=== PATIENT | male | born 1960 | race Caucasian/White ===

== ENCOUNTER 2017-05-22 20:09 | Inpatient (IN) | payer MEDICAID ==
[~2017-05-22] VITALS: Ht 188 cm; Wt 73.5 kg
[2017-05-22 20:09] VITALS: BP_SYST 153
[~2017-05-22 20:09] MED LIST: KETAMINE HCL 500 MG/10 ML VIAL IVP ONE; LR 1,000 ML IV.SOLN IV ONE; MIDAZOLAM HCL 5 MG/5 ML VIAL IVP ONE; NS IRRIG SOLN 1000 ML IR ONE; SEVOFLURANE 15 MIN GAS INH ONE; WATER FOR IRRIGATION,STERILE 1,000 ML IRRIG.SOLN IR ONE; fentaNYL CITRATE/PF 100 MCG/2 ML AMP IVP ONE
[2017-05-22] MEDS ORDERED: NACL 0.9% 1,000 ML IV ONE ×2 (20:30→23:45)
[2017-05-22 21:20] LABS: HEMATOCRIT 25.3 % (36-54); HEMOGLOBIN 8.1 g/dL (14.0-18.0); MEAN CORPUSCULAR HEMOGLOBIN 30 pg (27-31); MEAN CORPUSCULAR HGB CONC 32 % (32-36); MEAN CORPUSCULAR VOLUME 92 fL (79.0-98.0); PLATELET COUNT (AUTO) 479 K/uL (130-430); RED BLOOD CELL COUNT(AUTO) 2.76 MIL/uL (4.2-6.2); RED CELL DISTRIBUTION WIDTH 16.3 % (9.0-15.0); WHITE BLOOD COUNT (AUTO) 19.8 K/uL (4.8-10.8)
[2017-05-22 21:32] LABS: CREATININE 1.36 mg/dL (0.55-1.30); TOTAL BILIRUBIN 0.6 mg/dL (0.0-1.0)
[2017-05-22 21:43] LABS: ALBUMIN 2.5 g/dL (3.4-4.8); CALCIUM 9.5 mg/dL (8.4-11.0)
[2017-05-22 21:47] LABS: POTASSIUM 2.9 mmol/L (3.5-5.1)
[2017-05-22 21:49] LABS: BAND % (MANUAL) 3 % (0-6); BASOPHILS % (MANUAL) 0 % (0-2); EOSINOPHILS % (MANUAL) 8 % (0-7); LYMPHOCYTES % (MANUAL) 15 % (20-46); MONOCYTES % (MANUAL) 12 % (0-11)
[2017-05-22 21:55] LABS: INR 1.1 (0.80-1.20); PROTHROMBIN TIME 11.4 SECS (9.5-12.5)
[2017-05-22] MEDS ORDERED: KCL 40 mEq in 100 mL (PREMIX) 100 ML IV ONE (22:00)
[2017-05-22 22:13] LABS: BILIRUBIN,URINE NEGATIVE (NEGATIVE); BLOOD, URINE 3+ (NEGATIVE); CLARITY/URINE CLEAR (CLEAR); COLOR,URINE YELLOW (YELLOW); GLUCOSE,URINE NEGATIVE (NEGATIVE); KETONES,URINE TRACE (NEGATIVE); LEUKOCYTE ESTERASE ,URINE TRACE (NEGATIVE); NITRITE, URINE NEGATIVE (NEGATIVE); PH,URINE 5.5 (5.0-8.0); PROTEIN URINE 3+ (NEGATIVE); UROBILINOGEN,URINE 0.2 (0.2-1.0)
[2017-05-22] MEDS ORDERED: PIPERACILLIN/TAZO 3.375 GM in NS 50 ML IV ONE (22:15)
[2017-05-22] MEDS ORDERED: PIPERACILLIN/TAZOBACTAM 3.375 GM/VIAL (ZOSYN) IV ONE (22:24)
[2017-05-22] MEDS ORDERED: KCL 40mEq in D5/0.45NS 1000 mL 1,000 ML IV ONE (22:28)
[2017-05-22 22:29] LABS: BACTERIA,URINE RARE /HPF (None Seen); RBC,URINE 20-50 /HPF (0-3); YEAST,URINE Moderate /HPF (None Seen)
[2017-05-22] MEDS ORDERED: ASPI-1063 GT (22:53)
[2017-05-22] MEDS ORDERED: ASCO500T20 GT (22:53)
[2017-05-22] MEDS ORDERED: CEFE2PIG2 IV (22:53)
[2017-05-22] MEDS ORDERED: LABE100T GT (22:53)
[2017-05-22] MEDS ORDERED: LEVO100T9 GT (22:53)
[2017-05-22] MEDS ORDERED: NOR10 GT (22:53)
[2017-05-22] MEDS ORDERED: HEPA500014 SUBCUT (22:53)
[2017-05-22] MEDS ORDERED: DEPAK250 GT (22:53)
[2017-05-22] MEDS ORDERED: ACID1CAP GT (22:53)
[2017-05-23] VITALS (7 sets, daily range): BP systolic 146–168
[2017-05-23] MEDS ORDERED: PANTOPRAZOLE SODIUM 40 MG/VIAL (PROTONIX) IVP ONE (00:15)
[2017-05-23] MEDS ORDERED: INSULIN REGULAR, HUMAN 100 UNITS/ML, 10 ML VIAL (novoLIN R) SUBCUT PRN (00:30)
[2017-05-23] MEDS ORDERED: cefTRIAXone 1 GM in D5W 50 ML IV ONE (01:00)
[2017-05-23] MEDS: LR 1,000 ML IV SCH ×5 (01:20→20:00)
[2017-05-23] MEDS ORDERED: cefTRIAXone 1 GM VIAL ONE (02:02)
[2017-05-23] MEDS: IPRATROPIUM/ALBUTEROL SULFATE 3 ML AMPUL.NEB INH SCH ×6 (03:26→23:54)
[2017-05-23] MEDS: LABETALOL HCL 100 MG TABLET GT SCH ×3 (06:01→17:12)
[2017-05-23] MEDS ORDERED: [UNRECOGNIZED DRUG - OTHER] GT SCH (09:00)
[2017-05-23] MEDS: ASCORBIC ACID 500 MG TABLET GT SCH (09:45)
[2017-05-23] MEDS: VALPROIC ACID ORAL SYRUP 250 MG/5 ML UDC GT SCH ×3 (09:45→21:44)
[2017-05-23] MEDS: LEVOTHYROXINE SODIUM 0.1 MG TABLET GT SCH (09:49)
[2017-05-23] MEDS: amLODIPine BESYLATE 10 MG TABLET GT SCH (09:49)
[2017-05-23] MEDS: PANTOPRAZOLE SODIUM 40 MG/VIAL (PROTONIX) IVP SCH ×2 (09:50→20:38)
[2017-05-23] MEDS: TAMSULOSIN HCL 0.4 MG CAP PO SCH (15:05)
[2017-05-23 15:06] LABS: BASOPHILS # (AUTO) 0.1 K/uL (0.0-0.2); BASOPHILS % (AUTO) 0.5 % (0.0-2.0); EOSINOPHILS # (AUTO) 3.4 K/uL (0.0-0.4); EOSINOPHILS % (AUTO) 16.2 % (0.0-4.0); HEMATOCRIT 23.5 % (36-54); LYMPHOCYTES # (AUTO) 2.5 K/uL (1.0-5.5); LYMPHOCYTES % (AUTO) 12.1 % (20.5-51.5); MEAN CORPUSCULAR HEMOGLOBIN 31 pg (27-31); MEAN CORPUSCULAR HGB CONC 34 % (32-36); MEAN CORPUSCULAR VOLUME 92 fL (79.0-98.0); MONOCYTES # (AUTO) 2.2 K/uL (0.0-1.0); MONOCYTES % (AUTO) 10.5 % (1.7-9.3); NEUTROPHILS # (AUTO) 12.5 K/uL (1.8-7.7); NEUTROPHILS % (AUTO) 60.7 % (40.0-70.0); PLATELET COUNT (AUTO) 399 K/uL (130-430); RED BLOOD CELL COUNT(AUTO) 2.56 MIL/uL (4.2-6.2); RED CELL DISTRIBUTION WIDTH 15.8 % (9.0-15.0); WHITE BLOOD COUNT (AUTO) 20.7 K/uL (4.8-10.8)
[2017-05-23] MEDS ORDERED: TAMSULOSIN HCL 0.4 MG CAP PO ONE (15:15)
[2017-05-23 15:20] LABS: CREATININE 1.22 mg/dL (0.55-1.30)
[2017-05-23 15:38] LABS: POTASSIUM 2.8 mmol/L (3.5-5.1)
[2017-05-23 15:39] LABS: CALCIUM 8.8 mg/dL (8.4-11.0)
[2017-05-23] MEDS: LACTOBACILLUS RHAMNOSUS GG 1 CAP CAPSULE PO SCH (20:36)
[2017-05-23] MEDS ORDERED: POTASSIUM CHLORIDE 20 MEQ/PKT PACKET GT ONE (20:45)
[2017-05-24] MEDS: LABETALOL HCL 100 MG TABLET GT SCH ×4 (00:19→17:45)
[2017-05-24 00:28] VITALS: BP_SYST 159
[2017-05-24] MEDS: LR 1,000 ML IV SCH ×2 (00:56→06:00)
[2017-05-24] MEDS: IPRATROPIUM/ALBUTEROL SULFATE 3 ML AMPUL.NEB INH SCH ×6 (03:01→23:29)
[2017-05-24 04:07] VITALS: BP_SYST 150
[2017-05-24] MEDS: VALPROIC ACID ORAL SYRUP 250 MG/5 ML UDC GT SCH ×3 (05:28→20:47)
[2017-05-24 07:00] LABS: BASOPHILS # (AUTO) 0.1 K/uL (0.0-0.2); BASOPHILS % (AUTO) 0.4 % (0.0-2.0); EOSINOPHILS # (AUTO) 3.6 K/uL (0.0-0.4); EOSINOPHILS % (AUTO) 19.3 % (0.0-4.0); HEMATOCRIT 22.1 % (36-54); HEMOGLOBIN 7.5 g/dL (14.0-18.0); LYMPHOCYTES # (AUTO) 2.3 K/uL (1.0-5.5); LYMPHOCYTES % (AUTO) 12.3 % (20.5-51.5); MEAN CORPUSCULAR HEMOGLOBIN 31 pg (27-31); MEAN CORPUSCULAR HGB CONC 34 % (32-36); MEAN CORPUSCULAR VOLUME 91 fL (79.0-98.0); MONOCYTES # (AUTO) 1.9 K/uL (0.0-1.0); MONOCYTES % (AUTO) 10.3 % (1.7-9.3); NEUTROPHILS # (AUTO) 10.9 K/uL (1.8-7.7); PLATELET COUNT (AUTO) 403 K/uL (130-430); RED BLOOD CELL COUNT(AUTO) 2.43 MIL/uL (4.2-6.2); RED CELL DISTRIBUTION WIDTH 15.9 % (9.0-15.0); WHITE BLOOD COUNT (AUTO) 18.8 K/uL (4.8-10.8)
[2017-05-24 07:24] LABS: TOTAL IRON BIND. CAPACITY 181 ug/dL (250-450)
[2017-05-24 07:34] LABS: ALBUMIN 2.3 g/dL (3.4-4.8); CREATININE 1.16 mg/dL (0.55-1.30); FREE T4 (FREE THYROXINE) 1.1 ng/dL (0.6-1.6); PHOSPHORUS 2.3 mg/dL (2.7-4.5); POTASSIUM 3.1 mmol/L (3.5-5.1); THYROID STIMULATING HORMONE 0.48 uIu/mL (0.34-4.82); TOTAL BILIRUBIN 0.4 mg/dL (0.0-1.0)
[2017-05-24 07:57] VITALS: BP_SYST 154
[2017-05-24 08:02] LABS: NEUTROPHILS % (AUTO) 57.7 % (40.0-70.0)
[2017-05-24 08:22] LABS: CALCIUM 8.8 mg/dL (8.4-11.0)
[2017-05-24] MEDS: PANTOPRAZOLE SODIUM 40 MG/VIAL (PROTONIX) IVP SCH ×2 (09:17→20:47)
[2017-05-24] MEDS: LACTOBACILLUS RHAMNOSUS GG 1 CAP CAPSULE PO SCH ×2 (09:18→20:47)
[2017-05-24] MEDS: ASCORBIC ACID 500 MG TABLET GT SCH (09:18)
[2017-05-24] MEDS: LEVOTHYROXINE SODIUM 0.1 MG TABLET GT SCH (09:18)
[2017-05-24] MEDS: POTASSIUM CHLORIDE 20 MEQ/PKT PACKET GT SCH ×3 (09:18→20:46)
[2017-05-24] MEDS: amLODIPine BESYLATE 10 MG TABLET GT SCH (09:20)
[2017-05-24] MEDS: TAMSULOSIN HCL 0.4 MG CAP PO SCH (09:21)
[2017-05-24] MEDS: ACETAMINOPHEN 650 MG/20.3 ML UDC PO PRN (09:24)
[2017-05-24] MEDS: D5W 1,000 ML IV SCH (11:58)
[2017-05-24 12:37] VITALS: BP_SYST 148
[2017-05-24] MEDS ORDERED: BISACODYL 10 MG/SUPPOSITORY RC ONE (15:30)
[2017-05-24] MEDS ORDERED: BISACODYL 10 MG/SUPPOSITORY RC PRN (15:30)
[2017-05-24 16:05] VITALS: BP_SYST 158
[2017-05-24] MEDS ORDERED: POTASSIUM CHLORIDE 20 MEQ/PKT PACKET PO ONE (16:15)
[2017-05-24] MEDS ORDERED: MAGNESIUM SULFATE 4 GM in D5W 250 ML IV ONE (16:15)
[2017-05-24 20:00] VITALS: BP_SYST 152
[2017-05-24] MEDS: cefTRIAXone 1 GM in D5W 50 ML IV SCH (20:59)
[2017-05-24] MEDS: metroNIDAZOLE 500 mg/NS 100 ML IV SCH (21:41)
[2017-05-25] VITALS (7 sets, daily range): BP systolic 151–162
[2017-05-25] MEDS: IPRATROPIUM/ALBUTEROL SULFATE 3 ML AMPUL.NEB INH SCH ×6 (05:17→23:13)
[2017-05-25] MEDS: metroNIDAZOLE 500 mg/NS 100 ML IV SCH ×3 (05:28→23:02)
[2017-05-25] MEDS: VALPROIC ACID ORAL SYRUP 250 MG/5 ML UDC GT SCH ×3 (05:29→23:02)
[2017-05-25] MEDS: LABETALOL HCL 100 MG TABLET GT SCH ×4 (05:30→17:45)
[2017-05-25] MEDS: D5W 1,000 ML IV SCH (05:31)
[2017-05-25 07:44] LABS: CALCIUM 8.7 mg/dL (8.4-11.0); CREATININE 1.05 mg/dL (0.55-1.30); POTASSIUM 3.4 mmol/L (3.5-5.1)
[2017-05-25 07:48] LABS: HEMATOCRIT 26.2 % (36-54); HEMOGLOBIN 9.1 g/dL (14.0-18.0); MEAN CORPUSCULAR HEMOGLOBIN 32 pg (27-31); MEAN CORPUSCULAR HGB CONC 35 % (32-36); MEAN CORPUSCULAR VOLUME 91 fL (79.0-98.0); PLATELET COUNT (AUTO) 360 K/uL (130-430); RED BLOOD CELL COUNT(AUTO) 2.87 MIL/uL (4.2-6.2); RED CELL DISTRIBUTION WIDTH 16.2 % (9.0-15.0); WHITE BLOOD COUNT (AUTO) 21.8 K/uL (4.8-10.8)
[2017-05-25 08:05] LABS: ALBUMIN 2.2 g/dL (3.4-4.8); THYROID STIMULATING HORMONE 0.82 uIu/mL (0.36-3.74); TOTAL BILIRUBIN 0.4 mg/dL (0.0-1.0)
[2017-05-25 09:04] LABS: BASOPHILS % (MANUAL) 0 % (0-2); EOSINOPHILS % (MANUAL) 22 % (0-7); LYMPHOCYTES % (MANUAL) 10 % (20-46); MONOCYTES % (MANUAL) 9 % (0-11)
[2017-05-25] MEDS: POTASSIUM CHLORIDE 10 MEQ in D5W 1,000 ML IV SCH ×2 (09:15→11:14)
[2017-05-25] MEDS: PANTOPRAZOLE SODIUM 40 MG/VIAL (PROTONIX) IVP SCH ×2 (10:04→20:40)
[2017-05-25] MEDS: POTASSIUM CHLORIDE 20 MEQ/PKT PACKET GT SCH ×3 (10:04→20:40)
[2017-05-25] MEDS: LACTOBACILLUS RHAMNOSUS GG 1 CAP CAPSULE PO SCH ×2 (10:05→20:41)
[2017-05-25] MEDS: amLODIPine BESYLATE 10 MG TABLET GT SCH (10:05)
[2017-05-25] MEDS: LEVOTHYROXINE SODIUM 0.1 MG TABLET GT SCH (10:05)
[2017-05-25] MEDS: TAMSULOSIN HCL 0.4 MG CAP PO SCH (10:05)
[2017-05-25] MEDS: ASCORBIC ACID 500 MG TABLET GT SCH (10:06)
[2017-05-25] MEDS ORDERED: POTASSIUM CHLORIDE 20 MEQ/PKT PACKET PO ONE (11:30)
[2017-05-25] MEDS: cefTRIAXone 1 GM in D5W 50 ML IV SCH (20:40)
[2017-05-26] VITALS (7 sets, daily range): BP systolic 139–175
[2017-05-26] MEDS ORDERED: cloNIDine HCL 0.1 MG TABLET PO PRN (01:00)
[2017-05-26] MEDS ORDERED: CARVEDILOL 12.5 MG TABLET (COREG) PO ONE (01:00)
[2017-05-26] MEDS: LABETALOL HCL 100 MG TABLET GT SCH ×4 (01:50→17:25)
[2017-05-26] MEDS ORDERED: CARVEDILOL 12.5 MG TABLET (COREG) GT ONE (02:00)
[2017-05-26] MEDS: IPRATROPIUM/ALBUTEROL SULFATE 3 ML AMPUL.NEB INH SCH ×6 (02:57→23:37)
[2017-05-26] MEDS: VALPROIC ACID ORAL SYRUP 250 MG/5 ML UDC GT SCH ×3 (05:30→21:53)
[2017-05-26] MEDS: metroNIDAZOLE 500 mg/NS 100 ML IV SCH ×3 (05:30→21:52)
[2017-05-26] MEDS: DEXTROSE 50% JECT 50 ML DISP.SYRIN IVP PRN (06:13)
[2017-05-26 06:28] LABS: BASOPHILS # (AUTO) 0.1 K/uL (0.0-0.2); BASOPHILS % (AUTO) 0.5 % (0.0-2.0); EOSINOPHILS % (AUTO) 20.2 % (0.0-4.0); HEMOGLOBIN 8.9 g/dL (14.0-18.0); LYMPHOCYTES % (AUTO) 7.9 % (20.5-51.5); MEAN CORPUSCULAR HEMOGLOBIN 31 pg (27-31); MEAN CORPUSCULAR HGB CONC 34 % (32-36); MEAN CORPUSCULAR VOLUME 91 fL (79.0-98.0); NEUTROPHILS # (AUTO) 15.8 K/uL (1.8-7.7); PLATELET COUNT (AUTO) 373 K/uL (130-430); RED BLOOD CELL COUNT(AUTO) 2.87 MIL/uL (4.2-6.2); RED CELL DISTRIBUTION WIDTH 16.2 % (9.0-15.0); WHITE BLOOD COUNT (AUTO) 24.9 K/uL (4.8-10.8)
[2017-05-26 06:35] LABS: CREATININE 1.08 mg/dL (0.55-1.30); POTASSIUM 4.4 mmol/L (3.5-5.1)
[2017-05-26] MEDS: POTASSIUM CHLORIDE 10 MEQ in D5W 1,000 ML IV SCH (06:50)
[2017-05-26 08:04] LABS: NEUTROPHILS % (AUTO) 63.4 % (40.0-70.0)
[2017-05-26] MEDS: LEVOTHYROXINE SODIUM 0.1 MG TABLET GT SCH (08:17)
[2017-05-26] MEDS: ASCORBIC ACID 500 MG TABLET GT SCH (08:17)
[2017-05-26] MEDS: TAMSULOSIN HCL 0.4 MG CAP PO SCH (08:17)
[2017-05-26] MEDS: amLODIPine BESYLATE 10 MG TABLET GT SCH (08:17)
[2017-05-26] MEDS: POTASSIUM CHLORIDE 20 MEQ/PKT PACKET GT SCH ×3 (08:17→21:53)
[2017-05-26] MEDS: PANTOPRAZOLE SODIUM 40 MG/VIAL (PROTONIX) IVP SCH ×2 (08:17→21:52)
[2017-05-26] MEDS: LACTOBACILLUS RHAMNOSUS GG 1 CAP CAPSULE PO SCH ×2 (08:17→21:53)
[2017-05-26] MEDS ORDERED: CARVEDILOL 12.5 MG TABLET (COREG) PO SCH (09:00)
[2017-05-26] MEDS ORDERED: CARVEDILOL 12.5 MG TABLET (COREG) GT SCH ×2 (09:00)
[2017-05-26] MEDS ORDERED: NACL 0.9% 1,000 ML IV SCH (09:54)
[2017-05-26] MEDS ORDERED: MEPERIDINE HCL/PF 25 MG/ML DISP.SYRIN IVP PRN ×2 (10:00)
[2017-05-26] MEDS ORDERED: ONDANSETRON HCL 4 MG/2 ML VIAL IVP PRN (10:00)
[2017-05-26] MEDS ORDERED: LABETALOL 100 MG/ 20ML VIAL IVP PRN (12:15)
[2017-05-26] MEDS ORDERED: 0.45% NS 500 ML IV ONE (14:30)
[2017-05-26] MEDS: cloNIDine HCL 0.1 MG TABLET GT PRN (15:22)
[2017-05-26] MEDS ORDERED: NS 1000 ML IV.SOLN IV ONE (16:17)
[2017-05-26] MEDS ORDERED: ONDANSETRON HCL 4 MG/2 ML VIAL IVP ONE (16:17)
[2017-05-26] MEDS ORDERED: SEVOFLURANE 15 MIN GAS INH ONE (16:17)
[2017-05-26] MEDS ORDERED: NS IRRIG SOLN 1000 ML IR ONE (16:17)
[2017-05-26] MEDS ORDERED: ROCURONIUM BROMIDE 10 MG/ML (ZEMURON) IV ONE (16:17)
[2017-05-26] MEDS: ACETAMINOPHEN 650 MG/20.3 ML UDC PO PRN (17:28)
[2017-05-26] MEDS: COLISTIMETHATE SODIUM 150 MG VIAL INH SCH (20:01)
[2017-05-26] MEDS: cefTRIAXone 1 GM in D5W 50 ML IV SCH (21:52)
[2017-05-26] MEDS: CARVEDILOL 12.5 MG TABLET (COREG) GT SCH (21:53)
[2017-05-27 00:30] VITALS: BP_SYST 158
[2017-05-27] MEDS: IPRATROPIUM/ALBUTEROL SULFATE 3 ML AMPUL.NEB INH SCH ×6 (03:55→23:50)
[2017-05-27 05:43] VITALS: BP_SYST 149
[2017-05-27] MEDS: VALPROIC ACID ORAL SYRUP 250 MG/5 ML UDC GT SCH ×3 (06:07→22:22)
[2017-05-27] MEDS: LABETALOL HCL 100 MG TABLET GT SCH ×4 (06:07→16:44)
[2017-05-27] MEDS: metroNIDAZOLE 500 mg/NS 100 ML IV SCH ×3 (06:08→22:22)
[2017-05-27 07:24] LABS: BASOPHILS # (AUTO) 0.5 K/uL (0.0-0.2); BASOPHILS % (AUTO) 1.5 % (0.0-2.0); EOSINOPHILS # (AUTO) 1.2 K/uL (0.0-0.4); EOSINOPHILS % (AUTO) 3.6 % (0.0-4.0); HEMATOCRIT 25.9 % (36-54); LYMPHOCYTES # (AUTO) 2.1 K/uL (1.0-5.5); LYMPHOCYTES % (AUTO) 6.3 % (20.5-51.5); MEAN CORPUSCULAR HEMOGLOBIN 32 pg (27-31); MEAN CORPUSCULAR HGB CONC 35 % (32-36); MEAN CORPUSCULAR VOLUME 91 fL (79.0-98.0); MONOCYTES # (AUTO) 2.9 K/uL (0.0-1.0); MONOCYTES % (AUTO) 8.6 % (1.7-9.3); NEUTROPHILS # (AUTO) 27.1 K/uL (1.8-7.7); PLATELET COUNT (AUTO) 418 K/uL (130-430); RED BLOOD CELL COUNT(AUTO) 2.85 MIL/uL (4.2-6.2); RED CELL DISTRIBUTION WIDTH 16.5 % (9.0-15.0)
[2017-05-27 07:25] LABS: ALBUMIN 2.2 g/dL (3.4-4.8); CALCIUM 8.6 mg/dL (8.4-11.0); CREATININE 1.31 mg/dL (0.55-1.30); POTASSIUM 4.2 mmol/L (3.5-5.1); TOTAL BILIRUBIN 0.3 mg/dL (0.0-1.0)
[2017-05-27 08:01] LABS: WHITE BLOOD COUNT (AUTO) 33.8 K/uL (4.8-10.8)
[2017-05-27] MEDS: TAMSULOSIN HCL 0.4 MG CAP PO SCH (09:43)
[2017-05-27] MEDS: CARVEDILOL 12.5 MG TABLET (COREG) GT SCH ×2 (09:45→20:55)
[2017-05-27] MEDS: POTASSIUM CHLORIDE 20 MEQ/PKT PACKET GT SCH ×3 (09:45→20:55)
[2017-05-27] MEDS: amLODIPine BESYLATE 10 MG TABLET GT SCH (09:46)
[2017-05-27] MEDS: PANTOPRAZOLE SODIUM 40 MG/VIAL (PROTONIX) IVP SCH ×2 (09:46→20:54)
[2017-05-27] MEDS: LEVOTHYROXINE SODIUM 0.1 MG TABLET GT SCH (09:46)
[2017-05-27] MEDS: ASCORBIC ACID 500 MG TABLET GT SCH (09:47)
[2017-05-27] MEDS: LACTOBACILLUS RHAMNOSUS GG 1 CAP CAPSULE PO SCH ×2 (09:47→20:56)
[2017-05-27] MEDS: 0.45% NACL 1,000 ML IV SCH (10:30)
[2017-05-27] MEDS: COLISTIMETHATE SODIUM 150 MG VIAL INH SCH ×2 (11:05→19:52)
[2017-05-27 12:29] VITALS: BP_SYST 151
[2017-05-27] MEDS: ACETAMINOPHEN 650 MG/20.3 ML UDC PO PRN (14:21)
[2017-05-27] MEDS ORDERED: *TOBRAMYCIN PER PHARMACY XX PRN (14:45)
[2017-05-27 16:09] VITALS: BP_SYST 141
[2017-05-27] MEDS ORDERED: TOBRAMYCIN SULFATE IV SCH (17:00)
[2017-05-27] MEDS ORDERED: NS IV SCH (17:00)
[2017-05-27] MEDS: cefTRIAXone 1 GM in D5W 50 ML IV SCH (20:54)
[2017-05-27 23:53] VITALS: BP_SYST 147
[2017-05-28] MEDS: LABETALOL HCL 100 MG TABLET GT SCH ×4 (01:28→17:07)
[2017-05-28 03:31] VITALS: BP_SYST 153
[2017-05-28] MEDS: IPRATROPIUM/ALBUTEROL SULFATE 3 ML AMPUL.NEB INH SCH ×5 (03:37→20:22)
[2017-05-28] MEDS: VALPROIC ACID ORAL SYRUP 250 MG/5 ML UDC GT SCH ×3 (05:45→21:31)
[2017-05-28] MEDS: metroNIDAZOLE 500 mg/NS 100 ML IV SCH ×3 (05:46→21:34)
[2017-05-28] MEDS: 0.45% NACL 1,000 ML IV SCH (05:51)
[2017-05-28 06:49] LABS: CALCIUM 8.5 mg/dL (8.4-11.0); CREATININE 1.25 mg/dL (0.55-1.30); POTASSIUM 4.2 mmol/L (3.5-5.1)
[2017-05-28 06:51] LABS: HEMATOCRIT 24.7 % (36-54); HEMOGLOBIN 8.2 g/dL (14.0-18.0); MEAN CORPUSCULAR HEMOGLOBIN 31 pg (27-31); MEAN CORPUSCULAR HGB CONC 33 % (32-36); MEAN CORPUSCULAR VOLUME 92 fL (79.0-98.0); PLATELET COUNT (AUTO) 395 K/uL (130-430); RED BLOOD CELL COUNT(AUTO) 2.68 MIL/uL (4.2-6.2); RED CELL DISTRIBUTION WIDTH 16.2 % (9.0-15.0)
[2017-05-28 06:56] LABS: TOTAL BILIRUBIN 0.3 mg/dL (0.0-1.0)
[2017-05-28 06:57] LABS: WHITE BLOOD COUNT (AUTO) 36.1 K/uL (4.8-10.8)
[2017-05-28 07:26] LABS: BAND % (MANUAL) 4 % (0-6)
[2017-05-28 07:27] LABS: BASOPHILS % (MANUAL) 0 % (0-2); EOSINOPHILS % (MANUAL) 0 % (0-7); LYMPHOCYTES % (MANUAL) 7 % (20-46); MONOCYTES % (MANUAL) 6 % (0-11)
[2017-05-28 08:06] VITALS: BP_SYST 160
[2017-05-28] MEDS: PANTOPRAZOLE SODIUM 40 MG/VIAL (PROTONIX) IVP SCH ×2 (09:39→20:38)
[2017-05-28] MEDS: ASCORBIC ACID 500 MG TABLET GT SCH (09:39)
[2017-05-28] MEDS: TAMSULOSIN HCL 0.4 MG CAP PO SCH (09:39)
[2017-05-28] MEDS: POTASSIUM CHLORIDE 20 MEQ/PKT PACKET GT SCH ×3 (09:39→20:39)
[2017-05-28] MEDS: LACTOBACILLUS RHAMNOSUS GG 1 CAP CAPSULE PO SCH ×2 (09:39→21:33)
[2017-05-28] MEDS: LEVOTHYROXINE SODIUM 0.1 MG TABLET GT SCH (09:39)
[2017-05-28] MEDS: cloNIDine HCL 0.1 MG TABLET GT PRN ×2 (09:40→17:08)
[2017-05-28] MEDS: CARVEDILOL 12.5 MG TABLET (COREG) GT SCH ×2 (09:40→21:32)
[2017-05-28] MEDS: amLODIPine BESYLATE 10 MG TABLET GT SCH (09:41)
[2017-05-28] MEDS: COLISTIMETHATE SODIUM 150 MG VIAL INH SCH ×2 (10:44→20:24)
[2017-05-28 12:00] VITALS: BP_SYST 161
[2017-05-28] MEDS ORDERED: AMIKACIN SULFATE 500 MG in D5W 100 ML IV ONE (15:00)
[2017-05-28 16:30] VITALS: BP_SYST 167
[2017-05-28] MEDS: ACETAMINOPHEN 650 MG/20.3 ML UDC PO PRN (17:08)
[2017-05-28] MEDS: cefTRIAXone 1 GM in D5W 50 ML IV SCH (20:40)
[2017-05-29] VITALS (7 sets, daily range): BP systolic 112–153
[2017-05-29] MEDS: IPRATROPIUM/ALBUTEROL SULFATE 3 ML AMPUL.NEB INH SCH ×7 (00:06→23:44)
[2017-05-29] MEDS: LABETALOL HCL 100 MG TABLET GT SCH ×4 (01:18→17:35)
[2017-05-29] MEDS: metroNIDAZOLE 500 mg/NS 100 ML IV SCH ×3 (05:13→22:35)
[2017-05-29] MEDS: 0.45% NACL 1,000 ML IV SCH (06:42)
[2017-05-29] MEDS: VALPROIC ACID ORAL SYRUP 250 MG/5 ML UDC GT SCH ×3 (06:42→22:35)
[2017-05-29 06:52] LABS: CALCIUM 8.5 mg/dL (8.4-11.0); CREATININE 1.2 mg/dL (0.55-1.30); POTASSIUM 4.2 mmol/L (3.5-5.1); TOTAL BILIRUBIN 0.4 mg/dL (0.0-1.0)
[2017-05-29 06:59] LABS: BASOPHILS # (AUTO) 0.1 K/uL (0.0-0.2); BASOPHILS % (AUTO) 0.3 % (0.0-2.0); EOSINOPHILS % (AUTO) 2.8 % (0.0-4.0); HEMATOCRIT 25.2 % (36-54); HEMOGLOBIN 8.4 g/dL (14.0-18.0); LYMPHOCYTES # (AUTO) 2.1 K/uL (1.0-5.5); LYMPHOCYTES % (AUTO) 6.2 % (20.5-51.5); MEAN CORPUSCULAR HEMOGLOBIN 31 pg (27-31); MEAN CORPUSCULAR HGB CONC 33 % (32-36); MEAN CORPUSCULAR VOLUME 93 fL (79.0-98.0); MONOCYTES # (AUTO) 2.5 K/uL (0.0-1.0); MONOCYTES % (AUTO) 7.4 % (1.7-9.3); NEUTROPHILS # (AUTO) 28.3 K/uL (1.8-7.7); PLATELET COUNT (AUTO) 402 K/uL (130-430); RED BLOOD CELL COUNT(AUTO) 2.71 MIL/uL (4.2-6.2); RED CELL DISTRIBUTION WIDTH 17.2 % (9.0-15.0)
[2017-05-29] MEDS: DEXTROSE 50% JECT 50 ML DISP.SYRIN IVP PRN (07:34)
[2017-05-29] MEDS: COLISTIMETHATE SODIUM 150 MG VIAL INH SCH ×2 (08:07→20:00)
[2017-05-29 08:51] LABS: NEUTROPHILS % (AUTO) 83.3 % (40.0-70.0)
[2017-05-29] MEDS: POTASSIUM CHLORIDE 20 MEQ/PKT PACKET GT SCH ×3 (09:06→22:34)
[2017-05-29] MEDS: PANTOPRAZOLE SODIUM 40 MG/VIAL (PROTONIX) IVP SCH ×2 (09:06→22:34)
[2017-05-29] MEDS: LACTOBACILLUS RHAMNOSUS GG 1 CAP CAPSULE PO SCH ×2 (09:06→22:33)
[2017-05-29] MEDS: ASCORBIC ACID 500 MG TABLET GT SCH (09:06)
[2017-05-29] MEDS: TAMSULOSIN HCL 0.4 MG CAP PO SCH (09:07)
[2017-05-29] MEDS: amLODIPine BESYLATE 10 MG TABLET GT SCH (09:07)
[2017-05-29] MEDS: CHOLECALCIFEROL (VITAMIN D3) 2,000 UNIT TABLET GT SCH (09:07)
[2017-05-29] MEDS: LEVOTHYROXINE SODIUM 0.1 MG TABLET GT SCH (09:09)
[2017-05-29] MEDS: CARVEDILOL 12.5 MG TABLET (COREG) GT SCH ×2 (09:15→22:34)
[2017-05-29 10:40] LABS: FOLATE (FOLIC ACID) >20.0 ng/mL (>3.0)
[2017-05-29] MEDS: ACETAMINOPHEN 650 MG/20.3 ML UDC PO PRN (11:42)
[2017-05-29] MEDS: D5LR 1,000 ML IV SCH (11:44)
[2017-05-29] MEDS ORDERED: DEXTROSE 50% JECT 50 ML DISP.SYRIN IVP PRN (11:45)
[2017-05-29] MEDS ORDERED: AMIKACIN SULFATE 500 MG in D5W 100 ML IV ONE (18:00)
[2017-05-30 00:23] VITALS: BP_SYST 157
[2017-05-30] MEDS: LABETALOL HCL 100 MG TABLET GT SCH ×5 (00:23→23:40)
[2017-05-30] MEDS: IPRATROPIUM/ALBUTEROL SULFATE 3 ML AMPUL.NEB INH SCH ×6 (03:50→23:12)
[2017-05-30 04:36] VITALS: BP_SYST 150
[2017-05-30] MEDS: metroNIDAZOLE 500 mg/NS 100 ML IV SCH ×3 (05:59→22:00)
[2017-05-30] MEDS: VALPROIC ACID ORAL SYRUP 250 MG/5 ML UDC GT SCH ×3 (06:09→21:59)
[2017-05-30 06:19] LABS: BASOPHILS # (AUTO) 0.1 K/uL (0.0-0.2); BASOPHILS % (AUTO) 0.5 % (0.0-2.0); EOSINOPHILS # (AUTO) 3.9 K/uL (0.0-0.4); EOSINOPHILS % (AUTO) 14.1 % (0.0-4.0); HEMATOCRIT 26.4 % (36-54); HEMOGLOBIN 8.6 g/dL (14.0-18.0); LYMPHOCYTES # (AUTO) 1.5 K/uL (1.0-5.5); LYMPHOCYTES % (AUTO) 5.5 % (20.5-51.5); MEAN CORPUSCULAR HEMOGLOBIN 29 pg (27-31); MEAN CORPUSCULAR HGB CONC 33 % (32-36); MEAN CORPUSCULAR VOLUME 90 fL (79.0-98.0); MONOCYTES % (AUTO) 7.4 % (1.7-9.3); NEUTROPHILS # (AUTO) 20.1 K/uL (1.8-7.7); PLATELET COUNT (AUTO) 493 K/uL (130-430); RED BLOOD CELL COUNT(AUTO) 2.92 MIL/uL (4.2-6.2); WHITE BLOOD COUNT (AUTO) 27.6 K/uL (4.8-10.8)
[2017-05-30 06:37] LABS: ALBUMIN 2.1 g/dL (3.4-4.8); CALCIUM 8.6 mg/dL (8.4-11.0); CREATININE 1.05 mg/dL (0.55-1.30); POTASSIUM 4.1 mmol/L (3.5-5.1); TOTAL BILIRUBIN 0.5 mg/dL (0.0-1.0)
[2017-05-30 07:02] LABS: NEUTROPHILS % (AUTO) 72.5 % (40.0-70.0)
[2017-05-30] MEDS: D5LR 1,000 ML IV SCH ×2 (07:45→12:00)
[2017-05-30 08:00] VITALS: BP_SYST 141
[2017-05-30] MEDS: POTASSIUM CHLORIDE 20 MEQ/PKT PACKET GT SCH ×3 (08:43→21:59)
[2017-05-30] MEDS: LACTOBACILLUS RHAMNOSUS GG 1 CAP CAPSULE PO SCH ×2 (08:43→21:59)
[2017-05-30] MEDS: amLODIPine BESYLATE 10 MG TABLET GT SCH (08:44)
[2017-05-30] MEDS: CHOLECALCIFEROL (VITAMIN D3) 2,000 UNIT TABLET GT SCH (08:44)
[2017-05-30] MEDS: ASCORBIC ACID 500 MG TABLET GT SCH (08:45)
[2017-05-30] MEDS: TAMSULOSIN HCL 0.4 MG CAP PO SCH (08:45)
[2017-05-30] MEDS: LEVOTHYROXINE SODIUM 0.1 MG TABLET GT SCH (08:45)
[2017-05-30] MEDS: CARVEDILOL 12.5 MG TABLET (COREG) GT SCH ×2 (08:46→21:58)
[2017-05-30] MEDS: PANTOPRAZOLE SODIUM 40 MG/VIAL (PROTONIX) IVP SCH ×2 (08:47→21:59)
[2017-05-30] MEDS: COLISTIMETHATE SODIUM 150 MG VIAL INH SCH ×2 (11:19→19:25)
[2017-05-30 12:00] VITALS: BP_SYST 144
[2017-05-30 16:00] VITALS: BP_SYST 148
[2017-05-30] MEDS: AMIKACIN SULFATE 500 MG in D5W 100 ML IV SCH (17:39)
[2017-05-30 20:00] VITALS: BP_SYST 154
[2017-05-31] VITALS (7 sets, daily range): BP systolic 93–153
[2017-05-31] MEDS: ACETAMINOPHEN 650 MG/20.3 ML UDC PO PRN (00:52)
[2017-05-31] MEDS: IPRATROPIUM/ALBUTEROL SULFATE 3 ML AMPUL.NEB INH SCH ×6 (03:21→23:16)
[2017-05-31] MEDS: metroNIDAZOLE 500 mg/NS 100 ML IV SCH ×3 (05:45→22:20)
[2017-05-31] MEDS: LABETALOL HCL 100 MG TABLET GT SCH ×4 (05:46→23:56)
[2017-05-31] MEDS: VALPROIC ACID ORAL SYRUP 250 MG/5 ML UDC GT SCH ×3 (05:46→22:19)
[2017-05-31 06:31] LABS: CALCIUM 8.7 mg/dL (8.4-11.0); CREATININE 1.01 mg/dL (0.55-1.30); POTASSIUM 4.3 mmol/L (3.5-5.1)
[2017-05-31 06:34] LABS: HEMATOCRIT 25.5 % (36-54); HEMOGLOBIN 8.7 g/dL (14.0-18.0); MEAN CORPUSCULAR HEMOGLOBIN 31 pg (27-31); MEAN CORPUSCULAR HGB CONC 34 % (32-36); MEAN CORPUSCULAR VOLUME 91 fL (79.0-98.0); PLATELET COUNT (AUTO) 539 K/uL (130-430); RED BLOOD CELL COUNT(AUTO) 2.79 MIL/uL (4.2-6.2); RED CELL DISTRIBUTION WIDTH 16.7 % (9.0-15.0); WHITE BLOOD COUNT (AUTO) 22.4 K/uL (4.8-10.8)
[2017-05-31] MEDS: COLISTIMETHATE SODIUM 150 MG VIAL INH SCH ×2 (09:12→21:17)
[2017-05-31] MEDS: PANTOPRAZOLE SODIUM 40 MG/VIAL (PROTONIX) IVP SCH ×2 (09:36→22:18)
[2017-05-31] MEDS: ASCORBIC ACID 500 MG TABLET GT SCH (09:36)
[2017-05-31] MEDS: LACTOBACILLUS RHAMNOSUS GG 1 CAP CAPSULE PO SCH ×2 (09:36→22:18)
[2017-05-31] MEDS: POTASSIUM CHLORIDE 20 MEQ/PKT PACKET GT SCH ×3 (09:36→22:17)
[2017-05-31] MEDS: CHOLECALCIFEROL (VITAMIN D3) 2,000 UNIT TABLET GT SCH (09:36)
[2017-05-31] MEDS: LEVOTHYROXINE SODIUM 0.1 MG TABLET GT SCH (09:36)
[2017-05-31] MEDS: TAMSULOSIN HCL 0.4 MG CAP PO SCH (09:36)
[2017-05-31] MEDS: CARVEDILOL 12.5 MG TABLET (COREG) GT SCH ×2 (09:37→23:54)
[2017-05-31] MEDS: amLODIPine BESYLATE 10 MG TABLET GT SCH (09:37)
[2017-05-31 09:59] LABS: BAND % (MANUAL) 4 % (0-6); BASOPHILS % (MANUAL) 0 % (0-2); EOSINOPHILS % (MANUAL) 25 % (0-7); LYMPHOCYTES % (MANUAL) 7 % (20-46); MONOCYTES % (MANUAL) 6 % (0-11)
[2017-05-31] MEDS: AMIKACIN SULFATE 500 MG in D5W 100 ML IV SCH (17:29)
[2017-05-31] MEDS: D5LR 1,000 ML IV SCH (23:45)
[2017-06-01] VITALS (7 sets, daily range): BP systolic 136–154
[2017-06-01] MEDS: IPRATROPIUM/ALBUTEROL SULFATE 3 ML AMPUL.NEB INH SCH ×6 (03:56→23:04)
[2017-06-01] MEDS: VALPROIC ACID ORAL SYRUP 250 MG/5 ML UDC GT SCH ×3 (06:31→21:36)
[2017-06-01] MEDS: metroNIDAZOLE 500 mg/NS 100 ML IV SCH ×3 (06:31→21:37)
[2017-06-01] MEDS: LABETALOL HCL 100 MG TABLET GT SCH ×3 (06:32→18:10)
[2017-06-01 06:33] LABS: HEMATOCRIT 27.4 % (36-54); HEMOGLOBIN 9.1 g/dL (14.0-18.0); MEAN CORPUSCULAR HEMOGLOBIN 30 pg (27-31); MEAN CORPUSCULAR HGB CONC 33 % (32-36); MEAN CORPUSCULAR VOLUME 92 fL (79.0-98.0); PLATELET COUNT (AUTO) 658 K/uL (130-430); RED CELL DISTRIBUTION WIDTH 16.1 % (9.0-15.0); WHITE BLOOD COUNT (AUTO) 22.3 K/uL (4.8-10.8)
[2017-06-01 06:55] LABS: CREATININE 1.06 mg/dL (0.55-1.30); POTASSIUM 4.7 mmol/L (3.5-5.1)
[2017-06-01] MEDS: COLISTIMETHATE SODIUM 150 MG VIAL INH SCH ×2 (07:25→19:51)
[2017-06-01 08:53] LABS: BAND % (MANUAL) 4 % (0-6); BASOPHILS % (MANUAL) 0 % (0-2); EOSINOPHILS % (MANUAL) 21 % (0-7); LYMPHOCYTES % (MANUAL) 9 % (20-46); MONOCYTES % (MANUAL) 10 % (0-11)
[2017-06-01] MEDS: LACTOBACILLUS RHAMNOSUS GG 1 CAP CAPSULE PO SCH ×2 (09:31→21:36)
[2017-06-01] MEDS: LEVOTHYROXINE SODIUM 0.1 MG TABLET GT SCH (09:32)
[2017-06-01] MEDS: POTASSIUM CHLORIDE 20 MEQ/PKT PACKET GT SCH ×3 (09:32→21:36)
[2017-06-01] MEDS: PANTOPRAZOLE SODIUM 40 MG/VIAL (PROTONIX) IVP SCH ×2 (09:32→21:35)
[2017-06-01] MEDS: CHOLECALCIFEROL (VITAMIN D3) 2,000 UNIT TABLET GT SCH (09:32)
[2017-06-01] MEDS: ASCORBIC ACID 500 MG TABLET GT SCH (09:32)
[2017-06-01] MEDS: TAMSULOSIN HCL 0.4 MG CAP PO SCH (09:33)
[2017-06-01] MEDS: CARVEDILOL 12.5 MG TABLET (COREG) GT SCH ×2 (09:33→21:47)
[2017-06-01] MEDS: amLODIPine BESYLATE 10 MG TABLET GT SCH (09:33)
[2017-06-01] MEDS ORDERED: IPRATROPIUM/ALBUTEROL SULFATE 3 ML AMPUL.NEB ONE (11:05)
[2017-06-01] MEDS: ACETAMINOPHEN 650 MG/20.3 ML UDC PO PRN (15:14)
[2017-06-01] MEDS: AMIKACIN SULFATE 500 MG in D5W 100 ML IV SCH (18:10)
[2017-06-01] MEDS: D5LR 1,000 ML IV SCH (21:46)
[2017-06-02] VITALS (7 sets, daily range): BP systolic 95–162
[2017-06-02] MEDS: LABETALOL HCL 100 MG TABLET GT SCH ×4 (00:08→18:40)
[2017-06-02] MEDS: IPRATROPIUM/ALBUTEROL SULFATE 3 ML AMPUL.NEB INH SCH ×5 (02:57→23:18)
[2017-06-02] MEDS: VALPROIC ACID ORAL SYRUP 250 MG/5 ML UDC GT SCH ×3 (05:34→21:08)
[2017-06-02] MEDS: metroNIDAZOLE 500 mg/NS 100 ML IV SCH ×3 (05:36→21:08)
[2017-06-02 06:34] LABS: BASOPHILS # (AUTO) 0.1 K/uL (0.0-0.2); BASOPHILS % (AUTO) 0.6 % (0.0-2.0); EOSINOPHILS # (AUTO) 4.1 K/uL (0.0-0.4); EOSINOPHILS % (AUTO) 16.6 % (0.0-4.0); HEMATOCRIT 26.2 % (36-54); HEMOGLOBIN 8.7 g/dL (14.0-18.0); LYMPHOCYTES # (AUTO) 1.9 K/uL (1.0-5.5); LYMPHOCYTES % (AUTO) 7.8 % (20.5-51.5); MEAN CORPUSCULAR HEMOGLOBIN 30 pg (27-31); MEAN CORPUSCULAR HGB CONC 33 % (32-36); MEAN CORPUSCULAR VOLUME 91 fL (79.0-98.0); MONOCYTES # (AUTO) 1.9 K/uL (0.0-1.0); MONOCYTES % (AUTO) 7.8 % (1.7-9.3); NEUTROPHILS # (AUTO) 16.6 K/uL (1.8-7.7); PLATELET COUNT (AUTO) 705 K/uL (130-430); RED BLOOD CELL COUNT(AUTO) 2.87 MIL/uL (4.2-6.2); RED CELL DISTRIBUTION WIDTH 16.8 % (9.0-15.0); WHITE BLOOD COUNT (AUTO) 24.6 K/uL (4.8-10.8)
[2017-06-02 06:44] LABS: CREATININE 1.1 mg/dL (0.55-1.30); POTASSIUM 4.8 mmol/L (3.5-5.1)
[2017-06-02] MEDS: POTASSIUM CHLORIDE 20 MEQ/PKT PACKET GT SCH ×3 (08:41→21:06)
[2017-06-02] MEDS: PANTOPRAZOLE SODIUM 40 MG/VIAL (PROTONIX) IVP SCH ×2 (08:41→21:06)
[2017-06-02 08:42] LABS: NEUTROPHILS % (AUTO) 67.2 % (40.0-70.0)
[2017-06-02] MEDS: LEVOTHYROXINE SODIUM 0.1 MG TABLET GT SCH (08:46)
[2017-06-02] MEDS: CARVEDILOL 12.5 MG TABLET (COREG) GT SCH ×2 (08:46→21:07)
[2017-06-02] MEDS: amLODIPine BESYLATE 10 MG TABLET GT SCH (08:47)
[2017-06-02] MEDS: TAMSULOSIN HCL 0.4 MG CAP PO SCH (08:47)
[2017-06-02] MEDS: LACTOBACILLUS RHAMNOSUS GG 1 CAP CAPSULE PO SCH ×2 (08:47→21:06)
[2017-06-02] MEDS: ASCORBIC ACID 500 MG TABLET GT SCH (08:47)
[2017-06-02] MEDS: CHOLECALCIFEROL (VITAMIN D3) 2,000 UNIT TABLET GT SCH (08:47)
[2017-06-02] MEDS ORDERED: DIATR MEGLU/DIATRIZ SOD 30 ML SOLUTION PO ONE (13:59)
[2017-06-02] MEDS: D5LR 1,000 ML IV SCH (15:45)
[2017-06-02] MEDS ORDERED: IOHEXOL 100 ML IV ONE (17:35)
[2017-06-02] MEDS: AMIKACIN SULFATE 500 MG in D5W 100 ML IV SCH (18:37)
[2017-06-03] VITALS (7 sets, daily range): BP systolic 136–148
[2017-06-03] MEDS: LABETALOL HCL 100 MG TABLET GT SCH ×4 (00:08→18:00)
[2017-06-03] MEDS: IPRATROPIUM/ALBUTEROL SULFATE 3 ML AMPUL.NEB INH SCH ×6 (03:00→23:11)
[2017-06-03] MEDS: metroNIDAZOLE 500 mg/NS 100 ML IV SCH ×3 (05:41→22:03)
[2017-06-03] MEDS: VALPROIC ACID ORAL SYRUP 250 MG/5 ML UDC GT SCH ×3 (05:42→22:03)
[2017-06-03] MEDS: TAMSULOSIN HCL 0.4 MG CAP PO SCH (08:35)
[2017-06-03] MEDS: POTASSIUM CHLORIDE 20 MEQ/PKT PACKET GT SCH (08:35)
[2017-06-03] MEDS: CARVEDILOL 12.5 MG TABLET (COREG) GT SCH ×2 (08:36→20:11)
[2017-06-03] MEDS: CHOLECALCIFEROL (VITAMIN D3) 2,000 UNIT TABLET GT SCH (08:37)
[2017-06-03] MEDS: PANTOPRAZOLE SODIUM 40 MG/VIAL (PROTONIX) IVP SCH ×2 (08:37→20:11)
[2017-06-03] MEDS: LACTOBACILLUS RHAMNOSUS GG 1 CAP CAPSULE PO SCH ×2 (08:37→20:10)
[2017-06-03] MEDS: amLODIPine BESYLATE 10 MG TABLET GT SCH (08:37)
[2017-06-03] MEDS: ASCORBIC ACID 500 MG TABLET GT SCH (08:38)
[2017-06-03] MEDS: LEVOTHYROXINE SODIUM 0.1 MG TABLET GT SCH (08:59)
[2017-06-03] MEDS ORDERED: LIDOCAINE 2% JELLY UROJECT 10 ML MM ONE (10:51)
[2017-06-03] MEDS ORDERED: LIDOCAINE 1%, 20 ML MDV 80 ML ONE (10:51)
[2017-06-03] MEDS ORDERED: MIDAZOLAM HCL 5 MG/5 ML VIAL ONE (10:53)
[2017-06-03] MEDS: ACETAMINOPHEN 650 MG/20.3 ML UDC PO PRN ×2 (12:29→20:14)
[2017-06-03] MEDS: D5LR 1,000 ML IV SCH (14:08)
[2017-06-03] MEDS: AMIKACIN SULFATE 500 MG in D5W 100 ML IV SCH (18:58)
[2017-06-04] VITALS (7 sets, daily range): BP systolic 90–145
[2017-06-04] MEDS: LABETALOL HCL 100 MG TABLET GT SCH ×5 (00:37→23:09)
[2017-06-04] MEDS: IPRATROPIUM/ALBUTEROL SULFATE 3 ML AMPUL.NEB INH SCH ×6 (03:35→23:25)
[2017-06-04] MEDS: VALPROIC ACID ORAL SYRUP 250 MG/5 ML UDC GT SCH ×3 (05:19→21:21)
[2017-06-04] MEDS: metroNIDAZOLE 500 mg/NS 100 ML IV SCH ×3 (05:19→21:21)
[2017-06-04 06:15] LABS: HEMATOCRIT 26.3 % (36-54); HEMOGLOBIN 8.8 g/dL (14.0-18.0); MEAN CORPUSCULAR HEMOGLOBIN 31 pg (27-31); MEAN CORPUSCULAR HGB CONC 34 % (32-36); MEAN CORPUSCULAR VOLUME 92 fL (79.0-98.0); PLATELET COUNT (AUTO) 738 K/uL (130-430); RED BLOOD CELL COUNT(AUTO) 2.87 MIL/uL (4.2-6.2); RED CELL DISTRIBUTION WIDTH 16.3 % (9.0-15.0); WHITE BLOOD COUNT (AUTO) 21.6 K/uL (4.8-10.8)
[2017-06-04 06:41] LABS: CALCIUM 9.1 mg/dL (8.4-11.0); CREATININE 1.21 mg/dL (0.55-1.30); POTASSIUM 4.2 mmol/L (3.5-5.1)
[2017-06-04] MEDS: D5LR 1,000 ML IV SCH (07:45)
[2017-06-04 08:12] LABS: BAND % (MANUAL) 5 % (0-6); BASOPHILS % (MANUAL) 0 % (0-2); EOSINOPHILS % (MANUAL) 17 % (0-7); LYMPHOCYTES % (MANUAL) 6 % (20-46); MONOCYTES % (MANUAL) 18 % (0-11)
[2017-06-04] MEDS: ASCORBIC ACID 500 MG TABLET GT SCH (10:09)
[2017-06-04] MEDS: TAMSULOSIN HCL 0.4 MG CAP PO SCH (10:09)
[2017-06-04] MEDS: PANTOPRAZOLE SODIUM 40 MG/VIAL (PROTONIX) IVP SCH ×2 (10:09→21:21)
[2017-06-04] MEDS: LACTOBACILLUS RHAMNOSUS GG 1 CAP CAPSULE PO SCH ×2 (10:10→21:21)
[2017-06-04] MEDS: POTASSIUM CHLORIDE 20 MEQ/PKT PACKET GT SCH (10:10)
[2017-06-04] MEDS: amLODIPine BESYLATE 10 MG TABLET GT SCH (10:11)
[2017-06-04] MEDS: LEVOTHYROXINE SODIUM 0.1 MG TABLET GT SCH (10:22)
[2017-06-04] MEDS: CHOLECALCIFEROL (VITAMIN D3) 2,000 UNIT TABLET GT SCH (10:23)
[2017-06-04] MEDS: CARVEDILOL 12.5 MG TABLET (COREG) GT SCH ×2 (10:24→21:22)
[2017-06-04] MEDS: ACETAMINOPHEN 650 MG/20.3 ML UDC PO PRN (10:25)
[2017-06-04] MEDS: AMIKACIN SULFATE 500 MG in D5W 100 ML IV SCH (17:18)
[2017-06-05] VITALS (7 sets, daily range): BP systolic 127–152
[2017-06-05] MEDS: D5LR 1,000 ML IV SCH ×2 (03:10→13:07)
[2017-06-05] MEDS: IPRATROPIUM/ALBUTEROL SULFATE 3 ML AMPUL.NEB INH SCH ×6 (03:25→23:45)
[2017-06-05] MEDS: metroNIDAZOLE 500 mg/NS 100 ML IV SCH ×3 (05:38→21:45)
[2017-06-05] MEDS: VALPROIC ACID ORAL SYRUP 250 MG/5 ML UDC GT SCH ×3 (05:38→21:45)
[2017-06-05] MEDS: ACETAMINOPHEN 650 MG/20.3 ML UDC PO PRN ×2 (05:39→23:42)
[2017-06-05] MEDS: LABETALOL HCL 100 MG TABLET GT SCH ×4 (05:39→23:43)
[2017-06-05 06:23] LABS: HEMATOCRIT 25.4 % (36-54); HEMOGLOBIN 8.4 g/dL (14.0-18.0); MEAN CORPUSCULAR HEMOGLOBIN 30 pg (27-31); MEAN CORPUSCULAR HGB CONC 33 % (32-36); MEAN CORPUSCULAR VOLUME 92 fL (79.0-98.0); RED BLOOD CELL COUNT(AUTO) 2.77 MIL/uL (4.2-6.2); RED CELL DISTRIBUTION WIDTH 16.4 % (9.0-15.0)
[2017-06-05 06:34] LABS: CREATININE 1.4 mg/dL (0.55-1.30); POTASSIUM 4.2 mmol/L (3.5-5.1)
[2017-06-05 06:48] LABS: PLATELET COUNT (AUTO) 812 K/uL (130-430)
[2017-06-05 07:32] LABS: BAND % (MANUAL) 8 % (0-6); BASOPHILS % (MANUAL) 0 % (0-2); EOSINOPHILS % (MANUAL) 14 % (0-7); LYMPHOCYTES % (MANUAL) 16 % (20-46); MONOCYTES % (MANUAL) 4 % (0-11)
[2017-06-05] MEDS: LACTOBACILLUS RHAMNOSUS GG 1 CAP CAPSULE PO SCH ×2 (09:23→20:29)
[2017-06-05] MEDS: PANTOPRAZOLE SODIUM 40 MG/VIAL (PROTONIX) IVP SCH ×2 (09:23→20:29)
[2017-06-05] MEDS: ASCORBIC ACID 500 MG TABLET GT SCH (09:24)
[2017-06-05] MEDS: LEVOTHYROXINE SODIUM 0.1 MG TABLET GT SCH (09:24)
[2017-06-05] MEDS: POTASSIUM CHLORIDE 20 MEQ/PKT PACKET GT SCH (09:24)
[2017-06-05] MEDS: CHOLECALCIFEROL (VITAMIN D3) 2,000 UNIT TABLET GT SCH (09:24)
[2017-06-05] MEDS: CARVEDILOL 12.5 MG TABLET (COREG) GT SCH ×2 (09:24→20:28)
[2017-06-05] MEDS: TAMSULOSIN HCL 0.4 MG CAP PO SCH (09:25)
[2017-06-05] MEDS: amLODIPine BESYLATE 10 MG TABLET GT SCH (09:25)
[2017-06-05] MEDS: AMIKACIN SULFATE 500 MG in D5W 100 ML IV SCH (18:22)
[2017-06-06] MEDS: D5LR 1,000 ML IV SCH ×3 (02:27→22:13)
[2017-06-06] MEDS: IPRATROPIUM/ALBUTEROL SULFATE 3 ML AMPUL.NEB INH SCH ×6 (03:01→23:25)
[2017-06-06 04:43] VITALS: BP_SYST 153
[2017-06-06] MEDS: metroNIDAZOLE 500 mg/NS 100 ML IV SCH ×3 (05:39→22:04)
[2017-06-06 05:43] LABS: BASOPHILS # (AUTO) 0.2 K/uL (0.0-0.2); BASOPHILS % (AUTO) 0.9 % (0.0-2.0); EOSINOPHILS # (AUTO) 2.2 K/uL (0.0-0.4); EOSINOPHILS % (AUTO) 9.4 % (0.0-4.0); HEMATOCRIT 24.8 % (36-54); HEMOGLOBIN 8.4 g/dL (14.0-18.0); LYMPHOCYTES # (AUTO) 2.2 K/uL (1.0-5.5); LYMPHOCYTES % (AUTO) 9.1 % (20.5-51.5); MEAN CORPUSCULAR HEMOGLOBIN 31 pg (27-31); MEAN CORPUSCULAR HGB CONC 34 % (32-36); MEAN CORPUSCULAR VOLUME 91 fL (79.0-98.0); MONOCYTES # (AUTO) 2.9 K/uL (0.0-1.0); MONOCYTES % (AUTO) 12.2 % (1.7-9.3); NEUTROPHILS # (AUTO) 16.2 K/uL (1.8-7.7); PLATELET COUNT (AUTO) 664 K/uL (130-430); RED BLOOD CELL COUNT(AUTO) 2.72 MIL/uL (4.2-6.2); RED CELL DISTRIBUTION WIDTH 16.3 % (9.0-15.0); WHITE BLOOD COUNT (AUTO) 23.7 K/uL (4.8-10.8)
[2017-06-06] MEDS: VALPROIC ACID ORAL SYRUP 250 MG/5 ML UDC GT SCH ×3 (05:44→22:04)
[2017-06-06] MEDS: LABETALOL HCL 100 MG TABLET GT SCH ×3 (05:46→17:46)
[2017-06-06 05:51] LABS: CREATININE 1.32 mg/dL (0.55-1.30)
[2017-06-06 07:28] LABS: NEUTROPHILS % (AUTO) 68.4 % (40.0-70.0)
[2017-06-06 08:00] VITALS: BP_SYST 147
[2017-06-06] MEDS: LACTOBACILLUS RHAMNOSUS GG 1 CAP CAPSULE PO SCH ×2 (08:53→22:03)
[2017-06-06] MEDS: CHOLECALCIFEROL (VITAMIN D3) 2,000 UNIT TABLET GT SCH (08:53)
[2017-06-06] MEDS: POTASSIUM CHLORIDE 20 MEQ/PKT PACKET GT SCH (08:53)
[2017-06-06] MEDS: ASCORBIC ACID 500 MG TABLET GT SCH (08:53)
[2017-06-06] MEDS: LEVOTHYROXINE SODIUM 0.1 MG TABLET GT SCH (08:53)
[2017-06-06] MEDS: amLODIPine BESYLATE 10 MG TABLET GT SCH (08:54)
[2017-06-06] MEDS: PANTOPRAZOLE SODIUM 40 MG/VIAL (PROTONIX) IVP SCH ×2 (08:54→22:03)
[2017-06-06] MEDS: CARVEDILOL 12.5 MG TABLET (COREG) GT SCH ×2 (08:55→22:03)
[2017-06-06] MEDS: TAMSULOSIN HCL 0.4 MG CAP PO SCH (08:55)
[2017-06-06] MEDS: ACETAMINOPHEN 650 MG/20.3 ML UDC PO PRN (10:55)
[2017-06-06 12:42] VITALS: BP_SYST 138
[2017-06-06 16:10] VITALS: BP_SYST 139
[2017-06-06] MEDS: AMIKACIN SULFATE 500 MG in D5W 100 ML IV SCH (17:48)
[2017-06-06 20:00] VITALS: BP_SYST 139
[2017-06-07] VITALS (7 sets, daily range): BP systolic 139–156
[2017-06-07] MEDS: LABETALOL HCL 100 MG TABLET GT SCH ×4 (00:03→18:05)
[2017-06-07] MEDS: IPRATROPIUM/ALBUTEROL SULFATE 3 ML AMPUL.NEB INH SCH ×6 (03:36→22:54)
[2017-06-07] MEDS: D5LR 1,000 ML IV SCH ×2 (05:01→11:38)
[2017-06-07] MEDS: VALPROIC ACID ORAL SYRUP 250 MG/5 ML UDC GT SCH ×3 (05:49→21:02)
[2017-06-07] MEDS: metroNIDAZOLE 500 mg/NS 100 ML IV SCH ×3 (05:51→21:04)
[2017-06-07 06:14] LABS: HEMATOCRIT 24.1 % (36-54); HEMOGLOBIN 8.1 g/dL (14.0-18.0); MEAN CORPUSCULAR HEMOGLOBIN 31 pg (27-31); MEAN CORPUSCULAR HGB CONC 34 % (32-36); MEAN CORPUSCULAR VOLUME 92 fL (79.0-98.0); PLATELET COUNT (AUTO) 689 K/uL (130-430); RED BLOOD CELL COUNT(AUTO) 2.61 MIL/uL (4.2-6.2); RED CELL DISTRIBUTION WIDTH 16.9 % (9.0-15.0); WHITE BLOOD COUNT (AUTO) 23.4 K/uL (4.8-10.8)
[2017-06-07 06:56] LABS: ALBUMIN 2.2 g/dL (3.4-4.8); CREATININE 1.24 mg/dL (0.55-1.30); POTASSIUM 3.8 mmol/L (3.5-5.1); TOTAL BILIRUBIN 0.3 mg/dL (0.0-1.0)
[2017-06-07 07:20] LABS: ATYPICAL LYMPHOCYTES % 1 % (0-0); BASOPHILS % (MANUAL) 0 % (0-2); EOSINOPHILS % (MANUAL) 7 % (0-7); LYMPHOCYTES % (MANUAL) 9 % (20-46); MONOCYTES % (MANUAL) 5 % (0-11)
[2017-06-07] MEDS: TAMSULOSIN HCL 0.4 MG CAP PO SCH (10:18)
[2017-06-07] MEDS: CARVEDILOL 12.5 MG TABLET (COREG) GT SCH ×2 (10:18→21:04)
[2017-06-07] MEDS: CHOLECALCIFEROL (VITAMIN D3) 2,000 UNIT TABLET GT SCH (10:18)
[2017-06-07] MEDS: ASCORBIC ACID 500 MG TABLET GT SCH (10:19)
[2017-06-07] MEDS: amLODIPine BESYLATE 10 MG TABLET GT SCH (10:19)
[2017-06-07] MEDS: PANTOPRAZOLE SODIUM 40 MG/VIAL (PROTONIX) IVP SCH ×2 (10:19→21:03)
[2017-06-07] MEDS: POTASSIUM CHLORIDE 20 MEQ/PKT PACKET GT SCH (10:19)
[2017-06-07] MEDS: LACTOBACILLUS RHAMNOSUS GG 1 CAP CAPSULE PO SCH ×2 (10:19→21:03)
[2017-06-07] MEDS: LEVOTHYROXINE SODIUM 0.1 MG TABLET GT SCH (10:19)
[2017-06-07] MEDS: AMIKACIN SULFATE 500 MG in D5W 100 ML IV SCH (18:05)
[2017-06-08 00:28] VITALS: BP_SYST 151
[2017-06-08] MEDS: LABETALOL HCL 100 MG TABLET GT SCH ×4 (00:29→17:03)
[2017-06-08] MEDS: IPRATROPIUM/ALBUTEROL SULFATE 3 ML AMPUL.NEB INH SCH ×5 (04:21→23:05)
[2017-06-08 05:37] VITALS: BP_SYST 144
[2017-06-08] MEDS: metroNIDAZOLE 500 mg/NS 100 ML IV SCH (06:03)
[2017-06-08] MEDS: VALPROIC ACID ORAL SYRUP 250 MG/5 ML UDC GT SCH ×3 (06:03→21:29)
[2017-06-08 06:25] LABS: BASOPHILS # (AUTO) 0.1 K/uL (0.0-0.2); BASOPHILS % (AUTO) 0.4 % (0.0-2.0); EOSINOPHILS # (AUTO) 2.4 K/uL (0.0-0.4); EOSINOPHILS % (AUTO) 9.1 % (0.0-4.0); HEMATOCRIT 22.5 % (36-54); HEMOGLOBIN 7.5 g/dL (14.0-18.0); LYMPHOCYTES # (AUTO) 1.8 K/uL (1.0-5.5); LYMPHOCYTES % (AUTO) 6.7 % (20.5-51.5); MEAN CORPUSCULAR HEMOGLOBIN 31 pg (27-31); MEAN CORPUSCULAR HGB CONC 33 % (32-36); MEAN CORPUSCULAR VOLUME 92 fL (79.0-98.0); MONOCYTES # (AUTO) 2.3 K/uL (0.0-1.0); MONOCYTES % (AUTO) 8.6 % (1.7-9.3); NEUTROPHILS # (AUTO) 19.9 K/uL (1.8-7.7); NEUTROPHILS % (AUTO) 75.2 % (40.0-70.0); PLATELET COUNT (AUTO) 711 K/uL (130-430); RED BLOOD CELL COUNT(AUTO) 2.45 MIL/uL (4.2-6.2); RED CELL DISTRIBUTION WIDTH 16.1 % (9.0-15.0); WHITE BLOOD COUNT (AUTO) 26.5 K/uL (4.8-10.8)
[2017-06-08 06:38] LABS: CREATININE 1.2 mg/dL (0.55-1.30); POTASSIUM 3.9 mmol/L (3.5-5.1)
[2017-06-08 08:00] VITALS: BP_SYST 148
[2017-06-08] MEDS: POTASSIUM CHLORIDE 20 MEQ/PKT PACKET GT SCH (08:39)
[2017-06-08] MEDS: PANTOPRAZOLE SODIUM 40 MG/VIAL (PROTONIX) IVP SCH ×2 (08:39→20:42)
[2017-06-08] MEDS: CARVEDILOL 12.5 MG TABLET (COREG) GT SCH ×2 (08:40→20:44)
[2017-06-08] MEDS: TAMSULOSIN HCL 0.4 MG CAP PO SCH (08:40)
[2017-06-08] MEDS: LACTOBACILLUS RHAMNOSUS GG 1 CAP CAPSULE PO SCH ×2 (08:40→20:44)
[2017-06-08] MEDS: LEVOTHYROXINE SODIUM 0.1 MG TABLET GT SCH (08:41)
[2017-06-08] MEDS: CHOLECALCIFEROL (VITAMIN D3) 2,000 UNIT TABLET GT SCH (08:41)
[2017-06-08] MEDS: amLODIPine BESYLATE 10 MG TABLET GT SCH (08:41)
[2017-06-08] MEDS: ASCORBIC ACID 500 MG TABLET GT SCH (08:41)
[2017-06-08] MEDS: D5LR 1,000 ML IV SCH (09:08)
[2017-06-08 12:31] VITALS: BP_SYST 129
[2017-06-08] MEDS: PIPERACILLIN/TAZO 4.5GM/DEX-IS 100 ML IV SCH ×2 (16:01→21:29)
[2017-06-08 16:35] VITALS: BP_SYST 121
[2017-06-08] MEDS: AMIKACIN SULFATE 500 MG in D5W 100 ML IV SCH (17:02)
[2017-06-08 20:15] VITALS: BP_SYST 154
[2017-06-09] VITALS (7 sets, daily range): BP systolic 123–148
[2017-06-09] MEDS: LABETALOL HCL 100 MG TABLET GT SCH ×4 (00:48→17:26)
[2017-06-09] MEDS: IPRATROPIUM/ALBUTEROL SULFATE 3 ML AMPUL.NEB INH SCH ×6 (03:56→22:54)
[2017-06-09] MEDS: VALPROIC ACID ORAL SYRUP 250 MG/5 ML UDC GT SCH ×3 (06:10→21:23)
[2017-06-09] MEDS: PIPERACILLIN/TAZO 4.5GM/DEX-IS 100 ML IV SCH ×3 (06:10→21:23)
[2017-06-09 06:26] LABS: BASOPHILS # (AUTO) 0.1 K/uL (0.0-0.2); BASOPHILS % (AUTO) 0.3 % (0.0-2.0); EOSINOPHILS # (AUTO) 2.3 K/uL (0.0-0.4); EOSINOPHILS % (AUTO) 9.1 % (0.0-4.0); HEMATOCRIT 26.9 % (36-54); HEMOGLOBIN 9.2 g/dL (14.0-18.0); LYMPHOCYTES # (AUTO) 1.9 K/uL (1.0-5.5); LYMPHOCYTES % (AUTO) 7.3 % (20.5-51.5); MEAN CORPUSCULAR HEMOGLOBIN 31 pg (27-31); MEAN CORPUSCULAR HGB CONC 34 % (32-36); MEAN CORPUSCULAR VOLUME 91 fL (79.0-98.0); MONOCYTES # (AUTO) 2.2 K/uL (0.0-1.0); MONOCYTES % (AUTO) 8.4 % (1.7-9.3); NEUTROPHILS # (AUTO) 19.3 K/uL (1.8-7.7); NEUTROPHILS % (AUTO) 74.9 % (40.0-70.0); PLATELET COUNT (AUTO) 564 K/uL (130-430); RED BLOOD CELL COUNT(AUTO) 2.95 MIL/uL (4.2-6.2); RED CELL DISTRIBUTION WIDTH 16.5 % (9.0-15.0); WHITE BLOOD COUNT (AUTO) 25.8 K/uL (4.8-10.8)
[2017-06-09 06:37] LABS: CREATININE 1.32 mg/dL (0.55-1.30); POTASSIUM 3.9 mmol/L (3.5-5.1)
[2017-06-09] MEDS: CHOLECALCIFEROL (VITAMIN D3) 2,000 UNIT TABLET GT SCH (09:00)
[2017-06-09] MEDS: CARVEDILOL 12.5 MG TABLET (COREG) GT SCH ×2 (09:29→21:02)
[2017-06-09] MEDS: LEVOTHYROXINE SODIUM 0.1 MG TABLET GT SCH (09:29)
[2017-06-09] MEDS: PANTOPRAZOLE SODIUM 40 MG/VIAL (PROTONIX) IVP SCH ×2 (09:29→20:59)
[2017-06-09] MEDS: ASCORBIC ACID 500 MG TABLET GT SCH (09:30)
[2017-06-09] MEDS: TAMSULOSIN HCL 0.4 MG CAP PO SCH (09:30)
[2017-06-09] MEDS: LACTOBACILLUS RHAMNOSUS GG 1 CAP CAPSULE PO SCH ×2 (09:30→20:59)
[2017-06-09] MEDS: amLODIPine BESYLATE 10 MG TABLET GT SCH (09:30)
[2017-06-09] MEDS: POTASSIUM CHLORIDE 20 MEQ/PKT PACKET GT SCH (09:30)
[2017-06-09] MEDS: D5LR 1,000 ML IV SCH (15:33)
[2017-06-09] MEDS: AMIKACIN SULFATE 500 MG in D5W 100 ML IV SCH (17:25)
[2017-06-10] VITALS (7 sets, daily range): BP systolic 134–149
[2017-06-10] MEDS: LABETALOL HCL 100 MG TABLET GT SCH ×4 (00:50→17:39)
[2017-06-10] MEDS: IPRATROPIUM/ALBUTEROL SULFATE 3 ML AMPUL.NEB INH SCH ×6 (03:36→22:59)
[2017-06-10] MEDS: VALPROIC ACID ORAL SYRUP 250 MG/5 ML UDC GT SCH ×3 (06:18→21:22)
[2017-06-10] MEDS: PIPERACILLIN/TAZO 4.5GM/DEX-IS 100 ML IV SCH ×3 (06:19→21:37)
[2017-06-10 07:23] LABS: BASOPHILS # (AUTO) 0.1 K/uL (0.0-0.2); BASOPHILS % (AUTO) 0.2 % (0.0-2.0); EOSINOPHILS # (AUTO) 2.8 K/uL (0.0-0.4); EOSINOPHILS % (AUTO) 10.5 % (0.0-4.0); HEMATOCRIT 27.6 % (36-54); HEMOGLOBIN 9.3 g/dL (14.0-18.0); LYMPHOCYTES % (AUTO) 7.7 % (20.5-51.5); MEAN CORPUSCULAR HEMOGLOBIN 31 pg (27-31); MEAN CORPUSCULAR HGB CONC 34 % (32-36); MEAN CORPUSCULAR VOLUME 91 fL (79.0-98.0); MONOCYTES # (AUTO) 2.1 K/uL (0.0-1.0); MONOCYTES % (AUTO) 8.1 % (1.7-9.3); NEUTROPHILS # (AUTO) 19.5 K/uL (1.8-7.7); NEUTROPHILS % (AUTO) 73.5 % (40.0-70.0); PLATELET COUNT (AUTO) 571 K/uL (130-430); RED BLOOD CELL COUNT(AUTO) 3.03 MIL/uL (4.2-6.2); RED CELL DISTRIBUTION WIDTH 16.3 % (9.0-15.0); WHITE BLOOD COUNT (AUTO) 26.5 K/uL (4.8-10.8)
[2017-06-10 07:42] LABS: CALCIUM 9.2 mg/dL (8.4-11.0); CREATININE 1.38 mg/dL (0.55-1.30); POTASSIUM 3.9 mmol/L (3.5-5.1)
[2017-06-10 07:51] LABS: ALBUMIN 2.2 g/dL (3.4-4.8); TOTAL BILIRUBIN 0.5 mg/dL (0.0-1.0)
[2017-06-10] MEDS: CHOLECALCIFEROL (VITAMIN D3) 2,000 UNIT TABLET GT SCH (08:55)
[2017-06-10] MEDS: LACTOBACILLUS RHAMNOSUS GG 1 CAP CAPSULE PO SCH ×2 (08:55→21:23)
[2017-06-10] MEDS: TAMSULOSIN HCL 0.4 MG CAP PO SCH (08:55)
[2017-06-10] MEDS: POTASSIUM CHLORIDE 20 MEQ/PKT PACKET GT SCH (08:55)
[2017-06-10] MEDS: PANTOPRAZOLE SODIUM 40 MG/VIAL (PROTONIX) IVP SCH ×3 (08:55→21:23)
[2017-06-10] MEDS: LEVOTHYROXINE SODIUM 0.1 MG TABLET GT SCH (08:56)
[2017-06-10] MEDS: ASCORBIC ACID 500 MG TABLET GT SCH (08:56)
[2017-06-10] MEDS: amLODIPine BESYLATE 10 MG TABLET GT SCH (08:56)
[2017-06-10] MEDS: CARVEDILOL 12.5 MG TABLET (COREG) GT SCH ×2 (11:17→21:24)
[2017-06-10] MEDS: D5LR 1,000 ML IV SCH (16:17)
[2017-06-10] MEDS: AMIKACIN SULFATE 500 MG in D5W 100 ML IV SCH (17:38)
[2017-06-11] MEDS: LABETALOL HCL 100 MG TABLET GT SCH ×5 (00:06→23:44)
[2017-06-11] MEDS: D5LR 1,000 ML IV SCH (00:07)
[2017-06-11] MEDS: IPRATROPIUM/ALBUTEROL SULFATE 3 ML AMPUL.NEB INH SCH ×6 (03:44→23:18)
[2017-06-11 03:48] VITALS: BP_SYST 142
[2017-06-11] MEDS: VALPROIC ACID ORAL SYRUP 250 MG/5 ML UDC GT SCH ×3 (05:04→22:50)
[2017-06-11] MEDS: PIPERACILLIN/TAZO 4.5GM/DEX-IS 100 ML IV SCH ×3 (05:05→22:50)
[2017-06-11 07:03] LABS: HEMATOCRIT 25.6 % (36-54); HEMOGLOBIN 8.6 g/dL (14.0-18.0); MEAN CORPUSCULAR HEMOGLOBIN 31 pg (27-31); MEAN CORPUSCULAR HGB CONC 34 % (32-36); MEAN CORPUSCULAR VOLUME 91 fL (79.0-98.0); PLATELET COUNT (AUTO) 554 K/uL (130-430); RED BLOOD CELL COUNT(AUTO) 2.81 MIL/uL (4.2-6.2); RED CELL DISTRIBUTION WIDTH 16.4 % (9.0-15.0); WHITE BLOOD COUNT (AUTO) 28.1 K/uL (4.8-10.8)
[2017-06-11 07:39] LABS: BAND % (MANUAL) 3 % (0-6); BASOPHILS % (MANUAL) 0 % (0-2); CALCIUM 9.2 mg/dL (8.4-11.0); CREATININE 1.4 mg/dL (0.55-1.30); EOSINOPHILS % (MANUAL) 11 % (0-7); LYMPHOCYTES % (MANUAL) 11 % (20-46); MONOCYTES % (MANUAL) 7 % (0-11); POTASSIUM 3.7 mmol/L (3.5-5.1)
[2017-06-11 08:00] VITALS: BP_SYST 134
[2017-06-11] MEDS: CHOLECALCIFEROL (VITAMIN D3) 2,000 UNIT TABLET GT SCH (09:11)
[2017-06-11] MEDS: POTASSIUM CHLORIDE 20 MEQ/PKT PACKET GT SCH (09:11)
[2017-06-11] MEDS: PANTOPRAZOLE SODIUM 40 MG/VIAL (PROTONIX) IVP SCH ×2 (09:11→21:47)
[2017-06-11] MEDS: LEVOTHYROXINE SODIUM 0.1 MG TABLET GT SCH (09:11)
[2017-06-11] MEDS: TAMSULOSIN HCL 0.4 MG CAP PO SCH (09:11)
[2017-06-11] MEDS: ASCORBIC ACID 500 MG TABLET GT SCH (09:11)
[2017-06-11] MEDS: LACTOBACILLUS RHAMNOSUS GG 1 CAP CAPSULE PO SCH ×2 (09:11→21:21)
[2017-06-11] MEDS: CARVEDILOL 12.5 MG TABLET (COREG) GT SCH ×2 (09:17→21:21)
[2017-06-11] MEDS: amLODIPine BESYLATE 10 MG TABLET GT SCH (09:18)
[2017-06-11] MEDS: INSULIN REGULAR, HUMAN 100 UNITS/ML, 10 ML VIAL (novoLIN R) SUBCUT PRN ×2 (11:23→18:00)
[2017-06-11 12:30] VITALS: BP_SYST 134
[2017-06-11 16:44] VITALS: BP_SYST 147
[2017-06-11] MEDS: AMIKACIN SULFATE 500 MG in D5W 100 ML IV SCH (17:20)
[2017-06-11 20:00] VITALS: BP_SYST 138
[2017-06-12] VITALS (7 sets, daily range): BP systolic 136–153
[2017-06-12] MEDS: IPRATROPIUM/ALBUTEROL SULFATE 3 ML AMPUL.NEB INH SCH ×6 (03:32→23:21)
[2017-06-12] MEDS: PIPERACILLIN/TAZO 4.5GM/DEX-IS 100 ML IV SCH ×2 (05:10→14:12)
[2017-06-12] MEDS: LABETALOL HCL 100 MG TABLET GT SCH ×4 (05:12→23:39)
[2017-06-12] MEDS: VALPROIC ACID ORAL SYRUP 250 MG/5 ML UDC GT SCH ×3 (05:13→21:30)
[2017-06-12] MEDS: D5LR 1,000 ML IV SCH (05:28)
[2017-06-12 06:33] LABS: HEMATOCRIT 26.2 % (36-54); HEMOGLOBIN 9.1 g/dL (14.0-18.0); MEAN CORPUSCULAR HEMOGLOBIN 32 pg (27-31); MEAN CORPUSCULAR HGB CONC 35 % (32-36); MEAN CORPUSCULAR VOLUME 92 fL (79.0-98.0); PLATELET COUNT (AUTO) 558 K/uL (130-430); RED BLOOD CELL COUNT(AUTO) 2.86 MIL/uL (4.2-6.2); RED CELL DISTRIBUTION WIDTH 16.3 % (9.0-15.0); WHITE BLOOD COUNT (AUTO) 24.8 K/uL (4.8-10.8)
[2017-06-12 06:46] LABS: CALCIUM 9.3 mg/dL (8.4-11.0); CREATININE 1.45 mg/dL (0.55-1.30)
[2017-06-12 08:41] LABS: BASOPHILS % (MANUAL) 0 % (0-2); EOSINOPHILS % (MANUAL) 10 % (0-7); LYMPHOCYTES % (MANUAL) 9 % (20-46); MONOCYTES % (MANUAL) 5 % (0-11)
[2017-06-12] MEDS: ASCORBIC ACID 500 MG TABLET GT SCH (10:42)
[2017-06-12] MEDS: PANTOPRAZOLE SODIUM 40 MG/VIAL (PROTONIX) IVP SCH ×2 (10:42→21:31)
[2017-06-12] MEDS: LACTOBACILLUS RHAMNOSUS GG 1 CAP CAPSULE PO SCH ×2 (10:42→21:30)
[2017-06-12] MEDS: CHOLECALCIFEROL (VITAMIN D3) 2,000 UNIT TABLET GT SCH (10:42)
[2017-06-12] MEDS: POTASSIUM CHLORIDE 20 MEQ/PKT PACKET GT SCH (10:42)
[2017-06-12] MEDS: amLODIPine BESYLATE 10 MG TABLET GT SCH (10:44)
[2017-06-12] MEDS: TAMSULOSIN HCL 0.4 MG CAP PO SCH (10:45)
[2017-06-12] MEDS: CARVEDILOL 12.5 MG TABLET (COREG) GT SCH ×2 (10:46→21:31)
[2017-06-12] MEDS: LEVOTHYROXINE SODIUM 0.1 MG TABLET GT SCH (11:07)
[2017-06-12] MEDS: AMIKACIN SULFATE 500 MG in D5W 100 ML IV SCH (17:43)
[2017-06-12] MEDS: INSULIN REGULAR, HUMAN 100 UNITS/ML, 10 ML VIAL (novoLIN R) SUBCUT PRN (21:55)
[2017-06-13] VITALS (8 sets, daily range): BP systolic 129–149
[2017-06-13] MEDS: D5LR 1,000 ML IV SCH (02:38)
[2017-06-13] MEDS: IPRATROPIUM/ALBUTEROL SULFATE 3 ML AMPUL.NEB INH SCH ×6 (03:56→23:22)
[2017-06-13] MEDS: VALPROIC ACID ORAL SYRUP 250 MG/5 ML UDC GT SCH ×3 (06:22→21:13)
[2017-06-13] MEDS: LABETALOL HCL 100 MG TABLET GT SCH ×4 (06:22→23:07)
[2017-06-13] MEDS: INSULIN REGULAR, HUMAN 100 UNITS/ML, 10 ML VIAL (novoLIN R) SUBCUT PRN (06:24)
[2017-06-13] MEDS: CHOLECALCIFEROL (VITAMIN D3) 2,000 UNIT TABLET GT SCH (09:24)
[2017-06-13] MEDS: LACTOBACILLUS RHAMNOSUS GG 1 CAP CAPSULE PO SCH ×2 (09:24→21:13)
[2017-06-13] MEDS: TAMSULOSIN HCL 0.4 MG CAP PO SCH (09:24)
[2017-06-13] MEDS: LEVOTHYROXINE SODIUM 0.1 MG TABLET GT SCH (09:24)
[2017-06-13] MEDS: PANTOPRAZOLE SODIUM 40 MG/VIAL (PROTONIX) IVP SCH ×2 (09:24→21:13)
[2017-06-13] MEDS: ASCORBIC ACID 500 MG TABLET GT SCH (09:24)
[2017-06-13] MEDS: POTASSIUM CHLORIDE 20 MEQ/PKT PACKET GT SCH (09:24)
[2017-06-13] MEDS: CARVEDILOL 12.5 MG TABLET (COREG) GT SCH ×2 (09:25→21:19)
[2017-06-13] MEDS: amLODIPine BESYLATE 10 MG TABLET GT SCH (09:26)
[2017-06-13 10:22] LABS: BASOPHILS # (AUTO) 0.4 K/uL (0.0-0.2); BASOPHILS % (AUTO) 1.6 % (0.0-2.0); EOSINOPHILS # (AUTO) 2.6 K/uL (0.0-0.4); EOSINOPHILS % (AUTO) 11.2 % (0.0-4.0); HEMATOCRIT 27.5 % (36-54); HEMOGLOBIN 9.1 g/dL (14.0-18.0); LYMPHOCYTES # (AUTO) 1.7 K/uL (1.0-5.5); LYMPHOCYTES % (AUTO) 7.1 % (20.5-51.5); MEAN CORPUSCULAR HEMOGLOBIN 31 pg (27-31); MEAN CORPUSCULAR HGB CONC 33 % (32-36); MEAN CORPUSCULAR VOLUME 92 fL (79.0-98.0); MONOCYTES # (AUTO) 1.8 K/uL (0.0-1.0); MONOCYTES % (AUTO) 7.6 % (1.7-9.3); NEUTROPHILS # (AUTO) 16.8 K/uL (1.8-7.7); NEUTROPHILS % (AUTO) 72.5 % (40.0-70.0); PLATELET COUNT (AUTO) 499 K/uL (130-430); RED BLOOD CELL COUNT(AUTO) 2.99 MIL/uL (4.2-6.2); RED CELL DISTRIBUTION WIDTH 16.9 % (9.0-15.0); WHITE BLOOD COUNT (AUTO) 23.3 K/uL (4.8-10.8)
[2017-06-13 10:45] LABS: CALCIUM 9.3 mg/dL (8.4-11.0); CREATININE 1.48 mg/dL (0.55-1.30); POTASSIUM 4.7 mmol/L (3.5-5.1)
[2017-06-13] MEDS: AMIKACIN SULFATE 500 MG in D5W 100 ML IV SCH (18:30)
[2017-06-14] MEDS: IPRATROPIUM/ALBUTEROL SULFATE 3 ML AMPUL.NEB INH SCH ×6 (03:16→23:33)
[2017-06-14 03:43] VITALS: BP_SYST 141
[2017-06-14] MEDS: LABETALOL HCL 100 MG TABLET GT SCH ×4 (05:56→23:53)
[2017-06-14] MEDS: VALPROIC ACID ORAL SYRUP 250 MG/5 ML UDC GT SCH ×3 (05:56→21:30)
[2017-06-14 07:05] LABS: BASOPHILS # (AUTO) 0.1 K/uL (0.0-0.2); BASOPHILS % (AUTO) 0.4 % (0.0-2.0); EOSINOPHILS # (AUTO) 3.6 K/uL (0.0-0.4); EOSINOPHILS % (AUTO) 14.9 % (0.0-4.0); HEMATOCRIT 26.4 % (36-54); LYMPHOCYTES # (AUTO) 1.8 K/uL (1.0-5.5); LYMPHOCYTES % (AUTO) 7.5 % (20.5-51.5); MEAN CORPUSCULAR HEMOGLOBIN 31 pg (27-31); MEAN CORPUSCULAR HGB CONC 34 % (32-36); MEAN CORPUSCULAR VOLUME 92 fL (79.0-98.0); MONOCYTES # (AUTO) 2.4 K/uL (0.0-1.0); NEUTROPHILS # (AUTO) 16.6 K/uL (1.8-7.7); NEUTROPHILS % (AUTO) 67.2 % (40.0-70.0); PLATELET COUNT (AUTO) 504 K/uL (130-430); RED BLOOD CELL COUNT(AUTO) 2.88 MIL/uL (4.2-6.2); RED CELL DISTRIBUTION WIDTH 16.6 % (9.0-15.0); WHITE BLOOD COUNT (AUTO) 24.5 K/uL (4.8-10.8)
[2017-06-14 07:18] LABS: CALCIUM 9.8 mg/dL (8.4-11.0); CREATININE 1.52 mg/dL (0.55-1.30); POTASSIUM 3.9 mmol/L (3.5-5.1)
[2017-06-14 07:30] VITALS: BP_SYST 148
[2017-06-14] MEDS: CHOLECALCIFEROL (VITAMIN D3) 2,000 UNIT TABLET GT SCH (08:18)
[2017-06-14] MEDS: amLODIPine BESYLATE 10 MG TABLET GT SCH (08:19)
[2017-06-14] MEDS: CARVEDILOL 12.5 MG TABLET (COREG) GT SCH ×2 (08:22→20:47)
[2017-06-14] MEDS: LACTOBACILLUS RHAMNOSUS GG 1 CAP CAPSULE PO SCH ×2 (08:22→20:46)
[2017-06-14] MEDS: ASCORBIC ACID 500 MG TABLET GT SCH (08:22)
[2017-06-14] MEDS: LEVOTHYROXINE SODIUM 0.1 MG TABLET GT SCH (08:22)
[2017-06-14] MEDS: PANTOPRAZOLE SODIUM 40 MG/VIAL (PROTONIX) IVP SCH ×2 (08:23→20:46)
[2017-06-14] MEDS: TAMSULOSIN HCL 0.4 MG CAP PO SCH (08:23)
[2017-06-14] MEDS: POTASSIUM CHLORIDE 20 MEQ/PKT PACKET GT SCH (08:23)
[2017-06-14] MEDS: D5LR 1,000 ML IV SCH (09:08)
[2017-06-14 17:07] VITALS: BP_SYST 143
[2017-06-14] MEDS: AMIKACIN SULFATE 500 MG in D5W 100 ML IV SCH (18:14)
[2017-06-14 19:30] VITALS: BP_SYST 149; BP_SYST 155
[2017-06-14 23:23] VITALS: BP_SYST 134
[2017-06-15] MEDS: IPRATROPIUM/ALBUTEROL SULFATE 3 ML AMPUL.NEB INH SCH ×6 (03:12→23:10)
[2017-06-15 04:29] VITALS: BP_SYST 147
[2017-06-15] MEDS: LABETALOL HCL 100 MG TABLET GT SCH ×4 (06:17→23:40)
[2017-06-15] MEDS: VALPROIC ACID ORAL SYRUP 250 MG/5 ML UDC GT SCH ×3 (06:17→21:42)
[2017-06-15 06:30] LABS: BASOPHILS # (AUTO) 0.1 K/uL (0.0-0.2); BASOPHILS % (AUTO) 0.4 % (0.0-2.0); EOSINOPHILS # (AUTO) 3.7 K/uL (0.0-0.4); EOSINOPHILS % (AUTO) 15.1 % (0.0-4.0); HEMATOCRIT 27.4 % (36-54); HEMOGLOBIN 9.3 g/dL (14.0-18.0); LYMPHOCYTES # (AUTO) 1.9 K/uL (1.0-5.5); LYMPHOCYTES % (AUTO) 7.7 % (20.5-51.5); MEAN CORPUSCULAR HEMOGLOBIN 31 pg (27-31); MEAN CORPUSCULAR HGB CONC 34 % (32-36); MEAN CORPUSCULAR VOLUME 92 fL (79.0-98.0); MONOCYTES # (AUTO) 2.3 K/uL (0.0-1.0); MONOCYTES % (AUTO) 9.3 % (1.7-9.3); NEUTROPHILS # (AUTO) 16.3 K/uL (1.8-7.7); NEUTROPHILS % (AUTO) 67.5 % (40.0-70.0); PLATELET COUNT (AUTO) 498 K/uL (130-430); RED BLOOD CELL COUNT(AUTO) 2.98 MIL/uL (4.2-6.2); RED CELL DISTRIBUTION WIDTH 16.9 % (9.0-15.0); WHITE BLOOD COUNT (AUTO) 24.3 K/uL (4.8-10.8)
[2017-06-15 06:41] LABS: CALCIUM 9.7 mg/dL (8.4-11.0); CREATININE 1.56 mg/dL (0.55-1.30); POTASSIUM 4.1 mmol/L (3.5-5.1)
[2017-06-15 07:35] VITALS: BP_SYST 137
[2017-06-15] MEDS: PANTOPRAZOLE SODIUM 40 MG/VIAL (PROTONIX) IVP SCH ×2 (09:18→21:43)
[2017-06-15] MEDS: ASCORBIC ACID 500 MG TABLET GT SCH (09:18)
[2017-06-15] MEDS: LEVOTHYROXINE SODIUM 0.1 MG TABLET GT SCH (09:18)
[2017-06-15] MEDS: LACTOBACILLUS RHAMNOSUS GG 1 CAP CAPSULE PO SCH ×2 (09:18→21:42)
[2017-06-15] MEDS: POTASSIUM CHLORIDE 20 MEQ/PKT PACKET GT SCH (09:18)
[2017-06-15] MEDS: CHOLECALCIFEROL (VITAMIN D3) 2,000 UNIT TABLET GT SCH (09:18)
[2017-06-15] MEDS: TAMSULOSIN HCL 0.4 MG CAP PO SCH (09:18)
[2017-06-15] MEDS: amLODIPine BESYLATE 10 MG TABLET GT SCH (09:21)
[2017-06-15] MEDS: CARVEDILOL 12.5 MG TABLET (COREG) GT SCH ×2 (09:22→21:43)
[2017-06-15] MEDS ORDERED: traMADol HCL HCL 50 MG TABLET (ULTRAM) PO PRN (10:30)
[2017-06-15 12:16] VITALS: BP_SYST 133
[2017-06-15 16:54] VITALS: BP_SYST 147
[2017-06-15] MEDS: AMIKACIN SULFATE 500 MG in D5W 100 ML IV SCH (18:26)
[2017-06-15] MEDS: D5LR 1,000 ML IV SCH (18:39)
[2017-06-15 20:00] VITALS: BP_SYST 136
[2017-06-15 23:39] VITALS: BP_SYST 131
[2017-06-16 01:39] VITALS: BP_SYST 124
[2017-06-16] MEDS: IPRATROPIUM/ALBUTEROL SULFATE 3 ML AMPUL.NEB INH SCH ×6 (03:42→23:43)
[2017-06-16 06:07] VITALS: BP_SYST 143
[2017-06-16] MEDS: VALPROIC ACID ORAL SYRUP 250 MG/5 ML UDC GT SCH ×3 (06:15→21:51)
[2017-06-16] MEDS: LABETALOL HCL 100 MG TABLET GT SCH ×3 (06:16→18:34)
[2017-06-16 06:25] LABS: HEMATOCRIT 26.2 % (36-54); HEMOGLOBIN 8.6 g/dL (14.0-18.0); MEAN CORPUSCULAR HEMOGLOBIN 31 pg (27-31); MEAN CORPUSCULAR HGB CONC 33 % (32-36); MEAN CORPUSCULAR VOLUME 93 fL (79.0-98.0); PLATELET COUNT (AUTO) 460 K/uL (130-430); RED BLOOD CELL COUNT(AUTO) 2.82 MIL/uL (4.2-6.2); WHITE BLOOD COUNT (AUTO) 22.9 K/uL (4.8-10.8)
[2017-06-16 06:39] LABS: CALCIUM 9.9 mg/dL (8.4-11.0); CREATININE 1.59 mg/dL (0.55-1.30); POTASSIUM 4.2 mmol/L (3.5-5.1)
[2017-06-16 08:01] LABS: BAND % (MANUAL) 2 % (0-6); BASOPHILS % (MANUAL) 0 % (0-2); EOSINOPHILS % (MANUAL) 13 % (0-7); LYMPHOCYTES % (MANUAL) 9 % (20-46); MONOCYTES % (MANUAL) 7 % (0-11)
[2017-06-16 08:07] VITALS: BP_SYST 142
[2017-06-16 09:00] VITALS: BP_SYST 142
[2017-06-16] MEDS: PANTOPRAZOLE SODIUM 40 MG/VIAL (PROTONIX) IVP SCH ×2 (09:00→21:52)
[2017-06-16] MEDS: LEVOTHYROXINE SODIUM 0.1 MG TABLET GT SCH (09:01)
[2017-06-16] MEDS: CARVEDILOL 12.5 MG TABLET (COREG) GT SCH ×2 (09:01→21:53)
[2017-06-16] MEDS: TAMSULOSIN HCL 0.4 MG CAP PO SCH (09:01)
[2017-06-16] MEDS: CHOLECALCIFEROL (VITAMIN D3) 2,000 UNIT TABLET GT SCH (09:01)
[2017-06-16] MEDS: LACTOBACILLUS RHAMNOSUS GG 1 CAP CAPSULE PO SCH ×2 (09:01→21:52)
[2017-06-16] MEDS: amLODIPine BESYLATE 10 MG TABLET GT SCH (09:02)
[2017-06-16] MEDS: ASCORBIC ACID 500 MG TABLET GT SCH (09:02)
[2017-06-16] MEDS: POTASSIUM CHLORIDE 20 MEQ/PKT PACKET GT SCH (09:02)
[2017-06-16] MEDS: D5LR 1,000 ML IV SCH (09:03)
[2017-06-16] MEDS: traMADol HCL HCL 50 MG TABLET (ULTRAM) PO PRN (11:58)
[2017-06-16 12:04] VITALS: BP_SYST 149
[2017-06-16 16:54] VITALS: BP_SYST 141
[2017-06-16] MEDS: AMIKACIN SULFATE 500 MG in D5W 100 ML IV SCH (18:35)
[2017-06-17] VITALS: BP_SYST 134
[2017-06-17] MEDS: LABETALOL HCL 100 MG TABLET GT SCH ×4 (00:52→17:39)
[2017-06-17] MEDS: IPRATROPIUM/ALBUTEROL SULFATE 3 ML AMPUL.NEB INH SCH ×6 (03:35→22:59)
[2017-06-17 04:15] VITALS: BP_SYST 122
[2017-06-17] MEDS: VALPROIC ACID ORAL SYRUP 250 MG/5 ML UDC GT SCH ×3 (06:49→22:02)
[2017-06-17 08:19] VITALS: BP_SYST 101
[2017-06-17] MEDS: POTASSIUM CHLORIDE 20 MEQ/PKT PACKET GT SCH (08:56)
[2017-06-17] MEDS: TAMSULOSIN HCL 0.4 MG CAP PO SCH (08:56)
[2017-06-17] MEDS: LACTOBACILLUS RHAMNOSUS GG 1 CAP CAPSULE PO SCH ×2 (08:57→22:03)
[2017-06-17] MEDS: CHOLECALCIFEROL (VITAMIN D3) 2,000 UNIT TABLET GT SCH (08:57)
[2017-06-17] MEDS: LEVOTHYROXINE SODIUM 0.1 MG TABLET GT SCH (08:57)
[2017-06-17] MEDS: CARVEDILOL 12.5 MG TABLET (COREG) GT SCH ×2 (08:58→22:03)
[2017-06-17] MEDS: ASCORBIC ACID 500 MG TABLET GT SCH (08:58)
[2017-06-17] MEDS: PANTOPRAZOLE SODIUM 40 MG/VIAL (PROTONIX) IVP SCH ×2 (09:00→22:02)
[2017-06-17] MEDS: amLODIPine BESYLATE 10 MG TABLET GT SCH (09:00)
[2017-06-17] MEDS: D5LR 1,000 ML IV SCH (09:54)
[2017-06-17 12:38] VITALS: BP_SYST 131
[2017-06-17 16:56] VITALS: BP_SYST 158
[2017-06-17] MEDS: AMIKACIN SULFATE 500 MG in D5W 100 ML IV SCH (17:38)
[2017-06-17 20:00] VITALS: BP_SYST 149
[2017-06-18] MEDS: LABETALOL HCL 100 MG TABLET GT SCH ×5 (00:41→23:58)
[2017-06-18 00:44] VITALS: BP_SYST 140
[2017-06-18] MEDS: IPRATROPIUM/ALBUTEROL SULFATE 3 ML AMPUL.NEB INH SCH ×6 (03:26→23:58)
[2017-06-18] MEDS: VALPROIC ACID ORAL SYRUP 250 MG/5 ML UDC GT SCH ×3 (06:15→23:08)
[2017-06-18 07:14] LABS: BASOPHILS % (AUTO) 0.1 % (0.0-2.0); EOSINOPHILS # (AUTO) 3.7 K/uL (0.0-0.4); EOSINOPHILS % (AUTO) 13.8 % (0.0-4.0); HEMATOCRIT 26.1 % (36-54); HEMOGLOBIN 8.9 g/dL (14.0-18.0); LYMPHOCYTES # (AUTO) 1.8 K/uL (1.0-5.5); LYMPHOCYTES % (AUTO) 6.8 % (20.5-51.5); MEAN CORPUSCULAR HEMOGLOBIN 31 pg (27-31); MEAN CORPUSCULAR HGB CONC 34 % (32-36); MEAN CORPUSCULAR VOLUME 92 fL (79.0-98.0); MONOCYTES # (AUTO) 2.8 K/uL (0.0-1.0); MONOCYTES % (AUTO) 10.4 % (1.7-9.3); NEUTROPHILS # (AUTO) 18.8 K/uL (1.8-7.7); NEUTROPHILS % (AUTO) 68.9 % (40.0-70.0); PLATELET COUNT (AUTO) 401 K/uL (130-430); RED BLOOD CELL COUNT(AUTO) 2.83 MIL/uL (4.2-6.2); RED CELL DISTRIBUTION WIDTH 17.1 % (9.0-15.0); WHITE BLOOD COUNT (AUTO) 27.1 K/uL (4.8-10.8)
[2017-06-18 07:27] LABS: CALCIUM 9.8 mg/dL (8.4-11.0); CREATININE 1.98 mg/dL (0.55-1.30); POTASSIUM 4.5 mmol/L (3.5-5.1)
[2017-06-18 08:00] VITALS: BP_SYST 148
[2017-06-18] MEDS: POTASSIUM CHLORIDE 20 MEQ/PKT PACKET GT SCH (09:47)
[2017-06-18] MEDS: amLODIPine BESYLATE 10 MG TABLET GT SCH (09:47)
[2017-06-18] MEDS: PANTOPRAZOLE SODIUM 40 MG/VIAL (PROTONIX) IVP SCH ×2 (09:47→22:57)
[2017-06-18] MEDS: CHOLECALCIFEROL (VITAMIN D3) 2,000 UNIT TABLET GT SCH (09:47)
[2017-06-18] MEDS: ASCORBIC ACID 500 MG TABLET GT SCH (09:47)
[2017-06-18] MEDS: CARVEDILOL 12.5 MG TABLET (COREG) GT SCH ×2 (09:48→22:58)
[2017-06-18] MEDS: TAMSULOSIN HCL 0.4 MG CAP PO SCH (09:48)
[2017-06-18] MEDS: LEVOTHYROXINE SODIUM 0.1 MG TABLET GT SCH (09:48)
[2017-06-18] MEDS: LACTOBACILLUS RHAMNOSUS GG 1 CAP CAPSULE PO SCH ×2 (09:48→22:58)
[2017-06-18 11:48] VITALS: BP_SYST 140
[2017-06-18] MEDS: metroNIDAZOLE 500 mg/NS 100 ML IV SCH ×2 (14:02→22:59)
[2017-06-18 16:16] VITALS: BP_SYST 134
[2017-06-18] MEDS: 0.45% NACL 1,000 ML IV SCH (17:01)
[2017-06-18] MEDS: AMIKACIN SULFATE 500 MG in D5W 100 ML IV SCH (18:13)
[2017-06-18 20:00] VITALS: BP_SYST 140
[2017-06-18 20:50] VITALS: BP_SYST 140
[2017-06-19 00:38] VITALS: BP_SYST 130
[2017-06-19] MEDS: IPRATROPIUM/ALBUTEROL SULFATE 3 ML AMPUL.NEB INH SCH ×6 (03:53→23:18)
[2017-06-19] MEDS: VALPROIC ACID ORAL SYRUP 250 MG/5 ML UDC GT SCH ×3 (06:06→22:18)
[2017-06-19] MEDS: metroNIDAZOLE 500 mg/NS 100 ML IV SCH ×3 (06:07→22:09)
[2017-06-19] MEDS: LABETALOL HCL 100 MG TABLET GT SCH ×3 (06:10→18:05)
[2017-06-19 06:22] LABS: BASOPHILS # (AUTO) 0.1 K/uL (0.0-0.2); BASOPHILS % (AUTO) 0.2 % (0.0-2.0); EOSINOPHILS # (AUTO) 2.8 K/uL (0.0-0.4); EOSINOPHILS % (AUTO) 9.5 % (0.0-4.0); HEMATOCRIT 24.6 % (36-54); LYMPHOCYTES # (AUTO) 2.2 K/uL (1.0-5.5); LYMPHOCYTES % (AUTO) 7.6 % (20.5-51.5); MEAN CORPUSCULAR HEMOGLOBIN 30 pg (27-31); MEAN CORPUSCULAR HGB CONC 33 % (32-36); MEAN CORPUSCULAR VOLUME 93 fL (79.0-98.0); MONOCYTES # (AUTO) 2.9 K/uL (0.0-1.0); MONOCYTES % (AUTO) 10.1 % (1.7-9.3); NEUTROPHILS # (AUTO) 21.1 K/uL (1.8-7.7); NEUTROPHILS % (AUTO) 72.6 % (40.0-70.0); PLATELET COUNT (AUTO) 358 K/uL (130-430); RED BLOOD CELL COUNT(AUTO) 2.65 MIL/uL (4.2-6.2); RED CELL DISTRIBUTION WIDTH 16.7 % (9.0-15.0); WHITE BLOOD COUNT (AUTO) 29.1 K/uL (4.8-10.8)
[2017-06-19 06:35] LABS: CALCIUM 9.7 mg/dL (8.4-11.0); CREATININE 1.99 mg/dL (0.55-1.30); POTASSIUM 4.2 mmol/L (3.5-5.1)
[2017-06-19 08:00] VITALS: BP_SYST 142
[2017-06-19 08:11] VITALS: BP_SYST 130
[2017-06-19] MEDS: PANTOPRAZOLE SODIUM 40 MG/VIAL (PROTONIX) IVP SCH ×2 (09:30→22:10)
[2017-06-19] MEDS: CARVEDILOL 12.5 MG TABLET (COREG) GT SCH ×2 (09:31→22:19)
[2017-06-19] MEDS: POTASSIUM CHLORIDE 20 MEQ/PKT PACKET GT SCH (09:31)
[2017-06-19] MEDS: CHOLECALCIFEROL (VITAMIN D3) 2,000 UNIT TABLET GT SCH (09:31)
[2017-06-19] MEDS: LEVOTHYROXINE SODIUM 0.1 MG TABLET GT SCH (09:31)
[2017-06-19] MEDS: LACTOBACILLUS RHAMNOSUS GG 1 CAP CAPSULE PO SCH ×2 (09:32→22:17)
[2017-06-19] MEDS: ASCORBIC ACID 500 MG TABLET GT SCH (09:32)
[2017-06-19] MEDS: amLODIPine BESYLATE 10 MG TABLET GT SCH (09:32)
[2017-06-19] MEDS: TAMSULOSIN HCL 0.4 MG CAP PO SCH (09:32)
[2017-06-19 12:00] VITALS: BP_SYST 145
[2017-06-19] MEDS: 0.45% NACL 1,000 ML IV SCH (15:25)
[2017-06-19 16:00] VITALS: BP_SYST 142
[2017-06-19 20:00] VITALS: BP_SYST 143
[2017-06-19] MEDS ORDERED: PIPERACILLIN/TAZOBACTAM 2.25 GM VIAL IV ONE (22:26)
[2017-06-20] MEDS: LABETALOL HCL 100 MG TABLET GT SCH ×4 (00:30→17:06)
[2017-06-20 01:17] VITALS: BP_SYST 136
[2017-06-20] MEDS: IPRATROPIUM/ALBUTEROL SULFATE 3 ML AMPUL.NEB INH SCH ×6 (03:57→23:16)
[2017-06-20] MEDS ORDERED: PIPERACILLIN/TAZOBACTAM 2.25 GM VIAL IV ONE (04:22)
[2017-06-20] MEDS: PIPERACILLIN/TAZO 2.25G/DEX-IS 50 ML IV SCH ×4 (05:05→17:06)
[2017-06-20] MEDS: VALPROIC ACID ORAL SYRUP 250 MG/5 ML UDC GT SCH ×3 (05:14→22:46)
[2017-06-20] MEDS: metroNIDAZOLE 500 mg/NS 100 ML IV SCH ×3 (06:16→22:46)
[2017-06-20 06:55] LABS: HEMATOCRIT 23.1 % (36-54); MEAN CORPUSCULAR HEMOGLOBIN 32 pg (27-31); MEAN CORPUSCULAR HGB CONC 35 % (32-36); MEAN CORPUSCULAR VOLUME 92 fL (79.0-98.0); PLATELET COUNT (AUTO) 361 K/uL (130-430); RED CELL DISTRIBUTION WIDTH 16.5 % (9.0-15.0)
[2017-06-20 07:07] LABS: CALCIUM 9.6 mg/dL (8.4-11.0); CREATININE 2.06 mg/dL (0.55-1.30); POTASSIUM 3.9 mmol/L (3.5-5.1)
[2017-06-20 07:36] VITALS: BP_SYST 135
[2017-06-20 08:00] VITALS: BP_SYST 138
[2017-06-20] MEDS: POTASSIUM CHLORIDE 20 MEQ/PKT PACKET GT SCH (09:44)
[2017-06-20] MEDS: LACTOBACILLUS RHAMNOSUS GG 1 CAP CAPSULE PO SCH ×2 (09:45→22:47)
[2017-06-20] MEDS: TAMSULOSIN HCL 0.4 MG CAP PO SCH (09:45)
[2017-06-20] MEDS: ASCORBIC ACID 500 MG TABLET GT SCH (09:45)
[2017-06-20] MEDS: CARVEDILOL 12.5 MG TABLET (COREG) GT SCH ×2 (09:45→22:48)
[2017-06-20] MEDS: CHOLECALCIFEROL (VITAMIN D3) 2,000 UNIT TABLET GT SCH (09:45)
[2017-06-20] MEDS: LEVOTHYROXINE SODIUM 0.1 MG TABLET GT SCH (09:45)
[2017-06-20] MEDS: PANTOPRAZOLE SODIUM 40 MG/VIAL (PROTONIX) IVP SCH ×2 (09:46→22:46)
[2017-06-20] MEDS: amLODIPine BESYLATE 10 MG TABLET GT SCH (09:46)
[2017-06-20] MEDS: 0.45% NACL 1,000 ML IV SCH ×2 (09:47→14:38)
[2017-06-20 10:23] LABS: PROTHROMBIN TIME 10.4 SECS (9.5-12.5)
[2017-06-20 11:07] LABS: BAND % (MANUAL) 2 % (0-6); LYMPHOCYTES % (MANUAL) 4 % (20-46); MONOCYTES % (MANUAL) 5 % (0-11)
[2017-06-20 11:08] LABS: BASOPHILS % (MANUAL) 0 % (0-2); EOSINOPHILS % (MANUAL) 12 % (0-7)
[2017-06-20 12:00] VITALS: BP_SYST 139
[2017-06-20 16:00] VITALS: BP_SYST 137; BP_SYST 142
[2017-06-20 22:00] VITALS: BP_SYST 147
[2017-06-21 01:00] VITALS: BP_SYST 142
[2017-06-21] MEDS: PIPERACILLIN/TAZO 2.25G/DEX-IS 50 ML IV SCH ×5 (01:06→23:09)
[2017-06-21] MEDS: LABETALOL HCL 100 MG TABLET GT SCH ×4 (01:08→17:05)
[2017-06-21] MEDS: IPRATROPIUM/ALBUTEROL SULFATE 3 ML AMPUL.NEB INH SCH ×6 (03:40→23:20)
[2017-06-21] MEDS: VALPROIC ACID ORAL SYRUP 250 MG/5 ML UDC GT SCH ×3 (05:10→22:45)
[2017-06-21] MEDS: metroNIDAZOLE 500 mg/NS 100 ML IV SCH ×3 (06:34→22:46)
[2017-06-21 07:49] LABS: BASOPHILS # (AUTO) 0.1 K/uL (0.0-0.2); BASOPHILS % (AUTO) 0.2 % (0.0-2.0); EOSINOPHILS # (AUTO) 4.3 K/uL (0.0-0.4); EOSINOPHILS % (AUTO) 15.3 % (0.0-4.0); HEMATOCRIT 22.9 % (36-54); HEMOGLOBIN 7.8 g/dL (14.0-18.0); LYMPHOCYTES # (AUTO) 1.6 K/uL (1.0-5.5); LYMPHOCYTES % (AUTO) 5.7 % (20.5-51.5); MEAN CORPUSCULAR HEMOGLOBIN 32 pg (27-31); MEAN CORPUSCULAR HGB CONC 34 % (32-36); MEAN CORPUSCULAR VOLUME 94 fL (79.0-98.0); MONOCYTES % (AUTO) 10.7 % (1.7-9.3); NEUTROPHILS # (AUTO) 19.1 K/uL (1.8-7.7); NEUTROPHILS % (AUTO) 68.1 % (40.0-70.0); PLATELET COUNT (AUTO) 400 K/uL (130-430); RED BLOOD CELL COUNT(AUTO) 2.45 MIL/uL (4.2-6.2); RED CELL DISTRIBUTION WIDTH 16.4 % (9.0-15.0); WHITE BLOOD COUNT (AUTO) 28.1 K/uL (4.8-10.8)
[2017-06-21 07:52] LABS: CALCIUM 9.6 mg/dL (8.4-11.0); CREATININE 2.19 mg/dL (0.55-1.30); POTASSIUM 3.7 mmol/L (3.5-5.1)
[2017-06-21 08:00] VITALS: BP_SYST 148
[2017-06-21] MEDS: PANTOPRAZOLE SODIUM 40 MG/VIAL (PROTONIX) IVP SCH ×2 (08:58→22:44)
[2017-06-21] MEDS: LACTOBACILLUS RHAMNOSUS GG 1 CAP CAPSULE PO SCH ×2 (08:58→22:45)
[2017-06-21] MEDS: CHOLECALCIFEROL (VITAMIN D3) 2,000 UNIT TABLET GT SCH (08:58)
[2017-06-21] MEDS: POTASSIUM CHLORIDE 20 MEQ/PKT PACKET GT SCH (08:58)
[2017-06-21] MEDS: LEVOTHYROXINE SODIUM 0.1 MG TABLET GT SCH (08:59)
[2017-06-21] MEDS: ASCORBIC ACID 500 MG TABLET GT SCH (08:59)
[2017-06-21] MEDS: amLODIPine BESYLATE 10 MG TABLET GT SCH (08:59)
[2017-06-21] MEDS: TAMSULOSIN HCL 0.4 MG CAP PO SCH (08:59)
[2017-06-21] MEDS: CARVEDILOL 12.5 MG TABLET (COREG) GT SCH ×2 (09:00→22:46)
[2017-06-21] MEDS: traMADol HCL HCL 50 MG TABLET (ULTRAM) PO PRN (09:16)
[2017-06-21] MEDS: INSULIN REGULAR, HUMAN 100 UNITS/ML, 10 ML VIAL (novoLIN R) SUBCUT PRN ×3 (11:12→22:54)
[2017-06-21] MEDS: 0.45% NACL 1,000 ML IV SCH ×2 (11:20→23:01)
[2017-06-21 11:52] VITALS: BP_SYST 121
[2017-06-21 16:58] VITALS: BP_SYST 126
[2017-06-21 21:27] VITALS: BP_SYST 127
[2017-06-22] MEDS: PIPERACILLIN/TAZO 2.25G/DEX-IS 50 ML IV SCH ×4 (00:51→17:49)
[2017-06-22] MEDS: LABETALOL HCL 100 MG TABLET GT SCH ×4 (00:53→17:49)
[2017-06-22 01:05] VITALS: BP_SYST 136
[2017-06-22 01:28] LABS: COLOR,URINE YELLOW (YELLOW)
[2017-06-22 01:29] LABS: BILIRUBIN,URINE NEGATIVE (NEGATIVE); BLOOD, URINE 2+ (NEGATIVE); CLARITY/URINE CLOUDY (CLEAR); GLUCOSE,URINE NEGATIVE (NEGATIVE); KETONES,URINE NEGATIVE (NEGATIVE); LEUKOCYTE ESTERASE ,URINE 3+ (NEGATIVE); NITRITE, URINE NEGATIVE (NEGATIVE); PROTEIN URINE 2+ (NEGATIVE); UROBILINOGEN,URINE 0.2 (0.2-1.0)
[2017-06-22 01:35] LABS: BACTERIA,URINE MODERATE /HPF (None Seen); WBC,URINE >100 /HPF (0-3)
[2017-06-22 01:36] LABS: MUCUS,URINE None Seen /LPF (None Seen); YEAST,URINE Many /HPF (None Seen)
[2017-06-22] MEDS: IPRATROPIUM/ALBUTEROL SULFATE 3 ML AMPUL.NEB INH SCH ×6 (02:58→23:23)
[2017-06-22 03:24] LABS: EOSINOPHIL,URINE RARE
[2017-06-22] MEDS: VALPROIC ACID ORAL SYRUP 250 MG/5 ML UDC GT SCH ×3 (06:13→22:48)
[2017-06-22] MEDS: INSULIN REGULAR, HUMAN 100 UNITS/ML, 10 ML VIAL (novoLIN R) SUBCUT PRN (06:46)
[2017-06-22 06:50] LABS: HEMOGLOBIN 7.2 g/dL (14.0-18.0); MEAN CORPUSCULAR HEMOGLOBIN 32 pg (27-31); MEAN CORPUSCULAR HGB CONC 34 % (32-36); MEAN CORPUSCULAR VOLUME 94 fL (79.0-98.0); PLATELET COUNT (AUTO) 396 K/uL (130-430); RED BLOOD CELL COUNT(AUTO) 2.26 MIL/uL (4.2-6.2); RED CELL DISTRIBUTION WIDTH 16.3 % (9.0-15.0); WHITE BLOOD COUNT (AUTO) 26.6 K/uL (4.8-10.8)
[2017-06-22 06:51] LABS: CREATININE 1.88 mg/dL (0.55-1.30)
[2017-06-22 06:56] LABS: HEMATOCRIT 21.1 % (36-54)
[2017-06-22] MEDS: metroNIDAZOLE 500 mg/NS 100 ML IV SCH ×3 (07:29→22:49)
[2017-06-22 08:06] VITALS: BP_SYST 132
[2017-06-22 08:31] LABS: BASOPHILS % (MANUAL) 0 % (0-2); EOSINOPHILS % (MANUAL) 22 % (0-7); LYMPHOCYTES % (MANUAL) 8 % (20-46); MONOCYTES % (MANUAL) 7 % (0-11)
[2017-06-22] MEDS: CHOLECALCIFEROL (VITAMIN D3) 2,000 UNIT TABLET GT SCH (08:35)
[2017-06-22] MEDS: ASCORBIC ACID 500 MG TABLET GT SCH (08:36)
[2017-06-22] MEDS: CARVEDILOL 12.5 MG TABLET (COREG) GT SCH ×2 (08:37→20:54)
[2017-06-22] MEDS: amLODIPine BESYLATE 10 MG TABLET GT SCH (08:37)
[2017-06-22] MEDS: LEVOTHYROXINE SODIUM 0.1 MG TABLET GT SCH (08:37)
[2017-06-22] MEDS: LACTOBACILLUS RHAMNOSUS GG 1 CAP CAPSULE PO SCH ×2 (08:37→20:54)
[2017-06-22] MEDS: TAMSULOSIN HCL 0.4 MG CAP PO SCH (08:38)
[2017-06-22] MEDS: POTASSIUM CHLORIDE 20 MEQ/PKT PACKET GT SCH (08:38)
[2017-06-22] MEDS: PANTOPRAZOLE SODIUM 40 MG/VIAL (PROTONIX) IVP SCH ×2 (08:38→20:54)
[2017-06-22 12:00] VITALS: BP_SYST 127
[2017-06-22 16:00] VITALS: BP_SYST 134
[2017-06-22 16:44] VITALS: BP_SYST 134
[2017-06-22] MEDS: 0.45% NACL 1,000 ML IV SCH (19:15)
[2017-06-23] MEDS: PIPERACILLIN/TAZO 2.25G/DEX-IS 50 ML IV SCH ×4 (00:54→21:56)
[2017-06-23] MEDS: LABETALOL HCL 100 MG TABLET GT SCH ×4 (00:55→21:59)
[2017-06-23] MEDS: traMADol HCL HCL 50 MG TABLET (ULTRAM) PO PRN (00:56)
[2017-06-23 01:10] VITALS: BP_SYST 137
[2017-06-23] MEDS: IPRATROPIUM/ALBUTEROL SULFATE 3 ML AMPUL.NEB INH SCH ×5 (03:42→22:39)
[2017-06-23] MEDS: 0.45% NACL 1,000 ML IV SCH ×2 (05:15→15:15)
[2017-06-23] MEDS: VALPROIC ACID ORAL SYRUP 250 MG/5 ML UDC GT SCH ×3 (05:52→21:57)
[2017-06-23] MEDS: metroNIDAZOLE 500 mg/NS 100 ML IV SCH ×3 (06:06→21:56)
[2017-06-23 06:41] LABS: BASOPHILS # (AUTO) 0.2 K/uL (0.0-0.2); BASOPHILS % (AUTO) 0.6 % (0.0-2.0); CALCIUM 9.1 mg/dL (8.4-11.0); CREATININE 1.68 mg/dL (0.55-1.30); EOSINOPHILS # (AUTO) 6.8 K/uL (0.0-0.4); EOSINOPHILS % (AUTO) 24.2 % (0.0-4.0); HEMATOCRIT 24.5 % (36-54); HEMOGLOBIN 8.3 g/dL (14.0-18.0); LYMPHOCYTES # (AUTO) 1.9 K/uL (1.0-5.5); LYMPHOCYTES % (AUTO) 6.7 % (20.5-51.5); MEAN CORPUSCULAR HEMOGLOBIN 31 pg (27-31); MEAN CORPUSCULAR HGB CONC 34 % (32-36); MEAN CORPUSCULAR VOLUME 91 fL (79.0-98.0); MONOCYTES # (AUTO) 2.5 K/uL (0.0-1.0); MONOCYTES % (AUTO) 8.8 % (1.7-9.3); NEUTROPHILS # (AUTO) 16.7 K/uL (1.8-7.7); NEUTROPHILS % (AUTO) 59.7 % (40.0-70.0); PLATELET COUNT (AUTO) 412 K/uL (130-430); RED CELL DISTRIBUTION WIDTH 16.5 % (9.0-15.0); WHITE BLOOD COUNT (AUTO) 28.1 K/uL (4.8-10.8)
[2017-06-23 08:26] VITALS: BP_SYST 129
[2017-06-23] MEDS: PANTOPRAZOLE SODIUM 40 MG/VIAL (PROTONIX) IVP SCH ×2 (09:19→21:57)
[2017-06-23] MEDS: TAMSULOSIN HCL 0.4 MG CAP PO SCH (09:20)
[2017-06-23] MEDS: LACTOBACILLUS RHAMNOSUS GG 1 CAP CAPSULE PO SCH ×2 (09:20→21:57)
[2017-06-23] MEDS: POTASSIUM CHLORIDE 20 MEQ/PKT PACKET GT SCH (09:20)
[2017-06-23] MEDS: amLODIPine BESYLATE 10 MG TABLET GT SCH (09:21)
[2017-06-23] MEDS: ASCORBIC ACID 500 MG TABLET GT SCH (09:22)
[2017-06-23] MEDS: LEVOTHYROXINE SODIUM 0.1 MG TABLET GT SCH (09:22)
[2017-06-23] MEDS: CARVEDILOL 12.5 MG TABLET (COREG) GT SCH ×2 (09:22→21:59)
[2017-06-23] MEDS: CHOLECALCIFEROL (VITAMIN D3) 2,000 UNIT TABLET GT SCH (09:23)
[2017-06-23 12:47] VITALS: BP_SYST 138
[2017-06-23 16:30] VITALS: BP_SYST 132
[2017-06-23 20:00] VITALS: BP_SYST 138
[2017-06-24] MEDS: PIPERACILLIN/TAZO 2.25G/DEX-IS 50 ML IV SCH ×4 (00:24→17:53)
[2017-06-24] MEDS: LABETALOL HCL 100 MG TABLET GT SCH ×4 (00:25→17:52)
[2017-06-24 00:32] VITALS: BP_SYST 126
[2017-06-24] MEDS: traMADol HCL HCL 50 MG TABLET (ULTRAM) PO PRN (02:23)
[2017-06-24] MEDS: IPRATROPIUM/ALBUTEROL SULFATE 3 ML AMPUL.NEB INH SCH ×6 (03:00→23:15)
[2017-06-24] MEDS: 0.45% NACL 1,000 ML IV SCH ×3 (05:24→21:24)
[2017-06-24] MEDS: metroNIDAZOLE 500 mg/NS 100 ML IV SCH ×3 (05:24→21:24)
[2017-06-24] MEDS: VALPROIC ACID ORAL SYRUP 250 MG/5 ML UDC GT SCH ×3 (05:25→21:26)
[2017-06-24 07:20] VITALS: BP_SYST 123
[2017-06-24 08:00] VITALS: BP_SYST 129
[2017-06-24] MEDS: LEVOTHYROXINE SODIUM 0.1 MG TABLET GT SCH (08:15)
[2017-06-24] MEDS: amLODIPine BESYLATE 10 MG TABLET GT SCH (08:15)
[2017-06-24] MEDS: TAMSULOSIN HCL 0.4 MG CAP PO SCH (08:15)
[2017-06-24] MEDS: POTASSIUM CHLORIDE 20 MEQ/PKT PACKET GT SCH (08:16)
[2017-06-24] MEDS: LACTOBACILLUS RHAMNOSUS GG 1 CAP CAPSULE PO SCH ×2 (08:18→21:24)
[2017-06-24] MEDS: CHOLECALCIFEROL (VITAMIN D3) 2,000 UNIT TABLET GT SCH (08:18)
[2017-06-24] MEDS: PANTOPRAZOLE SODIUM 40 MG/VIAL (PROTONIX) IVP SCH ×2 (08:18→21:24)
[2017-06-24] MEDS: ASCORBIC ACID 500 MG TABLET GT SCH (08:18)
[2017-06-24] MEDS: CARVEDILOL 12.5 MG TABLET (COREG) GT SCH ×2 (08:26→21:25)
[2017-06-24 10:52] LABS: URINE SODIUM, RANDOM 50 mmol/L (40-220)
[2017-06-24 11:28] VITALS: BP_SYST 131
[2017-06-24] MEDS ORDERED: DILTIAZEM HCL 125 MG in D5W 100 ML IV PRN (13:15)
[2017-06-24] MEDS ORDERED: DIATR MEGLU/DIATRIZ SOD 30 ML SOLUTION PO ONE (13:34)
[2017-06-24 15:29] VITALS: BP_SYST 143
[2017-06-24 20:00] VITALS: BP_SYST 149
[2017-06-25] VITALS (11 sets, daily range): BP systolic 95–137
[2017-06-25] MEDS: PIPERACILLIN/TAZO 2.25G/DEX-IS 50 ML IV SCH ×4 (00:17→17:28)
[2017-06-25] MEDS: LABETALOL HCL 100 MG TABLET GT SCH ×4 (00:20→17:27)
[2017-06-25] MEDS: IPRATROPIUM/ALBUTEROL SULFATE 3 ML AMPUL.NEB INH SCH ×6 (04:02→23:57)
[2017-06-25] MEDS: VALPROIC ACID ORAL SYRUP 250 MG/5 ML UDC GT SCH ×3 (06:05→22:15)
[2017-06-25] MEDS: PANTOPRAZOLE SODIUM 40 MG/VIAL (PROTONIX) IVP SCH ×2 (10:29→22:15)
[2017-06-25] MEDS: TAMSULOSIN HCL 0.4 MG CAP PO SCH (10:30)
[2017-06-25] MEDS: CHOLECALCIFEROL (VITAMIN D3) 2,000 UNIT TABLET GT SCH (10:30)
[2017-06-25] MEDS: ASCORBIC ACID 500 MG TABLET GT SCH (10:30)
[2017-06-25] MEDS: amLODIPine BESYLATE 10 MG TABLET GT SCH (10:30)
[2017-06-25] MEDS: LACTOBACILLUS RHAMNOSUS GG 1 CAP CAPSULE PO SCH ×2 (10:30→22:15)
[2017-06-25] MEDS: LEVOTHYROXINE SODIUM 0.1 MG TABLET GT SCH (10:30)
[2017-06-25] MEDS: POTASSIUM CHLORIDE 20 MEQ/PKT PACKET GT SCH (10:31)
[2017-06-25] MEDS: 0.45% NACL 1,000 ML IV SCH (10:31)
[2017-06-25] MEDS: CARVEDILOL 12.5 MG TABLET (COREG) GT SCH ×2 (11:05→22:14)
[2017-06-25] MEDS: DEXTROSE 50% JECT 50 ML DISP.SYRIN IVP PRN (11:10)
[2017-06-25] MEDS: metroNIDAZOLE 500 mg/NS 100 ML IV SCH ×2 (12:15→22:14)
[2017-06-25] MEDS ORDERED: DILTIAZEM HCL 25 MG/5 ML VIAL IVP ONE ×2 (12:15→13:00)
[2017-06-25 12:16] LABS: HEMATOCRIT 23.5 % (36-54)
[2017-06-25 12:17] LABS: CALCIUM 8.9 mg/dL (8.4-11.0); CREATININE 1.51 mg/dL (0.55-1.30); POTASSIUM 3.4 mmol/L (3.5-5.1)
[2017-06-25 12:34] LABS: HEMOGLOBIN 7.7 g/dL (14.0-18.0); MEAN CORPUSCULAR HEMOGLOBIN 30 pg (27-31); MEAN CORPUSCULAR HGB CONC 33 % (32-36); MEAN CORPUSCULAR VOLUME 92 fL (79.0-98.0); PLATELET COUNT (AUTO) 488 K/uL (130-430); RED BLOOD CELL COUNT(AUTO) 2.56 MIL/uL (4.2-6.2); WHITE BLOOD COUNT (AUTO) 29.6 K/uL (4.8-10.8)
[2017-06-25 12:46] LABS: ATYPICAL LYMPHOCYTES % 2 % (0-0); BAND % (MANUAL) 1 % (0-6); BASOPHILS % (MANUAL) 0 % (0-2); EOSINOPHILS % (MANUAL) 24 % (0-7); LYMPHOCYTES % (MANUAL) 2 % (20-46); MONOCYTES % (MANUAL) 2 % (0-11)
[2017-06-25] MEDS: D5LR 1,000 ML IV SCH ×2 (13:08→22:45)
[2017-06-25] MEDS ORDERED: LABETALOL 100 MG/ 20ML VIAL ONE (15:44)
[2017-06-25] MEDS ORDERED: D5W IV ONE ×2 (16:30→16:45)
[2017-06-25] MEDS ORDERED: AMIODARONE HCL IV ONE ×2 (16:30→16:45)
[2017-06-25] MEDS ORDERED: NS 250 ML IV ONE (16:30)
[2017-06-25] MEDS ORDERED: LABETALOL 100 MG/ 20ML VIAL IVP ONE (17:00)
[2017-06-25] MEDS ORDERED: AMIODARONE HCL 200 MG TABLET GT SCH (21:00)
[2017-06-25] MEDS ORDERED: AMIODARONE HCL 150 MG/3ML VIAL ONE (23:12)
[2017-06-25] MEDS ORDERED: AMIODARONE HCL 150 MG in D5W 100 ML IV ONE (23:15)
[2017-06-26] VITALS (7 sets, daily range): BP systolic 103–157
[2017-06-26] MEDS: PIPERACILLIN/TAZO 2.25G/DEX-IS 50 ML IV SCH ×5 (01:11→23:26)
[2017-06-26] MEDS: LABETALOL HCL 100 MG TABLET GT SCH ×5 (01:12→23:30)
[2017-06-26] MEDS: IPRATROPIUM/ALBUTEROL SULFATE 3 ML AMPUL.NEB INH SCH ×6 (03:00→23:50)
[2017-06-26] MEDS: VALPROIC ACID ORAL SYRUP 250 MG/5 ML UDC GT SCH ×3 (05:57→21:48)
[2017-06-26] MEDS: metroNIDAZOLE 500 mg/NS 100 ML IV SCH ×3 (05:58→21:53)
[2017-06-26 06:42] LABS: BASOPHILS # (AUTO) 0.1 K/uL (0.0-0.2); BASOPHILS % (AUTO) 0.3 % (0.0-2.0); CALCIUM 8.8 mg/dL (8.4-11.0); CREATININE 1.37 mg/dL (0.55-1.30); EOSINOPHILS # (AUTO) 4.2 K/uL (0.0-0.4); EOSINOPHILS % (AUTO) 14.9 % (0.0-4.0); HEMATOCRIT 24.3 % (36-54); HEMOGLOBIN 8.2 g/dL (14.0-18.0); LYMPHOCYTES # (AUTO) 1.5 K/uL (1.0-5.5); LYMPHOCYTES % (AUTO) 5.4 % (20.5-51.5); MEAN CORPUSCULAR HEMOGLOBIN 31 pg (27-31); MEAN CORPUSCULAR HGB CONC 34 % (32-36); MEAN CORPUSCULAR VOLUME 93 fL (79.0-98.0); MONOCYTES % (AUTO) 6.9 % (1.7-9.3); NEUTROPHILS # (AUTO) 20.6 K/uL (1.8-7.7); NEUTROPHILS % (AUTO) 72.5 % (40.0-70.0); PLATELET COUNT (AUTO) 468 K/uL (130-430); POTASSIUM 3.5 mmol/L (3.5-5.1); RED BLOOD CELL COUNT(AUTO) 2.63 MIL/uL (4.2-6.2); RED CELL DISTRIBUTION WIDTH 16.5 % (9.0-15.0); WHITE BLOOD COUNT (AUTO) 28.4 K/uL (4.8-10.8)
[2017-06-26 06:47] LABS: ALBUMIN 1.6 g/dL (3.4-4.8); TOTAL BILIRUBIN 0.5 mg/dL (0.0-1.0)
[2017-06-26] MEDS: ASCORBIC ACID 500 MG TABLET GT SCH (09:35)
[2017-06-26] MEDS: POTASSIUM CHLORIDE 20 MEQ/PKT PACKET GT SCH (09:35)
[2017-06-26] MEDS: CHOLECALCIFEROL (VITAMIN D3) 2,000 UNIT TABLET GT SCH (09:35)
[2017-06-26] MEDS: PANTOPRAZOLE SODIUM 40 MG/VIAL (PROTONIX) IVP SCH ×2 (09:35→21:49)
[2017-06-26] MEDS: LEVOTHYROXINE SODIUM 0.1 MG TABLET GT SCH (09:36)
[2017-06-26] MEDS: CARVEDILOL 12.5 MG TABLET (COREG) GT SCH ×2 (09:37→21:52)
[2017-06-26] MEDS: LACTOBACILLUS RHAMNOSUS GG 1 CAP CAPSULE PO SCH ×2 (09:38→21:47)
[2017-06-26] MEDS: AMIODARONE HCL 200 MG TABLET PO SCH ×2 (09:38→21:51)
[2017-06-26] MEDS: TAMSULOSIN HCL 0.4 MG CAP PO SCH (09:39)
[2017-06-26] MEDS: amLODIPine BESYLATE 10 MG TABLET GT SCH (09:39)
[2017-06-26] MEDS: D5LR 1,000 ML IV SCH (17:50)
[2017-06-26] MEDS: ACETAMINOPHEN 650 MG/20.3 ML UDC PO PRN (20:07)
[2017-06-27 01:02] VITALS: BP_SYST 124
[2017-06-27] MEDS: IPRATROPIUM/ALBUTEROL SULFATE 3 ML AMPUL.NEB INH SCH ×6 (04:28→23:20)
[2017-06-27] MEDS: ACETAMINOPHEN 650 MG/20.3 ML UDC PO PRN ×2 (04:55→17:44)
[2017-06-27] MEDS: PIPERACILLIN/TAZO 2.25G/DEX-IS 50 ML IV SCH ×4 (05:12→23:10)
[2017-06-27] MEDS: metroNIDAZOLE 500 mg/NS 100 ML IV SCH ×3 (05:12→21:48)
[2017-06-27] MEDS: VALPROIC ACID ORAL SYRUP 250 MG/5 ML UDC GT SCH ×3 (05:13→21:47)
[2017-06-27] MEDS: LABETALOL HCL 100 MG TABLET GT SCH ×4 (05:15→23:16)
[2017-06-27] MEDS: D5LR 1,000 ML IV SCH ×2 (06:18→17:36)
[2017-06-27 07:11] LABS: BASOPHILS # (AUTO) 0.1 K/uL (0.0-0.2); BASOPHILS % (AUTO) 0.3 % (0.0-2.0); EOSINOPHILS # (AUTO) 5.4 K/uL (0.0-0.4); EOSINOPHILS % (AUTO) 19.3 % (0.0-4.0); HEMATOCRIT 23.6 % (36-54); LYMPHOCYTES # (AUTO) 1.3 K/uL (1.0-5.5); LYMPHOCYTES % (AUTO) 4.8 % (20.5-51.5); MEAN CORPUSCULAR HEMOGLOBIN 31 pg (27-31); MEAN CORPUSCULAR HGB CONC 34 % (32-36); MEAN CORPUSCULAR VOLUME 92 fL (79.0-98.0); MONOCYTES # (AUTO) 2.4 K/uL (0.0-1.0); MONOCYTES % (AUTO) 8.7 % (1.7-9.3); NEUTROPHILS # (AUTO) 18.6 K/uL (1.8-7.7); NEUTROPHILS % (AUTO) 66.9 % (40.0-70.0); PLATELET COUNT (AUTO) 563 K/uL (130-430); RED BLOOD CELL COUNT(AUTO) 2.58 MIL/uL (4.2-6.2); RED CELL DISTRIBUTION WIDTH 16.3 % (9.0-15.0); WHITE BLOOD COUNT (AUTO) 27.8 K/uL (4.8-10.8)
[2017-06-27 07:33] LABS: CALCIUM 8.8 mg/dL (8.4-11.0); CREATININE 1.34 mg/dL (0.55-1.30); POTASSIUM 3.2 mmol/L (3.5-5.1)
[2017-06-27 08:22] VITALS: BP_SYST 131
[2017-06-27] MEDS: POTASSIUM CHLORIDE 20 MEQ/PKT PACKET GT SCH (09:28)
[2017-06-27] MEDS: LACTOBACILLUS RHAMNOSUS GG 1 CAP CAPSULE PO SCH ×2 (09:28→21:48)
[2017-06-27] MEDS: ASCORBIC ACID 500 MG TABLET GT SCH (09:28)
[2017-06-27] MEDS: PANTOPRAZOLE SODIUM 40 MG/VIAL (PROTONIX) IVP SCH ×2 (09:28→21:48)
[2017-06-27] MEDS: CHOLECALCIFEROL (VITAMIN D3) 2,000 UNIT TABLET GT SCH (09:29)
[2017-06-27] MEDS: amLODIPine BESYLATE 10 MG TABLET GT SCH (09:29)
[2017-06-27] MEDS: LEVOTHYROXINE SODIUM 0.1 MG TABLET GT SCH (09:29)
[2017-06-27] MEDS: TAMSULOSIN HCL 0.4 MG CAP PO SCH (09:29)
[2017-06-27] MEDS: CARVEDILOL 12.5 MG TABLET (COREG) GT SCH ×2 (09:30→21:49)
[2017-06-27] MEDS: AMIODARONE HCL 200 MG TABLET PO SCH ×2 (09:30→21:49)
[2017-06-27 11:53] VITALS: BP_SYST 133
[2017-06-27] MEDS ORDERED: POTASSIUM CHLORIDE 20 MEQ/PKT PACKET PO ONE (15:30)
[2017-06-27 16:00] VITALS: BP_SYST 118; BP_SYST 142
[2017-06-27 19:05] VITALS: BP_SYST 142
[2017-06-27 23:02] VITALS: BP_SYST 141
[2017-06-28] MEDS: IPRATROPIUM/ALBUTEROL SULFATE 3 ML AMPUL.NEB INH SCH ×6 (03:07→23:15)
[2017-06-28] MEDS: D5LR 1,000 ML IV SCH ×3 (05:20→17:54)
[2017-06-28] MEDS: VALPROIC ACID ORAL SYRUP 250 MG/5 ML UDC GT SCH ×3 (05:21→21:43)
[2017-06-28] MEDS: PIPERACILLIN/TAZO 2.25G/DEX-IS 50 ML IV SCH ×3 (05:22→17:48)
[2017-06-28] MEDS: metroNIDAZOLE 500 mg/NS 100 ML IV SCH ×3 (05:22→21:42)
[2017-06-28] MEDS: LABETALOL HCL 100 MG TABLET GT SCH ×3 (05:29→17:50)
[2017-06-28 07:40] LABS: BASOPHILS % (AUTO) 0.1 % (0.0-2.0); EOSINOPHILS # (AUTO) 4.1 K/uL (0.0-0.4); EOSINOPHILS % (AUTO) 14.2 % (0.0-4.0); HEMATOCRIT 24.4 % (36-54); HEMOGLOBIN 8.3 g/dL (14.0-18.0); LYMPHOCYTES # (AUTO) 1.4 K/uL (1.0-5.5); LYMPHOCYTES % (AUTO) 4.9 % (20.5-51.5); MEAN CORPUSCULAR HEMOGLOBIN 31 pg (27-31); MEAN CORPUSCULAR HGB CONC 34 % (32-36); MEAN CORPUSCULAR VOLUME 92 fL (79.0-98.0); MONOCYTES # (AUTO) 2.5 K/uL (0.0-1.0); MONOCYTES % (AUTO) 8.7 % (1.7-9.3); NEUTROPHILS # (AUTO) 20.9 K/uL (1.8-7.7); NEUTROPHILS % (AUTO) 72.1 % (40.0-70.0); PLATELET COUNT (AUTO) 652 K/uL (130-430); RED BLOOD CELL COUNT(AUTO) 2.65 MIL/uL (4.2-6.2); RED CELL DISTRIBUTION WIDTH 16.8 % (9.0-15.0); WHITE BLOOD COUNT (AUTO) 28.9 K/uL (4.8-10.8)
[2017-06-28 07:52] LABS: CREATININE 1.36 mg/dL (0.55-1.30); POTASSIUM 3.5 mmol/L (3.5-5.1)
[2017-06-28 08:33] VITALS: BP_SYST 131
[2017-06-28] MEDS: POTASSIUM CHLORIDE 20 MEQ/PKT PACKET GT SCH (10:03)
[2017-06-28] MEDS: TAMSULOSIN HCL 0.4 MG CAP PO SCH (10:03)
[2017-06-28] MEDS: ASCORBIC ACID 500 MG TABLET GT SCH (10:03)
[2017-06-28] MEDS: amLODIPine BESYLATE 10 MG TABLET GT SCH (10:04)
[2017-06-28] MEDS: LEVOTHYROXINE SODIUM 0.1 MG TABLET GT SCH (10:06)
[2017-06-28] MEDS: CARVEDILOL 12.5 MG TABLET (COREG) GT SCH ×2 (10:06→21:41)
[2017-06-28] MEDS: LACTOBACILLUS RHAMNOSUS GG 1 CAP CAPSULE PO SCH ×2 (10:06→21:40)
[2017-06-28] MEDS: AMIODARONE HCL 200 MG TABLET PO SCH ×2 (10:06→21:41)
[2017-06-28] MEDS: CHOLECALCIFEROL (VITAMIN D3) 2,000 UNIT TABLET GT SCH (10:06)
[2017-06-28] MEDS: PANTOPRAZOLE SODIUM 40 MG/VIAL (PROTONIX) IVP SCH ×2 (10:07→21:39)
[2017-06-28 12:00] VITALS: BP_SYST 137
[2017-06-28] MEDS: GENTAMICIN SULFATE 300 MG in NS 100 ML IV SCH (12:42)
[2017-06-28 16:00] VITALS: BP_SYST 139
[2017-06-28 18:05] VITALS: BP_SYST 139
[2017-06-28] MEDS: ACETAMINOPHEN 650 MG/20.3 ML UDC PO PRN (21:55)
[2017-06-28 22:00] VITALS: BP_SYST 142
[2017-06-29] MEDS: PIPERACILLIN/TAZO 2.25G/DEX-IS 50 ML IV SCH ×3 (00:19→13:29)
[2017-06-29] MEDS: LABETALOL HCL 100 MG TABLET GT SCH ×4 (00:21→17:14)
[2017-06-29 01:07] VITALS: BP_SYST 127
[2017-06-29] MEDS: IPRATROPIUM/ALBUTEROL SULFATE 3 ML AMPUL.NEB INH SCH ×6 (03:00→23:21)
[2017-06-29] MEDS: VALPROIC ACID ORAL SYRUP 250 MG/5 ML UDC GT SCH ×3 (05:16→22:09)
[2017-06-29] MEDS: metroNIDAZOLE 500 mg/NS 100 ML IV SCH ×3 (05:20→22:09)
[2017-06-29 09:02] VITALS: BP_SYST 147
[2017-06-29] MEDS: PANTOPRAZOLE SODIUM 40 MG/VIAL (PROTONIX) IVP SCH ×2 (09:03→20:28)
[2017-06-29] MEDS: POTASSIUM CHLORIDE 20 MEQ/PKT PACKET GT SCH (09:03)
[2017-06-29] MEDS: D5LR 1,000 ML IV SCH ×2 (09:03→20:30)
[2017-06-29] MEDS: LEVOTHYROXINE SODIUM 0.1 MG TABLET GT SCH (09:04)
[2017-06-29] MEDS: LACTOBACILLUS RHAMNOSUS GG 1 CAP CAPSULE PO SCH ×2 (09:04→20:28)
[2017-06-29] MEDS: TAMSULOSIN HCL 0.4 MG CAP PO SCH (09:04)
[2017-06-29] MEDS: CHOLECALCIFEROL (VITAMIN D3) 2,000 UNIT TABLET GT SCH (09:04)
[2017-06-29] MEDS: amLODIPine BESYLATE 10 MG TABLET GT SCH (09:05)
[2017-06-29] MEDS: CARVEDILOL 12.5 MG TABLET (COREG) GT SCH ×2 (09:05→20:30)
[2017-06-29] MEDS: ASCORBIC ACID 500 MG TABLET GT SCH (09:05)
[2017-06-29 13:06] VITALS: BP_SYST 140
[2017-06-29] MEDS: GENTAMICIN SULFATE 300 MG in NS 100 ML IV SCH (13:29)
[2017-06-29] MEDS: ACETAMINOPHEN 650 MG/20.3 ML UDC PO PRN (16:00)
[2017-06-29 16:44] VITALS: BP_SYST 144
[2017-06-29 20:00] VITALS: BP_SYST 128
[2017-06-29] MEDS: AMIODARONE HCL 200 MG TABLET PO SCH (20:29)
[2017-06-30] VITALS: BP_SYST 146
[2017-06-30] MEDS: LABETALOL HCL 100 MG TABLET GT SCH ×5 (00:28→23:42)
[2017-06-30] MEDS: IPRATROPIUM/ALBUTEROL SULFATE 3 ML AMPUL.NEB INH SCH ×6 (03:01→23:08)
[2017-06-30] MEDS: metroNIDAZOLE 500 mg/NS 100 ML IV SCH ×3 (05:13→21:36)
[2017-06-30] MEDS: VALPROIC ACID ORAL SYRUP 250 MG/5 ML UDC GT SCH ×3 (05:14→21:36)
[2017-06-30] MEDS: D5LR 1,000 ML IV SCH ×2 (05:15→17:23)
[2017-06-30 06:58] LABS: HEMATOCRIT 24.4 % (36-54); HEMOGLOBIN 8.3 g/dL (14.0-18.0); MEAN CORPUSCULAR HEMOGLOBIN 32 pg (27-31); MEAN CORPUSCULAR HGB CONC 34 % (32-36); MEAN CORPUSCULAR VOLUME 93 fL (79.0-98.0); PLATELET COUNT (AUTO) 739 K/uL (130-430); RED BLOOD CELL COUNT(AUTO) 2.63 MIL/uL (4.2-6.2)
[2017-06-30 07:02] LABS: CALCIUM 8.8 mg/dL (8.4-11.0); CREATININE 1.3 mg/dL (0.55-1.30); POTASSIUM 3.6 mmol/L (3.5-5.1)
[2017-06-30 07:12] LABS: ALBUMIN 1.8 g/dL (3.4-4.8); TOTAL BILIRUBIN 0.4 mg/dL (0.0-1.0)
[2017-06-30 07:55] VITALS: BP_SYST 142
[2017-06-30 08:12] LABS: WHITE BLOOD COUNT (AUTO) 33.6 K/uL (4.8-10.8)
[2017-06-30 10:21] LABS: BAND % (MANUAL) 5 % (0-6); BASOPHILS % (MANUAL) 0 % (0-2); EOSINOPHILS % (MANUAL) 15 % (0-7); LYMPHOCYTES % (MANUAL) 8 % (20-46); MONOCYTES % (MANUAL) 3 % (0-11)
[2017-06-30] MEDS: POTASSIUM CHLORIDE 20 MEQ/PKT PACKET GT SCH (10:41)
[2017-06-30] MEDS: CARVEDILOL 12.5 MG TABLET (COREG) GT SCH ×2 (10:42→21:37)
[2017-06-30] MEDS: AMIODARONE HCL 200 MG TABLET PO SCH ×2 (10:43→21:38)
[2017-06-30] MEDS: ASCORBIC ACID 500 MG TABLET GT SCH (10:43)
[2017-06-30] MEDS: TAMSULOSIN HCL 0.4 MG CAP PO SCH (10:43)
[2017-06-30] MEDS: CHOLECALCIFEROL (VITAMIN D3) 2,000 UNIT TABLET GT SCH (10:44)
[2017-06-30] MEDS: LEVOTHYROXINE SODIUM 0.1 MG TABLET GT SCH (10:44)
[2017-06-30] MEDS: amLODIPine BESYLATE 10 MG TABLET GT SCH (10:44)
[2017-06-30] MEDS: LACTOBACILLUS RHAMNOSUS GG 1 CAP CAPSULE PO SCH ×2 (10:44→21:38)
[2017-06-30] MEDS: PANTOPRAZOLE SODIUM 40 MG/VIAL (PROTONIX) IVP SCH ×2 (10:45→21:36)
[2017-06-30 11:55] VITALS: BP_SYST 142
[2017-06-30] MEDS: GENTAMICIN SULFATE 300 MG in NS 100 ML IV SCH (12:41)
[2017-06-30 16:00] VITALS: BP_SYST 139
[2017-06-30 19:35] VITALS: BP_SYST 142
[2017-07-01] VITALS (7 sets, daily range): BP systolic 137–152
[2017-07-01] MEDS: IPRATROPIUM/ALBUTEROL SULFATE 3 ML AMPUL.NEB INH SCH ×6 (03:40→23:17)
[2017-07-01 05:46] LABS: CALCIUM 8.9 mg/dL (8.4-11.0); CREATININE 1.34 mg/dL (0.55-1.30); POTASSIUM 3.6 mmol/L (3.5-5.1)
[2017-07-01 05:49] LABS: BASOPHILS # (AUTO) 0.1 K/uL (0.0-0.2); BASOPHILS % (AUTO) 0.3 % (0.0-2.0); EOSINOPHILS # (AUTO) 4.6 K/uL (0.0-0.4); EOSINOPHILS % (AUTO) 12.8 % (0.0-4.0); HEMATOCRIT 24.3 % (36-54); HEMOGLOBIN 8.3 g/dL (14.0-18.0); LYMPHOCYTES % (AUTO) 5.5 % (20.5-51.5); MEAN CORPUSCULAR HEMOGLOBIN 32 pg (27-31); MEAN CORPUSCULAR HGB CONC 34 % (32-36); MEAN CORPUSCULAR VOLUME 93 fL (79.0-98.0); MONOCYTES # (AUTO) 2.7 K/uL (0.0-1.0); MONOCYTES % (AUTO) 7.6 % (1.7-9.3); NEUTROPHILS # (AUTO) 26.6 K/uL (1.8-7.7); NEUTROPHILS % (AUTO) 73.8 % (40.0-70.0); PLATELET COUNT (AUTO) 672 K/uL (130-430); RED BLOOD CELL COUNT(AUTO) 2.62 MIL/uL (4.2-6.2); RED CELL DISTRIBUTION WIDTH 16.8 % (9.0-15.0)
[2017-07-01 05:54] LABS: ALBUMIN 1.9 g/dL (3.4-4.8); TOTAL BILIRUBIN 0.4 mg/dL (0.0-1.0)
[2017-07-01] MEDS: D5LR 1,000 ML IV SCH ×3 (05:55→17:51)
[2017-07-01] MEDS: metroNIDAZOLE 500 mg/NS 100 ML IV SCH ×2 (05:56→15:02)
[2017-07-01] MEDS: VALPROIC ACID ORAL SYRUP 250 MG/5 ML UDC GT SCH ×2 (05:56→15:02)
[2017-07-01] MEDS: LABETALOL HCL 100 MG TABLET GT SCH ×3 (05:57→17:52)
[2017-07-01 06:02] LABS: C-REACTIVE PROTEIN QUANT 2.4 mg/dL (0-0.5)
[2017-07-01 09:19] LABS: ERYTHROCYTE SEDIMENTATION RATE 119 MM/HR (0-15)
[2017-07-01] MEDS: PANTOPRAZOLE SODIUM 40 MG/VIAL (PROTONIX) IVP SCH ×2 (09:22→21:21)
[2017-07-01] MEDS: AMIODARONE HCL 200 MG TABLET PO SCH ×2 (09:23→21:20)
[2017-07-01] MEDS: TAMSULOSIN HCL 0.4 MG CAP PO SCH (09:24)
[2017-07-01] MEDS: LEVOTHYROXINE SODIUM 0.1 MG TABLET GT SCH (09:24)
[2017-07-01] MEDS: CARVEDILOL 12.5 MG TABLET (COREG) GT SCH ×2 (09:24→21:21)
[2017-07-01] MEDS: LACTOBACILLUS RHAMNOSUS GG 1 CAP CAPSULE PO SCH ×2 (09:24→21:19)
[2017-07-01] MEDS: CHOLECALCIFEROL (VITAMIN D3) 2,000 UNIT TABLET GT SCH (09:24)
[2017-07-01] MEDS: ASCORBIC ACID 500 MG TABLET GT SCH (09:24)
[2017-07-01] MEDS: amLODIPine BESYLATE 10 MG TABLET GT SCH (09:25)
[2017-07-01] MEDS: POTASSIUM CHLORIDE 20 MEQ/PKT PACKET GT SCH (09:25)
[2017-07-01] MEDS: GENTAMICIN SULFATE 300 MG in NS 100 ML IV SCH (11:47)
[2017-07-01] MEDS ORDERED: HYDROmorphone 1 MG INJ. 1 MG/ML AMPUL ONE (14:57)
[2017-07-01 19:17] LABS: BILIRUBIN,URINE NEGATIVE (NEGATIVE); BLOOD, URINE NEGATIVE (NEGATIVE); CLARITY/URINE HAZY (CLEAR); COLOR,URINE YELLOW (YELLOW); GLUCOSE,URINE NEGATIVE (NEGATIVE); KETONES,URINE NEGATIVE (NEGATIVE); LEUKOCYTE ESTERASE ,URINE 1+ (NEGATIVE); NITRITE, URINE NEGATIVE (NEGATIVE); PROTEIN URINE 2+ (NEGATIVE); UROBILINOGEN,URINE 0.2 (0.2-1.0)
[2017-07-01 19:34] LABS: RBC,URINE 0-3 /HPF (0-3); WBC,URINE 20-50 /HPF (0-3)
[2017-07-01 19:35] LABS: BACTERIA,URINE FEW /HPF (None Seen); MUCUS,URINE None Seen /LPF (None Seen); YEAST,URINE Moderate /HPF (None Seen)
[2017-07-01] MEDS: GENTAMICIN SULFATE 160 MG in NS 100 ML IV SCH (21:22)
[2017-07-01] MEDS: CEFEPIME 1 GM in D5W 50 ML IV SCH (23:20)
[2017-07-01] MEDS: HYDROmorphone 1 MG INJ. 1 MG/ML AMPUL IVP PRN (23:49)
[2017-07-02] MEDS: metroNIDAZOLE 500 mg/NS 100 ML IV SCH (01:04)
[2017-07-02] MEDS: VALPROIC ACID ORAL SYRUP 250 MG/5 ML UDC GT SCH ×4 (01:05→20:49)
[2017-07-02] MEDS: LABETALOL HCL 100 MG TABLET GT SCH ×5 (01:05→23:30)
[2017-07-02 01:07] VITALS: BP_SYST 150
[2017-07-02] MEDS: IPRATROPIUM/ALBUTEROL SULFATE 3 ML AMPUL.NEB INH SCH ×5 (03:05→23:48)
[2017-07-02] MEDS: D5LR 1,000 ML IV SCH ×2 (05:20→15:14)
[2017-07-02 08:21] VITALS: BP_SYST 148
[2017-07-02] MEDS: TAMSULOSIN HCL 0.4 MG CAP PO SCH (09:33)
[2017-07-02] MEDS: CEFEPIME 1 GM in D5W 50 ML IV SCH ×2 (09:33→20:58)
[2017-07-02] MEDS: POTASSIUM CHLORIDE 20 MEQ/PKT PACKET GT SCH (09:33)
[2017-07-02] MEDS: LEVOTHYROXINE SODIUM 0.1 MG TABLET GT SCH (09:33)
[2017-07-02] MEDS: CARVEDILOL 12.5 MG TABLET (COREG) GT SCH ×2 (09:34→20:47)
[2017-07-02] MEDS: ASCORBIC ACID 500 MG TABLET GT SCH (09:35)
[2017-07-02] MEDS: amLODIPine BESYLATE 10 MG TABLET GT SCH (09:35)
[2017-07-02] MEDS: LACTOBACILLUS RHAMNOSUS GG 1 CAP CAPSULE PO SCH ×2 (09:35→20:48)
[2017-07-02] MEDS: CHOLECALCIFEROL (VITAMIN D3) 2,000 UNIT TABLET GT SCH (09:36)
[2017-07-02] MEDS: PANTOPRAZOLE SODIUM 40 MG/VIAL (PROTONIX) IVP SCH ×2 (09:37→20:59)
[2017-07-02] MEDS: HYDROmorphone 1 MG INJ. 1 MG/ML AMPUL IVP PRN ×2 (11:11→23:58)
[2017-07-02 12:16] VITALS: BP_SYST 139
[2017-07-02] MEDS: ACETAMINOPHEN 650 MG/20.3 ML UDC PO PRN ×2 (15:20→21:00)
[2017-07-02 16:17] VITALS: BP_SYST 132
[2017-07-02 20:00] VITALS: BP_SYST 153
[2017-07-02] MEDS: GENTAMICIN SULFATE 160 MG in NS 100 ML IV SCH (23:29)
[2017-07-03 01:00] VITALS: BP_SYST 148
[2017-07-03] MEDS: IPRATROPIUM/ALBUTEROL SULFATE 3 ML AMPUL.NEB INH SCH ×5 (03:18→23:23)
[2017-07-03] MEDS: D5LR 1,000 ML IV SCH ×3 (05:20→20:45)
[2017-07-03] MEDS: LABETALOL HCL 100 MG TABLET GT SCH ×3 (05:21→18:19)
[2017-07-03] MEDS: VALPROIC ACID ORAL SYRUP 250 MG/5 ML UDC GT SCH ×3 (05:21→21:28)
[2017-07-03 07:05] LABS: CALCIUM 8.7 mg/dL (8.4-11.0); CREATININE 1.35 mg/dL (0.55-1.30)
[2017-07-03 08:00] VITALS: BP_SYST 156
[2017-07-03] MEDS: CARVEDILOL 12.5 MG TABLET (COREG) GT SCH ×2 (09:00→21:20)
[2017-07-03] MEDS: LACTOBACILLUS RHAMNOSUS GG 1 CAP CAPSULE PO SCH ×2 (09:28→21:20)
[2017-07-03] MEDS: PANTOPRAZOLE SODIUM 40 MG/VIAL (PROTONIX) IVP SCH ×2 (09:28→21:17)
[2017-07-03] MEDS: POTASSIUM CHLORIDE 20 MEQ/PKT PACKET GT SCH (09:28)
[2017-07-03] MEDS: TAMSULOSIN HCL 0.4 MG CAP PO SCH (09:28)
[2017-07-03] MEDS: CEFEPIME 1 GM in D5W 50 ML IV SCH ×2 (09:28→21:18)
[2017-07-03] MEDS: ASCORBIC ACID 500 MG TABLET GT SCH (09:28)
[2017-07-03] MEDS: LEVOTHYROXINE SODIUM 0.1 MG TABLET GT SCH (09:29)
[2017-07-03] MEDS: AMIODARONE HCL 200 MG TABLET PO SCH (09:29)
[2017-07-03] MEDS: CHOLECALCIFEROL (VITAMIN D3) 2,000 UNIT TABLET GT SCH (09:29)
[2017-07-03] MEDS: amLODIPine BESYLATE 10 MG TABLET GT SCH (09:37)
[2017-07-03 11:50] LABS: HEMOGLOBIN 8.3 g/dL (14.0-18.0); RED BLOOD CELL COUNT(AUTO) 2.63 MIL/uL (4.2-6.2); WHITE BLOOD COUNT (AUTO) 33.5 K/uL (4.8-10.8)
[2017-07-03 11:51] LABS: HEMATOCRIT 24.4 % (36-54); MEAN CORPUSCULAR HEMOGLOBIN 32 pg (27-31); MEAN CORPUSCULAR HGB CONC 34 % (32-36); MEAN CORPUSCULAR VOLUME 93 fL (79.0-98.0); PLATELET COUNT (AUTO) 692 K/uL (130-430); RED CELL DISTRIBUTION WIDTH 16.5 % (9.0-15.0)
[2017-07-03 12:39] VITALS: BP_SYST 149
[2017-07-03 13:38] LABS: ATYPICAL LYMPHOCYTES % 0 % (0-0); BAND % (MANUAL) 3 % (0-6); LYMPHOCYTES % (MANUAL) 6 % (20-46); MONOCYTES % (MANUAL) 8 % (0-11)
[2017-07-03 13:39] LABS: BASOPHILS % (MANUAL) 0 % (0-2); EOSINOPHILS % (MANUAL) 19 % (0-7)
[2017-07-03 16:22] VITALS: BP_SYST 141
[2017-07-03 20:07] VITALS: BP_SYST 158
[2017-07-03] MEDS: GENTAMICIN SULFATE 160 MG in NS 100 ML IV SCH (21:19)
[2017-07-04] MEDS: LABETALOL HCL 100 MG TABLET GT SCH ×4 (00:14→17:49)
[2017-07-04 00:30] VITALS: BP_SYST 144
[2017-07-04] MEDS: IPRATROPIUM/ALBUTEROL SULFATE 3 ML AMPUL.NEB INH SCH ×6 (03:00→23:49)
[2017-07-04] MEDS: VALPROIC ACID ORAL SYRUP 250 MG/5 ML UDC GT SCH ×3 (05:29→21:10)
[2017-07-04] MEDS: D5LR 1,000 ML IV SCH ×2 (05:31→16:36)
[2017-07-04 08:00] VITALS: BP_SYST 125
[2017-07-04] MEDS: CEFEPIME 1 GM in D5W 50 ML IV SCH ×2 (08:56→20:57)
[2017-07-04] MEDS: PANTOPRAZOLE SODIUM 40 MG/VIAL (PROTONIX) IVP SCH ×2 (08:57→20:57)
[2017-07-04] MEDS: AMIODARONE HCL 200 MG TABLET PO SCH (08:57)
[2017-07-04] MEDS: CHOLECALCIFEROL (VITAMIN D3) 2,000 UNIT TABLET GT SCH (08:58)
[2017-07-04] MEDS: TAMSULOSIN HCL 0.4 MG CAP PO SCH (08:58)
[2017-07-04] MEDS: amLODIPine BESYLATE 10 MG TABLET GT SCH (08:58)
[2017-07-04] MEDS: LACTOBACILLUS RHAMNOSUS GG 1 CAP CAPSULE PO SCH ×2 (08:58→21:04)
[2017-07-04] MEDS: POTASSIUM CHLORIDE 20 MEQ/PKT PACKET GT SCH (08:58)
[2017-07-04] MEDS: LEVOTHYROXINE SODIUM 0.1 MG TABLET GT SCH (08:58)
[2017-07-04] MEDS: ASCORBIC ACID 500 MG TABLET GT SCH (08:58)
[2017-07-04] MEDS: CARVEDILOL 12.5 MG TABLET (COREG) GT SCH ×2 (08:59→20:57)
[2017-07-04 11:23] VITALS: BP_SYST 111
[2017-07-04 12:03] VITALS: BP_SYST 135
[2017-07-04] MEDS: FLUCONAZOLE 200 mg/ NS 100 ML IV SCH (15:03)
[2017-07-04 17:40] VITALS: BP_SYST 131
[2017-07-04 20:00] VITALS: BP_SYST 142
[2017-07-04] MEDS: GENTAMICIN SULFATE 160 MG in NS 100 ML IV SCH (21:55)
[2017-07-04] MEDS: HYDROmorphone 1 MG INJ. 1 MG/ML AMPUL IVP PRN (22:02)
[2017-07-05 00:24] VITALS: BP_SYST 139
[2017-07-05] MEDS: LABETALOL HCL 100 MG TABLET GT SCH ×4 (00:34→17:31)
[2017-07-05] MEDS: IPRATROPIUM/ALBUTEROL SULFATE 3 ML AMPUL.NEB INH SCH ×6 (03:52→23:12)
[2017-07-05] MEDS: D5LR 1,000 ML IV SCH ×2 (05:05→16:35)
[2017-07-05] MEDS: INSULIN REGULAR, HUMAN 100 UNITS/ML, 10 ML VIAL (novoLIN R) SUBCUT PRN ×2 (06:57→21:53)
[2017-07-05] MEDS: VALPROIC ACID ORAL SYRUP 250 MG/5 ML UDC GT SCH ×3 (06:57→21:55)
[2017-07-05 07:29] LABS: BASOPHILS # (AUTO) 0.1 K/uL (0.0-0.2); BASOPHILS % (AUTO) 0.2 % (0.0-2.0); EOSINOPHILS # (AUTO) 5.6 K/uL (0.0-0.4); EOSINOPHILS % (AUTO) 19.4 % (0.0-4.0); HEMATOCRIT 23.3 % (36-54); HEMOGLOBIN 7.9 g/dL (14.0-18.0); LYMPHOCYTES # (AUTO) 1.8 K/uL (1.0-5.5); LYMPHOCYTES % (AUTO) 6.1 % (20.5-51.5); MEAN CORPUSCULAR HEMOGLOBIN 32 pg (27-31); MEAN CORPUSCULAR HGB CONC 34 % (32-36); MEAN CORPUSCULAR VOLUME 94 fL (79.0-98.0); MONOCYTES # (AUTO) 2.3 K/uL (0.0-1.0); MONOCYTES % (AUTO) 7.9 % (1.7-9.3); NEUTROPHILS # (AUTO) 19.2 K/uL (1.8-7.7); PLATELET COUNT (AUTO) 621 K/uL (130-430); RED BLOOD CELL COUNT(AUTO) 2.49 MIL/uL (4.2-6.2); RED CELL DISTRIBUTION WIDTH 17.1 % (9.0-15.0)
[2017-07-05 08:00] VITALS: BP_SYST 129
[2017-07-05 08:01] LABS: CALCIUM 9.2 mg/dL (8.4-11.0); CREATININE 1.37 mg/dL (0.55-1.30); POTASSIUM 4.1 mmol/L (3.5-5.1)
[2017-07-05] MEDS: CEFEPIME 1 GM in D5W 50 ML IV SCH ×2 (09:14→21:52)
[2017-07-05] MEDS: LACTOBACILLUS RHAMNOSUS GG 1 CAP CAPSULE PO SCH ×2 (09:14→21:53)
[2017-07-05] MEDS: CHOLECALCIFEROL (VITAMIN D3) 2,000 UNIT TABLET GT SCH (09:14)
[2017-07-05] MEDS: PANTOPRAZOLE SODIUM 40 MG/VIAL (PROTONIX) IVP SCH ×2 (09:14→21:53)
[2017-07-05] MEDS: POTASSIUM CHLORIDE 20 MEQ/PKT PACKET GT SCH (09:14)
[2017-07-05] MEDS: amLODIPine BESYLATE 10 MG TABLET GT SCH (09:15)
[2017-07-05] MEDS: ASCORBIC ACID 500 MG TABLET GT SCH (09:15)
[2017-07-05] MEDS: TAMSULOSIN HCL 0.4 MG CAP PO SCH (09:15)
[2017-07-05] MEDS: LEVOTHYROXINE SODIUM 0.1 MG TABLET GT SCH (09:15)
[2017-07-05] MEDS: CARVEDILOL 12.5 MG TABLET (COREG) GT SCH ×2 (09:16→21:52)
[2017-07-05] MEDS: AMIODARONE HCL 200 MG TABLET PO SCH (09:16)
[2017-07-05] MEDS: FLUCONAZOLE 200 mg/ NS 100 ML IV SCH (11:25)
[2017-07-05 13:10] VITALS: BP_SYST 138
[2017-07-05 13:44] LABS: NEUTROPHILS % (AUTO) 66.4 % (40.0-70.0)
[2017-07-05] MEDS: HYDROmorphone 1 MG INJ. 1 MG/ML AMPUL IVP PRN (14:20)
[2017-07-05 16:20] VITALS: BP_SYST 130
[2017-07-05 20:00] VITALS: BP_SYST 149
[2017-07-05] MEDS: GENTAMICIN SULFATE 160 MG in NS 100 ML IV SCH (21:52)
[2017-07-06] VITALS: BP_SYST 129
[2017-07-06] MEDS: LABETALOL HCL 100 MG TABLET GT SCH ×4 (00:43→17:34)
[2017-07-06] MEDS: D5LR 1,000 ML IV SCH ×2 (03:09→09:54)
[2017-07-06] MEDS: IPRATROPIUM/ALBUTEROL SULFATE 3 ML AMPUL.NEB INH SCH ×6 (03:41→23:29)
[2017-07-06] MEDS: VALPROIC ACID ORAL SYRUP 250 MG/5 ML UDC GT SCH ×3 (06:14→23:36)
[2017-07-06] MEDS: INSULIN REGULAR, HUMAN 100 UNITS/ML, 10 ML VIAL (novoLIN R) SUBCUT PRN (06:16)
[2017-07-06 08:00] VITALS: BP_SYST 130
[2017-07-06] MEDS: PANTOPRAZOLE SODIUM 40 MG/VIAL (PROTONIX) IVP SCH ×2 (09:33→21:18)
[2017-07-06] MEDS: POTASSIUM CHLORIDE 20 MEQ/PKT PACKET GT SCH (09:33)
[2017-07-06] MEDS: AMIODARONE HCL 200 MG TABLET PO SCH (09:34)
[2017-07-06] MEDS: CARVEDILOL 12.5 MG TABLET (COREG) GT SCH ×2 (09:34→21:18)
[2017-07-06] MEDS: LACTOBACILLUS RHAMNOSUS GG 1 CAP CAPSULE PO SCH ×2 (09:34→21:17)
[2017-07-06] MEDS: LEVOTHYROXINE SODIUM 0.1 MG TABLET GT SCH (09:35)
[2017-07-06] MEDS: CHOLECALCIFEROL (VITAMIN D3) 2,000 UNIT TABLET GT SCH (09:35)
[2017-07-06] MEDS: TAMSULOSIN HCL 0.4 MG CAP PO SCH (09:35)
[2017-07-06] MEDS: ASCORBIC ACID 500 MG TABLET GT SCH (09:35)
[2017-07-06] MEDS: amLODIPine BESYLATE 10 MG TABLET GT SCH (09:36)
[2017-07-06] MEDS: CEFEPIME 1 GM in D5W 50 ML IV SCH ×2 (09:53→21:18)
[2017-07-06 12:00] VITALS: BP_SYST 114; BP_SYST 121
[2017-07-06] MEDS: FLUCONAZOLE 200 mg/ NS 100 ML IV SCH (12:24)
[2017-07-06] MEDS: HYDROmorphone 1 MG INJ. 1 MG/ML AMPUL IVP PRN (12:44)
[2017-07-06 16:04] VITALS: BP_SYST 130
[2017-07-06 20:00] VITALS: BP_SYST 137
[2017-07-06] MEDS: GENTAMICIN SULFATE 160 MG in NS 100 ML IV SCH (21:00)
[2017-07-07] MEDS: LABETALOL HCL 100 MG TABLET GT SCH ×4 (01:17→17:05)
[2017-07-07] MEDS: D5LR 1,000 ML IV SCH ×2 (02:46→12:23)
[2017-07-07 03:00] VITALS: BP_SYST 137
[2017-07-07] MEDS: IPRATROPIUM/ALBUTEROL SULFATE 3 ML AMPUL.NEB INH SCH ×6 (03:06→23:01)
[2017-07-07] MEDS: VALPROIC ACID ORAL SYRUP 250 MG/5 ML UDC GT SCH ×3 (05:42→21:57)
[2017-07-07 07:35] LABS: BASOPHILS # (AUTO) 0.1 K/uL (0.0-0.2); BASOPHILS % (AUTO) 0.3 % (0.0-2.0); EOSINOPHILS % (AUTO) 22.7 % (0.0-4.0); HEMATOCRIT 23.5 % (36-54); LYMPHOCYTES # (AUTO) 1.8 K/uL (1.0-5.5); LYMPHOCYTES % (AUTO) 6.7 % (20.5-51.5); MEAN CORPUSCULAR HEMOGLOBIN 32 pg (27-31); MEAN CORPUSCULAR HGB CONC 34 % (32-36); MEAN CORPUSCULAR VOLUME 93 fL (79.0-98.0); MONOCYTES # (AUTO) 1.8 K/uL (0.0-1.0); MONOCYTES % (AUTO) 6.8 % (1.7-9.3); NEUTROPHILS # (AUTO) 16.7 K/uL (1.8-7.7); PLATELET COUNT (AUTO) 560 K/uL (130-430); RED BLOOD CELL COUNT(AUTO) 2.52 MIL/uL (4.2-6.2); WHITE BLOOD COUNT (AUTO) 26.4 K/uL (4.8-10.8)
[2017-07-07 08:00] VITALS: BP_SYST 137
[2017-07-07 08:00] LABS: NEUTROPHILS % (AUTO) 63.5 % (40.0-70.0)
[2017-07-07 08:35] LABS: CALCIUM 9.1 mg/dL (8.4-11.0); POTASSIUM 4.2 mmol/L (3.5-5.1)
[2017-07-07 08:36] LABS: CREATININE 1.44 mg/dL (0.55-1.30)
[2017-07-07] MEDS: PANTOPRAZOLE SODIUM 40 MG/VIAL (PROTONIX) IVP SCH ×2 (09:09→21:57)
[2017-07-07] MEDS: AMIODARONE HCL 200 MG TABLET PO SCH (09:10)
[2017-07-07] MEDS: POTASSIUM CHLORIDE 20 MEQ/PKT PACKET GT SCH (09:11)
[2017-07-07] MEDS: CARVEDILOL 12.5 MG TABLET (COREG) GT SCH ×2 (09:11→21:56)
[2017-07-07] MEDS: ASCORBIC ACID 500 MG TABLET GT SCH (09:11)
[2017-07-07] MEDS: CHOLECALCIFEROL (VITAMIN D3) 2,000 UNIT TABLET GT SCH (09:12)
[2017-07-07] MEDS: LACTOBACILLUS RHAMNOSUS GG 1 CAP CAPSULE PO SCH ×2 (09:12→21:57)
[2017-07-07] MEDS: LEVOTHYROXINE SODIUM 0.1 MG TABLET GT SCH (09:12)
[2017-07-07] MEDS: amLODIPine BESYLATE 10 MG TABLET GT SCH (09:12)
[2017-07-07] MEDS: TAMSULOSIN HCL 0.4 MG CAP PO SCH (09:12)
[2017-07-07] MEDS: CEFEPIME 1 GM in D5W 50 ML IV SCH ×2 (09:15→21:56)
[2017-07-07] MEDS: FLUCONAZOLE 200 mg/ NS 100 ML IV SCH (12:21)
[2017-07-07 12:42] VITALS: BP_SYST 149
[2017-07-07 16:54] VITALS: BP_SYST 142
[2017-07-07 20:50] VITALS: BP_SYST 148
[2017-07-07] MEDS: GENTAMICIN SULFATE 160 MG in NS 100 ML IV SCH (21:56)
[2017-07-08] MEDS: LABETALOL HCL 100 MG TABLET GT SCH ×4 (00:21→16:59)
[2017-07-08] MEDS: D5LR 1,000 ML IV SCH ×2 (00:35→09:18)
[2017-07-08 00:53] VITALS: BP_SYST 147
[2017-07-08] MEDS: IPRATROPIUM/ALBUTEROL SULFATE 3 ML AMPUL.NEB INH SCH ×6 (04:12→23:10)
[2017-07-08] MEDS: VALPROIC ACID ORAL SYRUP 250 MG/5 ML UDC GT SCH ×3 (06:00→21:36)
[2017-07-08 08:00] VITALS: BP_SYST 126
[2017-07-08] MEDS: PANTOPRAZOLE SODIUM 40 MG/VIAL (PROTONIX) IVP SCH ×2 (09:15→21:35)
[2017-07-08] MEDS: POTASSIUM CHLORIDE 20 MEQ/PKT PACKET GT SCH (09:16)
[2017-07-08] MEDS: CHOLECALCIFEROL (VITAMIN D3) 2,000 UNIT TABLET GT SCH (09:16)
[2017-07-08] MEDS: amLODIPine BESYLATE 10 MG TABLET GT SCH (09:16)
[2017-07-08] MEDS: LEVOTHYROXINE SODIUM 0.1 MG TABLET GT SCH (09:17)
[2017-07-08] MEDS: CARVEDILOL 12.5 MG TABLET (COREG) GT SCH ×2 (09:17→21:36)
[2017-07-08] MEDS: LACTOBACILLUS RHAMNOSUS GG 1 CAP CAPSULE PO SCH ×2 (09:17→21:37)
[2017-07-08] MEDS: AMIODARONE HCL 200 MG TABLET PO SCH (09:18)
[2017-07-08] MEDS: ASCORBIC ACID 500 MG TABLET GT SCH (09:18)
[2017-07-08] MEDS: TAMSULOSIN HCL 0.4 MG CAP PO SCH (09:18)
[2017-07-08 11:33] VITALS: BP_SYST 130
[2017-07-08] MEDS: FLUCONAZOLE 200 mg/ NS 100 ML IV SCH (11:36)
[2017-07-08] MEDS ORDERED: NACL 0.9% 1,000 ML IV SCH (14:11)
[2017-07-08] MEDS ORDERED: ONDANSETRON HCL 4 MG/2 ML VIAL IVP PRN (14:15)
[2017-07-08] MEDS ORDERED: MEPERIDINE HCL/PF 25 MG/ML DISP.SYRIN IVP PRN ×2 (14:15)
[2017-07-08 17:09] VITALS: BP_SYST 127
[2017-07-09] MEDS: LABETALOL HCL 100 MG TABLET GT SCH ×5 (00:45→23:53)
[2017-07-09 01:44] VITALS: BP_SYST 133
[2017-07-09] MEDS: IPRATROPIUM/ALBUTEROL SULFATE 3 ML AMPUL.NEB INH SCH ×6 (02:45→23:32)
[2017-07-09] MEDS: D5LR 1,000 ML IV SCH ×3 (03:31→16:45)
[2017-07-09] MEDS: ACETAMINOPHEN 650 MG/20.3 ML UDC PO PRN (03:31)
[2017-07-09] MEDS: VALPROIC ACID ORAL SYRUP 250 MG/5 ML UDC GT SCH ×3 (05:40→21:27)
[2017-07-09 07:12] LABS: EOSINOPHILS # (AUTO) 5.2 K/uL (0.0-0.4); EOSINOPHILS % (AUTO) 18.8 % (0.0-4.0); HEMOGLOBIN 7.5 g/dL (14.0-18.0); LYMPHOCYTES # (AUTO) 1.5 K/uL (1.0-5.5); LYMPHOCYTES % (AUTO) 5.6 % (20.5-51.5); MEAN CORPUSCULAR HEMOGLOBIN 33 pg (27-31); MEAN CORPUSCULAR HGB CONC 35 % (32-36); MEAN CORPUSCULAR VOLUME 95 fL (79.0-98.0); MONOCYTES # (AUTO) 1.3 K/uL (0.0-1.0); MONOCYTES % (AUTO) 4.9 % (1.7-9.3); NEUTROPHILS # (AUTO) 19.5 K/uL (1.8-7.7); NEUTROPHILS % (AUTO) 70.7 % (40.0-70.0); PLATELET COUNT (AUTO) 479 K/uL (130-430); RED BLOOD CELL COUNT(AUTO) 2.28 MIL/uL (4.2-6.2); RED CELL DISTRIBUTION WIDTH 17.7 % (9.0-15.0); WHITE BLOOD COUNT (AUTO) 27.5 K/uL (4.8-10.8)
[2017-07-09 07:15] LABS: CALCIUM 9.1 mg/dL (8.4-11.0); CREATININE 1.42 mg/dL (0.55-1.30); POTASSIUM 3.8 mmol/L (3.5-5.1)
[2017-07-09 07:28] LABS: ALBUMIN 1.9 g/dL (3.4-4.8); TOTAL BILIRUBIN 0.3 mg/dL (0.0-1.0)
[2017-07-09 08:00] VITALS: BP_SYST 122
[2017-07-09 08:12] LABS: HEMATOCRIT 21.8 % (36-54)
[2017-07-09] MEDS: PANTOPRAZOLE SODIUM 40 MG/VIAL (PROTONIX) IVP SCH ×2 (09:08→21:25)
[2017-07-09] MEDS: POTASSIUM CHLORIDE 20 MEQ/PKT PACKET GT SCH (09:08)
[2017-07-09] MEDS: AMIODARONE HCL 200 MG TABLET PO SCH (09:10)
[2017-07-09] MEDS: amLODIPine BESYLATE 10 MG TABLET GT SCH (09:10)
[2017-07-09] MEDS: CHOLECALCIFEROL (VITAMIN D3) 2,000 UNIT TABLET GT SCH (09:10)
[2017-07-09] MEDS: LEVOTHYROXINE SODIUM 0.1 MG TABLET GT SCH (09:10)
[2017-07-09] MEDS: LACTOBACILLUS RHAMNOSUS GG 1 CAP CAPSULE PO SCH ×2 (09:11→21:25)
[2017-07-09] MEDS: ASCORBIC ACID 500 MG TABLET GT SCH (09:11)
[2017-07-09] MEDS: CARVEDILOL 12.5 MG TABLET (COREG) GT SCH ×2 (09:11→21:26)
[2017-07-09] MEDS: TAMSULOSIN HCL 0.4 MG CAP PO SCH (09:11)
[2017-07-09] MEDS: FLUCONAZOLE 200 mg/ NS 100 ML IV SCH (11:31)
[2017-07-09 12:51] VITALS: BP_SYST 129
[2017-07-09] MEDS: HYDROmorphone 1 MG INJ. 1 MG/ML AMPUL IVP PRN (15:24)
[2017-07-09 16:43] VITALS: BP_SYST 124
[2017-07-09] MEDS: GENTAMICIN SULFATE 160 MG in NS 100 ML IV SCH (21:27)
[2017-07-10 00:39] VITALS: BP_SYST 142
[2017-07-10] MEDS: IPRATROPIUM/ALBUTEROL SULFATE 3 ML AMPUL.NEB INH SCH ×6 (03:57→23:18)
[2017-07-10] MEDS: D5LR 1,000 ML IV SCH ×3 (05:11→16:33)
[2017-07-10] MEDS: VALPROIC ACID ORAL SYRUP 250 MG/5 ML UDC GT SCH ×3 (06:12→21:36)
[2017-07-10] MEDS: LABETALOL HCL 100 MG TABLET GT SCH ×4 (06:12→23:39)
[2017-07-10 08:00] VITALS: BP_SYST 150
[2017-07-10] MEDS: PANTOPRAZOLE SODIUM 40 MG/VIAL (PROTONIX) IVP SCH ×2 (09:42→21:36)
[2017-07-10] MEDS: ASCORBIC ACID 500 MG TABLET GT SCH (09:42)
[2017-07-10] MEDS: amLODIPine BESYLATE 10 MG TABLET GT SCH (09:43)
[2017-07-10] MEDS: LEVOTHYROXINE SODIUM 0.1 MG TABLET GT SCH (09:43)
[2017-07-10] MEDS: CHOLECALCIFEROL (VITAMIN D3) 2,000 UNIT TABLET GT SCH (09:43)
[2017-07-10] MEDS: AMIODARONE HCL 200 MG TABLET PO SCH (09:44)
[2017-07-10] MEDS: POTASSIUM CHLORIDE 20 MEQ/PKT PACKET GT SCH (09:44)
[2017-07-10] MEDS: TAMSULOSIN HCL 0.4 MG CAP PO SCH (09:44)
[2017-07-10] MEDS: CARVEDILOL 12.5 MG TABLET (COREG) GT SCH ×2 (09:45→21:37)
[2017-07-10] MEDS: HYDROmorphone 1 MG INJ. 1 MG/ML AMPUL IVP PRN ×2 (09:46→23:40)
[2017-07-10] MEDS: LACTOBACILLUS RHAMNOSUS GG 1 CAP CAPSULE PO SCH ×2 (09:46→21:36)
[2017-07-10 10:28] LABS: BASOPHILS # (AUTO) 0.3 K/uL (0.0-0.2); BASOPHILS % (AUTO) 0.9 % (0.0-2.0); EOSINOPHILS # (AUTO) 6.6 K/uL (0.0-0.4); HEMATOCRIT 26.6 % (36-54); HEMOGLOBIN 8.7 g/dL (14.0-18.0); LYMPHOCYTES # (AUTO) 1.6 K/uL (1.0-5.5); LYMPHOCYTES % (AUTO) 5.3 % (20.5-51.5); MEAN CORPUSCULAR HEMOGLOBIN 31 pg (27-31); MEAN CORPUSCULAR HGB CONC 33 % (32-36); MEAN CORPUSCULAR VOLUME 93 fL (79.0-98.0); MONOCYTES % (AUTO) 6.8 % (1.7-9.3); NEUTROPHILS # (AUTO) 19.4 K/uL (1.8-7.7); PLATELET COUNT (AUTO) 465 K/uL (130-430); RED BLOOD CELL COUNT(AUTO) 2.85 MIL/uL (4.2-6.2); RED CELL DISTRIBUTION WIDTH 17.1 % (9.0-15.0); WHITE BLOOD COUNT (AUTO) 29.9 K/uL (4.8-10.8)
[2017-07-10 10:37] LABS: CALCIUM 9.5 mg/dL (8.4-11.0); CREATININE 1.39 mg/dL (0.55-1.30); POTASSIUM 4.1 mmol/L (3.5-5.1)
[2017-07-10 10:43] VITALS: BP_SYST 150
[2017-07-10 10:43] LABS: TOTAL BILIRUBIN 0.3 mg/dL (0.0-1.0)
[2017-07-10] MEDS: FLUCONAZOLE 200 mg/ NS 100 ML IV SCH (11:41)
[2017-07-10 12:38] VITALS: BP_SYST 139
[2017-07-10 16:24] VITALS: BP_SYST 136
[2017-07-10 20:00] VITALS: BP_SYST 123
[2017-07-11 00:17] VITALS: BP_SYST 135
[2017-07-11] MEDS: IPRATROPIUM/ALBUTEROL SULFATE 3 ML AMPUL.NEB INH SCH ×6 (03:18→23:24)
[2017-07-11] MEDS: D5LR 1,000 ML IV SCH ×2 (04:24→17:46)
[2017-07-11] MEDS: VALPROIC ACID ORAL SYRUP 250 MG/5 ML UDC GT SCH ×3 (06:24→21:53)
[2017-07-11] MEDS: LABETALOL HCL 100 MG TABLET GT SCH ×4 (06:26→23:27)
[2017-07-11 08:00] VITALS: BP_SYST 136
[2017-07-11] MEDS: POTASSIUM CHLORIDE 20 MEQ/PKT PACKET GT SCH (08:55)
[2017-07-11] MEDS: CHOLECALCIFEROL (VITAMIN D3) 2,000 UNIT TABLET GT SCH (08:55)
[2017-07-11] MEDS: PANTOPRAZOLE SODIUM 40 MG/VIAL (PROTONIX) IVP SCH ×2 (08:55→20:41)
[2017-07-11] MEDS: CARVEDILOL 12.5 MG TABLET (COREG) GT SCH ×2 (08:56→20:40)
[2017-07-11] MEDS: TAMSULOSIN HCL 0.4 MG CAP PO SCH (08:56)
[2017-07-11] MEDS: LEVOTHYROXINE SODIUM 0.1 MG TABLET GT SCH (08:56)
[2017-07-11] MEDS: AMIODARONE HCL 200 MG TABLET PO SCH (08:57)
[2017-07-11] MEDS: ASCORBIC ACID 500 MG TABLET GT SCH (08:57)
[2017-07-11] MEDS: amLODIPine BESYLATE 10 MG TABLET GT SCH (08:57)
[2017-07-11] MEDS: LACTOBACILLUS RHAMNOSUS GG 1 CAP CAPSULE PO SCH ×2 (08:57→20:41)
[2017-07-11 09:33] LABS: BASOPHILS # (AUTO) 0.1 K/uL (0.0-0.2); BASOPHILS % (AUTO) 0.4 % (0.0-2.0); EOSINOPHILS # (AUTO) 6.7 K/uL (0.0-0.4); EOSINOPHILS % (AUTO) 22.9 % (0.0-4.0); HEMATOCRIT 27.7 % (36-54); HEMOGLOBIN 9.2 g/dL (14.0-18.0); LYMPHOCYTES # (AUTO) 1.9 K/uL (1.0-5.5); LYMPHOCYTES % (AUTO) 6.7 % (20.5-51.5); MEAN CORPUSCULAR HEMOGLOBIN 31 pg (27-31); MEAN CORPUSCULAR HGB CONC 33 % (32-36); MEAN CORPUSCULAR VOLUME 94 fL (79.0-98.0); MONOCYTES # (AUTO) 2.2 K/uL (0.0-1.0); MONOCYTES % (AUTO) 7.7 % (1.7-9.3); NEUTROPHILS # (AUTO) 18.1 K/uL (1.8-7.7); NEUTROPHILS % (AUTO) 62.3 % (40.0-70.0); PLATELET COUNT (AUTO) 392 K/uL (130-430); RED BLOOD CELL COUNT(AUTO) 2.96 MIL/uL (4.2-6.2); RED CELL DISTRIBUTION WIDTH 17.3 % (9.0-15.0)
[2017-07-11 10:16] LABS: CALCIUM 9.8 mg/dL (8.4-11.0); CREATININE 1.53 mg/dL (0.55-1.30); POTASSIUM 4.4 mmol/L (3.5-5.1); TOTAL BILIRUBIN 0.3 mg/dL (0.0-1.0)
[2017-07-11 12:48] VITALS: BP_SYST 134
[2017-07-11 16:16] VITALS: BP_SYST 146
[2017-07-11 20:00] VITALS: BP_SYST 138
[2017-07-11] MEDS: FLUCONAZOLE 200 mg/ NS 100 ML IV SCH (20:41)
[2017-07-11] MEDS: HYDROmorphone 1 MG INJ. 1 MG/ML AMPUL IVP PRN (20:42)
[2017-07-11] MEDS: GENTAMICIN SULFATE 160 MG in NS 100 ML IV SCH (20:43)
[2017-07-12 02:09] VITALS: BP_SYST 134
[2017-07-12] MEDS: IPRATROPIUM/ALBUTEROL SULFATE 3 ML AMPUL.NEB INH SCH ×6 (04:05→23:28)
[2017-07-12] MEDS: D5LR 1,000 ML IV SCH ×2 (06:02→16:27)
[2017-07-12] MEDS: VALPROIC ACID ORAL SYRUP 250 MG/5 ML UDC GT SCH ×3 (06:04→21:09)
[2017-07-12] MEDS: LABETALOL HCL 100 MG TABLET GT SCH ×4 (06:08→23:36)
[2017-07-12 07:38] LABS: HEMOGLOBIN 7.8 g/dL (14.0-18.0); LYMPHOCYTES # (AUTO) 1.9 K/uL (1.0-5.5); LYMPHOCYTES % (AUTO) 7.2 % (20.5-51.5); MEAN CORPUSCULAR VOLUME 95 fL (79.0-98.0)
[2017-07-12 07:57] LABS: CALCIUM 9.3 mg/dL (8.4-11.0); CREATININE 1.38 mg/dL (0.55-1.30); POTASSIUM 4.3 mmol/L (3.5-5.1)
[2017-07-12 08:08] LABS: ALBUMIN 1.7 g/dL (3.4-4.8); TOTAL BILIRUBIN 0.5 mg/dL (0.0-1.0)
[2017-07-12 08:14] LABS: BASOPHILS # (AUTO) 0.1 K/uL (0.0-0.2); BASOPHILS % (AUTO) 0.2 % (0.0-2.0); EOSINOPHILS # (AUTO) 7.4 K/uL (0.0-0.4); EOSINOPHILS % (AUTO) 27.4 % (0.0-4.0); MEAN CORPUSCULAR HEMOGLOBIN 32 pg (27-31); MEAN CORPUSCULAR HGB CONC 34 % (32-36); MONOCYTES # (AUTO) 1.5 K/uL (0.0-1.0); MONOCYTES % (AUTO) 5.7 % (1.7-9.3); NEUTROPHILS # (AUTO) 16.1 K/uL (1.8-7.7); PLATELET COUNT (AUTO) 372 K/uL (130-430); RED BLOOD CELL COUNT(AUTO) 2.44 MIL/uL (4.2-6.2); RED CELL DISTRIBUTION WIDTH 17.1 % (9.0-15.0)
[2017-07-12] MEDS: PANTOPRAZOLE SODIUM 40 MG/VIAL (PROTONIX) IVP SCH ×2 (09:31→21:09)
[2017-07-12] MEDS: ASCORBIC ACID 500 MG TABLET GT SCH (09:32)
[2017-07-12] MEDS: CHOLECALCIFEROL (VITAMIN D3) 2,000 UNIT TABLET GT SCH (09:32)
[2017-07-12] MEDS: POTASSIUM CHLORIDE 20 MEQ/PKT PACKET GT SCH (09:32)
[2017-07-12] MEDS: LEVOTHYROXINE SODIUM 0.1 MG TABLET GT SCH (09:34)
[2017-07-12] MEDS: AMIODARONE HCL 200 MG TABLET PO SCH (09:34)
[2017-07-12] MEDS: amLODIPine BESYLATE 10 MG TABLET GT SCH (09:35)
[2017-07-12] MEDS: CARVEDILOL 12.5 MG TABLET (COREG) GT SCH ×2 (09:38→21:11)
[2017-07-12] MEDS: LACTOBACILLUS RHAMNOSUS GG 1 CAP CAPSULE PO SCH ×2 (09:38→21:09)
[2017-07-12] MEDS: TAMSULOSIN HCL 0.4 MG CAP PO SCH (09:38)
[2017-07-12 11:38] LABS: NEUTROPHILS % (AUTO) 59.5 % (40.0-70.0)
[2017-07-12 12:27] VITALS: BP_SYST 128
[2017-07-12] MEDS: HYDROmorphone 1 MG INJ. 1 MG/ML AMPUL IVP PRN (16:13)
[2017-07-12 16:14] VITALS: BP_SYST 138
[2017-07-12 20:00] VITALS: BP_SYST 122
[2017-07-12] MEDS: FLUCONAZOLE 200 mg/ NS 100 ML IV SCH (21:10)
[2017-07-13] VITALS: BP_SYST 117
[2017-07-13] MEDS: IPRATROPIUM/ALBUTEROL SULFATE 3 ML AMPUL.NEB INH SCH ×6 (03:21→23:36)
[2017-07-13] MEDS: HYDROmorphone 1 MG INJ. 1 MG/ML AMPUL IVP PRN (06:12)
[2017-07-13] MEDS: LABETALOL HCL 100 MG TABLET GT SCH ×4 (06:13→23:30)
[2017-07-13] MEDS: D5LR 1,000 ML IV SCH ×3 (06:13→17:20)
[2017-07-13] MEDS: VALPROIC ACID ORAL SYRUP 250 MG/5 ML UDC GT SCH ×3 (06:13→22:56)
[2017-07-13 06:47] LABS: BASOPHILS # (AUTO) 0.1 K/uL (0.0-0.2); BASOPHILS % (AUTO) 0.5 % (0.0-2.0); EOSINOPHILS # (AUTO) 7.8 K/uL (0.0-0.4); EOSINOPHILS % (AUTO) 29.6 % (0.0-4.0); HEMATOCRIT 25.4 % (36-54); HEMOGLOBIN 8.3 g/dL (14.0-18.0); LYMPHOCYTES # (AUTO) 1.7 K/uL (1.0-5.5); LYMPHOCYTES % (AUTO) 6.5 % (20.5-51.5); MEAN CORPUSCULAR HEMOGLOBIN 31 pg (27-31); MEAN CORPUSCULAR HGB CONC 33 % (32-36); MEAN CORPUSCULAR VOLUME 95 fL (79.0-98.0); MONOCYTES % (AUTO) 7.5 % (1.7-9.3); NEUTROPHILS # (AUTO) 14.7 K/uL (1.8-7.7); NEUTROPHILS % (AUTO) 55.9 % (40.0-70.0); PLATELET COUNT (AUTO) 368 K/uL (130-430); RED BLOOD CELL COUNT(AUTO) 2.67 MIL/uL (4.2-6.2); RED CELL DISTRIBUTION WIDTH 16.8 % (9.0-15.0); WHITE BLOOD COUNT (AUTO) 26.3 K/uL (4.8-10.8)
[2017-07-13 07:19] LABS: CALCIUM 9.8 mg/dL (8.4-11.0); CREATININE 1.46 mg/dL (0.55-1.30); POTASSIUM 4.4 mmol/L (3.5-5.1)
[2017-07-13] MEDS: PANTOPRAZOLE SODIUM 40 MG/VIAL (PROTONIX) IVP SCH ×2 (09:12→20:43)
[2017-07-13] MEDS: CARVEDILOL 12.5 MG TABLET (COREG) GT SCH ×2 (09:13→20:43)
[2017-07-13] MEDS: POTASSIUM CHLORIDE 20 MEQ/PKT PACKET GT SCH (09:13)
[2017-07-13] MEDS: ASCORBIC ACID 500 MG TABLET GT SCH (09:13)
[2017-07-13] MEDS: TAMSULOSIN HCL 0.4 MG CAP PO SCH (09:14)
[2017-07-13] MEDS: LEVOTHYROXINE SODIUM 0.1 MG TABLET GT SCH (09:14)
[2017-07-13] MEDS: AMIODARONE HCL 200 MG TABLET PO SCH (09:14)
[2017-07-13] MEDS: LACTOBACILLUS RHAMNOSUS GG 1 CAP CAPSULE PO SCH ×2 (09:15→20:43)
[2017-07-13] MEDS: CHOLECALCIFEROL (VITAMIN D3) 2,000 UNIT TABLET GT SCH (09:15)
[2017-07-13] MEDS: amLODIPine BESYLATE 10 MG TABLET GT SCH (09:15)
[2017-07-13 12:42] VITALS: BP_SYST 140
[2017-07-13 17:14] VITALS: BP_SYST 133
[2017-07-13 20:00] VITALS: BP_SYST 137
[2017-07-13] MEDS: FLUCONAZOLE 200 mg/ NS 100 ML IV SCH (20:43)
[2017-07-13] MEDS: GENTAMICIN SULFATE 160 MG in NS 100 ML IV SCH (21:00)
[2017-07-14] MEDS: HYDROmorphone 1 MG INJ. 1 MG/ML AMPUL IVP PRN ×3 (01:37→22:53)
[2017-07-14 02:16] VITALS: BP_SYST 138
[2017-07-14] MEDS: IPRATROPIUM/ALBUTEROL SULFATE 3 ML AMPUL.NEB INH SCH ×6 (03:42→23:20)
[2017-07-14] MEDS: VALPROIC ACID ORAL SYRUP 250 MG/5 ML UDC GT SCH ×3 (06:49→22:51)
[2017-07-14] MEDS: LABETALOL HCL 100 MG TABLET GT SCH ×4 (06:50→23:31)
[2017-07-14] MEDS: D5LR 1,000 ML IV SCH ×2 (06:50→16:55)
[2017-07-14 08:27] VITALS: BP_SYST 126
[2017-07-14] MEDS: POTASSIUM CHLORIDE 20 MEQ/PKT PACKET GT SCH (10:34)
[2017-07-14] MEDS: PANTOPRAZOLE SODIUM 40 MG/VIAL (PROTONIX) IVP SCH ×2 (10:35→22:49)
[2017-07-14] MEDS: TAMSULOSIN HCL 0.4 MG CAP PO SCH (10:36)
[2017-07-14] MEDS: CARVEDILOL 12.5 MG TABLET (COREG) GT SCH ×2 (10:36→22:51)
[2017-07-14] MEDS: LEVOTHYROXINE SODIUM 0.1 MG TABLET GT SCH (10:36)
[2017-07-14] MEDS: AMIODARONE HCL 200 MG TABLET PO SCH (10:38)
[2017-07-14] MEDS: ASCORBIC ACID 500 MG TABLET GT SCH (10:38)
[2017-07-14] MEDS: amLODIPine BESYLATE 10 MG TABLET GT SCH (10:38)
[2017-07-14] MEDS: CHOLECALCIFEROL (VITAMIN D3) 2,000 UNIT TABLET GT SCH (10:38)
[2017-07-14] MEDS: LACTOBACILLUS RHAMNOSUS GG 1 CAP CAPSULE PO SCH ×2 (10:39→22:51)
[2017-07-14 12:56] VITALS: BP_SYST 119
[2017-07-14 16:44] VITALS: BP_SYST 129
[2017-07-14 20:00] VITALS: BP_SYST 145
[2017-07-14] MEDS: FLUCONAZOLE 200 mg/ NS 100 ML IV SCH (22:49)
[2017-07-15 01:43] VITALS: BP_SYST 146
[2017-07-15] MEDS: IPRATROPIUM/ALBUTEROL SULFATE 3 ML AMPUL.NEB INH SCH ×6 (03:24→23:06)
[2017-07-15] MEDS: TAMSULOSIN HCL 0.4 MG CAP PO SCH (09:00)
[2017-07-15] MEDS: CHOLECALCIFEROL (VITAMIN D3) 2,000 UNIT TABLET GT SCH (09:00)
[2017-07-15] MEDS: CARVEDILOL 12.5 MG TABLET (COREG) GT SCH ×2 (09:00→21:51)
[2017-07-15] MEDS: ASCORBIC ACID 500 MG TABLET GT SCH (09:00)
[2017-07-15] MEDS: AMIODARONE HCL 200 MG TABLET PO SCH (09:00)
[2017-07-15] MEDS: amLODIPine BESYLATE 10 MG TABLET GT SCH (09:00)
[2017-07-15] MEDS: LEVOTHYROXINE SODIUM 0.1 MG TABLET GT SCH (09:00)
[2017-07-15] MEDS: PANTOPRAZOLE SODIUM 40 MG/VIAL (PROTONIX) IVP SCH ×2 (09:00→21:50)
[2017-07-15] MEDS: POTASSIUM CHLORIDE 20 MEQ/PKT PACKET GT SCH (09:00)
[2017-07-15] MEDS: LACTOBACILLUS RHAMNOSUS GG 1 CAP CAPSULE PO SCH ×2 (09:00→21:50)
[2017-07-15 12:31] VITALS: BP_SYST 137
[2017-07-15] MEDS: LABETALOL HCL 100 MG TABLET GT SCH ×2 (12:39→17:24)
[2017-07-15 13:10] LABS: BASOPHILS # (AUTO) 0.1 K/uL (0.0-0.2); BASOPHILS % (AUTO) 0.3 % (0.0-2.0); EOSINOPHILS # (AUTO) 7.1 K/uL (0.0-0.4); EOSINOPHILS % (AUTO) 28.4 % (0.0-4.0); HEMATOCRIT 25.1 % (36-54); HEMOGLOBIN 8.3 g/dL (14.0-18.0); LYMPHOCYTES % (AUTO) 8.1 % (20.5-51.5); MEAN CORPUSCULAR HEMOGLOBIN 32 pg (27-31); MEAN CORPUSCULAR HGB CONC 33 % (32-36); MEAN CORPUSCULAR VOLUME 95 fL (79.0-98.0); MONOCYTES # (AUTO) 2.2 K/uL (0.0-1.0); NEUTROPHILS # (AUTO) 13.5 K/uL (1.8-7.7); NEUTROPHILS % (AUTO) 54.2 % (40.0-70.0); PLATELET COUNT (AUTO) 347 K/uL (130-430); RED BLOOD CELL COUNT(AUTO) 2.63 MIL/uL (4.2-6.2); RED CELL DISTRIBUTION WIDTH 16.4 % (9.0-15.0); WHITE BLOOD COUNT (AUTO) 24.9 K/uL (4.8-10.8)
[2017-07-15] MEDS: VALPROIC ACID ORAL SYRUP 250 MG/5 ML UDC GT SCH ×2 (15:54→21:50)
[2017-07-15] MEDS: D5LR 1,000 ML IV SCH ×2 (15:55→21:49)
[2017-07-15 16:27] LABS: POTASSIUM 4.7 mmol/L (3.5-5.1)
[2017-07-15 16:28] LABS: CREATININE 1.35 mg/dL (0.55-1.30); TOTAL BILIRUBIN 0.2 mg/dL (0.0-1.0)
[2017-07-15 16:29] LABS: ALBUMIN 1.7 g/dL (3.4-4.8)
[2017-07-15 16:34] VITALS: BP_SYST 142
[2017-07-15 20:00] VITALS: BP_SYST 134
[2017-07-15] MEDS: FLUCONAZOLE 200 mg/ NS 100 ML IV SCH (21:50)
[2017-07-16] MEDS: LABETALOL HCL 100 MG TABLET GT SCH ×5 (00:13→23:28)
[2017-07-16 01:14] VITALS: BP_SYST 132
[2017-07-16] MEDS: IPRATROPIUM/ALBUTEROL SULFATE 3 ML AMPUL.NEB INH SCH ×5 (03:42→19:25)
[2017-07-16 04:00] VITALS: BP_SYST 128
[2017-07-16] MEDS: VALPROIC ACID ORAL SYRUP 250 MG/5 ML UDC GT SCH ×3 (06:23→20:59)
[2017-07-16 08:00] VITALS: BP_SYST 129
[2017-07-16] MEDS: PANTOPRAZOLE SODIUM 40 MG/VIAL (PROTONIX) IVP SCH ×2 (09:14→20:59)
[2017-07-16] MEDS: D5LR 1,000 ML IV SCH ×2 (09:14→19:50)
[2017-07-16] MEDS: LEVOTHYROXINE SODIUM 0.1 MG TABLET GT SCH (09:15)
[2017-07-16] MEDS: ASCORBIC ACID 500 MG TABLET GT SCH (09:15)
[2017-07-16] MEDS: TAMSULOSIN HCL 0.4 MG CAP PO SCH (09:15)
[2017-07-16] MEDS: amLODIPine BESYLATE 10 MG TABLET GT SCH (09:15)
[2017-07-16] MEDS: LACTOBACILLUS RHAMNOSUS GG 1 CAP CAPSULE PO SCH ×2 (09:15→20:58)
[2017-07-16] MEDS: CHOLECALCIFEROL (VITAMIN D3) 2,000 UNIT TABLET GT SCH (09:15)
[2017-07-16] MEDS: AMIODARONE HCL 200 MG TABLET PO SCH (09:16)
[2017-07-16] MEDS: POTASSIUM CHLORIDE 20 MEQ/PKT PACKET GT SCH (09:17)
[2017-07-16] MEDS: CARVEDILOL 12.5 MG TABLET (COREG) GT SCH ×2 (09:20→20:59)
[2017-07-16 13:35] VITALS: BP_SYST 130
[2017-07-16 17:08] VITALS: BP_SYST 138
[2017-07-16 20:00] VITALS: BP_SYST 138
[2017-07-16] MEDS: FLUCONAZOLE 200 mg/ NS 100 ML IV SCH (20:58)
[2017-07-17] MEDS: IPRATROPIUM/ALBUTEROL SULFATE 3 ML AMPUL.NEB INH SCH ×7 (00:12→23:39)
[2017-07-17 00:56] VITALS: BP_SYST 137
[2017-07-17 04:00] VITALS: BP_SYST 134
[2017-07-17] MEDS: D5LR 1,000 ML IV SCH ×2 (05:49→15:09)
[2017-07-17] MEDS: LABETALOL HCL 100 MG TABLET GT SCH ×4 (05:49→23:22)
[2017-07-17] MEDS: VALPROIC ACID ORAL SYRUP 250 MG/5 ML UDC GT SCH ×3 (05:50→22:06)
[2017-07-17 07:05] LABS: ALBUMIN 1.9 g/dL (3.4-4.8); CALCIUM 9.9 mg/dL (8.4-11.0); CREATININE 1.27 mg/dL (0.55-1.30); TOTAL BILIRUBIN 0.3 mg/dL (0.0-1.0)
[2017-07-17 07:08] LABS: HEMATOCRIT 26.1 % (36-54); HEMOGLOBIN 8.6 g/dL (14.0-18.0); MEAN CORPUSCULAR HEMOGLOBIN 31 pg (27-31); MEAN CORPUSCULAR HGB CONC 33 % (32-36); MEAN CORPUSCULAR VOLUME 94 fL (79.0-98.0); PLATELET COUNT (AUTO) 392 K/uL (130-430); RED BLOOD CELL COUNT(AUTO) 2.78 MIL/uL (4.2-6.2); RED CELL DISTRIBUTION WIDTH 16.2 % (9.0-15.0); WHITE BLOOD COUNT (AUTO) 25.4 K/uL (4.8-10.8)
[2017-07-17 09:21] LABS: EOSINOPHILS % (MANUAL) 31 % (0-7); LYMPHOCYTES % (MANUAL) 7 % (20-46); MONOCYTES % (MANUAL) 4 % (0-11)
[2017-07-17 09:22] LABS: BASOPHILS % (MANUAL) 0 % (0-2)
[2017-07-17] MEDS: CHOLECALCIFEROL (VITAMIN D3) 2,000 UNIT TABLET GT SCH (10:24)
[2017-07-17] MEDS: POTASSIUM CHLORIDE 20 MEQ/PKT PACKET GT SCH (10:24)
[2017-07-17] MEDS: LACTOBACILLUS RHAMNOSUS GG 1 CAP CAPSULE PO SCH ×2 (10:24→20:30)
[2017-07-17] MEDS: LEVOTHYROXINE SODIUM 0.1 MG TABLET GT SCH (10:24)
[2017-07-17] MEDS: amLODIPine BESYLATE 10 MG TABLET GT SCH (10:24)
[2017-07-17] MEDS: ASCORBIC ACID 500 MG TABLET GT SCH (10:24)
[2017-07-17] MEDS: AMIODARONE HCL 200 MG TABLET PO SCH (10:25)
[2017-07-17] MEDS: CARVEDILOL 12.5 MG TABLET (COREG) GT SCH ×2 (10:25→20:32)
[2017-07-17] MEDS: PANTOPRAZOLE SODIUM 40 MG/VIAL (PROTONIX) IVP SCH ×2 (10:25→20:31)
[2017-07-17] MEDS: TAMSULOSIN HCL 0.4 MG CAP PO SCH (10:26)
[2017-07-17 11:28] VITALS: BP_SYST 115
[2017-07-17] MEDS: ACETAMINOPHEN 650 MG/20.3 ML UDC PO PRN (15:08)
[2017-07-17 15:26] VITALS: BP_SYST 135
[2017-07-17 20:00] VITALS: BP_SYST 124
[2017-07-17] MEDS: FLUCONAZOLE 200 mg/ NS 100 ML IV SCH (20:29)
[2017-07-18 00:02] VITALS: BP_SYST 120
[2017-07-18] MEDS: D5LR 1,000 ML IV SCH ×3 (00:45→14:52)
[2017-07-18 01:07] VITALS: BP_SYST 119
[2017-07-18] MEDS: IPRATROPIUM/ALBUTEROL SULFATE 3 ML AMPUL.NEB INH SCH ×6 (03:32→23:48)
[2017-07-18] MEDS: VALPROIC ACID ORAL SYRUP 250 MG/5 ML UDC GT SCH ×3 (05:05→21:53)
[2017-07-18] MEDS: LABETALOL HCL 100 MG TABLET GT SCH ×4 (05:06→23:27)
[2017-07-18 08:00] VITALS: BP_SYST 118
[2017-07-18] MEDS: CHOLECALCIFEROL (VITAMIN D3) 2,000 UNIT TABLET GT SCH (08:08)
[2017-07-18] MEDS: HYDROmorphone 1 MG INJ. 1 MG/ML AMPUL IVP PRN ×2 (08:08→17:56)
[2017-07-18] MEDS: AMIODARONE HCL 200 MG TABLET PO SCH (08:10)
[2017-07-18] MEDS: amLODIPine BESYLATE 10 MG TABLET GT SCH (08:10)
[2017-07-18] MEDS: TAMSULOSIN HCL 0.4 MG CAP PO SCH (08:17)
[2017-07-18] MEDS: LACTOBACILLUS RHAMNOSUS GG 1 CAP CAPSULE PO SCH ×2 (08:17→20:16)
[2017-07-18] MEDS: PANTOPRAZOLE SODIUM 40 MG/VIAL (PROTONIX) IVP SCH ×2 (08:17→20:17)
[2017-07-18] MEDS: POTASSIUM CHLORIDE 20 MEQ/PKT PACKET GT SCH (08:17)
[2017-07-18] MEDS: LEVOTHYROXINE SODIUM 0.1 MG TABLET GT SCH (08:17)
[2017-07-18] MEDS: CARVEDILOL 12.5 MG TABLET (COREG) GT SCH ×2 (08:25→20:16)
[2017-07-18] MEDS: ASCORBIC ACID 500 MG TABLET GT SCH (10:25)
[2017-07-18 11:30] VITALS: BP_SYST 109
[2017-07-18 15:53] VITALS: BP_SYST 142
[2017-07-18 20:12] VITALS: BP_SYST 120
[2017-07-19 00:35] VITALS: BP_SYST 133
[2017-07-19] MEDS: D5LR 1,000 ML IV SCH ×2 (01:22→12:43)
[2017-07-19] MEDS: IPRATROPIUM/ALBUTEROL SULFATE 3 ML AMPUL.NEB INH SCH ×6 (04:00→23:08)
[2017-07-19] MEDS: VALPROIC ACID ORAL SYRUP 250 MG/5 ML UDC GT SCH ×3 (05:25→21:11)
[2017-07-19] MEDS: LABETALOL HCL 100 MG TABLET GT SCH ×3 (05:26→18:05)
[2017-07-19 08:04] VITALS: BP_SYST 127
[2017-07-19] MEDS: LEVOTHYROXINE SODIUM 0.1 MG TABLET GT SCH (09:59)
[2017-07-19] MEDS: POTASSIUM CHLORIDE 20 MEQ/PKT PACKET GT SCH (09:59)
[2017-07-19] MEDS: ASCORBIC ACID 500 MG TABLET GT SCH (09:59)
[2017-07-19] MEDS: TAMSULOSIN HCL 0.4 MG CAP PO SCH (09:59)
[2017-07-19] MEDS: LACTOBACILLUS RHAMNOSUS GG 1 CAP CAPSULE PO SCH ×2 (09:59→21:11)
[2017-07-19] MEDS: CHOLECALCIFEROL (VITAMIN D3) 2,000 UNIT TABLET GT SCH (10:00)
[2017-07-19] MEDS: CARVEDILOL 12.5 MG TABLET (COREG) GT SCH ×2 (10:00→21:11)
[2017-07-19] MEDS: amLODIPine BESYLATE 10 MG TABLET GT SCH (10:00)
[2017-07-19] MEDS: AMIODARONE HCL 200 MG TABLET PO SCH (10:01)
[2017-07-19] MEDS: PANTOPRAZOLE SODIUM 40 MG/VIAL (PROTONIX) IVP SCH ×2 (10:01→21:11)
[2017-07-19] MEDS: HYDROmorphone 1 MG INJ. 1 MG/ML AMPUL IVP PRN (10:02)
[2017-07-19 12:57] VITALS: BP_SYST 127
[2017-07-19 16:58] VITALS: BP_SYST 127
[2017-07-19 21:09] VITALS: BP_SYST 138
[2017-07-20] MEDS: LABETALOL HCL 100 MG TABLET GT SCH ×4 (00:08→19:14)
[2017-07-20] MEDS: D5LR 1,000 ML IV SCH ×2 (00:08→12:49)
[2017-07-20] MEDS: HYDROmorphone 1 MG INJ. 1 MG/ML AMPUL IVP PRN ×2 (00:10→12:50)
[2017-07-20 00:24] VITALS: BP_SYST 137
[2017-07-20] MEDS: IPRATROPIUM/ALBUTEROL SULFATE 3 ML AMPUL.NEB INH SCH ×5 (04:16→19:31)
[2017-07-20] MEDS: VALPROIC ACID ORAL SYRUP 250 MG/5 ML UDC GT SCH ×3 (05:28→21:43)
[2017-07-20 07:32] LABS: BASOPHILS # (AUTO) 0.1 K/uL (0.0-0.2); BASOPHILS % (AUTO) 0.3 % (0.0-2.0); EOSINOPHILS # (AUTO) 8.7 K/uL (0.0-0.4); EOSINOPHILS % (AUTO) 32.3 % (0.0-4.0); HEMOGLOBIN 8.3 g/dL (14.0-18.0); LYMPHOCYTES % (AUTO) 7.5 % (20.5-51.5); MEAN CORPUSCULAR HEMOGLOBIN 30 pg (27-31); MEAN CORPUSCULAR HGB CONC 32 % (32-36); MEAN CORPUSCULAR VOLUME 95 fL (79.0-98.0); MONOCYTES # (AUTO) 1.8 K/uL (0.0-1.0); MONOCYTES % (AUTO) 6.8 % (1.7-9.3); NEUTROPHILS # (AUTO) 14.4 K/uL (1.8-7.7); NEUTROPHILS % (AUTO) 53.1 % (40.0-70.0); PLATELET COUNT (AUTO) 463 K/uL (130-430); RED BLOOD CELL COUNT(AUTO) 2.74 MIL/uL (4.2-6.2); RED CELL DISTRIBUTION WIDTH 15.6 % (9.0-15.0)
[2017-07-20 08:09] LABS: CALCIUM 9.5 mg/dL (8.4-11.0); CREATININE 1.26 mg/dL (0.55-1.30); POTASSIUM 4.4 mmol/L (3.5-5.1)
[2017-07-20 08:20] VITALS: BP_SYST 137
[2017-07-20] MEDS: PANTOPRAZOLE SODIUM 40 MG/VIAL (PROTONIX) IVP SCH ×2 (09:32→21:43)
[2017-07-20] MEDS: ASCORBIC ACID 500 MG TABLET GT SCH (09:32)
[2017-07-20] MEDS: POTASSIUM CHLORIDE 20 MEQ/PKT PACKET GT SCH (09:33)
[2017-07-20] MEDS: LEVOTHYROXINE SODIUM 0.1 MG TABLET GT SCH (09:33)
[2017-07-20] MEDS: TAMSULOSIN HCL 0.4 MG CAP PO SCH (09:33)
[2017-07-20] MEDS: CHOLECALCIFEROL (VITAMIN D3) 2,000 UNIT TABLET GT SCH (09:33)
[2017-07-20] MEDS: LACTOBACILLUS RHAMNOSUS GG 1 CAP CAPSULE PO SCH ×2 (09:33→21:42)
[2017-07-20] MEDS: AMIODARONE HCL 200 MG TABLET PO SCH (09:34)
[2017-07-20] MEDS: amLODIPine BESYLATE 10 MG TABLET GT SCH (09:34)
[2017-07-20] MEDS: CARVEDILOL 12.5 MG TABLET (COREG) GT SCH ×2 (09:35→21:43)
[2017-07-20 13:00] VITALS: BP_SYST 131
[2017-07-20 16:56] VITALS: BP_SYST 117
[2017-07-20 17:47] VITALS: BP_SYST 117
[2017-07-20 20:00] VITALS: BP_SYST 128
[2017-07-21] MEDS: D5LR 1,000 ML IV SCH ×3 (00:41→18:10)
[2017-07-21] MEDS: LABETALOL HCL 100 MG TABLET GT SCH ×5 (00:43→18:12)
[2017-07-21] MEDS: HYDROmorphone 1 MG INJ. 1 MG/ML AMPUL IVP PRN (00:44)
[2017-07-21 00:59] VITALS: BP_SYST 133
[2017-07-21] MEDS: IPRATROPIUM/ALBUTEROL SULFATE 3 ML AMPUL.NEB INH SCH ×6 (01:27→23:19)
[2017-07-21] MEDS: VALPROIC ACID ORAL SYRUP 250 MG/5 ML UDC GT SCH ×3 (06:23→22:25)
[2017-07-21 06:32] VITALS: BP_SYST 130
[2017-07-21 08:00] VITALS: BP_SYST 126
[2017-07-21] MEDS: LEVOTHYROXINE SODIUM 0.1 MG TABLET GT SCH (08:58)
[2017-07-21] MEDS: TAMSULOSIN HCL 0.4 MG CAP PO SCH (08:58)
[2017-07-21] MEDS: POTASSIUM CHLORIDE 20 MEQ/PKT PACKET GT SCH (08:58)
[2017-07-21] MEDS: CHOLECALCIFEROL (VITAMIN D3) 2,000 UNIT TABLET GT SCH (08:58)
[2017-07-21] MEDS: LACTOBACILLUS RHAMNOSUS GG 1 CAP CAPSULE PO SCH ×2 (08:58→22:25)
[2017-07-21] MEDS: PANTOPRAZOLE SODIUM 40 MG/VIAL (PROTONIX) IVP SCH ×2 (08:59→22:23)
[2017-07-21] MEDS: AMIODARONE HCL 200 MG TABLET PO SCH (08:59)
[2017-07-21] MEDS: ASCORBIC ACID 500 MG TABLET GT SCH (08:59)
[2017-07-21] MEDS: amLODIPine BESYLATE 10 MG TABLET GT SCH (08:59)
[2017-07-21] MEDS: CARVEDILOL 12.5 MG TABLET (COREG) GT SCH ×2 (09:00→22:24)
[2017-07-21 12:11] VITALS: BP_SYST 107
[2017-07-21 16:00] VITALS: BP_SYST 122
[2017-07-21] MEDS ORDERED: DEXTROSE 50% JECT 50 ML DISP.SYRIN IVP PRN (17:15)
[2017-07-21] MEDS ORDERED: HYDROmorphone 1 MG INJ. 1 MG/ML AMPUL IVP PRN (17:15)
[2017-07-21] MEDS ORDERED: BISACODYL 10 MG/SUPPOSITORY RC PRN (17:30)
[2017-07-21] MEDS ORDERED: COMMUNICATION ORDER XX ONE (17:30)
[2017-07-21] MEDS ORDERED: cloNIDine HCL 0.1 MG TABLET GT PRN (17:30)
[2017-07-21 20:00] VITALS: BP_SYST 130
[2017-07-22] VITALS (8 sets, daily range): BP systolic 125–147
[2017-07-22] MEDS: LABETALOL HCL 100 MG TABLET GT SCH ×4 (00:05→17:54)
[2017-07-22] MEDS: IPRATROPIUM/ALBUTEROL SULFATE 3 ML AMPUL.NEB INH SCH ×6 (03:51→23:28)
[2017-07-22] MEDS: D5LR 1,000 ML IV SCH ×2 (04:36→15:11)
[2017-07-22] MEDS: VALPROIC ACID ORAL SYRUP 250 MG/5 ML UDC GT SCH ×3 (05:46→22:28)
[2017-07-22] MEDS: POTASSIUM CHLORIDE 20 MEQ/PKT PACKET GT SCH (09:37)
[2017-07-22] MEDS: LEVOTHYROXINE SODIUM 0.1 MG TABLET GT SCH (09:38)
[2017-07-22] MEDS: CHOLECALCIFEROL (VITAMIN D3) 2,000 UNIT TABLET GT SCH (09:38)
[2017-07-22] MEDS: PANTOPRAZOLE SODIUM 40 MG/VIAL (PROTONIX) IVP SCH ×2 (09:38→22:27)
[2017-07-22] MEDS: LACTOBACILLUS RHAMNOSUS GG 1 CAP CAPSULE PO SCH ×2 (09:38→22:27)
[2017-07-22] MEDS: ASCORBIC ACID 500 MG TABLET GT SCH (09:38)
[2017-07-22] MEDS: CARVEDILOL 12.5 MG TABLET (COREG) GT SCH ×2 (09:39→22:26)
[2017-07-22] MEDS: TAMSULOSIN HCL 0.4 MG CAP PO SCH (09:39)
[2017-07-22] MEDS: amLODIPine BESYLATE 10 MG TABLET GT SCH (09:40)
[2017-07-22] MEDS: AMIODARONE HCL 200 MG TABLET PO SCH (09:41)
[2017-07-23] MEDS: D5LR 1,000 ML IV SCH (00:37)
[2017-07-23] MEDS: LABETALOL HCL 100 MG TABLET GT SCH ×5 (00:39→23:27)
[2017-07-23 02:15] VITALS: BP_SYST 144
[2017-07-23] MEDS: IPRATROPIUM/ALBUTEROL SULFATE 3 ML AMPUL.NEB INH SCH ×6 (04:08→23:09)
[2017-07-23] MEDS: VALPROIC ACID ORAL SYRUP 250 MG/5 ML UDC GT SCH ×3 (06:02→21:37)
[2017-07-23 07:26] LABS: CALCIUM 9.7 mg/dL (8.4-11.0); CREATININE 1.31 mg/dL (0.55-1.30)
[2017-07-23 07:34] LABS: HEMATOCRIT 25.1 % (36-54); HEMOGLOBIN 8.3 g/dL (14.0-18.0); MEAN CORPUSCULAR HEMOGLOBIN 31 pg (27-31); MEAN CORPUSCULAR HGB CONC 33 % (32-36); MEAN CORPUSCULAR VOLUME 95 fL (79.0-98.0); PLATELET COUNT (AUTO) 554 K/uL (130-430); RED BLOOD CELL COUNT(AUTO) 2.64 MIL/uL (4.2-6.2); WHITE BLOOD COUNT (AUTO) 27.6 K/uL (4.8-10.8)
[2017-07-23 08:48] VITALS: BP_SYST 127
[2017-07-23] MEDS: CHOLECALCIFEROL (VITAMIN D3) 2,000 UNIT TABLET GT SCH (09:14)
[2017-07-23] MEDS: TAMSULOSIN HCL 0.4 MG CAP PO SCH (09:14)
[2017-07-23] MEDS: PANTOPRAZOLE SODIUM 40 MG/VIAL (PROTONIX) IVP SCH ×2 (09:14→21:37)
[2017-07-23] MEDS: POTASSIUM CHLORIDE 20 MEQ/PKT PACKET GT SCH (09:14)
[2017-07-23] MEDS: LEVOTHYROXINE SODIUM 0.1 MG TABLET GT SCH (09:15)
[2017-07-23] MEDS: ASCORBIC ACID 500 MG TABLET GT SCH (09:15)
[2017-07-23] MEDS: LACTOBACILLUS RHAMNOSUS GG 1 CAP CAPSULE PO SCH ×2 (09:15→21:37)
[2017-07-23] MEDS: CARVEDILOL 12.5 MG TABLET (COREG) GT SCH ×2 (09:16→21:38)
[2017-07-23] MEDS: amLODIPine BESYLATE 10 MG TABLET GT SCH (09:17)
[2017-07-23] MEDS: AMIODARONE HCL 200 MG TABLET PO SCH (09:17)
[2017-07-23 09:26] LABS: BAND % (MANUAL) 3 % (0-6); BASOPHILS % (MANUAL) 0 % (0-2); EOSINOPHILS % (MANUAL) 21 % (0-7); LYMPHOCYTES % (MANUAL) 3 % (20-46); MONOCYTES % (MANUAL) 11 % (0-11)
[2017-07-23 11:35] VITALS: BP_SYST 142
[2017-07-23 15:31] VITALS: BP_SYST 115
[2017-07-23 19:30] VITALS: BP_SYST 123
[2017-07-24 00:02] VITALS: BP_SYST 124
[2017-07-24] MEDS: IPRATROPIUM/ALBUTEROL SULFATE 3 ML AMPUL.NEB INH SCH ×6 (03:09→23:53)
[2017-07-24] MEDS: LABETALOL HCL 100 MG TABLET GT SCH ×4 (06:07→23:23)
[2017-07-24] MEDS: VALPROIC ACID ORAL SYRUP 250 MG/5 ML UDC GT SCH ×3 (06:10→22:05)
[2017-07-24 08:09] VITALS: BP_SYST 133
[2017-07-24] MEDS: PANTOPRAZOLE SODIUM 40 MG/VIAL (PROTONIX) IVP SCH ×2 (10:44→20:44)
[2017-07-24] MEDS: CARVEDILOL 12.5 MG TABLET (COREG) GT SCH ×2 (10:45→20:45)
[2017-07-24] MEDS: TAMSULOSIN HCL 0.4 MG CAP PO SCH (10:45)
[2017-07-24] MEDS: CHOLECALCIFEROL (VITAMIN D3) 2,000 UNIT TABLET GT SCH (10:46)
[2017-07-24] MEDS: POTASSIUM CHLORIDE 20 MEQ/PKT PACKET GT SCH (10:46)
[2017-07-24] MEDS: LACTOBACILLUS RHAMNOSUS GG 1 CAP CAPSULE PO SCH ×2 (10:47→20:44)
[2017-07-24] MEDS: amLODIPine BESYLATE 10 MG TABLET GT SCH (10:47)
[2017-07-24] MEDS: LEVOTHYROXINE SODIUM 0.1 MG TABLET GT SCH (10:48)
[2017-07-24] MEDS: AMIODARONE HCL 200 MG TABLET PO SCH (10:48)
[2017-07-24] MEDS: ASCORBIC ACID 500 MG TABLET GT SCH (10:48)
[2017-07-24 11:41] VITALS: BP_SYST 110
[2017-07-24 16:37] VITALS: BP_SYST 111
[2017-07-24] MEDS: HYDROmorphone 2 MG/ML VIAL IVP PRN (18:02)
[2017-07-24 19:05] VITALS: BP_SYST 116
[2017-07-25] VITALS (8 sets, daily range): BP systolic 105–120
[2017-07-25] MEDS: IPRATROPIUM/ALBUTEROL SULFATE 3 ML AMPUL.NEB INH SCH ×4 (03:01→23:38)
[2017-07-25] MEDS: VALPROIC ACID ORAL SYRUP 250 MG/5 ML UDC GT SCH ×3 (05:29→21:11)
[2017-07-25] MEDS: HYDROmorphone 2 MG/ML VIAL IVP PRN ×2 (05:30→21:10)
[2017-07-25] MEDS: LABETALOL HCL 100 MG TABLET GT SCH ×4 (05:32→23:52)
[2017-07-25 06:45] LABS: BASOPHILS # (AUTO) 0.1 K/uL (0.0-0.2); BASOPHILS % (AUTO) 0.3 % (0.0-2.0); EOSINOPHILS # (AUTO) 5.2 K/uL (0.0-0.4); EOSINOPHILS % (AUTO) 20.5 % (0.0-4.0); HEMATOCRIT 23.1 % (36-54); HEMOGLOBIN 7.5 g/dL (14.0-18.0); LYMPHOCYTES # (AUTO) 1.7 K/uL (1.0-5.5); LYMPHOCYTES % (AUTO) 6.6 % (20.5-51.5); MEAN CORPUSCULAR HEMOGLOBIN 31 pg (27-31); MEAN CORPUSCULAR HGB CONC 33 % (32-36); MEAN CORPUSCULAR VOLUME 96 fL (79.0-98.0); MONOCYTES # (AUTO) 2.3 K/uL (0.0-1.0); MONOCYTES % (AUTO) 9.2 % (1.7-9.3); NEUTROPHILS % (AUTO) 63.4 % (40.0-70.0); PLATELET COUNT (AUTO) 587 K/uL (130-430); RED BLOOD CELL COUNT(AUTO) 2.42 MIL/uL (4.2-6.2); RED CELL DISTRIBUTION WIDTH 16.1 % (9.0-15.0); WHITE BLOOD COUNT (AUTO) 25.4 K/uL (4.8-10.8)
[2017-07-25 06:54] LABS: ALBUMIN 1.8 g/dL (3.4-4.8); CALCIUM 9.8 mg/dL (8.4-11.0); CREATININE 1.67 mg/dL (0.55-1.30); POTASSIUM 4.5 mmol/L (3.5-5.1); TOTAL BILIRUBIN 0.3 mg/dL (0.0-1.0)
[2017-07-25] MEDS: POTASSIUM CHLORIDE 20 MEQ/PKT PACKET GT SCH (09:56)
[2017-07-25] MEDS: PANTOPRAZOLE SODIUM 40 MG/VIAL (PROTONIX) IVP SCH ×2 (09:56→20:23)
[2017-07-25] MEDS: LEVOTHYROXINE SODIUM 0.1 MG TABLET GT SCH (10:00)
[2017-07-25] MEDS: amLODIPine BESYLATE 10 MG TABLET GT SCH (10:00)
[2017-07-25] MEDS: ASCORBIC ACID 500 MG TABLET GT SCH (10:01)
[2017-07-25] MEDS: CARVEDILOL 12.5 MG TABLET (COREG) GT SCH ×2 (10:01→20:24)
[2017-07-25] MEDS: TAMSULOSIN HCL 0.4 MG CAP PO SCH (10:01)
[2017-07-25] MEDS: CHOLECALCIFEROL (VITAMIN D3) 2,000 UNIT TABLET GT SCH (10:01)
[2017-07-25] MEDS: AMIODARONE HCL 200 MG TABLET PO SCH (10:02)
[2017-07-25] MEDS: LACTOBACILLUS RHAMNOSUS GG 1 CAP CAPSULE PO SCH ×2 (10:02→20:23)
[2017-07-25] MEDS: 0.45% NACL 1,000 ML IV SCH ×2 (10:54→20:22)
[2017-07-25] MEDS: PIPERACILLIN/TAZO 2.25G/DEX-IS 50 ML IV SCH ×3 (13:23→23:48)
[2017-07-25] MEDS: FLUCONAZOLE 200 mg/ NS 100 ML IV SCH (13:24)
[2017-07-26 00:10] VITALS: BP_SYST 108
[2017-07-26] MEDS: IPRATROPIUM/ALBUTEROL SULFATE 3 ML AMPUL.NEB INH SCH ×6 (03:31→23:16)
[2017-07-26] MEDS: VALPROIC ACID ORAL SYRUP 250 MG/5 ML UDC GT SCH ×3 (05:25→21:44)
[2017-07-26] MEDS: PIPERACILLIN/TAZO 2.25G/DEX-IS 50 ML IV SCH ×4 (05:25→23:17)
[2017-07-26] MEDS: LABETALOL HCL 100 MG TABLET GT SCH ×3 (05:29→17:41)
[2017-07-26] MEDS: 0.45% NACL 1,000 ML IV SCH (05:30)
[2017-07-26 07:14] LABS: RED BLOOD CELL COUNT(AUTO) 2.23 MIL/uL (4.2-6.2)
[2017-07-26 07:22] LABS: MEAN CORPUSCULAR HEMOGLOBIN 31 pg (27-31); MEAN CORPUSCULAR HGB CONC 33 % (32-36); MEAN CORPUSCULAR VOLUME 95 fL (79.0-98.0); PLATELET COUNT (AUTO) 580 K/uL (130-430); RED CELL DISTRIBUTION WIDTH 15.6 % (9.0-15.0); WHITE BLOOD COUNT (AUTO) 26.1 K/uL (4.8-10.8)
[2017-07-26 07:24] LABS: CALCIUM 8.9 mg/dL (8.4-11.0); CREATININE 1.77 mg/dL (0.55-1.30); POTASSIUM 4.3 mmol/L (3.5-5.1)
[2017-07-26 07:28] LABS: HEMATOCRIT 21.1 % (36-54)
[2017-07-26 07:35] VITALS: BP_SYST 103
[2017-07-26 08:00] VITALS: BP_SYST 104
[2017-07-26 08:20] LABS: BAND % (MANUAL) 3 % (0-6)
[2017-07-26 08:21] LABS: BASOPHILS % (MANUAL) 0 % (0-2); EOSINOPHILS % (MANUAL) 20 % (0-7); LYMPHOCYTES % (MANUAL) 13 % (20-46); METAMYELOCYTES % 3 % (0-0); MONOCYTES % (MANUAL) 6 % (0-11); MYELOCYTES % 3 % (0-0)
[2017-07-26] MEDS: LACTOBACILLUS RHAMNOSUS GG 1 CAP CAPSULE PO SCH ×2 (09:33→21:46)
[2017-07-26] MEDS: LEVOTHYROXINE SODIUM 0.1 MG TABLET GT SCH (09:33)
[2017-07-26] MEDS: ASCORBIC ACID 500 MG TABLET GT SCH (09:33)
[2017-07-26] MEDS: TAMSULOSIN HCL 0.4 MG CAP PO SCH (09:33)
[2017-07-26] MEDS: AMIODARONE HCL 200 MG TABLET PO SCH (09:34)
[2017-07-26] MEDS: POTASSIUM CHLORIDE 20 MEQ/PKT PACKET GT SCH (09:35)
[2017-07-26] MEDS: PANTOPRAZOLE SODIUM 40 MG/VIAL (PROTONIX) IVP SCH ×2 (09:35→21:44)
[2017-07-26] MEDS: CHOLECALCIFEROL (VITAMIN D3) 2,000 UNIT TABLET GT SCH (09:36)
[2017-07-26] MEDS: CARVEDILOL 12.5 MG TABLET (COREG) GT SCH ×2 (09:36→21:45)
[2017-07-26] MEDS: amLODIPine BESYLATE 10 MG TABLET GT SCH (09:36)
[2017-07-26 11:10] VITALS: BP_SYST 114
[2017-07-26] MEDS: FLUCONAZOLE 200 mg/ NS 100 ML IV SCH (13:55)
[2017-07-26 15:33] VITALS: BP_SYST 126
[2017-07-26 19:50] VITALS: BP_SYST 133
[2017-07-27] VITALS (7 sets, daily range): BP systolic 117–130
[2017-07-27] MEDS: LABETALOL HCL 100 MG TABLET GT SCH ×4 (00:30→17:51)
[2017-07-27] MEDS: IPRATROPIUM/ALBUTEROL SULFATE 3 ML AMPUL.NEB INH SCH ×6 (04:04→23:22)
[2017-07-27] MEDS: PIPERACILLIN/TAZO 2.25G/DEX-IS 50 ML IV SCH ×3 (05:23→17:50)
[2017-07-27] MEDS: VALPROIC ACID ORAL SYRUP 250 MG/5 ML UDC GT SCH ×3 (05:24→21:33)
[2017-07-27] MEDS: 0.45% NACL 1,000 ML IV SCH ×3 (05:36→22:00)
[2017-07-27 06:44] LABS: BASOPHILS # (AUTO) 0.1 K/uL (0.0-0.2); BASOPHILS % (AUTO) 0.3 % (0.0-2.0); EOSINOPHILS # (AUTO) 6.9 K/uL (0.0-0.4); EOSINOPHILS % (AUTO) 26.5 % (0.0-4.0); HEMATOCRIT 27.1 % (36-54); HEMOGLOBIN 9.3 g/dL (14.0-18.0); LYMPHOCYTES # (AUTO) 1.8 K/uL (1.0-5.5); LYMPHOCYTES % (AUTO) 6.9 % (20.5-51.5); MEAN CORPUSCULAR HEMOGLOBIN 32 pg (27-31); MEAN CORPUSCULAR HGB CONC 34 % (32-36); MEAN CORPUSCULAR VOLUME 94 fL (79.0-98.0); MONOCYTES # (AUTO) 2.2 K/uL (0.0-1.0); MONOCYTES % (AUTO) 8.2 % (1.7-9.3); NEUTROPHILS # (AUTO) 15.2 K/uL (1.8-7.7); NEUTROPHILS % (AUTO) 58.1 % (40.0-70.0); PLATELET COUNT (AUTO) 559 K/uL (130-430); RED BLOOD CELL COUNT(AUTO) 2.88 MIL/uL (4.2-6.2); RED CELL DISTRIBUTION WIDTH 15.4 % (9.0-15.0); WHITE BLOOD COUNT (AUTO) 26.2 K/uL (4.8-10.8)
[2017-07-27 07:01] LABS: CALCIUM 9.3 mg/dL (8.4-11.0); CREATININE 1.69 mg/dL (0.55-1.30); POTASSIUM 4.1 mmol/L (3.5-5.1)
[2017-07-27] MEDS: ASCORBIC ACID 500 MG TABLET GT SCH (09:56)
[2017-07-27] MEDS: PANTOPRAZOLE SODIUM 40 MG/VIAL (PROTONIX) IVP SCH ×2 (09:56→21:32)
[2017-07-27] MEDS: CHOLECALCIFEROL (VITAMIN D3) 2,000 UNIT TABLET GT SCH (09:57)
[2017-07-27] MEDS: TAMSULOSIN HCL 0.4 MG CAP PO SCH (09:57)
[2017-07-27] MEDS: LACTOBACILLUS RHAMNOSUS GG 1 CAP CAPSULE PO SCH ×2 (09:57→21:32)
[2017-07-27] MEDS: LEVOTHYROXINE SODIUM 0.1 MG TABLET GT SCH (09:57)
[2017-07-27] MEDS: POTASSIUM CHLORIDE 20 MEQ/PKT PACKET GT SCH (09:57)
[2017-07-27] MEDS: AMIODARONE HCL 200 MG TABLET PO SCH (09:59)
[2017-07-27] MEDS: amLODIPine BESYLATE 10 MG TABLET GT SCH (09:59)
[2017-07-27] MEDS: CARVEDILOL 12.5 MG TABLET (COREG) GT SCH ×2 (10:00→21:33)
[2017-07-27] MEDS: FLUCONAZOLE 200 mg/ NS 100 ML IV SCH (13:46)
[2017-07-27] MEDS: HYDROmorphone 2 MG/ML VIAL IVP PRN (18:48)
[2017-07-28] VITALS (8 sets, daily range): BP systolic 110–128
[2017-07-28] MEDS: PIPERACILLIN/TAZO 2.25G/DEX-IS 50 ML IV SCH ×5 (00:56→23:58)
[2017-07-28] MEDS: LABETALOL HCL 100 MG TABLET GT SCH ×6 (01:01→23:58)
[2017-07-28] MEDS: IPRATROPIUM/ALBUTEROL SULFATE 3 ML AMPUL.NEB INH SCH ×6 (04:14→23:10)
[2017-07-28] MEDS: VALPROIC ACID ORAL SYRUP 250 MG/5 ML UDC GT SCH ×3 (05:15→21:03)
[2017-07-28] MEDS: 0.45% NACL 1,000 ML IV SCH (05:27)
[2017-07-28] MEDS: ASCORBIC ACID 500 MG TABLET GT SCH (08:57)
[2017-07-28] MEDS: LEVOTHYROXINE SODIUM 0.1 MG TABLET GT SCH (08:57)
[2017-07-28] MEDS: POTASSIUM CHLORIDE 20 MEQ/PKT PACKET GT SCH (08:57)
[2017-07-28] MEDS: LACTOBACILLUS RHAMNOSUS GG 1 CAP CAPSULE PO SCH ×2 (08:57→21:05)
[2017-07-28] MEDS: TAMSULOSIN HCL 0.4 MG CAP PO SCH (08:57)
[2017-07-28] MEDS: AMIODARONE HCL 200 MG TABLET PO SCH (08:59)
[2017-07-28] MEDS: CHOLECALCIFEROL (VITAMIN D3) 2,000 UNIT TABLET GT SCH (08:59)
[2017-07-28] MEDS: PANTOPRAZOLE SODIUM 40 MG/VIAL (PROTONIX) IVP SCH ×2 (08:59→21:03)
[2017-07-28] MEDS: CARVEDILOL 12.5 MG TABLET (COREG) GT SCH ×2 (09:00→21:05)
[2017-07-28] MEDS: amLODIPine BESYLATE 10 MG TABLET GT SCH (09:01)
[2017-07-28] MEDS: FLUCONAZOLE 200 mg/ NS 100 ML IV SCH (12:45)
[2017-07-28] MEDS: BALSAM PERU/CASTOR OIL 60 GM OINT...G. TP SCH (12:45)
[2017-07-28] MEDS: HYDROmorphone 2 MG/ML VIAL IVP PRN (18:27)
[2017-07-29 00:41] VITALS: BP_SYST 116
[2017-07-29] MEDS: IPRATROPIUM/ALBUTEROL SULFATE 3 ML AMPUL.NEB INH SCH ×6 (03:47→23:45)
[2017-07-29] MEDS: PIPERACILLIN/TAZO 2.25G/DEX-IS 50 ML IV SCH ×4 (05:21→23:48)
[2017-07-29] MEDS: VALPROIC ACID ORAL SYRUP 250 MG/5 ML UDC GT SCH ×3 (05:21→21:07)
[2017-07-29] MEDS: LABETALOL HCL 100 MG TABLET GT SCH ×4 (05:22→23:48)
[2017-07-29] MEDS: 0.45% NACL 1,000 ML IV SCH ×3 (05:22→23:49)
[2017-07-29 06:15] LABS: HEMATOCRIT 28.8 % (36-54); HEMOGLOBIN 9.5 g/dL (14.0-18.0); MEAN CORPUSCULAR HEMOGLOBIN 31 pg (27-31); MEAN CORPUSCULAR HGB CONC 33 % (32-36); MEAN CORPUSCULAR VOLUME 95 fL (79.0-98.0); PLATELET COUNT (AUTO) 566 K/uL (130-430); RED BLOOD CELL COUNT(AUTO) 3.03 MIL/uL (4.2-6.2); RED CELL DISTRIBUTION WIDTH 16.1 % (9.0-15.0); WHITE BLOOD COUNT (AUTO) 25.2 K/uL (4.8-10.8)
[2017-07-29 06:45] LABS: ALBUMIN 1.6 g/dL (3.4-4.8); CALCIUM 9.5 mg/dL (8.4-11.0); CREATININE 1.55 mg/dL (0.55-1.30); POTASSIUM 4.5 mmol/L (3.5-5.1); TOTAL BILIRUBIN 0.3 mg/dL (0.0-1.0)
[2017-07-29 08:30] VITALS: BP_SYST 133
[2017-07-29 08:34] LABS: BASOPHILS % (MANUAL) 0 % (0-2); EOSINOPHILS % (MANUAL) 30 % (0-7); LYMPHOCYTES % (MANUAL) 9 % (20-46); MONOCYTES % (MANUAL) 7 % (0-11)
[2017-07-29] MEDS: PANTOPRAZOLE SODIUM 40 MG/VIAL (PROTONIX) IVP SCH ×2 (09:49→20:59)
[2017-07-29] MEDS: LACTOBACILLUS RHAMNOSUS GG 1 CAP CAPSULE PO SCH ×2 (09:51→21:00)
[2017-07-29] MEDS: amLODIPine BESYLATE 10 MG TABLET GT SCH (09:51)
[2017-07-29] MEDS: AMIODARONE HCL 200 MG TABLET PO SCH (09:51)
[2017-07-29] MEDS: CHOLECALCIFEROL (VITAMIN D3) 2,000 UNIT TABLET GT SCH (09:52)
[2017-07-29] MEDS: ASCORBIC ACID 500 MG TABLET GT SCH (09:52)
[2017-07-29] MEDS: LEVOTHYROXINE SODIUM 0.1 MG TABLET GT SCH (09:52)
[2017-07-29] MEDS: POTASSIUM CHLORIDE 20 MEQ/PKT PACKET GT SCH (09:52)
[2017-07-29] MEDS: TAMSULOSIN HCL 0.4 MG CAP PO SCH (09:52)
[2017-07-29] MEDS: CARVEDILOL 12.5 MG TABLET (COREG) GT SCH ×2 (10:04→20:59)
[2017-07-29] MEDS: HYDROmorphone 2 MG/ML VIAL IVP PRN (10:07)
[2017-07-29] MEDS: BALSAM PERU/CASTOR OIL 60 GM OINT...G. TP SCH (10:09)
[2017-07-29 12:24] VITALS: BP_SYST 143
[2017-07-29] MEDS: FLUCONAZOLE 200 mg/ NS 100 ML IV SCH (12:58)
[2017-07-29 16:18] VITALS: BP_SYST 146
[2017-07-29 20:00] VITALS: BP_SYST 150
[2017-07-29 20:09] VITALS: BP_SYST 146
[2017-07-30 00:49] VITALS: BP_SYST 139
[2017-07-30] MEDS: IPRATROPIUM/ALBUTEROL SULFATE 3 ML AMPUL.NEB INH SCH ×8 (03:48→23:32)
[2017-07-30] MEDS: VALPROIC ACID ORAL SYRUP 250 MG/5 ML UDC GT SCH ×3 (05:44→21:23)
[2017-07-30] MEDS: PIPERACILLIN/TAZO 2.25G/DEX-IS 50 ML IV SCH ×4 (05:44→23:22)
[2017-07-30] MEDS: LABETALOL HCL 100 MG TABLET GT SCH ×4 (05:47→23:34)
[2017-07-30 07:30] VITALS: BP_SYST 132
[2017-07-30] MEDS: PANTOPRAZOLE SODIUM 40 MG/VIAL (PROTONIX) IVP SCH ×2 (08:58→20:59)
[2017-07-30] MEDS: TAMSULOSIN HCL 0.4 MG CAP PO SCH (08:59)
[2017-07-30] MEDS: CARVEDILOL 12.5 MG TABLET (COREG) GT SCH ×2 (09:00→20:58)
[2017-07-30] MEDS: AMIODARONE HCL 200 MG TABLET PO SCH (09:01)
[2017-07-30] MEDS: CHOLECALCIFEROL (VITAMIN D3) 2,000 UNIT TABLET GT SCH (09:02)
[2017-07-30] MEDS: ASCORBIC ACID 500 MG TABLET GT SCH (09:02)
[2017-07-30] MEDS: LEVOTHYROXINE SODIUM 0.1 MG TABLET GT SCH (09:02)
[2017-07-30] MEDS: LACTOBACILLUS RHAMNOSUS GG 1 CAP CAPSULE PO SCH ×2 (09:02→20:57)
[2017-07-30] MEDS: amLODIPine BESYLATE 10 MG TABLET GT SCH (09:02)
[2017-07-30] MEDS: POTASSIUM CHLORIDE 20 MEQ/PKT PACKET GT SCH (09:02)
[2017-07-30] MEDS: BALSAM PERU/CASTOR OIL 60 GM OINT...G. TP SCH (09:04)
[2017-07-30] MEDS: 0.45% NACL 1,000 ML IV SCH ×2 (09:08→23:22)
[2017-07-30 12:07] VITALS: BP_SYST 127
[2017-07-30] MEDS: FLUCONAZOLE 200 mg/ NS 100 ML IV SCH (13:55)
[2017-07-30 16:48] VITALS: BP_SYST 130
[2017-07-30 20:00] VITALS: BP_SYST 132
[2017-07-30] MEDS: HYDROmorphone 2 MG/ML VIAL IVP PRN (21:30)
[2017-07-31] MEDS: IPRATROPIUM/ALBUTEROL SULFATE 3 ML AMPUL.NEB INH SCH ×6 (02:18→23:35)
[2017-07-31 02:49] VITALS: BP_SYST 125
[2017-07-31] MEDS: LABETALOL HCL 100 MG TABLET GT SCH ×4 (05:24→23:48)
[2017-07-31] MEDS: VALPROIC ACID ORAL SYRUP 250 MG/5 ML UDC GT SCH ×3 (05:25→21:47)
[2017-07-31] MEDS: PIPERACILLIN/TAZO 2.25G/DEX-IS 50 ML IV SCH ×4 (05:25→23:48)
[2017-07-31] MEDS: 0.45% NACL 1,000 ML IV SCH ×3 (05:25→23:49)
[2017-07-31 06:33] LABS: BASOPHILS # (AUTO) 0.1 K/uL (0.0-0.2); BASOPHILS % (AUTO) 0.2 % (0.0-2.0); EOSINOPHILS # (AUTO) 6.8 K/uL (0.0-0.4); EOSINOPHILS % (AUTO) 25.7 % (0.0-4.0); HEMOGLOBIN 9.5 g/dL (14.0-18.0); LYMPHOCYTES # (AUTO) 1.9 K/uL (1.0-5.5); MEAN CORPUSCULAR HEMOGLOBIN 32 pg (27-31); MEAN CORPUSCULAR HGB CONC 34 % (32-36); MEAN CORPUSCULAR VOLUME 95 fL (79.0-98.0); MONOCYTES # (AUTO) 2.4 K/uL (0.0-1.0); MONOCYTES % (AUTO) 9.2 % (1.7-9.3); NEUTROPHILS # (AUTO) 15.3 K/uL (1.8-7.7); NEUTROPHILS % (AUTO) 57.9 % (40.0-70.0); PLATELET COUNT (AUTO) 562 K/uL (130-430); RED BLOOD CELL COUNT(AUTO) 2.95 MIL/uL (4.2-6.2); RED CELL DISTRIBUTION WIDTH 15.6 % (9.0-15.0); WHITE BLOOD COUNT (AUTO) 26.5 K/uL (4.8-10.8)
[2017-07-31 06:38] LABS: CALCIUM 9.4 mg/dL (8.4-11.0); CREATININE 1.41 mg/dL (0.55-1.30); POTASSIUM 4.5 mmol/L (3.5-5.1)
[2017-07-31 08:00] VITALS: BP_SYST 116
[2017-07-31] MEDS: POTASSIUM CHLORIDE 20 MEQ/PKT PACKET GT SCH (09:48)
[2017-07-31] MEDS: LACTOBACILLUS RHAMNOSUS GG 1 CAP CAPSULE PO SCH ×2 (09:48→21:47)
[2017-07-31] MEDS: CHOLECALCIFEROL (VITAMIN D3) 2,000 UNIT TABLET GT SCH (09:48)
[2017-07-31] MEDS: TAMSULOSIN HCL 0.4 MG CAP PO SCH (09:48)
[2017-07-31] MEDS: PANTOPRAZOLE SODIUM 40 MG/VIAL (PROTONIX) IVP SCH ×2 (09:48→21:46)
[2017-07-31] MEDS: ASCORBIC ACID 500 MG TABLET GT SCH (09:48)
[2017-07-31] MEDS: LEVOTHYROXINE SODIUM 0.1 MG TABLET GT SCH (09:48)
[2017-07-31] MEDS: amLODIPine BESYLATE 10 MG TABLET GT SCH (09:53)
[2017-07-31] MEDS: CARVEDILOL 12.5 MG TABLET (COREG) GT SCH ×2 (09:54→21:46)
[2017-07-31] MEDS: AMIODARONE HCL 200 MG TABLET PO SCH (09:55)
[2017-07-31] MEDS: HYDROmorphone 2 MG/ML VIAL IVP PRN (10:15)
[2017-07-31 11:38] VITALS: BP_SYST 122
[2017-07-31] MEDS: FLUCONAZOLE 200 mg/ NS 100 ML IV SCH (12:43)
[2017-07-31] MEDS: BALSAM PERU/CASTOR OIL 60 GM OINT...G. TP SCH (14:00)
[2017-07-31 16:04] VITALS: BP_SYST 120
[2017-07-31 16:17] VITALS: BP_SYST 120
[2017-07-31 20:00] VITALS: BP_SYST 122
[2017-08-01 01:43] VITALS: BP_SYST 115
[2017-08-01] MEDS: IPRATROPIUM/ALBUTEROL SULFATE 3 ML AMPUL.NEB INH SCH ×6 (04:09→23:49)
[2017-08-01] MEDS: VALPROIC ACID ORAL SYRUP 250 MG/5 ML UDC GT SCH ×3 (05:26→21:46)
[2017-08-01] MEDS: PIPERACILLIN/TAZO 2.25G/DEX-IS 50 ML IV SCH ×3 (05:26→17:05)
[2017-08-01] MEDS: LABETALOL HCL 100 MG TABLET GT SCH ×3 (05:27→17:12)
[2017-08-01 07:51] VITALS: BP_SYST 136
[2017-08-01 08:31] VITALS: BP_SYST 136
[2017-08-01] MEDS: PANTOPRAZOLE SODIUM 40 MG/VIAL (PROTONIX) IVP SCH ×2 (08:49→20:51)
[2017-08-01] MEDS: TAMSULOSIN HCL 0.4 MG CAP PO SCH (08:50)
[2017-08-01] MEDS: LACTOBACILLUS RHAMNOSUS GG 1 CAP CAPSULE PO SCH ×2 (08:50→20:52)
[2017-08-01] MEDS: ASCORBIC ACID 500 MG TABLET GT SCH (08:51)
[2017-08-01] MEDS: CHOLECALCIFEROL (VITAMIN D3) 2,000 UNIT TABLET GT SCH (08:51)
[2017-08-01] MEDS: POTASSIUM CHLORIDE 20 MEQ/PKT PACKET GT SCH (08:51)
[2017-08-01] MEDS: amLODIPine BESYLATE 10 MG TABLET GT SCH (08:52)
[2017-08-01] MEDS: AMIODARONE HCL 200 MG TABLET PO SCH (08:53)
[2017-08-01] MEDS: CARVEDILOL 12.5 MG TABLET (COREG) GT SCH ×2 (08:53→20:51)
[2017-08-01] MEDS: BALSAM PERU/CASTOR OIL 60 GM OINT...G. TP SCH (08:54)
[2017-08-01] MEDS: LEVOTHYROXINE SODIUM 0.1 MG TABLET GT SCH (09:07)
[2017-08-01] MEDS: 0.45% NACL 1,000 ML IV SCH ×2 (11:00→21:47)
[2017-08-01 12:55] VITALS: BP_SYST 126
[2017-08-01 15:12] VITALS: BP_SYST 91
[2017-08-01 20:00] VITALS: BP_SYST 127
[2017-08-01] MEDS: HYDROmorphone 2 MG/ML VIAL IVP PRN (20:53)
[2017-08-02] VITALS (7 sets, daily range): BP systolic 117–130
[2017-08-02] MEDS: PIPERACILLIN/TAZO 2.25G/DEX-IS 50 ML IV SCH ×3 (00:33→17:07)
[2017-08-02] MEDS: LABETALOL HCL 100 MG TABLET GT SCH ×4 (00:33→17:15)
[2017-08-02] MEDS: IPRATROPIUM/ALBUTEROL SULFATE 3 ML AMPUL.NEB INH SCH ×6 (03:45→23:04)
[2017-08-02] MEDS: VALPROIC ACID ORAL SYRUP 250 MG/5 ML UDC GT SCH ×3 (05:40→21:13)
[2017-08-02] MEDS: PANTOPRAZOLE SODIUM 40 MG/VIAL (PROTONIX) IVP SCH ×2 (08:20→21:10)
[2017-08-02] MEDS: 0.45% NACL 1,000 ML IV SCH (08:20)
[2017-08-02] MEDS: POTASSIUM CHLORIDE 20 MEQ/PKT PACKET GT SCH (08:23)
[2017-08-02] MEDS: LACTOBACILLUS RHAMNOSUS GG 1 CAP CAPSULE PO SCH ×2 (08:23→21:12)
[2017-08-02] MEDS: LEVOTHYROXINE SODIUM 0.1 MG TABLET GT SCH (08:24)
[2017-08-02] MEDS: ASCORBIC ACID 500 MG TABLET GT SCH (08:24)
[2017-08-02] MEDS: AMIODARONE HCL 200 MG TABLET PO SCH (08:24)
[2017-08-02] MEDS: CARVEDILOL 12.5 MG TABLET (COREG) GT SCH ×2 (08:25→21:14)
[2017-08-02] MEDS: CHOLECALCIFEROL (VITAMIN D3) 2,000 UNIT TABLET GT SCH (08:26)
[2017-08-02] MEDS: TAMSULOSIN HCL 0.4 MG CAP PO SCH (08:26)
[2017-08-02] MEDS: amLODIPine BESYLATE 10 MG TABLET GT SCH (08:26)
[2017-08-02] MEDS: BALSAM PERU/CASTOR OIL 60 GM OINT...G. TP SCH (08:27)
[2017-08-02] MEDS: FLUCONAZOLE 200 mg/ NS 100 ML IV SCH (21:11)
[2017-08-03] MEDS: IPRATROPIUM/ALBUTEROL SULFATE 3 ML AMPUL.NEB INH SCH ×6 (03:49→23:23)
[2017-08-03] MEDS: 0.45% NACL 1,000 ML IV SCH (05:10)
[2017-08-03] MEDS: VALPROIC ACID ORAL SYRUP 250 MG/5 ML UDC GT SCH ×3 (05:11→23:05)
[2017-08-03] MEDS: PIPERACILLIN/TAZO 2.25G/DEX-IS 50 ML IV SCH ×5 (05:13→23:04)
[2017-08-03] MEDS: LABETALOL HCL 100 MG TABLET GT SCH ×5 (05:15→23:22)
[2017-08-03 06:47] LABS: BASOPHILS % (AUTO) 0.1 % (0.0-2.0); EOSINOPHILS # (AUTO) 7.7 K/uL (0.0-0.4); EOSINOPHILS % (AUTO) 30.3 % (0.0-4.0); HEMATOCRIT 27.5 % (36-54); HEMOGLOBIN 9.5 g/dL (14.0-18.0); LYMPHOCYTES # (AUTO) 1.8 K/uL (1.0-5.5); LYMPHOCYTES % (AUTO) 7.1 % (20.5-51.5); MEAN CORPUSCULAR HEMOGLOBIN 32 pg (27-31); MEAN CORPUSCULAR HGB CONC 34 % (32-36); MEAN CORPUSCULAR VOLUME 94 fL (79.0-98.0); MONOCYTES # (AUTO) 1.9 K/uL (0.0-1.0); MONOCYTES % (AUTO) 7.6 % (1.7-9.3); NEUTROPHILS # (AUTO) 13.9 K/uL (1.8-7.7); NEUTROPHILS % (AUTO) 54.9 % (40.0-70.0); PLATELET COUNT (AUTO) 532 K/uL (130-430); RED BLOOD CELL COUNT(AUTO) 2.94 MIL/uL (4.2-6.2); RED CELL DISTRIBUTION WIDTH 15.8 % (9.0-15.0); WHITE BLOOD COUNT (AUTO) 25.3 K/uL (4.8-10.8)
[2017-08-03 06:56] LABS: CALCIUM 9.2 mg/dL (8.4-11.0); CREATININE 1.47 mg/dL (0.55-1.30); POTASSIUM 4.1 mmol/L (3.5-5.1)
[2017-08-03 08:00] VITALS: BP_SYST 134
[2017-08-03] MEDS: ASCORBIC ACID 500 MG TABLET GT SCH (09:44)
[2017-08-03] MEDS: amLODIPine BESYLATE 10 MG TABLET GT SCH (09:45)
[2017-08-03] MEDS: CARVEDILOL 12.5 MG TABLET (COREG) GT SCH ×2 (09:46→23:03)
[2017-08-03] MEDS: CHOLECALCIFEROL (VITAMIN D3) 2,000 UNIT TABLET GT SCH (09:46)
[2017-08-03] MEDS: AMIODARONE HCL 200 MG TABLET PO SCH (09:47)
[2017-08-03] MEDS: LACTOBACILLUS RHAMNOSUS GG 1 CAP CAPSULE PO SCH ×2 (09:47→23:05)
[2017-08-03] MEDS: POTASSIUM CHLORIDE 20 MEQ/PKT PACKET GT SCH (09:47)
[2017-08-03] MEDS: LEVOTHYROXINE SODIUM 0.1 MG TABLET GT SCH (09:47)
[2017-08-03] MEDS: TAMSULOSIN HCL 0.4 MG CAP PO SCH (09:47)
[2017-08-03] MEDS: PANTOPRAZOLE SODIUM 40 MG/VIAL (PROTONIX) IVP SCH ×2 (09:48→23:04)
[2017-08-03] MEDS: BALSAM PERU/CASTOR OIL 60 GM OINT...G. TP SCH (09:48)
[2017-08-03 12:23] VITALS: BP_SYST 128
[2017-08-03 15:26] VITALS: BP_SYST 119
[2017-08-03 17:31] VITALS: BP_SYST 119
[2017-08-03 20:00] VITALS: BP_SYST 124
[2017-08-03] MEDS: FLUCONAZOLE 200 mg/ NS 100 ML IV SCH (21:00)
[2017-08-03 23:00] VITALS: BP_SYST 128
[2017-08-04 00:13] VITALS: BP_SYST 119
[2017-08-04] MEDS: 0.45% NACL 1,000 ML IV SCH ×2 (00:46→21:10)
[2017-08-04] MEDS: IPRATROPIUM/ALBUTEROL SULFATE 3 ML AMPUL.NEB INH SCH ×6 (03:24→23:27)
[2017-08-04] MEDS: PIPERACILLIN/TAZO 2.25G/DEX-IS 50 ML IV SCH ×3 (06:00→17:47)
[2017-08-04] MEDS: VALPROIC ACID ORAL SYRUP 250 MG/5 ML UDC GT SCH ×3 (06:35→21:12)
[2017-08-04 06:49] VITALS: BP_SYST 132
[2017-08-04] MEDS: LABETALOL HCL 100 MG TABLET GT SCH ×3 (06:49→17:51)
[2017-08-04 07:48] VITALS: BP_SYST 132
[2017-08-04] MEDS: PANTOPRAZOLE SODIUM 40 MG/VIAL (PROTONIX) IVP SCH ×2 (08:53→21:10)
[2017-08-04] MEDS: CHOLECALCIFEROL (VITAMIN D3) 2,000 UNIT TABLET GT SCH (08:55)
[2017-08-04] MEDS: POTASSIUM CHLORIDE 20 MEQ/PKT PACKET GT SCH (08:55)
[2017-08-04] MEDS: ASCORBIC ACID 500 MG TABLET GT SCH (08:55)
[2017-08-04] MEDS: CARVEDILOL 12.5 MG TABLET (COREG) GT SCH ×2 (08:55→21:11)
[2017-08-04] MEDS: LEVOTHYROXINE SODIUM 0.1 MG TABLET GT SCH (08:55)
[2017-08-04] MEDS: LACTOBACILLUS RHAMNOSUS GG 1 CAP CAPSULE PO SCH ×2 (08:55→21:12)
[2017-08-04] MEDS: AMIODARONE HCL 200 MG TABLET PO SCH (08:56)
[2017-08-04] MEDS: amLODIPine BESYLATE 10 MG TABLET GT SCH (08:56)
[2017-08-04] MEDS: TAMSULOSIN HCL 0.4 MG CAP PO SCH (09:03)
[2017-08-04] MEDS: BALSAM PERU/CASTOR OIL 60 GM OINT...G. TP SCH (09:07)
[2017-08-04 12:10] VITALS: BP_SYST 138
[2017-08-04 16:03] VITALS: BP_SYST 160
[2017-08-04 21:07] VITALS: BP_SYST 127
[2017-08-04] MEDS: FLUCONAZOLE 200 mg/ NS 100 ML IV SCH (21:12)
[2017-08-05 00:08] VITALS: BP_SYST 120
[2017-08-05] MEDS: LABETALOL HCL 100 MG TABLET GT SCH ×4 (00:38→17:31)
[2017-08-05] MEDS: PIPERACILLIN/TAZO 2.25G/DEX-IS 50 ML IV SCH ×4 (00:42→17:31)
[2017-08-05] MEDS: IPRATROPIUM/ALBUTEROL SULFATE 3 ML AMPUL.NEB INH SCH ×6 (03:58→23:47)
[2017-08-05] MEDS: VALPROIC ACID ORAL SYRUP 250 MG/5 ML UDC GT SCH ×3 (06:25→21:08)
[2017-08-05 07:40] VITALS: BP_SYST 119
[2017-08-05 07:55] VITALS: BP_SYST 119
[2017-08-05] MEDS: TAMSULOSIN HCL 0.4 MG CAP PO SCH (08:52)
[2017-08-05] MEDS: LEVOTHYROXINE SODIUM 0.1 MG TABLET GT SCH (08:52)
[2017-08-05] MEDS: LACTOBACILLUS RHAMNOSUS GG 1 CAP CAPSULE PO SCH ×2 (08:52→21:09)
[2017-08-05] MEDS: CHOLECALCIFEROL (VITAMIN D3) 2,000 UNIT TABLET GT SCH (08:52)
[2017-08-05] MEDS: amLODIPine BESYLATE 10 MG TABLET GT SCH (08:53)
[2017-08-05] MEDS: POTASSIUM CHLORIDE 20 MEQ/PKT PACKET GT SCH (08:53)
[2017-08-05] MEDS: ASCORBIC ACID 500 MG TABLET GT SCH (08:53)
[2017-08-05] MEDS: PANTOPRAZOLE SODIUM 40 MG/VIAL (PROTONIX) IVP SCH ×2 (08:53→21:09)
[2017-08-05] MEDS: AMIODARONE HCL 200 MG TABLET PO SCH (08:54)
[2017-08-05] MEDS: BALSAM PERU/CASTOR OIL 60 GM OINT...G. TP SCH (08:55)
[2017-08-05] MEDS: CARVEDILOL 12.5 MG TABLET (COREG) GT SCH ×2 (08:55→21:09)
[2017-08-05 12:18] VITALS: BP_SYST 115
[2017-08-05 16:17] VITALS: BP_SYST 116
[2017-08-05] MEDS: 0.45% NACL 1,000 ML IV SCH (17:33)
[2017-08-05 20:00] VITALS: BP_SYST 131
[2017-08-05] MEDS: FLUCONAZOLE 200 mg/ NS 100 ML IV SCH (21:09)
[2017-08-05] MEDS: ACETAMINOPHEN 650 MG/20.3 ML UDC PO PRN (21:42)
[2017-08-06 00:16] VITALS: BP_SYST 122
[2017-08-06] MEDS: PIPERACILLIN/TAZO 2.25G/DEX-IS 50 ML IV SCH ×3 (01:15→11:29)
[2017-08-06] MEDS: LABETALOL HCL 100 MG TABLET GT SCH ×5 (01:15→23:51)
[2017-08-06] MEDS: IPRATROPIUM/ALBUTEROL SULFATE 3 ML AMPUL.NEB INH SCH ×6 (03:24→23:22)
[2017-08-06 06:08] LABS: HEMATOCRIT 29.5 % (36-54); HEMOGLOBIN 9.8 g/dL (14.0-18.0); MEAN CORPUSCULAR HEMOGLOBIN 32 pg (27-31); MEAN CORPUSCULAR HGB CONC 33 % (32-36); MEAN CORPUSCULAR VOLUME 95 fL (79.0-98.0); PLATELET COUNT (AUTO) 627 K/uL (130-430); RED CELL DISTRIBUTION WIDTH 15.9 % (9.0-15.0)
[2017-08-06] MEDS: VALPROIC ACID ORAL SYRUP 250 MG/5 ML UDC GT SCH ×3 (06:15→20:58)
[2017-08-06 06:27] LABS: CALCIUM 9.8 mg/dL (8.4-11.0); CREATININE 1.62 mg/dL (0.55-1.30); POTASSIUM 4.9 mmol/L (3.5-5.1)
[2017-08-06 06:33] LABS: WHITE BLOOD COUNT (AUTO) 33.6 K/uL (4.8-10.8)
[2017-08-06 08:00] VITALS: BP_SYST 118
[2017-08-06 09:19] VITALS: BP_SYST 102
[2017-08-06] MEDS: PANTOPRAZOLE SODIUM 40 MG/VIAL (PROTONIX) IVP SCH ×2 (09:26→20:58)
[2017-08-06] MEDS: ASCORBIC ACID 500 MG TABLET GT SCH (09:26)
[2017-08-06] MEDS: LEVOTHYROXINE SODIUM 0.1 MG TABLET GT SCH (09:26)
[2017-08-06] MEDS: LACTOBACILLUS RHAMNOSUS GG 1 CAP CAPSULE PO SCH ×2 (09:27→20:57)
[2017-08-06] MEDS: amLODIPine BESYLATE 10 MG TABLET GT SCH (09:27)
[2017-08-06] MEDS: TAMSULOSIN HCL 0.4 MG CAP PO SCH (09:27)
[2017-08-06] MEDS: CARVEDILOL 12.5 MG TABLET (COREG) GT SCH ×2 (09:28→20:58)
[2017-08-06] MEDS: CHOLECALCIFEROL (VITAMIN D3) 2,000 UNIT TABLET GT SCH (09:28)
[2017-08-06] MEDS: AMIODARONE HCL 200 MG TABLET PO SCH (09:29)
[2017-08-06] MEDS: POTASSIUM CHLORIDE 20 MEQ/PKT PACKET GT SCH (09:29)
[2017-08-06] MEDS: BALSAM PERU/CASTOR OIL 60 GM OINT...G. TP SCH (09:31)
[2017-08-06 10:09] LABS: BAND % (MANUAL) 2 % (0-6); EOSINOPHILS % (MANUAL) 32 % (0-7); LYMPHOCYTES % (MANUAL) 5 % (20-46); MONOCYTES % (MANUAL) 2 % (0-11)
[2017-08-06] MEDS: 0.45% NACL 1,000 ML IV SCH (11:29)
[2017-08-06 12:36] VITALS: BP_SYST 129
[2017-08-06] MEDS ORDERED: DOXYCYCLINE HYCLATE 100 MG CAPSULE GT ONE (14:45)
[2017-08-06 16:20] VITALS: BP_SYST 129
[2017-08-06] MEDS: AMIKACIN SULFATE 500 MG in D5W 100 ML IV SCH (17:35)
[2017-08-06 20:00] VITALS: BP_SYST 131
[2017-08-06] MEDS: ACETAMINOPHEN 650 MG/20.3 ML UDC PO PRN (20:56)
[2017-08-06] MEDS: DOXYCYCLINE HYCLATE 100 MG CAPSULE GT SCH (20:57)
[2017-08-06] MEDS: FLUCONAZOLE 200 mg/ NS 100 ML IV SCH (20:57)
[2017-08-07 00:06] VITALS: BP_SYST 135
[2017-08-07 04:00] VITALS: BP_SYST 120
[2017-08-07] MEDS: IPRATROPIUM/ALBUTEROL SULFATE 3 ML AMPUL.NEB INH SCH ×6 (04:03→23:03)
[2017-08-07] MEDS: AMIKACIN SULFATE 500 MG in D5W 100 ML IV SCH ×2 (05:02→17:17)
[2017-08-07] MEDS: LABETALOL HCL 100 MG TABLET GT SCH ×4 (05:02→23:41)
[2017-08-07] MEDS: VALPROIC ACID ORAL SYRUP 250 MG/5 ML UDC GT SCH ×3 (05:02→23:40)
[2017-08-07 06:15] LABS: HEMATOCRIT 27.9 % (36-54); HEMOGLOBIN 9.5 g/dL (14.0-18.0); MEAN CORPUSCULAR HEMOGLOBIN 32 pg (27-31); MEAN CORPUSCULAR HGB CONC 34 % (32-36); MEAN CORPUSCULAR VOLUME 95 fL (79.0-98.0); PLATELET COUNT (AUTO) 565 K/uL (130-430); RED BLOOD CELL COUNT(AUTO) 2.94 MIL/uL (4.2-6.2); RED CELL DISTRIBUTION WIDTH 15.9 % (9.0-15.0)
[2017-08-07 06:25] LABS: CALCIUM 9.4 mg/dL (8.4-11.0); CREATININE 1.77 mg/dL (0.55-1.30); POTASSIUM 4.8 mmol/L (3.5-5.1)
[2017-08-07 06:46] LABS: WHITE BLOOD COUNT (AUTO) 33.5 K/uL (4.8-10.8)
[2017-08-07] MEDS: 0.45% NACL 1,000 ML IV SCH ×2 (07:22→17:17)
[2017-08-07 07:52] LABS: EOSINOPHILS % (MANUAL) 34 % (0-7); LYMPHOCYTES % (MANUAL) 8 % (20-46); MONOCYTES % (MANUAL) 4 % (0-11)
[2017-08-07 08:00] VITALS: BP_SYST 128
[2017-08-07] MEDS: DOXYCYCLINE HYCLATE 100 MG CAPSULE GT SCH ×2 (09:09→20:27)
[2017-08-07] MEDS: ASCORBIC ACID 500 MG TABLET GT SCH (09:09)
[2017-08-07] MEDS: CHOLECALCIFEROL (VITAMIN D3) 2,000 UNIT TABLET GT SCH (09:09)
[2017-08-07] MEDS: TAMSULOSIN HCL 0.4 MG CAP PO SCH (09:09)
[2017-08-07] MEDS: LEVOTHYROXINE SODIUM 0.1 MG TABLET GT SCH (09:10)
[2017-08-07] MEDS: AMIODARONE HCL 200 MG TABLET PO SCH (09:10)
[2017-08-07] MEDS: LACTOBACILLUS RHAMNOSUS GG 1 CAP CAPSULE PO SCH ×2 (09:10→20:27)
[2017-08-07] MEDS: POTASSIUM CHLORIDE 20 MEQ/PKT PACKET GT SCH (09:10)
[2017-08-07] MEDS: CARVEDILOL 12.5 MG TABLET (COREG) GT SCH ×2 (09:11→20:33)
[2017-08-07] MEDS: PANTOPRAZOLE SODIUM 40 MG/VIAL (PROTONIX) IVP SCH ×2 (09:11→20:26)
[2017-08-07] MEDS: amLODIPine BESYLATE 10 MG TABLET GT SCH (09:11)
[2017-08-07] MEDS: BALSAM PERU/CASTOR OIL 60 GM OINT...G. TP SCH (09:13)
[2017-08-07 12:38] VITALS: BP_SYST 135
[2017-08-07] MEDS: ACETAMINOPHEN 650 MG/20.3 ML UDC PO PRN (14:46)
[2017-08-07 16:41] VITALS: BP_SYST 139
[2017-08-07 20:00] VITALS: BP_SYST 134
[2017-08-07] MEDS: FLUCONAZOLE 200 mg/ NS 100 ML IV SCH (20:26)
[2017-08-08 00:11] VITALS: BP_SYST 126
[2017-08-08] MEDS: IPRATROPIUM/ALBUTEROL SULFATE 3 ML AMPUL.NEB INH SCH ×6 (02:59→23:16)
[2017-08-08] MEDS: AMIKACIN SULFATE 500 MG in D5W 100 ML IV SCH ×2 (05:20→17:40)
[2017-08-08] MEDS: VALPROIC ACID ORAL SYRUP 250 MG/5 ML UDC GT SCH ×3 (05:20→21:43)
[2017-08-08] MEDS: LABETALOL HCL 100 MG TABLET GT SCH ×3 (05:20→17:25)
[2017-08-08 08:00] VITALS: BP_SYST 138
[2017-08-08 08:10] LABS: BASOPHILS # (AUTO) 0.1 K/uL (0.0-0.2); BASOPHILS % (AUTO) 0.2 % (0.0-2.0); EOSINOPHILS # (AUTO) 10.2 K/uL (0.0-0.4); EOSINOPHILS % (AUTO) 33.1 % (0.0-4.0); HEMATOCRIT 30.3 % (36-54); HEMOGLOBIN 9.9 g/dL (14.0-18.0); LYMPHOCYTES # (AUTO) 1.8 K/uL (1.0-5.5); MEAN CORPUSCULAR HEMOGLOBIN 31 pg (27-31); MEAN CORPUSCULAR HGB CONC 33 % (32-36); MEAN CORPUSCULAR VOLUME 95 fL (79.0-98.0); MONOCYTES # (AUTO) 1.2 K/uL (0.0-1.0); NEUTROPHILS # (AUTO) 17.4 K/uL (1.8-7.7); NEUTROPHILS % (AUTO) 56.7 % (40.0-70.0); PLATELET COUNT (AUTO) 560 K/uL (130-430); RED BLOOD CELL COUNT(AUTO) 3.19 MIL/uL (4.2-6.2); RED CELL DISTRIBUTION WIDTH 16.8 % (9.0-15.0)
[2017-08-08 08:14] LABS: WHITE BLOOD COUNT (AUTO) 30.7 K/uL (4.8-10.8)
[2017-08-08 08:23] LABS: CALCIUM 9.9 mg/dL (8.4-11.0); CREATININE 1.51 mg/dL (0.55-1.30)
[2017-08-08 08:28] LABS: ALBUMIN 2.1 g/dL (3.4-4.8); TOTAL BILIRUBIN 0.3 mg/dL (0.0-1.0)
[2017-08-08] MEDS: LACTOBACILLUS RHAMNOSUS GG 1 CAP CAPSULE PO SCH ×2 (09:12→21:43)
[2017-08-08] MEDS: PANTOPRAZOLE SODIUM 40 MG/VIAL (PROTONIX) IVP SCH ×2 (09:12→21:43)
[2017-08-08] MEDS: POTASSIUM CHLORIDE 20 MEQ/PKT PACKET GT SCH (09:12)
[2017-08-08] MEDS: CHOLECALCIFEROL (VITAMIN D3) 2,000 UNIT TABLET GT SCH (09:12)
[2017-08-08] MEDS: ASCORBIC ACID 500 MG TABLET GT SCH (09:12)
[2017-08-08] MEDS: DOXYCYCLINE HYCLATE 100 MG CAPSULE GT SCH ×2 (09:13→21:43)
[2017-08-08] MEDS: LEVOTHYROXINE SODIUM 0.1 MG TABLET GT SCH (09:13)
[2017-08-08] MEDS: TAMSULOSIN HCL 0.4 MG CAP PO SCH (09:13)
[2017-08-08] MEDS: amLODIPine BESYLATE 10 MG TABLET GT SCH (09:14)
[2017-08-08] MEDS: AMIODARONE HCL 200 MG TABLET PO SCH (09:15)
[2017-08-08] MEDS: CARVEDILOL 12.5 MG TABLET (COREG) GT SCH ×2 (09:15→21:46)
[2017-08-08] MEDS: BALSAM PERU/CASTOR OIL 60 GM OINT...G. TP SCH (09:16)
[2017-08-08] MEDS: traMADol HCL HCL 50 MG TABLET (ULTRAM) PO PRN (09:26)
[2017-08-08] MEDS ORDERED: AMIKACIN SULFATE 500 MG in D5W 100 ML IV SCH (09:39)
[2017-08-08 11:44] VITALS: BP_SYST 141
[2017-08-08] MEDS ORDERED: metroNIDAZOLE 500 MG TABLET GT ONE (12:00)
[2017-08-08 16:00] VITALS: BP_SYST 138
[2017-08-08] MEDS: metroNIDAZOLE 500 MG TABLET GT SCH (21:43)
[2017-08-08] MEDS: FLUCONAZOLE 200 mg/ NS 100 ML IV SCH (21:43)
[2017-08-08] MEDS: 0.45% NACL 1,000 ML IV SCH (23:06)
[2017-08-09] VITALS (7 sets, daily range): BP systolic 119–146
[2017-08-09] MEDS: LABETALOL HCL 100 MG TABLET GT SCH ×4 (01:11→17:22)
[2017-08-09] MEDS: IPRATROPIUM/ALBUTEROL SULFATE 3 ML AMPUL.NEB INH SCH ×6 (04:15→23:26)
[2017-08-09 05:20] LABS: ALBUMIN 2.1 g/dL (3.4-4.8); BASOPHILS # (AUTO) 0.1 K/uL (0.0-0.2); BASOPHILS % (AUTO) 0.2 % (0.0-2.0); CALCIUM 9.8 mg/dL (8.4-11.0); CREATININE 1.48 mg/dL (0.55-1.30); EOSINOPHILS # (AUTO) 9.5 K/uL (0.0-0.4); EOSINOPHILS % (AUTO) 33.9 % (0.0-4.0); HEMATOCRIT 29.8 % (36-54); LYMPHOCYTES # (AUTO) 1.7 K/uL (1.0-5.5); LYMPHOCYTES % (AUTO) 6.1 % (20.5-51.5); MEAN CORPUSCULAR HEMOGLOBIN 32 pg (27-31); MEAN CORPUSCULAR HGB CONC 34 % (32-36); MEAN CORPUSCULAR VOLUME 95 fL (79.0-98.0); MONOCYTES # (AUTO) 1.8 K/uL (0.0-1.0); MONOCYTES % (AUTO) 6.6 % (1.7-9.3); NEUTROPHILS # (AUTO) 14.9 K/uL (1.8-7.7); NEUTROPHILS % (AUTO) 53.2 % (40.0-70.0); PLATELET COUNT (AUTO) 480 K/uL (130-430); POTASSIUM 5.2 mmol/L (3.5-5.1); RED BLOOD CELL COUNT(AUTO) 3.14 MIL/uL (4.2-6.2); RED CELL DISTRIBUTION WIDTH 16.5 % (9.0-15.0); TOTAL BILIRUBIN 0.2 mg/dL (0.0-1.0)
[2017-08-09] MEDS: VALPROIC ACID ORAL SYRUP 250 MG/5 ML UDC GT SCH ×3 (06:04→21:17)
[2017-08-09] MEDS: metroNIDAZOLE 500 MG TABLET GT SCH ×3 (06:05→21:18)
[2017-08-09] MEDS: AMIKACIN SULFATE 500 MG in D5W 100 ML IV SCH ×2 (06:05→17:21)
[2017-08-09] MEDS: BALSAM PERU/CASTOR OIL 60 GM OINT...G. TP SCH (09:00)
[2017-08-09] MEDS ORDERED: SODIUM POLYSTYRENE SULFONATE 15 GM/60 ML UDBTL GT ONE (09:45)
[2017-08-09] MEDS: CHOLECALCIFEROL (VITAMIN D3) 2,000 UNIT TABLET GT SCH (09:52)
[2017-08-09] MEDS: LEVOTHYROXINE SODIUM 0.1 MG TABLET GT SCH (09:53)
[2017-08-09] MEDS: TAMSULOSIN HCL 0.4 MG CAP PO SCH (09:53)
[2017-08-09] MEDS: ASCORBIC ACID 500 MG TABLET GT SCH (09:53)
[2017-08-09] MEDS: LACTOBACILLUS RHAMNOSUS GG 1 CAP CAPSULE PO SCH ×2 (09:53→21:18)
[2017-08-09] MEDS: PANTOPRAZOLE SODIUM 40 MG/VIAL (PROTONIX) IVP SCH ×2 (09:53→21:18)
[2017-08-09] MEDS: DOXYCYCLINE HYCLATE 100 MG CAPSULE GT SCH ×2 (09:53→21:18)
[2017-08-09] MEDS: CARVEDILOL 12.5 MG TABLET (COREG) GT SCH ×2 (09:54→21:20)
[2017-08-09] MEDS: AMIODARONE HCL 200 MG TABLET PO SCH (09:55)
[2017-08-09] MEDS: amLODIPine BESYLATE 10 MG TABLET GT SCH (09:55)
[2017-08-09] MEDS ORDERED: FLUCONAZOLE 200 MG TABLET (DIFLUCAN) GT ONE (10:15)
[2017-08-09] MEDS: DIPHENHYDRAMINE INJ 50 MG/ML VIAL IVP PRN ×2 (10:21→17:22)
[2017-08-09] MEDS: 0.45% NACL 1,000 ML IV SCH (10:21)
[2017-08-09] MEDS: traMADol HCL HCL 50 MG TABLET (ULTRAM) PO PRN (21:48)
[2017-08-10] MEDS: LABETALOL HCL 100 MG TABLET GT SCH ×4 (01:35→17:48)
[2017-08-10 02:55] VITALS: BP_SYST 132
[2017-08-10] MEDS: traMADol HCL HCL 50 MG TABLET (ULTRAM) PO PRN (03:46)
[2017-08-10] MEDS: DIPHENHYDRAMINE INJ 50 MG/ML VIAL IVP PRN ×3 (03:47→21:17)
[2017-08-10] MEDS: IPRATROPIUM/ALBUTEROL SULFATE 3 ML AMPUL.NEB INH SCH ×6 (04:05→23:21)
[2017-08-10] MEDS: VALPROIC ACID ORAL SYRUP 250 MG/5 ML UDC GT SCH ×3 (05:16→21:05)
[2017-08-10] MEDS: metroNIDAZOLE 500 MG TABLET GT SCH ×3 (05:16→21:06)
[2017-08-10] MEDS: AMIKACIN SULFATE 500 MG in D5W 100 ML IV SCH (05:16)
[2017-08-10 08:30] VITALS: BP_SYST 127
[2017-08-10] MEDS: LACTOBACILLUS RHAMNOSUS GG 1 CAP CAPSULE PO SCH ×2 (09:16→21:06)
[2017-08-10] MEDS: PANTOPRAZOLE SODIUM 40 MG/VIAL (PROTONIX) IVP SCH ×2 (09:16→21:04)
[2017-08-10] MEDS: CARVEDILOL 12.5 MG TABLET (COREG) GT SCH ×2 (09:18→21:06)
[2017-08-10] MEDS: DOXYCYCLINE HYCLATE 100 MG CAPSULE GT SCH ×2 (09:18→21:06)
[2017-08-10] MEDS: TAMSULOSIN HCL 0.4 MG CAP PO SCH (09:18)
[2017-08-10] MEDS: CHOLECALCIFEROL (VITAMIN D3) 2,000 UNIT TABLET GT SCH (09:19)
[2017-08-10] MEDS: amLODIPine BESYLATE 10 MG TABLET GT SCH (09:21)
[2017-08-10] MEDS: AMIODARONE HCL 200 MG TABLET PO SCH (09:21)
[2017-08-10] MEDS: FLUCONAZOLE 200 MG TABLET (DIFLUCAN) GT SCH (09:22)
[2017-08-10] MEDS: LEVOTHYROXINE SODIUM 0.1 MG TABLET GT SCH (09:22)
[2017-08-10] MEDS: ASCORBIC ACID 500 MG TABLET GT SCH (09:22)
[2017-08-10] MEDS: BALSAM PERU/CASTOR OIL 60 GM OINT...G. TP SCH (09:24)
[2017-08-10 11:29] VITALS: BP_SYST 158
[2017-08-10 12:42] VITALS: BP_SYST 154
[2017-08-10 20:30] VITALS: BP_SYST 118
[2017-08-10] MEDS: 0.45% NACL 1,000 ML IV SCH (21:07)
[2017-08-10 23:55] VITALS: BP_SYST 110
[2017-08-11] MEDS: LABETALOL HCL 100 MG TABLET GT SCH ×4 (00:53→17:47)
[2017-08-11] MEDS: traMADol HCL HCL 50 MG TABLET (ULTRAM) PO PRN ×2 (01:05→11:15)
[2017-08-11] MEDS: IPRATROPIUM/ALBUTEROL SULFATE 3 ML AMPUL.NEB INH SCH ×6 (04:05→23:05)
[2017-08-11] MEDS: metroNIDAZOLE 500 MG TABLET GT SCH ×3 (05:04→21:11)
[2017-08-11] MEDS: VALPROIC ACID ORAL SYRUP 250 MG/5 ML UDC GT SCH ×3 (05:05→21:11)
[2017-08-11 06:44] LABS: HEMATOCRIT 27.7 % (36-54); HEMOGLOBIN 9.3 g/dL (14.0-18.0); MEAN CORPUSCULAR HEMOGLOBIN 32 pg (27-31); MEAN CORPUSCULAR HGB CONC 33 % (32-36); MEAN CORPUSCULAR VOLUME 95 fL (79.0-98.0); PLATELET COUNT (AUTO) 430 K/uL (130-430); RED BLOOD CELL COUNT(AUTO) 2.92 MIL/uL (4.2-6.2); RED CELL DISTRIBUTION WIDTH 16.1 % (9.0-15.0)
[2017-08-11 07:02] LABS: CALCIUM 9.6 mg/dL (8.4-11.0); CREATININE 1.81 mg/dL (0.55-1.30); POTASSIUM 4.6 mmol/L (3.5-5.1)
[2017-08-11 07:42] LABS: WHITE BLOOD COUNT (AUTO) 33.9 K/uL (4.8-10.8)
[2017-08-11 08:38] VITALS: BP_SYST 108
[2017-08-11] MEDS: CARVEDILOL 12.5 MG TABLET (COREG) GT SCH ×2 (09:37→21:11)
[2017-08-11] MEDS: TAMSULOSIN HCL 0.4 MG CAP PO SCH (09:38)
[2017-08-11] MEDS: LEVOTHYROXINE SODIUM 0.1 MG TABLET GT SCH (09:38)
[2017-08-11] MEDS: amLODIPine BESYLATE 10 MG TABLET GT SCH (09:38)
[2017-08-11] MEDS: DOXYCYCLINE HYCLATE 100 MG CAPSULE GT SCH (09:38)
[2017-08-11] MEDS: LACTOBACILLUS RHAMNOSUS GG 1 CAP CAPSULE PO SCH ×2 (09:38→21:11)
[2017-08-11] MEDS: CHOLECALCIFEROL (VITAMIN D3) 2,000 UNIT TABLET GT SCH (09:38)
[2017-08-11] MEDS: AMIODARONE HCL 200 MG TABLET PO SCH (09:39)
[2017-08-11] MEDS: BALSAM PERU/CASTOR OIL 60 GM OINT...G. TP SCH (09:40)
[2017-08-11] MEDS: FLUCONAZOLE 200 MG TABLET (DIFLUCAN) GT SCH (09:40)
[2017-08-11] MEDS: ASCORBIC ACID 500 MG TABLET GT SCH (09:40)
[2017-08-11] MEDS: PANTOPRAZOLE SODIUM 40 MG/VIAL (PROTONIX) IVP SCH ×2 (09:40→21:11)
[2017-08-11 10:04] LABS: ATYPICAL LYMPHOCYTES % 0 % (0-0); BAND % (MANUAL) 0 % (0-6); BASOPHILS % (MANUAL) 0 % (0-2); EOSINOPHILS % (MANUAL) 29 % (0-7); LYMPHOCYTES % (MANUAL) 6 % (20-46); MONOCYTES % (MANUAL) 4 % (0-11)
[2017-08-11] MEDS: DIPHENHYDRAMINE INJ 50 MG/ML VIAL IVP PRN ×2 (11:16→21:19)
[2017-08-11] MEDS: 0.45% NACL 1,000 ML IV SCH (11:24)
[2017-08-11] MEDS ORDERED: PREDNISONE 10 MG TABLET PO ONE (11:30)
[2017-08-11 11:31] VITALS: BP_SYST 113
[2017-08-11 15:38] VITALS: BP_SYST 126
[2017-08-11] MEDS: AMIKACIN SULFATE 500 MG in NS 100 ML IV SCH (17:46)
[2017-08-11 20:00] VITALS: BP_SYST 109
[2017-08-11 23:55] VITALS: BP_SYST 113
[2017-08-12] MEDS: LABETALOL HCL 100 MG TABLET GT SCH ×4 (01:41→17:44)
[2017-08-12] MEDS: IPRATROPIUM/ALBUTEROL SULFATE 3 ML AMPUL.NEB INH SCH ×6 (03:17→23:21)
[2017-08-12] MEDS: metroNIDAZOLE 500 MG TABLET GT SCH ×3 (05:37→21:14)
[2017-08-12] MEDS: VALPROIC ACID ORAL SYRUP 250 MG/5 ML UDC GT SCH ×3 (05:38→21:14)
[2017-08-12 06:51] LABS: BASOPHILS # (AUTO) 0.1 K/uL (0.0-0.2); BASOPHILS % (AUTO) 0.5 % (0.0-2.0); EOSINOPHILS # (AUTO) 8.5 K/uL (0.0-0.4); EOSINOPHILS % (AUTO) 29.9 % (0.0-4.0); HEMATOCRIT 26.1 % (36-54); HEMOGLOBIN 8.8 g/dL (14.0-18.0); LYMPHOCYTES # (AUTO) 2.1 K/uL (1.0-5.5); LYMPHOCYTES % (AUTO) 7.3 % (20.5-51.5); MEAN CORPUSCULAR HEMOGLOBIN 32 pg (27-31); MEAN CORPUSCULAR HGB CONC 34 % (32-36); MEAN CORPUSCULAR VOLUME 95 fL (79.0-98.0); MONOCYTES # (AUTO) 1.9 K/uL (0.0-1.0); MONOCYTES % (AUTO) 6.8 % (1.7-9.3); NEUTROPHILS # (AUTO) 15.8 K/uL (1.8-7.7); NEUTROPHILS % (AUTO) 55.5 % (40.0-70.0); PLATELET COUNT (AUTO) 359 K/uL (130-430); RED BLOOD CELL COUNT(AUTO) 2.74 MIL/uL (4.2-6.2); RED CELL DISTRIBUTION WIDTH 16.4 % (9.0-15.0); WHITE BLOOD COUNT (AUTO) 28.4 K/uL (4.8-10.8)
[2017-08-12 07:05] LABS: CALCIUM 9.5 mg/dL (8.4-11.0); CREATININE 1.72 mg/dL (0.55-1.30); POTASSIUM 4.9 mmol/L (3.5-5.1)
[2017-08-12 08:00] VITALS: BP_SYST 121
[2017-08-12] MEDS ORDERED: PREDNISONE 10 MG TABLET PO SCH (09:00)
[2017-08-12] MEDS: CHOLECALCIFEROL (VITAMIN D3) 2,000 UNIT TABLET GT SCH (09:02)
[2017-08-12] MEDS: 0.45% NACL 1,000 ML IV SCH (09:02)
[2017-08-12] MEDS: ASCORBIC ACID 500 MG TABLET GT SCH (09:02)
[2017-08-12] MEDS: TAMSULOSIN HCL 0.4 MG CAP PO SCH (09:02)
[2017-08-12] MEDS: traMADol HCL HCL 50 MG TABLET (ULTRAM) PO PRN (09:03)
[2017-08-12] MEDS: amLODIPine BESYLATE 10 MG TABLET GT SCH (09:03)
[2017-08-12] MEDS: LACTOBACILLUS RHAMNOSUS GG 1 CAP CAPSULE PO SCH ×2 (09:03→21:14)
[2017-08-12] MEDS: LEVOTHYROXINE SODIUM 0.1 MG TABLET GT SCH (09:03)
[2017-08-12] MEDS: DIPHENHYDRAMINE INJ 50 MG/ML VIAL IVP PRN (09:04)
[2017-08-12] MEDS: AMIODARONE HCL 200 MG TABLET PO SCH (09:04)
[2017-08-12] MEDS: PANTOPRAZOLE SODIUM 40 MG/VIAL (PROTONIX) IVP SCH ×2 (09:05→21:14)
[2017-08-12] MEDS: CARVEDILOL 12.5 MG TABLET (COREG) GT SCH ×2 (09:05→21:15)
[2017-08-12] MEDS: FLUCONAZOLE 200 MG TABLET (DIFLUCAN) GT SCH (09:05)
[2017-08-12] MEDS: BALSAM PERU/CASTOR OIL 60 GM OINT...G. TP SCH (09:06)
[2017-08-12 09:14] VITALS: BP_SYST 125
[2017-08-12 11:38] VITALS: BP_SYST 113
[2017-08-12 16:26] VITALS: BP_SYST 113
[2017-08-12] MEDS: AMIKACIN SULFATE 500 MG in NS 100 ML IV SCH (17:41)
[2017-08-13 00:05] VITALS: BP_SYST 137
[2017-08-13] MEDS: LABETALOL HCL 100 MG TABLET GT SCH ×4 (00:30→17:08)
[2017-08-13] MEDS: 0.45% NACL 1,000 ML IV SCH (03:22)
[2017-08-13] MEDS: IPRATROPIUM/ALBUTEROL SULFATE 3 ML AMPUL.NEB INH SCH ×6 (03:48→23:49)
[2017-08-13] MEDS: metroNIDAZOLE 500 MG TABLET GT SCH ×3 (05:32→21:15)
[2017-08-13] MEDS: VALPROIC ACID ORAL SYRUP 250 MG/5 ML UDC GT SCH ×3 (05:35→21:12)
[2017-08-13 08:00] VITALS: BP_SYST 121
[2017-08-13] MEDS: LEVOTHYROXINE SODIUM 0.1 MG TABLET GT SCH (08:43)
[2017-08-13] MEDS: TAMSULOSIN HCL 0.4 MG CAP PO SCH (08:43)
[2017-08-13] MEDS: PREDNISONE 10 MG TABLET PO SCH (08:43)
[2017-08-13] MEDS: AMIODARONE HCL 200 MG TABLET PO SCH (08:43)
[2017-08-13] MEDS: LACTOBACILLUS RHAMNOSUS GG 1 CAP CAPSULE PO SCH ×2 (08:43→21:13)
[2017-08-13] MEDS: FLUCONAZOLE 200 MG TABLET (DIFLUCAN) GT SCH (08:44)
[2017-08-13] MEDS: CARVEDILOL 12.5 MG TABLET (COREG) GT SCH ×2 (08:44→21:13)
[2017-08-13] MEDS: PANTOPRAZOLE SODIUM 40 MG/VIAL (PROTONIX) IVP SCH ×2 (08:44→21:12)
[2017-08-13] MEDS: amLODIPine BESYLATE 10 MG TABLET GT SCH (08:44)
[2017-08-13] MEDS: ASCORBIC ACID 500 MG TABLET GT SCH (08:45)
[2017-08-13] MEDS: CHOLECALCIFEROL (VITAMIN D3) 2,000 UNIT TABLET GT SCH (08:45)
[2017-08-13] MEDS: BALSAM PERU/CASTOR OIL 60 GM OINT...G. TP SCH (08:46)
[2017-08-13] MEDS: DIPHENHYDRAMINE INJ 50 MG/ML VIAL IVP PRN ×2 (10:20→16:55)
[2017-08-13 12:41] VITALS: BP_SYST 115
[2017-08-13] MEDS ORDERED: DOCUSATE SODIUM 250 MG CAPSULE PO ONE (16:15)
[2017-08-13 16:29] VITALS: BP_SYST 109
[2017-08-13] MEDS: AMIKACIN SULFATE 500 MG in NS 100 ML IV SCH (16:56)
[2017-08-13 21:10] VITALS: BP_SYST 127
[2017-08-13] MEDS: DOCUSATE SODIUM 250 MG CAPSULE PO SCH (21:13)
[2017-08-14] VITALS: BP_SYST 133
[2017-08-14] MEDS: DIPHENHYDRAMINE INJ 50 MG/ML VIAL IVP PRN ×3 (00:32→17:52)
[2017-08-14] MEDS: LABETALOL HCL 100 MG TABLET GT SCH ×4 (00:32→17:45)
[2017-08-14] MEDS: 0.45% NACL 1,000 ML IV SCH ×2 (00:34→22:53)
[2017-08-14] MEDS: IPRATROPIUM/ALBUTEROL SULFATE 3 ML AMPUL.NEB INH SCH ×6 (03:54→22:57)
[2017-08-14] MEDS: metroNIDAZOLE 500 MG TABLET GT SCH ×3 (05:04→22:55)
[2017-08-14] MEDS: VALPROIC ACID ORAL SYRUP 250 MG/5 ML UDC GT SCH ×3 (05:06→22:52)
[2017-08-14] MEDS: traMADol HCL HCL 50 MG TABLET (ULTRAM) PO PRN ×2 (05:07→12:43)
[2017-08-14 06:32] LABS: BASOPHILS # (AUTO) 0.1 K/uL (0.0-0.2); BASOPHILS % (AUTO) 0.4 % (0.0-2.0); EOSINOPHILS # (AUTO) 14.6 K/uL (0.0-0.4); HEMATOCRIT 29.2 % (36-54); HEMOGLOBIN 9.7 g/dL (14.0-18.0); LYMPHOCYTES % (AUTO) 5.3 % (20.5-51.5); MEAN CORPUSCULAR HEMOGLOBIN 32 pg (27-31); MEAN CORPUSCULAR HGB CONC 33 % (32-36); MEAN CORPUSCULAR VOLUME 96 fL (79.0-98.0); MONOCYTES # (AUTO) 1.8 K/uL (0.0-1.0); MONOCYTES % (AUTO) 4.7 % (1.7-9.3); PLATELET COUNT (AUTO) 422 K/uL (130-430); RED BLOOD CELL COUNT(AUTO) 3.05 MIL/uL (4.2-6.2)
[2017-08-14 07:07] LABS: ALBUMIN 2.2 g/dL (3.4-4.8); CREATININE 1.7 mg/dL (0.55-1.30); POTASSIUM 4.4 mmol/L (3.5-5.1); TOTAL BILIRUBIN 0.3 mg/dL (0.0-1.0)
[2017-08-14 07:49] LABS: WHITE BLOOD COUNT (AUTO) 37.5 K/uL (4.8-10.8)
[2017-08-14 07:50] LABS: NEUTROPHILS % (AUTO) 50.6 % (40.0-70.0)
[2017-08-14 08:00] VITALS: BP_SYST 133
[2017-08-14] MEDS: PANTOPRAZOLE SODIUM 40 MG/VIAL (PROTONIX) IVP SCH ×2 (09:14→22:56)
[2017-08-14] MEDS: CHOLECALCIFEROL (VITAMIN D3) 2,000 UNIT TABLET GT SCH (09:14)
[2017-08-14] MEDS: TAMSULOSIN HCL 0.4 MG CAP PO SCH (09:14)
[2017-08-14] MEDS: AMIODARONE HCL 200 MG TABLET PO SCH (09:15)
[2017-08-14] MEDS: LEVOTHYROXINE SODIUM 0.1 MG TABLET GT SCH (09:15)
[2017-08-14] MEDS: ASCORBIC ACID 500 MG TABLET GT SCH (09:15)
[2017-08-14] MEDS: LACTOBACILLUS RHAMNOSUS GG 1 CAP CAPSULE PO SCH ×2 (09:15→22:55)
[2017-08-14] MEDS: FLUCONAZOLE 200 MG TABLET (DIFLUCAN) GT SCH (09:17)
[2017-08-14] MEDS: CARVEDILOL 12.5 MG TABLET (COREG) GT SCH ×2 (09:17→23:08)
[2017-08-14] MEDS: DOCUSATE SODIUM 250 MG CAPSULE PO SCH ×2 (09:18→22:55)
[2017-08-14] MEDS: PREDNISONE 10 MG TABLET PO SCH (09:18)
[2017-08-14] MEDS: amLODIPine BESYLATE 10 MG TABLET GT SCH (09:18)
[2017-08-14] MEDS: BALSAM PERU/CASTOR OIL 60 GM OINT...G. TP SCH (09:39)
[2017-08-14 12:00] VITALS: BP_SYST 120
[2017-08-14] MEDS ORDERED: LORazepam 2 MG/ML VIAL IVP PRN (13:00)
[2017-08-14 16:40] VITALS: BP_SYST 143
[2017-08-14] MEDS: AMIKACIN SULFATE 500 MG in NS 100 ML IV SCH (17:44)
[2017-08-14 20:00] VITALS: BP_SYST 122
[2017-08-14 23:37] VITALS: BP_SYST 128
[2017-08-15] VITALS (7 sets, daily range): BP systolic 105–155
[2017-08-15] MEDS: LABETALOL HCL 100 MG TABLET GT SCH ×4 (01:52→17:10)
[2017-08-15] MEDS: DIPHENHYDRAMINE INJ 50 MG/ML VIAL IVP PRN ×2 (02:35→17:10)
[2017-08-15] MEDS: traMADol HCL HCL 50 MG TABLET (ULTRAM) PO PRN ×3 (02:38→17:06)
[2017-08-15] MEDS: IPRATROPIUM/ALBUTEROL SULFATE 3 ML AMPUL.NEB INH SCH ×6 (02:58→23:24)
[2017-08-15] MEDS: metroNIDAZOLE 500 MG TABLET GT SCH (05:58)
[2017-08-15] MEDS: VALPROIC ACID ORAL SYRUP 250 MG/5 ML UDC GT SCH ×3 (05:58→21:37)
[2017-08-15 09:00] LABS: BASOPHILS # (AUTO) 0.1 K/uL (0.0-0.2); BASOPHILS % (AUTO) 0.3 % (0.0-2.0); EOSINOPHILS # (AUTO) 11.7 K/uL (0.0-0.4); EOSINOPHILS % (AUTO) 46.2 % (0.0-4.0); HEMATOCRIT 27.9 % (36-54); HEMOGLOBIN 9.2 g/dL (14.0-18.0); LYMPHOCYTES # (AUTO) 1.9 K/uL (1.0-5.5); LYMPHOCYTES % (AUTO) 7.4 % (20.5-51.5); MEAN CORPUSCULAR HEMOGLOBIN 32 pg (27-31); MEAN CORPUSCULAR HGB CONC 33 % (32-36); MEAN CORPUSCULAR VOLUME 96 fL (79.0-98.0); MONOCYTES # (AUTO) 1.5 K/uL (0.0-1.0); MONOCYTES % (AUTO) 5.7 % (1.7-9.3); NEUTROPHILS # (AUTO) 10.4 K/uL (1.8-7.7); PLATELET COUNT (AUTO) 377 K/uL (130-430); RED BLOOD CELL COUNT(AUTO) 2.92 MIL/uL (4.2-6.2); RED CELL DISTRIBUTION WIDTH 16.6 % (9.0-15.0); WHITE BLOOD COUNT (AUTO) 25.6 K/uL (4.8-10.8)
[2017-08-15 09:02] LABS: CALCIUM 9.7 mg/dL (8.4-11.0); CREATININE 1.68 mg/dL (0.55-1.30); POTASSIUM 4.6 mmol/L (3.5-5.1)
[2017-08-15] MEDS: PANTOPRAZOLE SODIUM 40 MG/VIAL (PROTONIX) IVP SCH ×2 (09:13→21:56)
[2017-08-15] MEDS: CARVEDILOL 12.5 MG TABLET (COREG) GT SCH ×2 (09:15→22:33)
[2017-08-15] MEDS: AMIODARONE HCL 200 MG TABLET PO SCH (09:15)
[2017-08-15] MEDS: LEVOTHYROXINE SODIUM 0.1 MG TABLET GT SCH (09:15)
[2017-08-15] MEDS: LACTOBACILLUS RHAMNOSUS GG 1 CAP CAPSULE PO SCH ×2 (09:16→21:38)
[2017-08-15] MEDS: TAMSULOSIN HCL 0.4 MG CAP PO SCH (09:16)
[2017-08-15] MEDS: DOCUSATE SODIUM 250 MG CAPSULE PO SCH ×2 (09:16→21:37)
[2017-08-15] MEDS: amLODIPine BESYLATE 10 MG TABLET GT SCH (09:16)
[2017-08-15] MEDS: CHOLECALCIFEROL (VITAMIN D3) 2,000 UNIT TABLET GT SCH (09:16)
[2017-08-15] MEDS: ASCORBIC ACID 500 MG TABLET GT SCH (09:17)
[2017-08-15] MEDS: FLUCONAZOLE 200 MG TABLET (DIFLUCAN) GT SCH (09:17)
[2017-08-15] MEDS: PREDNISONE 10 MG TABLET PO SCH (09:17)
[2017-08-15] MEDS: BALSAM PERU/CASTOR OIL 60 GM OINT...G. TP SCH (09:41)
[2017-08-15 10:25] LABS: NEUTROPHILS % (AUTO) 40.4 % (40.0-70.0)
[2017-08-15] MEDS ORDERED: IVERMECTIN 3 MG TABLET GT ONE (15:00)
[2017-08-15] MEDS: AMIKACIN SULFATE 500 MG in NS 100 ML IV SCH (17:11)
[2017-08-15] MEDS: 0.45% NACL 1,000 ML IV SCH (18:16)
[2017-08-15] MEDS ORDERED: CARVEDILOL 12.5 MG TABLET (COREG) ONE (22:29)
[2017-08-15] MEDS: metroNIDAZOLE 250 MG TABLET GT SCH (22:44)
[2017-08-16] VITALS: BP_SYST 133
[2017-08-16] MEDS: LABETALOL HCL 100 MG TABLET GT SCH ×4 (01:02→17:30)
[2017-08-16] MEDS: IPRATROPIUM/ALBUTEROL SULFATE 3 ML AMPUL.NEB INH SCH ×6 (03:23→23:24)
[2017-08-16 04:00] VITALS: BP_SYST 124
[2017-08-16] MEDS: VALPROIC ACID ORAL SYRUP 250 MG/5 ML UDC GT SCH ×3 (05:10→21:12)
[2017-08-16] MEDS: metroNIDAZOLE 250 MG TABLET GT SCH ×3 (05:10→21:13)
[2017-08-16 08:43] VITALS: BP_SYST 118
[2017-08-16] MEDS: PANTOPRAZOLE SODIUM 40 MG/VIAL (PROTONIX) IVP SCH ×2 (09:07→21:12)
[2017-08-16] MEDS: FLUCONAZOLE 200 MG TABLET (DIFLUCAN) GT SCH (09:08)
[2017-08-16] MEDS: CHOLECALCIFEROL (VITAMIN D3) 2,000 UNIT TABLET GT SCH (09:08)
[2017-08-16] MEDS: ASCORBIC ACID 500 MG TABLET GT SCH (09:09)
[2017-08-16] MEDS: PREDNISONE 10 MG TABLET PO SCH (09:09)
[2017-08-16] MEDS: TAMSULOSIN HCL 0.4 MG CAP PO SCH (09:09)
[2017-08-16] MEDS: LACTOBACILLUS RHAMNOSUS GG 1 CAP CAPSULE PO SCH ×2 (09:10→21:13)
[2017-08-16] MEDS: DOCUSATE SODIUM 250 MG CAPSULE PO SCH ×2 (09:10→21:13)
[2017-08-16] MEDS: LEVOTHYROXINE SODIUM 0.1 MG TABLET GT SCH (09:10)
[2017-08-16] MEDS: amLODIPine BESYLATE 10 MG TABLET GT SCH (09:26)
[2017-08-16] MEDS: BALSAM PERU/CASTOR OIL 60 GM OINT...G. TP SCH (09:34)
[2017-08-16 11:32] VITALS: BP_SYST 130
[2017-08-16] MEDS: AMIODARONE HCL 200 MG TABLET PO SCH (12:56)
[2017-08-16] MEDS: traMADol HCL HCL 50 MG TABLET (ULTRAM) PO PRN (13:13)
[2017-08-16 14:59] VITALS: BP_SYST 120
[2017-08-16] MEDS: DIPHENHYDRAMINE INJ 50 MG/ML VIAL IVP PRN ×2 (15:27→22:38)
[2017-08-16] MEDS: 0.45% NACL 1,000 ML IV SCH (15:28)
[2017-08-16] MEDS: AMIKACIN SULFATE 500 MG in NS 100 ML IV SCH (17:44)
[2017-08-16 21:10] VITALS: BP_SYST 120
[2017-08-16] MEDS: DOXAZOSIN MESYLATE 2 MG TABLET PO SCH (21:13)
[2017-08-17 00:11] VITALS: BP_SYST 114
[2017-08-17] MEDS: LABETALOL HCL 100 MG TABLET GT SCH ×4 (00:39→17:34)
[2017-08-17] MEDS: IPRATROPIUM/ALBUTEROL SULFATE 3 ML AMPUL.NEB INH SCH ×6 (05:12→23:35)
[2017-08-17] MEDS: VALPROIC ACID ORAL SYRUP 250 MG/5 ML UDC GT SCH ×3 (06:11→21:24)
[2017-08-17] MEDS: metroNIDAZOLE 250 MG TABLET GT SCH ×3 (06:12→21:24)
[2017-08-17 07:35] VITALS: BP_SYST 115
[2017-08-17] MEDS: LACTOBACILLUS RHAMNOSUS GG 1 CAP CAPSULE PO SCH ×2 (09:19→21:25)
[2017-08-17] MEDS: CHOLECALCIFEROL (VITAMIN D3) 2,000 UNIT TABLET GT SCH (09:19)
[2017-08-17] MEDS: PANTOPRAZOLE SODIUM 40 MG/VIAL (PROTONIX) IVP SCH ×2 (09:19→21:24)
[2017-08-17] MEDS: LEVOTHYROXINE SODIUM 0.1 MG TABLET GT SCH (09:19)
[2017-08-17] MEDS: PREDNISONE 10 MG TABLET PO SCH (09:20)
[2017-08-17] MEDS: DOCUSATE SODIUM 250 MG CAPSULE PO SCH ×2 (09:20→21:24)
[2017-08-17] MEDS: ASCORBIC ACID 500 MG TABLET GT SCH (09:20)
[2017-08-17] MEDS: AMIODARONE HCL 200 MG TABLET PO SCH (09:22)
[2017-08-17] MEDS: amLODIPine BESYLATE 10 MG TABLET GT SCH (09:23)
[2017-08-17] MEDS: TAMSULOSIN HCL 0.4 MG CAP PO SCH (09:23)
[2017-08-17] MEDS: BALSAM PERU/CASTOR OIL 60 GM OINT...G. TP SCH (09:25)
[2017-08-17] MEDS: FLUCONAZOLE 200 MG TABLET (DIFLUCAN) GT SCH (09:39)
[2017-08-17] MEDS: 0.45% NACL 1,000 ML IV SCH (09:39)
[2017-08-17 12:20] VITALS: BP_SYST 125
[2017-08-17 16:16] VITALS: BP_SYST 119
[2017-08-17] MEDS: DIPHENHYDRAMINE INJ 50 MG/ML VIAL IVP PRN (17:40)
[2017-08-17 20:00] VITALS: BP_SYST 141
[2017-08-17] MEDS: DOXAZOSIN MESYLATE 2 MG TABLET PO SCH (21:25)
[2017-08-18 00:13] VITALS: BP_SYST 149
[2017-08-18] MEDS: LABETALOL HCL 100 MG TABLET GT SCH ×4 (01:28→17:20)
[2017-08-18] MEDS: IPRATROPIUM/ALBUTEROL SULFATE 3 ML AMPUL.NEB INH SCH ×6 (04:06→23:55)
[2017-08-18] MEDS: 0.45% NACL 1,000 ML IV SCH (05:39)
[2017-08-18] MEDS: DIPHENHYDRAMINE INJ 50 MG/ML VIAL IVP PRN (05:39)
[2017-08-18] MEDS: VALPROIC ACID ORAL SYRUP 250 MG/5 ML UDC GT SCH ×3 (06:14→21:52)
[2017-08-18] MEDS: metroNIDAZOLE 250 MG TABLET GT SCH ×3 (06:14→21:52)
[2017-08-18 07:11] LABS: HEMATOCRIT 26.5 % (36-54); MEAN CORPUSCULAR HEMOGLOBIN 32 pg (27-31); MEAN CORPUSCULAR HGB CONC 34 % (32-36); MEAN CORPUSCULAR VOLUME 95 fL (79.0-98.0); PLATELET COUNT (AUTO) 498 K/uL (130-430); RED BLOOD CELL COUNT(AUTO) 2.79 MIL/uL (4.2-6.2); RED CELL DISTRIBUTION WIDTH 16.3 % (9.0-15.0); WHITE BLOOD COUNT (AUTO) 24.2 K/uL (4.8-10.8)
[2017-08-18 07:38] LABS: ALBUMIN 2.2 g/dL (3.4-4.8); CALCIUM 9.6 mg/dL (8.4-11.0); CREATININE 1.46 mg/dL (0.55-1.30); POTASSIUM 4.3 mmol/L (3.5-5.1); TOTAL BILIRUBIN 0.3 mg/dL (0.0-1.0)
[2017-08-18 07:40] VITALS: BP_SYST 127
[2017-08-18 08:21] LABS: BAND % (MANUAL) 7 % (0-6); LYMPHOCYTES % (MANUAL) 6 % (20-46)
[2017-08-18 08:22] LABS: ATYPICAL LYMPHOCYTES % 0 % (0-0); BASOPHILS % (MANUAL) 0 % (0-2); EOSINOPHILS % (MANUAL) 26 % (0-7); MONOCYTES % (MANUAL) 7 % (0-11)
[2017-08-18] MEDS: CHOLECALCIFEROL (VITAMIN D3) 2,000 UNIT TABLET GT SCH (09:24)
[2017-08-18] MEDS: PANTOPRAZOLE SODIUM 40 MG/VIAL (PROTONIX) IVP SCH ×2 (09:24→21:50)
[2017-08-18] MEDS: LACTOBACILLUS RHAMNOSUS GG 1 CAP CAPSULE PO SCH ×2 (09:25→21:52)
[2017-08-18] MEDS: DOCUSATE SODIUM 250 MG CAPSULE PO SCH ×2 (09:25→21:52)
[2017-08-18] MEDS: TAMSULOSIN HCL 0.4 MG CAP PO SCH (09:25)
[2017-08-18] MEDS: LEVOTHYROXINE SODIUM 0.1 MG TABLET GT SCH (09:25)
[2017-08-18] MEDS: PREDNISONE 10 MG TABLET PO SCH (09:26)
[2017-08-18] MEDS: AMIODARONE HCL 200 MG TABLET PO SCH (09:27)
[2017-08-18] MEDS: ASCORBIC ACID 500 MG TABLET GT SCH (09:27)
[2017-08-18] MEDS: BALSAM PERU/CASTOR OIL 60 GM OINT...G. TP SCH (09:28)
[2017-08-18] MEDS: FLUCONAZOLE 200 MG TABLET (DIFLUCAN) GT SCH (09:28)
[2017-08-18] MEDS: amLODIPine BESYLATE 10 MG TABLET GT SCH (09:28)
[2017-08-18 11:20] VITALS: BP_SYST 127
[2017-08-18 12:32] VITALS: BP_SYST 156
[2017-08-18 17:14] VITALS: BP_SYST 138
[2017-08-18] MEDS: PRAMOXINE HCL/CALAMINE 180 ML LOTION TP PRN (17:20)
[2017-08-18 20:00] VITALS: BP_SYST 134
[2017-08-18] MEDS: DOXAZOSIN MESYLATE 2 MG TABLET PO SCH (21:52)
[2017-08-19] VITALS: BP_SYST 134
[2017-08-19] MEDS: LABETALOL HCL 100 MG TABLET GT SCH ×4 (00:48→17:54)
[2017-08-19] MEDS: 0.45% NACL 1,000 ML IV SCH (03:43)
[2017-08-19] MEDS: IPRATROPIUM/ALBUTEROL SULFATE 3 ML AMPUL.NEB INH SCH ×6 (03:59→23:35)
[2017-08-19] MEDS: VALPROIC ACID ORAL SYRUP 250 MG/5 ML UDC GT SCH ×3 (06:10→22:09)
[2017-08-19] MEDS: metroNIDAZOLE 250 MG TABLET GT SCH ×3 (06:10→22:09)
[2017-08-19 09:30] VITALS: BP_SYST 136
[2017-08-19] MEDS: CHOLECALCIFEROL (VITAMIN D3) 2,000 UNIT TABLET GT SCH (09:41)
[2017-08-19] MEDS: LEVOTHYROXINE SODIUM 0.1 MG TABLET GT SCH (09:41)
[2017-08-19] MEDS: ASCORBIC ACID 500 MG TABLET GT SCH (09:42)
[2017-08-19] MEDS: DOCUSATE SODIUM 250 MG CAPSULE PO SCH ×2 (09:42→22:06)
[2017-08-19] MEDS: LACTOBACILLUS RHAMNOSUS GG 1 CAP CAPSULE PO SCH ×2 (09:42→22:05)
[2017-08-19] MEDS: AMIODARONE HCL 200 MG TABLET PO SCH (09:43)
[2017-08-19] MEDS: FLUCONAZOLE 200 MG TABLET (DIFLUCAN) GT SCH (09:44)
[2017-08-19] MEDS: amLODIPine BESYLATE 10 MG TABLET GT SCH (09:44)
[2017-08-19] MEDS: PREDNISONE 10 MG TABLET PO SCH (09:44)
[2017-08-19] MEDS: TAMSULOSIN HCL 0.4 MG CAP PO SCH (09:45)
[2017-08-19] MEDS: PANTOPRAZOLE SODIUM 40 MG/VIAL (PROTONIX) IVP SCH ×2 (09:46→22:08)
[2017-08-19] MEDS: BALSAM PERU/CASTOR OIL 60 GM OINT...G. TP SCH (09:50)
[2017-08-19 12:24] VITALS: BP_SYST 132
[2017-08-19] MEDS: ACETAMINOPHEN 650 MG/20.3 ML UDC PO PRN (15:19)
[2017-08-19 16:15] VITALS: BP_SYST 141
[2017-08-19 19:22] VITALS: BP_SYST 146
[2017-08-19] MEDS: DOXAZOSIN MESYLATE 2 MG TABLET PO SCH (22:05)
[2017-08-20 00:35] VITALS: BP_SYST 140
[2017-08-20] MEDS: LABETALOL HCL 100 MG TABLET GT SCH ×4 (01:32→17:42)
[2017-08-20] MEDS: 0.45% NACL 1,000 ML IV SCH (01:33)
[2017-08-20] MEDS: IPRATROPIUM/ALBUTEROL SULFATE 3 ML AMPUL.NEB INH SCH ×6 (04:14→23:45)
[2017-08-20] MEDS: VALPROIC ACID ORAL SYRUP 250 MG/5 ML UDC GT SCH ×3 (05:41→21:31)
[2017-08-20] MEDS: metroNIDAZOLE 250 MG TABLET GT SCH ×3 (05:42→21:30)
[2017-08-20 06:19] LABS: BASOPHILS # (AUTO) 0.1 K/uL (0.0-0.2); BASOPHILS % (AUTO) 0.4 % (0.0-2.0); EOSINOPHILS # (AUTO) 7.7 K/uL (0.0-0.4); EOSINOPHILS % (AUTO) 30.4 % (0.0-4.0); HEMATOCRIT 27.4 % (36-54); HEMOGLOBIN 9.1 g/dL (14.0-18.0); LYMPHOCYTES # (AUTO) 1.7 K/uL (1.0-5.5); LYMPHOCYTES % (AUTO) 6.7 % (20.5-51.5); MEAN CORPUSCULAR HEMOGLOBIN 32 pg (27-31); MEAN CORPUSCULAR HGB CONC 33 % (32-36); MEAN CORPUSCULAR VOLUME 96 fL (79.0-98.0); MONOCYTES # (AUTO) 1.5 K/uL (0.0-1.0); MONOCYTES % (AUTO) 6.1 % (1.7-9.3); NEUTROPHILS # (AUTO) 14.3 K/uL (1.8-7.7); PLATELET COUNT (AUTO) 639 K/uL (130-430); RED BLOOD CELL COUNT(AUTO) 2.85 MIL/uL (4.2-6.2); RED CELL DISTRIBUTION WIDTH 16.9 % (9.0-15.0); WHITE BLOOD COUNT (AUTO) 25.3 K/uL (4.8-10.8)
[2017-08-20 07:35] LABS: CALCIUM 9.6 mg/dL (8.4-11.0); CREATININE 1.66 mg/dL (0.55-1.30); POTASSIUM 4.3 mmol/L (3.5-5.1)
[2017-08-20 08:05] VITALS: BP_SYST 138
[2017-08-20 08:25] LABS: NEUTROPHILS % (AUTO) 56.4 % (40.0-70.0)
[2017-08-20] MEDS: LEVOTHYROXINE SODIUM 0.1 MG TABLET GT SCH (08:51)
[2017-08-20] MEDS: amLODIPine BESYLATE 10 MG TABLET GT SCH (08:52)
[2017-08-20] MEDS: DOCUSATE SODIUM 250 MG CAPSULE PO SCH ×2 (08:52→21:30)
[2017-08-20] MEDS: PREDNISONE 10 MG TABLET PO SCH (08:52)
[2017-08-20] MEDS: LACTOBACILLUS RHAMNOSUS GG 1 CAP CAPSULE PO SCH ×2 (08:52→21:30)
[2017-08-20] MEDS: CHOLECALCIFEROL (VITAMIN D3) 2,000 UNIT TABLET GT SCH (08:52)
[2017-08-20] MEDS: AMIODARONE HCL 200 MG TABLET PO SCH (08:53)
[2017-08-20] MEDS: ASCORBIC ACID 500 MG TABLET GT SCH (08:53)
[2017-08-20] MEDS: TAMSULOSIN HCL 0.4 MG CAP PO SCH (08:53)
[2017-08-20] MEDS: PANTOPRAZOLE SODIUM 40 MG/VIAL (PROTONIX) IVP SCH ×2 (08:54→21:31)
[2017-08-20] MEDS: BALSAM PERU/CASTOR OIL 60 GM OINT...G. TP SCH (08:58)
[2017-08-20] MEDS: FLUCONAZOLE 200 MG TABLET (DIFLUCAN) GT SCH (08:58)
[2017-08-20] MEDS: PRAMOXINE HCL/CALAMINE 180 ML LOTION TP PRN (09:03)
[2017-08-20] MEDS: DIPHENHYDRAMINE INJ 50 MG/ML VIAL IVP PRN ×2 (11:56→18:18)
[2017-08-20 12:25] VITALS: BP_SYST 133
[2017-08-20] MEDS: D5W 1,000 ML IV SCH (12:30)
[2017-08-20] MEDS: CLOTRIMAZOLE/BETAMETHASONE 45 GM TOPICAL CREAM TP SCH ×2 (14:45→21:36)
[2017-08-20 16:51] VITALS: BP_SYST 137
[2017-08-20 20:00] VITALS: BP_SYST 134
[2017-08-20] MEDS: DOXAZOSIN MESYLATE 2 MG TABLET PO SCH (21:30)
[2017-08-21 00:09] VITALS: BP_SYST 115
[2017-08-21] MEDS: LABETALOL HCL 100 MG TABLET GT SCH ×4 (00:58→18:39)
[2017-08-21] MEDS: IPRATROPIUM/ALBUTEROL SULFATE 3 ML AMPUL.NEB INH SCH ×6 (03:54→23:41)
[2017-08-21] MEDS ORDERED: LABETALOL HCL 100 MG TABLET ONE (05:35)
[2017-08-21] MEDS: VALPROIC ACID ORAL SYRUP 250 MG/5 ML UDC GT SCH ×3 (05:38→21:09)
[2017-08-21] MEDS: D5W 1,000 ML IV SCH (05:40)
[2017-08-21] MEDS ORDERED: metroNIDAZOLE 500 MG TABLET ONE (05:41)
[2017-08-21] MEDS: metroNIDAZOLE 250 MG TABLET GT SCH ×3 (05:43→21:08)
[2017-08-21 08:45] VITALS: BP_SYST 100
[2017-08-21] MEDS ORDERED: DEXTROSE 50% JECT 50 ML DISP.SYRIN IVP PRN (09:00)
[2017-08-21] MEDS: DOCUSATE SODIUM 250 MG CAPSULE PO SCH ×2 (09:00→20:40)
[2017-08-21] MEDS: CHOLECALCIFEROL (VITAMIN D3) 2,000 UNIT TABLET GT SCH (09:27)
[2017-08-21] MEDS: PANTOPRAZOLE SODIUM 40 MG/VIAL (PROTONIX) IVP SCH ×2 (09:27→20:40)
[2017-08-21] MEDS: AMIODARONE HCL 200 MG TABLET PO SCH (09:29)
[2017-08-21] MEDS: LEVOTHYROXINE SODIUM 0.1 MG TABLET GT SCH (09:30)
[2017-08-21] MEDS: amLODIPine BESYLATE 10 MG TABLET GT SCH (09:30)
[2017-08-21] MEDS: LACTOBACILLUS RHAMNOSUS GG 1 CAP CAPSULE PO SCH ×2 (09:30→20:40)
[2017-08-21] MEDS: CLOTRIMAZOLE/BETAMETHASONE 45 GM TOPICAL CREAM TP SCH ×2 (09:31→21:10)
[2017-08-21] MEDS: TAMSULOSIN HCL 0.4 MG CAP PO SCH (09:31)
[2017-08-21] MEDS: ASCORBIC ACID 500 MG TABLET GT SCH (09:31)
[2017-08-21] MEDS: FLUCONAZOLE 200 MG TABLET (DIFLUCAN) GT SCH (09:32)
[2017-08-21] MEDS: BALSAM PERU/CASTOR OIL 60 GM OINT...G. TP SCH (09:32)
[2017-08-21 12:15] VITALS: BP_SYST 128
[2017-08-21 15:07] VITALS: BP_SYST 128
[2017-08-21 17:56] VITALS: BP_SYST 138
[2017-08-21 20:10] VITALS: BP_SYST 134
[2017-08-21] MEDS: DOXAZOSIN MESYLATE 2 MG TABLET PO SCH (20:41)
[2017-08-22 00:15] VITALS: BP_SYST 121
[2017-08-22] MEDS: LABETALOL HCL 100 MG TABLET GT SCH ×5 (00:58→23:39)
[2017-08-22] MEDS: D5W 1,000 ML IV SCH ×2 (03:49→23:31)
[2017-08-22] MEDS: IPRATROPIUM/ALBUTEROL SULFATE 3 ML AMPUL.NEB INH SCH ×6 (04:11→23:13)
[2017-08-22] MEDS: VALPROIC ACID ORAL SYRUP 250 MG/5 ML UDC GT SCH ×3 (05:27→21:51)
[2017-08-22] MEDS: metroNIDAZOLE 250 MG TABLET GT SCH (05:27)
[2017-08-22 07:24] LABS: BASOPHILS # (AUTO) 0.1 K/uL (0.0-0.2); BASOPHILS % (AUTO) 0.4 % (0.0-2.0); EOSINOPHILS # (AUTO) 6.9 K/uL (0.0-0.4); EOSINOPHILS % (AUTO) 26.7 % (0.0-4.0); HEMATOCRIT 25.8 % (36-54); HEMOGLOBIN 8.7 g/dL (14.0-18.0); LYMPHOCYTES # (AUTO) 2.2 K/uL (1.0-5.5); LYMPHOCYTES % (AUTO) 8.6 % (20.5-51.5); MEAN CORPUSCULAR HEMOGLOBIN 32 pg (27-31); MEAN CORPUSCULAR HGB CONC 34 % (32-36); MEAN CORPUSCULAR VOLUME 96 fL (79.0-98.0); MONOCYTES # (AUTO) 1.9 K/uL (0.0-1.0); MONOCYTES % (AUTO) 7.5 % (1.7-9.3); NEUTROPHILS # (AUTO) 14.7 K/uL (1.8-7.7); NEUTROPHILS % (AUTO) 56.8 % (40.0-70.0); PLATELET COUNT (AUTO) 723 K/uL (130-430); RED CELL DISTRIBUTION WIDTH 17.3 % (9.0-15.0); WHITE BLOOD COUNT (AUTO) 25.8 K/uL (4.8-10.8)
[2017-08-22 07:40] LABS: CALCIUM 9.6 mg/dL (8.4-11.0); CREATININE 1.79 mg/dL (0.55-1.30); POTASSIUM 4.3 mmol/L (3.5-5.1)
[2017-08-22 08:02] VITALS: BP_SYST 124
[2017-08-22] MEDS: BALSAM PERU/CASTOR OIL 60 GM OINT...G. TP SCH (09:00)
[2017-08-22] MEDS: FLUCONAZOLE 200 MG TABLET (DIFLUCAN) GT SCH (10:17)
[2017-08-22] MEDS: CHOLECALCIFEROL (VITAMIN D3) 2,000 UNIT TABLET GT SCH (10:18)
[2017-08-22] MEDS: ASCORBIC ACID 500 MG TABLET GT SCH (10:18)
[2017-08-22] MEDS: amLODIPine BESYLATE 10 MG TABLET GT SCH (10:18)
[2017-08-22] MEDS: LEVOTHYROXINE SODIUM 0.1 MG TABLET GT SCH (10:18)
[2017-08-22] MEDS: PANTOPRAZOLE SODIUM 40 MG/VIAL (PROTONIX) IVP SCH ×2 (10:19→21:50)
[2017-08-22] MEDS: DOCUSATE SODIUM 250 MG CAPSULE PO SCH ×2 (10:20→21:41)
[2017-08-22] MEDS: LACTOBACILLUS RHAMNOSUS GG 1 CAP CAPSULE PO SCH ×2 (10:20→21:41)
[2017-08-22] MEDS: AMIODARONE HCL 200 MG TABLET PO SCH (10:20)
[2017-08-22] MEDS: TAMSULOSIN HCL 0.4 MG CAP PO SCH (10:21)
[2017-08-22] MEDS: PRAMOXINE HCL/CALAMINE 180 ML LOTION TP PRN (11:26)
[2017-08-22 11:49] VITALS: BP_SYST 135
[2017-08-22] MEDS: DIPHENHYDRAMINE INJ 50 MG/ML VIAL IVP PRN ×2 (11:58→21:50)
[2017-08-22] MEDS: ACETAMINOPHEN 650 MG/20.3 ML UDC PO PRN (12:50)
[2017-08-22] MEDS: CLOTRIMAZOLE/BETAMETHASONE 45 GM TOPICAL CREAM TP SCH ×2 (15:48→21:51)
[2017-08-22 16:00] VITALS: BP_SYST 128
[2017-08-22 20:00] VITALS: BP_SYST 122
[2017-08-22] MEDS: DOXAZOSIN MESYLATE 2 MG TABLET PO SCH (21:50)
[2017-08-22 23:39] VITALS: BP_SYST 125
[2017-08-23] VITALS (7 sets, daily range): BP systolic 110–157
[2017-08-23] MEDS: IPRATROPIUM/ALBUTEROL SULFATE 3 ML AMPUL.NEB INH SCH ×5 (03:18→23:11)
[2017-08-23] MEDS: VALPROIC ACID ORAL SYRUP 250 MG/5 ML UDC GT SCH ×3 (05:21→20:53)
[2017-08-23] MEDS: LABETALOL HCL 100 MG TABLET GT SCH ×3 (05:30→18:18)
[2017-08-23] MEDS: BALSAM PERU/CASTOR OIL 60 GM OINT...G. TP SCH (09:00)
[2017-08-23] MEDS: DOCUSATE SODIUM 250 MG CAPSULE PO SCH ×2 (09:00→20:53)
[2017-08-23] MEDS: LACTOBACILLUS RHAMNOSUS GG 1 CAP CAPSULE PO SCH ×2 (09:31→20:51)
[2017-08-23] MEDS: CHOLECALCIFEROL (VITAMIN D3) 2,000 UNIT TABLET GT SCH (09:32)
[2017-08-23] MEDS: PANTOPRAZOLE SODIUM 40 MG/VIAL (PROTONIX) IVP SCH ×2 (09:32→20:49)
[2017-08-23] MEDS: TAMSULOSIN HCL 0.4 MG CAP PO SCH (09:33)
[2017-08-23] MEDS: LEVOTHYROXINE SODIUM 0.1 MG TABLET GT SCH (09:33)
[2017-08-23] MEDS: ASCORBIC ACID 500 MG TABLET GT SCH (09:33)
[2017-08-23] MEDS: amLODIPine BESYLATE 10 MG TABLET GT SCH (09:34)
[2017-08-23] MEDS: AMIODARONE HCL 200 MG TABLET PO SCH (09:35)
[2017-08-23] MEDS: PRAMOXINE HCL/CALAMINE 180 ML LOTION TP PRN (09:36)
[2017-08-23] MEDS: CLOTRIMAZOLE/BETAMETHASONE 45 GM TOPICAL CREAM TP SCH ×2 (09:37→20:51)
[2017-08-23] MEDS: D5W 1,000 ML IV SCH (20:49)
[2017-08-23] MEDS: DOXAZOSIN MESYLATE 2 MG TABLET PO SCH (20:51)
[2017-08-23] MEDS: ACETAMINOPHEN 650 MG/20.3 ML UDC PO PRN (20:52)
[2017-08-24] VITALS (8 sets, daily range): BP systolic 114–143
[2017-08-24] MEDS: LABETALOL HCL 100 MG TABLET GT SCH ×5 (00:32→23:07)
[2017-08-24] MEDS: IPRATROPIUM/ALBUTEROL SULFATE 3 ML AMPUL.NEB INH SCH ×6 (04:25→23:20)
[2017-08-24] MEDS: VALPROIC ACID ORAL SYRUP 250 MG/5 ML UDC GT SCH ×3 (05:39→22:54)
[2017-08-24] MEDS: BALSAM PERU/CASTOR OIL 60 GM OINT...G. TP SCH (09:00)
[2017-08-24] MEDS: CLOTRIMAZOLE/BETAMETHASONE 45 GM TOPICAL CREAM TP SCH ×2 (09:00→22:55)
[2017-08-24] MEDS: ASCORBIC ACID 500 MG TABLET GT SCH (09:27)
[2017-08-24] MEDS: TAMSULOSIN HCL 0.4 MG CAP PO SCH (09:27)
[2017-08-24] MEDS: PANTOPRAZOLE SODIUM 40 MG/VIAL (PROTONIX) IVP SCH ×2 (09:27→22:53)
[2017-08-24] MEDS: CHOLECALCIFEROL (VITAMIN D3) 2,000 UNIT TABLET GT SCH (09:27)
[2017-08-24] MEDS: LEVOTHYROXINE SODIUM 0.1 MG TABLET GT SCH (09:27)
[2017-08-24] MEDS: LACTOBACILLUS RHAMNOSUS GG 1 CAP CAPSULE PO SCH ×2 (09:27→22:57)
[2017-08-24] MEDS: DOCUSATE SODIUM 250 MG CAPSULE PO SCH ×2 (09:27→22:54)
[2017-08-24] MEDS: amLODIPine BESYLATE 10 MG TABLET GT SCH (09:28)
[2017-08-24] MEDS: AMIODARONE HCL 200 MG TABLET PO SCH (09:28)
[2017-08-24] MEDS: D5W 1,000 ML IV SCH (15:03)
[2017-08-24] MEDS: DIPHENHYDRAMINE INJ 50 MG/ML VIAL IVP PRN (17:28)
[2017-08-24] MEDS: DOXAZOSIN MESYLATE 2 MG TABLET PO SCH (22:54)
[2017-08-25] MEDS: IPRATROPIUM/ALBUTEROL SULFATE 3 ML AMPUL.NEB INH SCH ×6 (04:00→23:36)
[2017-08-25] MEDS: VALPROIC ACID ORAL SYRUP 250 MG/5 ML UDC GT SCH ×3 (06:35→21:30)
[2017-08-25] MEDS: LABETALOL HCL 100 MG TABLET GT SCH ×4 (06:35→23:36)
[2017-08-25 07:03] LABS: CALCIUM 9.4 mg/dL (8.4-11.0); CREATININE 1.57 mg/dL (0.55-1.30); POTASSIUM 4.3 mmol/L (3.5-5.1)
[2017-08-25 07:05] LABS: MEAN CORPUSCULAR HEMOGLOBIN 33 pg (27-31); MEAN CORPUSCULAR HGB CONC 35 % (32-36); MEAN CORPUSCULAR VOLUME 96 fL (79.0-98.0); PLATELET COUNT (AUTO) 717 K/uL (130-430); RED CELL DISTRIBUTION WIDTH 16.3 % (9.0-15.0); WHITE BLOOD COUNT (AUTO) 18.3 K/uL (4.8-10.8)
[2017-08-25 07:42] LABS: HEMOGLOBIN 8.9 g/dL (14.0-18.0)
[2017-08-25 07:55] VITALS: BP_SYST 125
[2017-08-25] MEDS: BALSAM PERU/CASTOR OIL 60 GM OINT...G. TP SCH (09:00)
[2017-08-25] MEDS: PANTOPRAZOLE SODIUM 40 MG/VIAL (PROTONIX) IVP SCH ×2 (09:31→21:31)
[2017-08-25] MEDS: TAMSULOSIN HCL 0.4 MG CAP PO SCH (09:32)
[2017-08-25] MEDS: DOCUSATE SODIUM 250 MG CAPSULE PO SCH ×2 (09:32→21:31)
[2017-08-25] MEDS: CHOLECALCIFEROL (VITAMIN D3) 2,000 UNIT TABLET GT SCH (09:32)
[2017-08-25] MEDS: amLODIPine BESYLATE 10 MG TABLET GT SCH (09:32)
[2017-08-25] MEDS: LEVOTHYROXINE SODIUM 0.1 MG TABLET GT SCH (09:32)
[2017-08-25] MEDS: LACTOBACILLUS RHAMNOSUS GG 1 CAP CAPSULE PO SCH ×2 (09:32→21:31)
[2017-08-25] MEDS: CLOTRIMAZOLE/BETAMETHASONE 45 GM TOPICAL CREAM TP SCH ×2 (09:33→21:30)
[2017-08-25] MEDS: ASCORBIC ACID 500 MG TABLET GT SCH (09:33)
[2017-08-25] MEDS: AMIODARONE HCL 200 MG TABLET PO SCH (09:33)
[2017-08-25 10:27] LABS: ATYPICAL LYMPHOCYTES % 0 % (0-0); BAND % (MANUAL) 3 % (0-6); BASOPHILS % (MANUAL) 0 % (0-2); EOSINOPHILS % (MANUAL) 21 % (0-7); LYMPHOCYTES % (MANUAL) 6 % (20-46); MONOCYTES % (MANUAL) 5 % (0-11)
[2017-08-25] MEDS: D5W 1,000 ML IV SCH (11:50)
[2017-08-25] MEDS: DIPHENHYDRAMINE INJ 50 MG/ML VIAL IVP PRN (11:59)
[2017-08-25 13:12] VITALS: BP_SYST 128
[2017-08-25 16:21] VITALS: BP_SYST 134
[2017-08-25 20:55] VITALS: BP_SYST 135
[2017-08-25] MEDS: DOXAZOSIN MESYLATE 2 MG TABLET PO SCH (21:31)
[2017-08-25 23:45] VITALS: BP_SYST 134
[2017-08-26] MEDS: IPRATROPIUM/ALBUTEROL SULFATE 3 ML AMPUL.NEB INH SCH ×6 (03:09→23:18)
[2017-08-26] MEDS: VALPROIC ACID ORAL SYRUP 250 MG/5 ML UDC GT SCH ×3 (05:41→23:57)
[2017-08-26] MEDS: LABETALOL HCL 100 MG TABLET GT SCH ×4 (05:41→23:56)
[2017-08-26] MEDS: D5W 1,000 ML IV SCH (05:42)
[2017-08-26 07:55] VITALS: BP_SYST 110
[2017-08-26] MEDS: LEVOTHYROXINE SODIUM 0.1 MG TABLET GT SCH (08:59)
[2017-08-26] MEDS: PANTOPRAZOLE SODIUM 40 MG/VIAL (PROTONIX) IVP SCH ×2 (08:59→21:03)
[2017-08-26] MEDS: DOCUSATE SODIUM 250 MG CAPSULE PO SCH ×2 (08:59→21:03)
[2017-08-26] MEDS: ASCORBIC ACID 500 MG TABLET GT SCH (08:59)
[2017-08-26] MEDS: TAMSULOSIN HCL 0.4 MG CAP PO SCH (08:59)
[2017-08-26] MEDS: CHOLECALCIFEROL (VITAMIN D3) 2,000 UNIT TABLET GT SCH (08:59)
[2017-08-26] MEDS: LACTOBACILLUS RHAMNOSUS GG 1 CAP CAPSULE PO SCH ×2 (08:59→21:03)
[2017-08-26] MEDS: AMIODARONE HCL 200 MG TABLET PO SCH (09:01)
[2017-08-26] MEDS: amLODIPine BESYLATE 10 MG TABLET GT SCH (09:02)
[2017-08-26] MEDS: BALSAM PERU/CASTOR OIL 60 GM OINT...G. TP SCH (09:03)
[2017-08-26] MEDS: CLOTRIMAZOLE/BETAMETHASONE 45 GM TOPICAL CREAM TP SCH ×2 (09:10→21:04)
[2017-08-26 12:52] VITALS: BP_SYST 135
[2017-08-26 17:47] VITALS: BP_SYST 125
[2017-08-26] MEDS: DOXAZOSIN MESYLATE 2 MG TABLET PO SCH (21:01)
[2017-08-27 01:01] VITALS: BP_SYST 127
[2017-08-27] MEDS: IPRATROPIUM/ALBUTEROL SULFATE 3 ML AMPUL.NEB INH SCH ×6 (03:10→23:33)
[2017-08-27] MEDS: D5W 1,000 ML IV SCH ×2 (04:20→23:11)
[2017-08-27] MEDS: VALPROIC ACID ORAL SYRUP 250 MG/5 ML UDC GT SCH ×3 (06:48→21:35)
[2017-08-27] MEDS: LABETALOL HCL 100 MG TABLET GT SCH ×4 (06:51→23:08)
[2017-08-27 07:40] VITALS: BP_SYST 110
[2017-08-27] MEDS: LEVOTHYROXINE SODIUM 0.1 MG TABLET GT SCH (08:58)
[2017-08-27] MEDS: amLODIPine BESYLATE 10 MG TABLET GT SCH (08:58)
[2017-08-27] MEDS: LACTOBACILLUS RHAMNOSUS GG 1 CAP CAPSULE PO SCH ×2 (08:58→21:36)
[2017-08-27] MEDS: ASCORBIC ACID 500 MG TABLET GT SCH (08:58)
[2017-08-27] MEDS: DOCUSATE SODIUM 250 MG CAPSULE PO SCH ×2 (08:59→21:36)
[2017-08-27] MEDS: AMIODARONE HCL 200 MG TABLET PO SCH (09:00)
[2017-08-27] MEDS: TAMSULOSIN HCL 0.4 MG CAP PO SCH (09:00)
[2017-08-27] MEDS: CHOLECALCIFEROL (VITAMIN D3) 2,000 UNIT TABLET GT SCH (09:00)
[2017-08-27] MEDS: PANTOPRAZOLE SODIUM 40 MG/VIAL (PROTONIX) IVP SCH ×2 (09:00→21:35)
[2017-08-27] MEDS: CLOTRIMAZOLE/BETAMETHASONE 45 GM TOPICAL CREAM TP SCH ×2 (09:01→21:37)
[2017-08-27] MEDS: BALSAM PERU/CASTOR OIL 60 GM OINT...G. TP SCH (09:01)
[2017-08-27 12:00] VITALS: BP_SYST 108
[2017-08-27 16:00] VITALS: BP_SYST 134
[2017-08-27] MEDS: DIPHENHYDRAMINE INJ 50 MG/ML VIAL IVP PRN (18:04)
[2017-08-27 20:00] VITALS: BP_SYST 124
[2017-08-27] MEDS: DOXAZOSIN MESYLATE 2 MG TABLET PO SCH (21:36)
[2017-08-28 00:41] VITALS: BP_SYST 116
[2017-08-28] MEDS: IPRATROPIUM/ALBUTEROL SULFATE 3 ML AMPUL.NEB INH SCH ×6 (03:16→23:11)
[2017-08-28] MEDS: VALPROIC ACID ORAL SYRUP 250 MG/5 ML UDC GT SCH ×3 (05:39→21:44)
[2017-08-28] MEDS: LABETALOL HCL 100 MG TABLET GT SCH ×3 (05:41→17:31)
[2017-08-28 08:00] VITALS: BP_SYST 113
[2017-08-28] MEDS: PANTOPRAZOLE SODIUM 40 MG/VIAL (PROTONIX) IVP SCH ×2 (09:18→21:43)
[2017-08-28] MEDS: ASCORBIC ACID 500 MG TABLET GT SCH (09:18)
[2017-08-28] MEDS: DOCUSATE SODIUM 250 MG CAPSULE PO SCH ×2 (09:18→21:43)
[2017-08-28] MEDS: CHOLECALCIFEROL (VITAMIN D3) 2,000 UNIT TABLET GT SCH (09:18)
[2017-08-28] MEDS: LACTOBACILLUS RHAMNOSUS GG 1 CAP CAPSULE PO SCH ×2 (09:18→21:44)
[2017-08-28] MEDS: TAMSULOSIN HCL 0.4 MG CAP PO SCH (09:18)
[2017-08-28] MEDS: AMIODARONE HCL 200 MG TABLET PO SCH (09:19)
[2017-08-28] MEDS: LEVOTHYROXINE SODIUM 0.1 MG TABLET GT SCH (09:19)
[2017-08-28] MEDS: CLOTRIMAZOLE/BETAMETHASONE 45 GM TOPICAL CREAM TP SCH ×3 (09:20→21:48)
[2017-08-28] MEDS: amLODIPine BESYLATE 10 MG TABLET GT SCH (09:20)
[2017-08-28] MEDS: BALSAM PERU/CASTOR OIL 60 GM OINT...G. TP SCH (09:21)
[2017-08-28 13:40] VITALS: BP_SYST 125
[2017-08-28] MEDS: DIPHENHYDRAMINE INJ 50 MG/ML VIAL IVP PRN (15:12)
[2017-08-28 16:31] VITALS: BP_SYST 119
[2017-08-28] MEDS: D5W 1,000 ML IV SCH (17:31)
[2017-08-28 21:51] VITALS: BP_SYST 136
[2017-08-28] MEDS: DOXAZOSIN MESYLATE 2 MG TABLET PO SCH (21:51)
[2017-08-29 00:21] VITALS: BP_SYST 110
[2017-08-29] MEDS: LABETALOL HCL 100 MG TABLET GT SCH ×4 (00:40→17:31)
[2017-08-29] MEDS: IPRATROPIUM/ALBUTEROL SULFATE 3 ML AMPUL.NEB INH SCH ×6 (03:50→23:01)
[2017-08-29] MEDS: VALPROIC ACID ORAL SYRUP 250 MG/5 ML UDC GT SCH ×3 (06:02→21:31)
[2017-08-29 07:47] VITALS: BP_SYST 115
[2017-08-29] MEDS: CHOLECALCIFEROL (VITAMIN D3) 2,000 UNIT TABLET GT SCH (08:39)
[2017-08-29] MEDS: PANTOPRAZOLE SODIUM 40 MG/VIAL (PROTONIX) IVP SCH ×2 (08:39→21:31)
[2017-08-29] MEDS: LACTOBACILLUS RHAMNOSUS GG 1 CAP CAPSULE PO SCH ×2 (08:39→21:32)
[2017-08-29] MEDS: DOCUSATE SODIUM 250 MG CAPSULE PO SCH ×2 (08:41→21:31)
[2017-08-29] MEDS: amLODIPine BESYLATE 10 MG TABLET GT SCH (08:41)
[2017-08-29] MEDS: LEVOTHYROXINE SODIUM 0.1 MG TABLET GT SCH (08:42)
[2017-08-29] MEDS: TAMSULOSIN HCL 0.4 MG CAP PO SCH (08:42)
[2017-08-29] MEDS: ASCORBIC ACID 500 MG TABLET GT SCH (08:42)
[2017-08-29] MEDS: AMIODARONE HCL 200 MG TABLET PO SCH (08:42)
[2017-08-29] MEDS: CLOTRIMAZOLE/BETAMETHASONE 45 GM TOPICAL CREAM TP SCH ×2 (08:49→21:36)
[2017-08-29] MEDS: BALSAM PERU/CASTOR OIL 60 GM OINT...G. TP SCH (08:50)
[2017-08-29 12:21] VITALS: BP_SYST 127
[2017-08-29] MEDS: D5W 1,000 ML IV SCH (13:15)
[2017-08-29 16:03] VITALS: BP_SYST 121
[2017-08-29 19:40] VITALS: BP_SYST 123
[2017-08-29] MEDS: DOXAZOSIN MESYLATE 2 MG TABLET PO SCH (21:32)
[2017-08-29] MEDS: ACETAMINOPHEN 650 MG/20.3 ML UDC PO PRN (21:56)
[2017-08-30] VITALS (7 sets, daily range): BP systolic 116–136
[2017-08-30] MEDS: LABETALOL HCL 100 MG TABLET GT SCH ×4 (00:12→17:22)
[2017-08-30] MEDS: IPRATROPIUM/ALBUTEROL SULFATE 3 ML AMPUL.NEB INH SCH ×6 (03:41→23:28)
[2017-08-30] MEDS: VALPROIC ACID ORAL SYRUP 250 MG/5 ML UDC GT SCH ×3 (06:37→21:51)
[2017-08-30] MEDS: LACTOBACILLUS RHAMNOSUS GG 1 CAP CAPSULE PO SCH ×2 (08:39→21:49)
[2017-08-30] MEDS: LEVOTHYROXINE SODIUM 0.1 MG TABLET GT SCH (08:39)
[2017-08-30] MEDS: DOCUSATE SODIUM 250 MG CAPSULE PO SCH ×2 (08:39→21:49)
[2017-08-30] MEDS: CHOLECALCIFEROL (VITAMIN D3) 2,000 UNIT TABLET GT SCH (08:39)
[2017-08-30] MEDS: ASCORBIC ACID 500 MG TABLET GT SCH (08:39)
[2017-08-30] MEDS: TAMSULOSIN HCL 0.4 MG CAP PO SCH (08:39)
[2017-08-30] MEDS: AMIODARONE HCL 200 MG TABLET PO SCH (08:40)
[2017-08-30] MEDS: PANTOPRAZOLE SODIUM 40 MG/VIAL (PROTONIX) IVP SCH ×2 (08:41→21:47)
[2017-08-30] MEDS: amLODIPine BESYLATE 10 MG TABLET GT SCH (08:41)
[2017-08-30] MEDS: CLOTRIMAZOLE/BETAMETHASONE 45 GM TOPICAL CREAM TP SCH ×2 (08:42→21:50)
[2017-08-30] MEDS: BALSAM PERU/CASTOR OIL 60 GM OINT...G. TP SCH (08:42)
[2017-08-30 08:53] LABS: CALCIUM 9.2 mg/dL (8.4-11.0); CREATININE 1.41 mg/dL (0.55-1.30); POTASSIUM 3.8 mmol/L (3.5-5.1)
[2017-08-30 08:54] LABS: ALBUMIN 1.8 g/dL (3.4-4.8); TOTAL BILIRUBIN 0.4 mg/dL (0.0-1.0)
[2017-08-30 09:02] LABS: BASOPHILS # (AUTO) 0.1 K/uL (0.0-0.2); BASOPHILS % (AUTO) 0.4 % (0.0-2.0); EOSINOPHILS % (AUTO) 15.1 % (0.0-4.0); HEMATOCRIT 24.7 % (36-54); HEMOGLOBIN 8.3 g/dL (14.0-18.0); LYMPHOCYTES # (AUTO) 1.5 K/uL (1.0-5.5); LYMPHOCYTES % (AUTO) 7.4 % (20.5-51.5); MEAN CORPUSCULAR HEMOGLOBIN 32 pg (27-31); MEAN CORPUSCULAR HGB CONC 34 % (32-36); MEAN CORPUSCULAR VOLUME 95 fL (79.0-98.0); MONOCYTES # (AUTO) 2.1 K/uL (0.0-1.0); MONOCYTES % (AUTO) 10.3 % (1.7-9.3); NEUTROPHILS # (AUTO) 13.4 K/uL (1.8-7.7); PLATELET COUNT (AUTO) 718 K/uL (130-430); RED BLOOD CELL COUNT(AUTO) 2.61 MIL/uL (4.2-6.2); RED CELL DISTRIBUTION WIDTH 16.4 % (9.0-15.0); WHITE BLOOD COUNT (AUTO) 20.1 K/uL (4.8-10.8)
[2017-08-30] MEDS: D5W 1,000 ML IV SCH (10:35)
[2017-08-30 10:48] LABS: NEUTROPHILS % (AUTO) 66.8 % (40.0-70.0)
[2017-08-30] MEDS: DOXAZOSIN MESYLATE 2 MG TABLET PO SCH (21:48)
[2017-08-31] VITALS (7 sets, daily range): BP systolic 128–140
[2017-08-31] MEDS: LABETALOL HCL 100 MG TABLET GT SCH ×5 (00:47→23:37)
[2017-08-31] MEDS: IPRATROPIUM/ALBUTEROL SULFATE 3 ML AMPUL.NEB INH SCH ×6 (03:49→23:33)
[2017-08-31] MEDS: D5W 1,000 ML IV SCH (05:33)
[2017-08-31] MEDS: VALPROIC ACID ORAL SYRUP 250 MG/5 ML UDC GT SCH ×3 (05:37→23:37)
[2017-08-31] MEDS: CLOTRIMAZOLE/BETAMETHASONE 45 GM TOPICAL CREAM TP SCH ×2 (09:00→20:15)
[2017-08-31] MEDS: BALSAM PERU/CASTOR OIL 60 GM OINT...G. TP SCH (09:00)
[2017-08-31] MEDS: LEVOTHYROXINE SODIUM 0.1 MG TABLET GT SCH (09:21)
[2017-08-31] MEDS: LACTOBACILLUS RHAMNOSUS GG 1 CAP CAPSULE PO SCH ×2 (09:21→20:14)
[2017-08-31] MEDS: ASCORBIC ACID 500 MG TABLET GT SCH (09:21)
[2017-08-31] MEDS: DOCUSATE SODIUM 250 MG CAPSULE PO SCH ×2 (09:21→20:14)
[2017-08-31] MEDS: TAMSULOSIN HCL 0.4 MG CAP PO SCH (09:21)
[2017-08-31] MEDS: CHOLECALCIFEROL (VITAMIN D3) 2,000 UNIT TABLET GT SCH (09:21)
[2017-08-31] MEDS: amLODIPine BESYLATE 10 MG TABLET GT SCH (09:22)
[2017-08-31] MEDS: PANTOPRAZOLE SODIUM 40 MG/VIAL (PROTONIX) IVP SCH ×2 (09:23→20:11)
[2017-08-31] MEDS: AMIODARONE HCL 200 MG TABLET PO SCH (09:23)
[2017-08-31] MEDS: ACETAMINOPHEN 650 MG/20.3 ML UDC PO PRN ×2 (11:37→20:13)
[2017-08-31] MEDS: DIPHENHYDRAMINE INJ 50 MG/ML VIAL IVP PRN (11:37)
[2017-08-31] MEDS: PRAMOXINE HCL/CALAMINE 180 ML LOTION TP PRN (14:10)
[2017-08-31] MEDS: DOXAZOSIN MESYLATE 2 MG TABLET PO SCH (20:14)
[2017-09-01] MEDS: D5W 1,000 ML IV SCH ×2 (01:11→21:39)
[2017-09-01] MEDS: IPRATROPIUM/ALBUTEROL SULFATE 3 ML AMPUL.NEB INH SCH ×6 (04:24→23:16)
[2017-09-01] MEDS: ACETAMINOPHEN 650 MG/20.3 ML UDC PO PRN ×3 (05:14→21:30)
[2017-09-01] MEDS: VALPROIC ACID ORAL SYRUP 250 MG/5 ML UDC GT SCH ×3 (05:14→23:01)
[2017-09-01] MEDS: LABETALOL HCL 100 MG TABLET GT SCH ×4 (05:15→23:02)
[2017-09-01 08:00] VITALS: BP_SYST 114
[2017-09-01] MEDS: TAMSULOSIN HCL 0.4 MG CAP PO SCH (08:46)
[2017-09-01] MEDS: DOCUSATE SODIUM 250 MG CAPSULE PO SCH ×2 (08:46→21:00)
[2017-09-01] MEDS: CHOLECALCIFEROL (VITAMIN D3) 2,000 UNIT TABLET GT SCH (08:46)
[2017-09-01] MEDS: amLODIPine BESYLATE 10 MG TABLET GT SCH (08:47)
[2017-09-01] MEDS: LACTOBACILLUS RHAMNOSUS GG 1 CAP CAPSULE PO SCH ×2 (08:47→21:29)
[2017-09-01] MEDS: LEVOTHYROXINE SODIUM 0.1 MG TABLET GT SCH (08:48)
[2017-09-01] MEDS: ASCORBIC ACID 500 MG TABLET GT SCH (08:48)
[2017-09-01] MEDS: PANTOPRAZOLE SODIUM 40 MG/VIAL (PROTONIX) IVP SCH ×2 (08:49→21:26)
[2017-09-01] MEDS: AMIODARONE HCL 200 MG TABLET PO SCH (08:49)
[2017-09-01 12:23] VITALS: BP_SYST 131
[2017-09-01] MEDS: DIPHENHYDRAMINE INJ 50 MG/ML VIAL IVP PRN (14:56)
[2017-09-01] MEDS: PRAMOXINE HCL/CALAMINE 180 ML LOTION TP PRN (15:20)
[2017-09-01 16:28] VITALS: BP_SYST 115
[2017-09-01] MEDS: CLOTRIMAZOLE/BETAMETHASONE 45 GM TOPICAL CREAM TP SCH ×2 (16:30→21:29)
[2017-09-01] MEDS: BALSAM PERU/CASTOR OIL 60 GM OINT...G. TP SCH (16:30)
[2017-09-01] MEDS: DOXAZOSIN MESYLATE 2 MG TABLET PO SCH (21:29)
[2017-09-02] MEDS: IPRATROPIUM/ALBUTEROL SULFATE 3 ML AMPUL.NEB INH SCH ×6 (03:22→23:26)
[2017-09-02] MEDS: VALPROIC ACID ORAL SYRUP 250 MG/5 ML UDC GT SCH ×3 (05:20→21:08)
[2017-09-02] MEDS: ACETAMINOPHEN 650 MG/20.3 ML UDC PO PRN ×2 (05:20→11:30)
[2017-09-02] MEDS: LABETALOL HCL 100 MG TABLET GT SCH ×4 (05:23→23:40)
[2017-09-02 07:50] VITALS: BP_SYST 178
[2017-09-02 08:00] VITALS: BP_SYST 178
[2017-09-02] MEDS: PANTOPRAZOLE SODIUM 40 MG/VIAL (PROTONIX) IVP SCH ×2 (09:36→21:07)
[2017-09-02] MEDS: CHOLECALCIFEROL (VITAMIN D3) 2,000 UNIT TABLET GT SCH (09:36)
[2017-09-02] MEDS: TAMSULOSIN HCL 0.4 MG CAP PO SCH (09:36)
[2017-09-02] MEDS: DOCUSATE SODIUM 250 MG CAPSULE PO SCH ×2 (09:36→21:08)
[2017-09-02] MEDS: ASCORBIC ACID 500 MG TABLET GT SCH (09:37)
[2017-09-02] MEDS: LACTOBACILLUS RHAMNOSUS GG 1 CAP CAPSULE PO SCH ×2 (09:37→21:08)
[2017-09-02] MEDS: LEVOTHYROXINE SODIUM 0.1 MG TABLET GT SCH (09:37)
[2017-09-02] MEDS: amLODIPine BESYLATE 10 MG TABLET GT SCH (09:41)
[2017-09-02] MEDS: AMIODARONE HCL 200 MG TABLET PO SCH (09:42)
[2017-09-02] MEDS: BALSAM PERU/CASTOR OIL 60 GM OINT...G. TP SCH (09:43)
[2017-09-02] MEDS: CLOTRIMAZOLE/BETAMETHASONE 45 GM TOPICAL CREAM TP SCH ×2 (09:44→21:11)
[2017-09-02] MEDS: DIPHENHYDRAMINE INJ 50 MG/ML VIAL IVP PRN (11:30)
[2017-09-02 12:12] VITALS: BP_SYST 130
[2017-09-02 16:03] VITALS: BP_SYST 130
[2017-09-02] MEDS: D5W 1,000 ML IV SCH (17:55)
[2017-09-02 19:40] VITALS: BP_SYST 137
[2017-09-02] MEDS: DOXAZOSIN MESYLATE 2 MG TABLET PO SCH (21:08)
[2017-09-02 21:15] VITALS: BP_SYST 180
[2017-09-02] MEDS ORDERED: FLU VACC QS 2017-18(36MOS+)/PF 0.5 ML/SYR SYRINGE I.M. PRN (22:00)
[2017-09-03 00:34] VITALS: BP_SYST 144
[2017-09-03] MEDS: IPRATROPIUM/ALBUTEROL SULFATE 3 ML AMPUL.NEB INH SCH ×6 (03:58→23:08)
[2017-09-03] MEDS: VALPROIC ACID ORAL SYRUP 250 MG/5 ML UDC GT SCH ×3 (05:18→21:59)
[2017-09-03] MEDS: LABETALOL HCL 100 MG TABLET GT SCH ×4 (05:19→23:30)
[2017-09-03 06:16] LABS: HEMATOCRIT 25.3 % (36-54); HEMOGLOBIN 8.4 g/dL (14.0-18.0); MEAN CORPUSCULAR HEMOGLOBIN 31 pg (27-31); MEAN CORPUSCULAR HGB CONC 33 % (32-36); MEAN CORPUSCULAR VOLUME 94 fL (79.0-98.0); RED BLOOD CELL COUNT(AUTO) 2.68 MIL/uL (4.2-6.2); RED CELL DISTRIBUTION WIDTH 15.5 % (9.0-15.0); WHITE BLOOD COUNT (AUTO) 17.9 K/uL (4.8-10.8)
[2017-09-03 06:29] LABS: PLATELET COUNT (AUTO) 761 K/uL (130-430)
[2017-09-03 06:35] LABS: CALCIUM 9.2 mg/dL (8.4-11.0); CREATININE 1.43 mg/dL (0.55-1.30); POTASSIUM 3.9 mmol/L (3.5-5.1)
[2017-09-03 07:31] LABS: BASOPHILS % (MANUAL) 0 % (0-2); EOSINOPHILS % (MANUAL) 10 % (0-7); LYMPHOCYTES % (MANUAL) 10 % (20-46); MONOCYTES % (MANUAL) 9 % (0-11)
[2017-09-03] MEDS: PANTOPRAZOLE SODIUM 40 MG/VIAL (PROTONIX) IVP SCH ×2 (08:40→21:00)
[2017-09-03] MEDS: LEVOTHYROXINE SODIUM 0.1 MG TABLET GT SCH (08:41)
[2017-09-03] MEDS: DOCUSATE SODIUM 250 MG CAPSULE PO SCH ×2 (08:41→21:00)
[2017-09-03] MEDS: LACTOBACILLUS RHAMNOSUS GG 1 CAP CAPSULE PO SCH ×2 (08:41→21:00)
[2017-09-03] MEDS: TAMSULOSIN HCL 0.4 MG CAP PO SCH (08:41)
[2017-09-03] MEDS: ASCORBIC ACID 500 MG TABLET GT SCH (08:41)
[2017-09-03] MEDS: CHOLECALCIFEROL (VITAMIN D3) 2,000 UNIT TABLET GT SCH (08:41)
[2017-09-03 08:42] VITALS: BP_SYST 122
[2017-09-03] MEDS: AMIODARONE HCL 200 MG TABLET PO SCH (08:42)
[2017-09-03] MEDS: amLODIPine BESYLATE 10 MG TABLET GT SCH (08:43)
[2017-09-03] MEDS: CLOTRIMAZOLE/BETAMETHASONE 45 GM TOPICAL CREAM TP SCH ×2 (08:44→21:00)
[2017-09-03] MEDS: BALSAM PERU/CASTOR OIL 60 GM OINT...G. TP SCH (08:44)
[2017-09-03] MEDS: ACETAMINOPHEN 650 MG/20.3 ML UDC PO PRN (11:42)
[2017-09-03 12:01] VITALS: BP_SYST 121
[2017-09-03] MEDS: D5W 1,000 ML IV SCH (15:30)
[2017-09-03 16:11] VITALS: BP_SYST 151
[2017-09-03 20:00] VITALS: BP_SYST 129
[2017-09-03] MEDS: DOXAZOSIN MESYLATE 2 MG TABLET PO SCH (21:00)
[2017-09-04 00:27] VITALS: BP_SYST 116
[2017-09-04] MEDS: IPRATROPIUM/ALBUTEROL SULFATE 3 ML AMPUL.NEB INH SCH ×5 (03:17→20:40)
[2017-09-04] MEDS: VALPROIC ACID ORAL SYRUP 250 MG/5 ML UDC GT SCH ×3 (05:44→22:40)
[2017-09-04] MEDS: LABETALOL HCL 100 MG TABLET GT SCH ×3 (05:45→18:17)
[2017-09-04] MEDS: D5W 1,000 ML IV SCH (06:34)
[2017-09-04 08:00] VITALS: BP_SYST 113
[2017-09-04] MEDS: TAMSULOSIN HCL 0.4 MG CAP PO SCH (09:38)
[2017-09-04] MEDS: PANTOPRAZOLE SODIUM 40 MG/VIAL (PROTONIX) IVP SCH ×3 (09:38→23:55)
[2017-09-04] MEDS: LEVOTHYROXINE SODIUM 0.1 MG TABLET GT SCH (09:39)
[2017-09-04] MEDS: AMIODARONE HCL 200 MG TABLET PO SCH (09:39)
[2017-09-04] MEDS: CHOLECALCIFEROL (VITAMIN D3) 2,000 UNIT TABLET GT SCH (09:39)
[2017-09-04] MEDS: CLOTRIMAZOLE/BETAMETHASONE 45 GM TOPICAL CREAM TP SCH ×2 (09:40→22:30)
[2017-09-04] MEDS: LACTOBACILLUS RHAMNOSUS GG 1 CAP CAPSULE PO SCH ×2 (09:40→22:37)
[2017-09-04] MEDS: ASCORBIC ACID 500 MG TABLET GT SCH (09:40)
[2017-09-04] MEDS: amLODIPine BESYLATE 10 MG TABLET GT SCH (09:40)
[2017-09-04] MEDS: DOCUSATE SODIUM 250 MG CAPSULE PO SCH ×2 (09:40→22:36)
[2017-09-04] MEDS: BALSAM PERU/CASTOR OIL 60 GM OINT...G. TP SCH (10:08)
[2017-09-04 12:18] VITALS: BP_SYST 120
[2017-09-04 16:43] VITALS: BP_SYST 125
[2017-09-04 20:00] VITALS: BP_SYST 123
[2017-09-04] MEDS: DOXAZOSIN MESYLATE 2 MG TABLET PO SCH (22:36)
[2017-09-04 23:36] VITALS: BP_SYST 128
[2017-09-05] MEDS: IPRATROPIUM/ALBUTEROL SULFATE 3 ML AMPUL.NEB INH SCH ×6 (00:02→23:10)
[2017-09-05] MEDS: VALPROIC ACID ORAL SYRUP 250 MG/5 ML UDC GT SCH ×3 (06:07→22:09)
[2017-09-05] MEDS: LABETALOL HCL 100 MG TABLET GT SCH ×4 (06:09→17:41)
[2017-09-05] MEDS: D5W 1,000 ML IV SCH (06:30)
[2017-09-05 08:00] VITALS: BP_SYST 111
[2017-09-05] MEDS ORDERED: AMIODARONE HCL 200 MG TABLET PO SCH (09:00)
[2017-09-05] MEDS: PANTOPRAZOLE SODIUM 40 MG/VIAL (PROTONIX) IVP SCH ×2 (10:06→22:08)
[2017-09-05] MEDS: CHOLECALCIFEROL (VITAMIN D3) 2,000 UNIT TABLET GT SCH (10:06)
[2017-09-05] MEDS: LACTOBACILLUS RHAMNOSUS GG 1 CAP CAPSULE PO SCH (10:06)
[2017-09-05] MEDS: ASCORBIC ACID 500 MG TABLET GT SCH (10:07)
[2017-09-05] MEDS: LEVOTHYROXINE SODIUM 0.1 MG TABLET GT SCH (10:07)
[2017-09-05] MEDS: DOCUSATE SODIUM 250 MG CAPSULE PO SCH (10:10)
[2017-09-05] MEDS: amLODIPine BESYLATE 10 MG TABLET GT SCH (10:10)
[2017-09-05] MEDS: TAMSULOSIN HCL 0.4 MG CAP PO SCH (10:10)
[2017-09-05] MEDS: PRAMOXINE HCL/CALAMINE 180 ML LOTION TP PRN (10:11)
[2017-09-05] MEDS: CLOTRIMAZOLE/BETAMETHASONE 45 GM TOPICAL CREAM TP SCH ×2 (10:13→22:12)
[2017-09-05] MEDS: BALSAM PERU/CASTOR OIL 60 GM OINT...G. TP SCH (10:13)
[2017-09-05 12:00] VITALS: BP_SYST 113
[2017-09-05 16:12] VITALS: BP_SYST 130
[2017-09-05 19:45] VITALS: BP_SYST 124
[2017-09-05] MEDS: LACTOBACILLUS RHAMNOSUS GG 1 CAP CAPSULE GT SCH (22:08)
[2017-09-05] MEDS: DOCUSATE SODIUM 100 MG/10 ML UDC GT SCH (22:09)
[2017-09-05] MEDS: DOXAZOSIN MESYLATE 2 MG TABLET GT SCH (22:10)
[2017-09-06] MEDS: LABETALOL HCL 100 MG TABLET GT SCH ×4 (00:12→18:00)
[2017-09-06 00:22] VITALS: BP_SYST 126
[2017-09-06] MEDS: IPRATROPIUM/ALBUTEROL SULFATE 3 ML AMPUL.NEB INH SCH ×6 (03:08→23:19)
[2017-09-06] MEDS: D5W 1,000 ML IV SCH ×2 (03:12→22:44)
[2017-09-06] MEDS: VALPROIC ACID ORAL SYRUP 250 MG/5 ML UDC GT SCH ×3 (05:49→21:10)
[2017-09-06 07:45] VITALS: BP_SYST 116
[2017-09-06 08:10] VITALS: BP_SYST 116
[2017-09-06] MEDS: DOCUSATE SODIUM 100 MG/10 ML UDC GT SCH ×2 (09:30→21:10)
[2017-09-06] MEDS: TAMSULOSIN HCL 0.4 MG CAP GT SCH (09:31)
[2017-09-06] MEDS: PANTOPRAZOLE SODIUM 40 MG/VIAL (PROTONIX) IVP SCH ×2 (09:31→21:10)
[2017-09-06] MEDS: AMIODARONE HCL 200 MG TABLET GT SCH (09:32)
[2017-09-06] MEDS: CHOLECALCIFEROL (VITAMIN D3) 2,000 UNIT TABLET GT SCH (09:32)
[2017-09-06] MEDS: ASCORBIC ACID 500 MG TABLET GT SCH (09:32)
[2017-09-06] MEDS: LEVOTHYROXINE SODIUM 0.1 MG TABLET GT SCH (09:32)
[2017-09-06] MEDS: LACTOBACILLUS RHAMNOSUS GG 1 CAP CAPSULE GT SCH ×2 (09:33→21:10)
[2017-09-06] MEDS: amLODIPine BESYLATE 10 MG TABLET GT SCH (09:33)
[2017-09-06] MEDS: CLOTRIMAZOLE/BETAMETHASONE 45 GM TOPICAL CREAM TP SCH ×2 (09:34→21:22)
[2017-09-06] MEDS: BALSAM PERU/CASTOR OIL 60 GM OINT...G. TP SCH (09:36)
[2017-09-06 12:24] VITALS: BP_SYST 119
[2017-09-06] MEDS ORDERED: traMADol HCL HCL 50 MG TABLET (ULTRAM) GT ONE (13:30)
[2017-09-06] MEDS ORDERED: GABAPENTIN 100 MG CAPSULE GT ONE (13:30)
[2017-09-06] MEDS ORDERED: fentaNYL CITRATE/PF 100 MCG/2 ML AMP IVP ONE (13:30)
[2017-09-06 16:34] VITALS: BP_SYST 116
[2017-09-06] MEDS: traMADol HCL HCL 50 MG TABLET (ULTRAM) GT SCH (17:59)
[2017-09-06] MEDS: GABAPENTIN 100 MG CAPSULE GT SCH (21:09)
[2017-09-06] MEDS: DOXAZOSIN MESYLATE 2 MG TABLET GT SCH (21:17)
[2017-09-07] MEDS: LABETALOL HCL 100 MG TABLET GT SCH ×4 (00:19→18:04)
[2017-09-07] MEDS: traMADol HCL HCL 50 MG TABLET (ULTRAM) GT SCH ×4 (00:20→18:00)
[2017-09-07 01:25] VITALS: BP_SYST 119
[2017-09-07] MEDS: IPRATROPIUM/ALBUTEROL SULFATE 3 ML AMPUL.NEB INH SCH ×6 (04:03→23:43)
[2017-09-07] MEDS: VALPROIC ACID ORAL SYRUP 250 MG/5 ML UDC GT SCH ×3 (06:35→22:12)
[2017-09-07] MEDS: TAMSULOSIN HCL 0.4 MG CAP GT SCH (09:31)
[2017-09-07] MEDS: ASCORBIC ACID 500 MG TABLET GT SCH (09:31)
[2017-09-07] MEDS: LACTOBACILLUS RHAMNOSUS GG 1 CAP CAPSULE GT SCH ×2 (09:31→20:44)
[2017-09-07] MEDS: CHOLECALCIFEROL (VITAMIN D3) 2,000 UNIT TABLET GT SCH (09:31)
[2017-09-07] MEDS: AMIODARONE HCL 200 MG TABLET GT SCH (09:32)
[2017-09-07] MEDS: LEVOTHYROXINE SODIUM 0.1 MG TABLET GT SCH (09:32)
[2017-09-07] MEDS: amLODIPine BESYLATE 10 MG TABLET GT SCH (09:33)
[2017-09-07] MEDS: GABAPENTIN 100 MG CAPSULE GT SCH ×3 (09:33→20:45)
[2017-09-07] MEDS: DOCUSATE SODIUM 100 MG/10 ML UDC GT SCH ×2 (09:34→20:44)
[2017-09-07] MEDS: PANTOPRAZOLE SODIUM 40 MG/VIAL (PROTONIX) IVP SCH ×2 (09:35→20:45)
[2017-09-07 09:41] VITALS: BP_SYST 119
[2017-09-07] MEDS: CLOTRIMAZOLE/BETAMETHASONE 45 GM TOPICAL CREAM TP SCH ×2 (10:19→20:43)
[2017-09-07] MEDS: BALSAM PERU/CASTOR OIL 60 GM OINT...G. TP SCH (10:20)
[2017-09-07] MEDS ORDERED: COMMUNICATION ORDER XX PRN (10:30)
[2017-09-07 11:11] VITALS: BP_SYST 108
[2017-09-07 15:24] VITALS: BP_SYST 113
[2017-09-07 20:20] VITALS: BP_SYST 111
[2017-09-07] MEDS: DOXAZOSIN MESYLATE 2 MG TABLET GT SCH (21:08)
[2017-09-07] MEDS: D5W 1,000 ML IV SCH (21:11)
[2017-09-08] MEDS: traMADol HCL HCL 50 MG TABLET (ULTRAM) GT SCH ×4 (00:33→17:44)
[2017-09-08] MEDS: LABETALOL HCL 100 MG TABLET GT SCH ×4 (00:41→17:44)
[2017-09-08 01:36] VITALS: BP_SYST 117
[2017-09-08] MEDS: IPRATROPIUM/ALBUTEROL SULFATE 3 ML AMPUL.NEB INH SCH ×6 (03:43→23:18)
[2017-09-08] MEDS: VALPROIC ACID ORAL SYRUP 250 MG/5 ML UDC GT SCH ×3 (05:57→21:39)
[2017-09-08 06:20] VITALS: BP_SYST 108
[2017-09-08 08:00] VITALS: BP_SYST 121
[2017-09-08] MEDS: DOCUSATE SODIUM 100 MG/10 ML UDC GT SCH ×2 (09:49→22:01)
[2017-09-08] MEDS: PANTOPRAZOLE SODIUM 40 MG/VIAL (PROTONIX) IVP SCH ×2 (09:49→21:39)
[2017-09-08] MEDS: ASCORBIC ACID 500 MG TABLET GT SCH (09:50)
[2017-09-08] MEDS: LEVOTHYROXINE SODIUM 0.1 MG TABLET GT SCH (09:50)
[2017-09-08] MEDS: TAMSULOSIN HCL 0.4 MG CAP GT SCH (09:51)
[2017-09-08] MEDS: amLODIPine BESYLATE 10 MG TABLET GT SCH (09:51)
[2017-09-08] MEDS: GABAPENTIN 100 MG CAPSULE GT SCH ×3 (09:52→21:40)
[2017-09-08] MEDS: CHOLECALCIFEROL (VITAMIN D3) 2,000 UNIT TABLET GT SCH (09:52)
[2017-09-08] MEDS: AMIODARONE HCL 200 MG TABLET GT SCH (09:52)
[2017-09-08] MEDS: CLOTRIMAZOLE/BETAMETHASONE 45 GM TOPICAL CREAM TP SCH ×2 (09:53→21:43)
[2017-09-08] MEDS: LACTOBACILLUS RHAMNOSUS GG 1 CAP CAPSULE GT SCH ×2 (09:54→21:40)
[2017-09-08] MEDS: BALSAM PERU/CASTOR OIL 60 GM OINT...G. TP SCH (09:54)
[2017-09-08 11:49] VITALS: BP_SYST 109
[2017-09-08 16:13] VITALS: BP_SYST 116
[2017-09-08] MEDS: D5W 1,000 ML IV SCH (17:45)
[2017-09-08 20:00] VITALS: BP_SYST 121
[2017-09-08] MEDS: CEFTAZIDIME 1 GM in D5W 50 ML IV SCH (21:38)
[2017-09-08] MEDS: DOXAZOSIN MESYLATE 2 MG TABLET GT SCH (21:41)
[2017-09-09] VITALS (8 sets, daily range): BP systolic 104–124
[2017-09-09] MEDS: LABETALOL HCL 100 MG TABLET GT SCH ×5 (00:31→23:36)
[2017-09-09] MEDS: traMADol HCL HCL 50 MG TABLET (ULTRAM) GT SCH ×5 (00:33→23:35)
[2017-09-09] MEDS: IPRATROPIUM/ALBUTEROL SULFATE 3 ML AMPUL.NEB INH SCH ×6 (02:26→23:15)
[2017-09-09] MEDS: VALPROIC ACID ORAL SYRUP 250 MG/5 ML UDC GT SCH ×3 (05:28→21:22)
[2017-09-09 06:49] LABS: BASOPHILS # (AUTO) 0.2 K/uL (0.0-0.2); EOSINOPHILS # (AUTO) 3.2 K/uL (0.0-0.4); HEMATOCRIT 22.7 % (36-54); HEMOGLOBIN 7.7 g/dL (14.0-18.0); LYMPHOCYTES # (AUTO) 1.7 K/uL (1.0-5.5); LYMPHOCYTES % (AUTO) 7.5 % (20.5-51.5); MEAN CORPUSCULAR HEMOGLOBIN 32 pg (27-31); MEAN CORPUSCULAR HGB CONC 34 % (32-36); MEAN CORPUSCULAR VOLUME 95 fL (79.0-98.0); MONOCYTES # (AUTO) 1.6 K/uL (0.0-1.0); MONOCYTES % (AUTO) 7.2 % (1.7-9.3); NEUTROPHILS % (AUTO) 70.3 % (40.0-70.0); RED BLOOD CELL COUNT(AUTO) 2.39 MIL/uL (4.2-6.2); RED CELL DISTRIBUTION WIDTH 14.8 % (9.0-15.0); WHITE BLOOD COUNT (AUTO) 22.7 K/uL (4.8-10.8)
[2017-09-09 07:05] LABS: PLATELET COUNT (AUTO) 850 K/uL (130-430)
[2017-09-09 07:30] LABS: ALBUMIN 1.8 g/dL (3.4-4.8); CALCIUM 9.2 mg/dL (8.4-11.0); CREATININE 1.24 mg/dL (0.55-1.30); POTASSIUM 4.2 mmol/L (3.5-5.1); THYROID STIMULATING HORMONE 2.03 uIu/mL (0.34-4.82); TOTAL BILIRUBIN 0.4 mg/dL (0.0-1.0)
[2017-09-09] MEDS: CHOLECALCIFEROL (VITAMIN D3) 2,000 UNIT TABLET GT SCH (09:24)
[2017-09-09] MEDS: PANTOPRAZOLE SODIUM 40 MG/VIAL (PROTONIX) IVP SCH ×2 (09:24→21:22)
[2017-09-09] MEDS: LACTOBACILLUS RHAMNOSUS GG 1 CAP CAPSULE GT SCH ×2 (09:24→21:24)
[2017-09-09] MEDS: DOCUSATE SODIUM 100 MG/10 ML UDC GT SCH ×2 (09:24→21:23)
[2017-09-09] MEDS: ASCORBIC ACID 500 MG TABLET GT SCH (09:25)
[2017-09-09] MEDS: TAMSULOSIN HCL 0.4 MG CAP GT SCH (09:25)
[2017-09-09] MEDS: LEVOTHYROXINE SODIUM 0.1 MG TABLET GT SCH (09:25)
[2017-09-09] MEDS: GABAPENTIN 100 MG CAPSULE GT SCH ×3 (09:25→21:23)
[2017-09-09] MEDS: amLODIPine BESYLATE 10 MG TABLET GT SCH (09:27)
[2017-09-09] MEDS: AMIODARONE HCL 200 MG TABLET GT SCH (09:28)
[2017-09-09] MEDS: CLOTRIMAZOLE/BETAMETHASONE 45 GM TOPICAL CREAM TP SCH ×2 (09:29→21:24)
[2017-09-09] MEDS: BALSAM PERU/CASTOR OIL 60 GM OINT...G. TP SCH (09:30)
[2017-09-09] MEDS: CEFTAZIDIME 1 GM in D5W 50 ML IV SCH ×2 (09:42→21:22)
[2017-09-09] MEDS: metroNIDAZOLE 500 mg/NS 100 ML IV SCH ×2 (13:15→21:55)
[2017-09-09] MEDS: NACL 0.9% 1,000 ML IV SCH (13:18)
[2017-09-09] MEDS: DOXAZOSIN MESYLATE 2 MG TABLET GT SCH (21:25)
[2017-09-10] MEDS: IPRATROPIUM/ALBUTEROL SULFATE 3 ML AMPUL.NEB INH SCH ×5 (03:05→23:47)
[2017-09-10] MEDS: metroNIDAZOLE 500 mg/NS 100 ML IV SCH ×3 (05:12→21:10)
[2017-09-10] MEDS: VALPROIC ACID ORAL SYRUP 250 MG/5 ML UDC GT SCH ×3 (05:13→20:56)
[2017-09-10] MEDS: traMADol HCL HCL 50 MG TABLET (ULTRAM) GT SCH ×4 (05:13→23:16)
[2017-09-10] MEDS: LABETALOL HCL 100 MG TABLET GT SCH ×4 (05:13→23:21)
[2017-09-10] MEDS: NACL 0.9% 1,000 ML IV SCH (06:00)
[2017-09-10 06:58] LABS: BASOPHILS % (AUTO) 0.2 % (0.0-2.0); EOSINOPHILS # (AUTO) 2.9 K/uL (0.0-0.4); EOSINOPHILS % (AUTO) 14.4 % (0.0-4.0); HEMOGLOBIN 7.2 g/dL (14.0-18.0); LYMPHOCYTES # (AUTO) 1.8 K/uL (1.0-5.5); LYMPHOCYTES % (AUTO) 8.9 % (20.5-51.5); MEAN CORPUSCULAR HEMOGLOBIN 31 pg (27-31); MEAN CORPUSCULAR HGB CONC 33 % (32-36); MEAN CORPUSCULAR VOLUME 95 fL (79.0-98.0); MONOCYTES # (AUTO) 1.6 K/uL (0.0-1.0); MONOCYTES % (AUTO) 7.8 % (1.7-9.3); NEUTROPHILS # (AUTO) 14.2 K/uL (1.8-7.7); NEUTROPHILS % (AUTO) 68.7 % (40.0-70.0); RED CELL DISTRIBUTION WIDTH 15.2 % (9.0-15.0); WHITE BLOOD COUNT (AUTO) 20.5 K/uL (4.8-10.8)
[2017-09-10 07:00] LABS: CALCIUM 9.1 mg/dL (8.4-11.0); CREATININE 1.22 mg/dL (0.55-1.30)
[2017-09-10 07:09] LABS: PLATELET COUNT (AUTO) 848 K/uL (130-430)
[2017-09-10 08:00] VITALS: BP_SYST 119
[2017-09-10] MEDS: DOCUSATE SODIUM 100 MG/10 ML UDC GT SCH ×2 (10:00→20:56)
[2017-09-10] MEDS: GABAPENTIN 100 MG CAPSULE GT SCH ×3 (10:01→20:56)
[2017-09-10] MEDS: LEVOTHYROXINE SODIUM 0.1 MG TABLET GT SCH (10:01)
[2017-09-10] MEDS: CHOLECALCIFEROL (VITAMIN D3) 2,000 UNIT TABLET GT SCH (10:01)
[2017-09-10] MEDS: PANTOPRAZOLE SODIUM 40 MG/VIAL (PROTONIX) IVP SCH ×2 (10:01→20:55)
[2017-09-10] MEDS: TAMSULOSIN HCL 0.4 MG CAP GT SCH (10:01)
[2017-09-10] MEDS: LACTOBACILLUS RHAMNOSUS GG 1 CAP CAPSULE GT SCH ×2 (10:01→20:56)
[2017-09-10] MEDS: ASCORBIC ACID 500 MG TABLET GT SCH (10:03)
[2017-09-10] MEDS: AMIODARONE HCL 200 MG TABLET GT SCH (10:03)
[2017-09-10] MEDS: CEFTAZIDIME 1 GM in D5W 50 ML IV SCH ×2 (10:19→20:56)
[2017-09-10] MEDS: amLODIPine BESYLATE 10 MG TABLET GT SCH (10:19)
[2017-09-10] MEDS: CLOTRIMAZOLE/BETAMETHASONE 45 GM TOPICAL CREAM TP SCH ×2 (10:20→21:07)
[2017-09-10] MEDS: BALSAM PERU/CASTOR OIL 60 GM OINT...G. TP SCH (10:21)
[2017-09-10 11:23] VITALS: BP_SYST 119
[2017-09-10 12:19] VITALS: BP_SYST 115
[2017-09-10 17:20] VITALS: BP_SYST 112
[2017-09-10 20:00] VITALS: BP_SYST 113
[2017-09-10] MEDS: DOXAZOSIN MESYLATE 2 MG TABLET GT SCH (21:01)
[2017-09-11] VITALS (7 sets, daily range): BP systolic 101–118
[2017-09-11] MEDS: IPRATROPIUM/ALBUTEROL SULFATE 3 ML AMPUL.NEB INH SCH ×6 (02:12→23:38)
[2017-09-11] MEDS: NACL 0.9% 1,000 ML IV SCH ×2 (03:58→16:06)
[2017-09-11] MEDS: VALPROIC ACID ORAL SYRUP 250 MG/5 ML UDC GT SCH ×3 (05:33→21:50)
[2017-09-11] MEDS: metroNIDAZOLE 500 mg/NS 100 ML IV SCH ×2 (05:34→15:20)
[2017-09-11] MEDS: traMADol HCL HCL 50 MG TABLET (ULTRAM) GT SCH ×3 (05:34→18:12)
[2017-09-11] MEDS: LABETALOL HCL 100 MG TABLET GT SCH ×3 (06:00→18:13)
[2017-09-11 06:09] LABS: BASOPHILS # (AUTO) 0.1 K/uL (0.0-0.2); BASOPHILS % (AUTO) 0.4 % (0.0-2.0); EOSINOPHILS # (AUTO) 2.6 K/uL (0.0-0.4); EOSINOPHILS % (AUTO) 12.4 % (0.0-4.0); HEMATOCRIT 22.3 % (36-54); HEMOGLOBIN 7.6 g/dL (14.0-18.0); LYMPHOCYTES # (AUTO) 1.4 K/uL (1.0-5.5); LYMPHOCYTES % (AUTO) 6.6 % (20.5-51.5); MEAN CORPUSCULAR HEMOGLOBIN 33 pg (27-31); MEAN CORPUSCULAR HGB CONC 34 % (32-36); MEAN CORPUSCULAR VOLUME 96 fL (79.0-98.0); MONOCYTES # (AUTO) 2.2 K/uL (0.0-1.0); MONOCYTES % (AUTO) 10.2 % (1.7-9.3); NEUTROPHILS % (AUTO) 70.4 % (40.0-70.0); RED BLOOD CELL COUNT(AUTO) 2.34 MIL/uL (4.2-6.2); RED CELL DISTRIBUTION WIDTH 15.6 % (9.0-15.0); WHITE BLOOD COUNT (AUTO) 21.3 K/uL (4.8-10.8)
[2017-09-11 06:16] LABS: CHLORIDE 101 mmol/L (98-107); CREATININE 1.19 mg/dL (0.55-1.30); GLUCOSE 91 mg/dL (70-99); POTASSIUM 4.2 mmol/L (3.5-5.1); UREA NITROGEN, BLOOD 42 mg/dL (8-21)
[2017-09-11 06:39] LABS: PLATELET COUNT (AUTO) 864 K/uL (130-430)
[2017-09-11 06:46] LABS: SODIUM SERUM 133 mmol/L (136-145)
[2017-09-11 06:55] LABS: GFR AFRICAN AMERICAN 81 mL/min (>90)
[2017-09-11 06:56] LABS: ANION GAP < 3 (5-15)
[2017-09-11] MEDS: DOCUSATE SODIUM 100 MG/10 ML UDC GT SCH ×2 (09:48→21:47)
[2017-09-11] MEDS: PANTOPRAZOLE SODIUM 40 MG/VIAL (PROTONIX) IVP SCH ×2 (09:48→21:48)
[2017-09-11] MEDS: LACTOBACILLUS RHAMNOSUS GG 1 CAP CAPSULE GT SCH ×2 (09:49→21:47)
[2017-09-11] MEDS: TAMSULOSIN HCL 0.4 MG CAP GT SCH (09:49)
[2017-09-11] MEDS: ASCORBIC ACID 500 MG TABLET GT SCH (09:49)
[2017-09-11] MEDS: GABAPENTIN 100 MG CAPSULE GT SCH ×3 (09:49→21:47)
[2017-09-11] MEDS: LEVOTHYROXINE SODIUM 0.1 MG TABLET GT SCH (09:49)
[2017-09-11] MEDS: CHOLECALCIFEROL (VITAMIN D3) 2,000 UNIT TABLET GT SCH (09:49)
[2017-09-11] MEDS: CEFTAZIDIME 1 GM in D5W 50 ML IV SCH ×2 (09:49→21:48)
[2017-09-11] MEDS: amLODIPine BESYLATE 10 MG TABLET GT SCH (09:52)
[2017-09-11] MEDS: AMIODARONE HCL 200 MG TABLET GT SCH (09:53)
[2017-09-11] MEDS: CLOTRIMAZOLE/BETAMETHASONE 45 GM TOPICAL CREAM TP SCH ×2 (10:08→21:50)
[2017-09-11] MEDS: BALSAM PERU/CASTOR OIL 60 GM OINT...G. TP SCH (10:09)
[2017-09-11] MEDS: DIPHENHYDRAMINE INJ 50 MG/ML VIAL IVP PRN (15:41)
[2017-09-11] MEDS ORDERED: MORPHINE 4 MG/ML INJ. SYRINGE ONE (15:54)
[2017-09-11] MEDS: DOXAZOSIN MESYLATE 2 MG TABLET GT SCH (21:46)
[2017-09-12] MEDS: metroNIDAZOLE 500 mg/NS 100 ML IV SCH ×3 (00:10→15:55)
[2017-09-12] MEDS: traMADol HCL HCL 50 MG TABLET (ULTRAM) GT SCH ×4 (00:11→17:16)
[2017-09-12] MEDS: LABETALOL HCL 100 MG TABLET GT SCH ×4 (00:11→17:15)
[2017-09-12 00:30] VITALS: BP_SYST 127
[2017-09-12] MEDS: IPRATROPIUM/ALBUTEROL SULFATE 3 ML AMPUL.NEB INH SCH ×6 (04:12→23:34)
[2017-09-12] MEDS: VALPROIC ACID ORAL SYRUP 250 MG/5 ML UDC GT SCH (05:03)
[2017-09-12 08:07] VITALS: BP_SYST 121
[2017-09-12] MEDS: CLOTRIMAZOLE/BETAMETHASONE 45 GM TOPICAL CREAM TP SCH ×2 (09:00→21:00)
[2017-09-12] MEDS: CEFTAZIDIME 1 GM in D5W 50 ML IV SCH ×2 (09:37→23:32)
[2017-09-12] MEDS: LEVOTHYROXINE SODIUM 0.1 MG TABLET GT SCH (09:38)
[2017-09-12] MEDS: CHOLECALCIFEROL (VITAMIN D3) 2,000 UNIT TABLET GT SCH (09:38)
[2017-09-12] MEDS: PANTOPRAZOLE SODIUM 40 MG/VIAL (PROTONIX) IVP SCH ×2 (09:38→22:18)
[2017-09-12] MEDS: AMIODARONE HCL 200 MG TABLET GT SCH (09:40)
[2017-09-12] MEDS: amLODIPine BESYLATE 10 MG TABLET GT SCH (09:41)
[2017-09-12] MEDS: ASCORBIC ACID 500 MG TABLET GT SCH (09:41)
[2017-09-12] MEDS: GABAPENTIN 100 MG CAPSULE GT SCH ×3 (09:45→21:00)
[2017-09-12] MEDS: LACTOBACILLUS RHAMNOSUS GG 1 CAP CAPSULE GT SCH ×2 (09:45→21:00)
[2017-09-12] MEDS: DOCUSATE SODIUM 100 MG/10 ML UDC GT SCH ×2 (09:46→21:00)
[2017-09-12] MEDS: TAMSULOSIN HCL 0.4 MG CAP GT SCH (09:46)
[2017-09-12] MEDS: BALSAM PERU/CASTOR OIL 60 GM OINT...G. TP SCH (09:49)
[2017-09-12 12:29] VITALS: BP_SYST 117
[2017-09-12] MEDS ORDERED: GASTROGRAFIN 120 ML ONE (12:54)
[2017-09-12] MEDS: D5NS 1,000 ML IV SCH (15:56)
[2017-09-12] MEDS: MORPHINE 4 MG/ML INJ. SYRINGE IVP PRN (16:09)
[2017-09-12 16:25] VITALS: BP_SYST 109
[2017-09-12 19:55] VITALS: BP_SYST 116
[2017-09-12] MEDS: DOXAZOSIN MESYLATE 2 MG TABLET GT SCH (21:00)
[2017-09-12] MEDS ORDERED: VALPROATE SODIUM 100 MG/ML VIAL (DEPACON) IV ONE (22:03)
[2017-09-12] MEDS: VALPROATE SODIUM 500 MG in D5W 100 ML IV SCH (22:18)
[2017-09-13 00:15] VITALS: BP_SYST 125
[2017-09-13] MEDS: metroNIDAZOLE 500 mg/NS 100 ML IV SCH ×4 (00:47→21:58)
[2017-09-13] MEDS: IPRATROPIUM/ALBUTEROL SULFATE 3 ML AMPUL.NEB INH SCH ×6 (03:04→23:26)
[2017-09-13] MEDS: LABETALOL HCL 100 MG TABLET GT SCH ×5 (05:59→23:38)
[2017-09-13] MEDS: traMADol HCL HCL 50 MG TABLET (ULTRAM) GT SCH ×5 (05:59→23:39)
[2017-09-13 07:06] LABS: HEMATOCRIT 23.2 % (36-54); HEMOGLOBIN 7.8 g/dL (14.0-18.0); MEAN CORPUSCULAR HEMOGLOBIN 33 pg (27-31); MEAN CORPUSCULAR HGB CONC 34 % (32-36); MEAN CORPUSCULAR VOLUME 97 fL (79.0-98.0); RED BLOOD CELL COUNT(AUTO) 2.39 MIL/uL (4.2-6.2); WHITE BLOOD COUNT (AUTO) 23.7 K/uL (4.8-10.8)
[2017-09-13 07:14] LABS: PLATELET COUNT (AUTO) 886 K/uL (130-430)
[2017-09-13 07:29] LABS: CALCIUM 9.5 mg/dL (8.4-11.0); CREATININE 1.19 mg/dL (0.55-1.30); POTASSIUM 4.3 mmol/L (3.5-5.1)
[2017-09-13 08:06] VITALS: BP_SYST 115
[2017-09-13 08:10] LABS: ATYPICAL LYMPHOCYTES % 3 % (0-0); BAND % (MANUAL) 6 % (0-6); LYMPHOCYTES % (MANUAL) 7 % (20-46)
[2017-09-13 08:11] LABS: BASOPHILS % (MANUAL) 0 % (0-2); EOSINOPHILS % (MANUAL) 7 % (0-7); MONOCYTES % (MANUAL) 15 % (0-11)
[2017-09-13] MEDS: D5NS 1,000 ML IV SCH (08:50)
[2017-09-13] MEDS: CEFTAZIDIME 1 GM in D5W 50 ML IV SCH ×2 (08:51→20:43)
[2017-09-13] MEDS: PANTOPRAZOLE SODIUM 40 MG/VIAL (PROTONIX) IVP SCH ×2 (08:51→20:41)
[2017-09-13] MEDS: AMIODARONE HCL 200 MG TABLET GT SCH (09:00)
[2017-09-13] MEDS: ASCORBIC ACID 500 MG TABLET GT SCH (09:00)
[2017-09-13] MEDS: CLOTRIMAZOLE/BETAMETHASONE 45 GM TOPICAL CREAM TP SCH ×2 (09:00→20:44)
[2017-09-13] MEDS: TAMSULOSIN HCL 0.4 MG CAP GT SCH (09:00)
[2017-09-13] MEDS: CHOLECALCIFEROL (VITAMIN D3) 2,000 UNIT TABLET GT SCH (09:00)
[2017-09-13] MEDS: GABAPENTIN 100 MG CAPSULE GT SCH ×3 (09:00→20:42)
[2017-09-13] MEDS: LACTOBACILLUS RHAMNOSUS GG 1 CAP CAPSULE GT SCH ×2 (09:00→20:42)
[2017-09-13] MEDS: DOCUSATE SODIUM 100 MG/10 ML UDC GT SCH ×2 (09:00→20:41)
[2017-09-13] MEDS: LEVOTHYROXINE SODIUM 0.1 MG TABLET GT SCH (09:00)
[2017-09-13] MEDS: amLODIPine BESYLATE 10 MG TABLET GT SCH (09:00)
[2017-09-13] MEDS: VALPROATE SODIUM 500 MG in D5W 100 ML IV SCH ×2 (09:33→20:43)
[2017-09-13] MEDS: BALSAM PERU/CASTOR OIL 60 GM OINT...G. TP SCH (09:35)
[2017-09-13 12:00] VITALS: BP_SYST 126
[2017-09-13] MEDS ORDERED: AMIODARONE HCL 200 MG TABLET GT ONE (12:30)
[2017-09-13] MEDS: 0.45% NACL 1,000 ML IV SCH (13:29)
[2017-09-13 16:00] VITALS: BP_SYST 112
[2017-09-13 19:35] VITALS: BP_SYST 104
[2017-09-13] MEDS: DOXAZOSIN MESYLATE 2 MG TABLET GT SCH (20:42)
[2017-09-13 23:33] VITALS: BP_SYST 120
[2017-09-14] MEDS: IPRATROPIUM/ALBUTEROL SULFATE 3 ML AMPUL.NEB INH SCH ×6 (04:00→23:26)
[2017-09-14 05:48] VITALS: BP_SYST 127
[2017-09-14] MEDS: traMADol HCL HCL 50 MG TABLET (ULTRAM) GT SCH (05:53)
[2017-09-14] MEDS: LABETALOL HCL 100 MG TABLET GT SCH ×3 (05:54→17:53)
[2017-09-14] MEDS: metroNIDAZOLE 500 mg/NS 100 ML IV SCH ×3 (05:59→22:40)
[2017-09-14 06:37] LABS: CALCIUM 9.3 mg/dL (8.4-11.0); CREATININE 1.19 mg/dL (0.55-1.30); POTASSIUM 3.9 mmol/L (3.5-5.1)
[2017-09-14 06:39] LABS: HEMATOCRIT 22.6 % (36-54); HEMOGLOBIN 7.3 g/dL (14.0-18.0); MEAN CORPUSCULAR HEMOGLOBIN 32 pg (27-31); MEAN CORPUSCULAR HGB CONC 32 % (32-36); MEAN CORPUSCULAR VOLUME 98 fL (79.0-98.0); RED BLOOD CELL COUNT(AUTO) 2.31 MIL/uL (4.2-6.2); RED CELL DISTRIBUTION WIDTH 16.3 % (9.0-15.0); WHITE BLOOD COUNT (AUTO) 21.5 K/uL (4.8-10.8)
[2017-09-14 07:03] LABS: PLATELET COUNT (AUTO) 858 K/uL (130-430)
[2017-09-14 07:35] VITALS: BP_SYST 134
[2017-09-14 08:35] LABS: LYMPHOCYTES % (MANUAL) 12 % (20-46)
[2017-09-14 08:36] LABS: BASOPHILS % (MANUAL) 0 % (0-2); EOSINOPHILS % (MANUAL) 5 % (0-7); MONOCYTES % (MANUAL) 13 % (0-11)
[2017-09-14] MEDS: TAMSULOSIN HCL 0.4 MG CAP GT SCH (09:31)
[2017-09-14] MEDS: PANTOPRAZOLE SODIUM 40 MG/VIAL (PROTONIX) IVP SCH ×2 (09:31→20:45)
[2017-09-14] MEDS: CHOLECALCIFEROL (VITAMIN D3) 2,000 UNIT TABLET GT SCH (09:32)
[2017-09-14] MEDS: ASCORBIC ACID 500 MG TABLET GT SCH (09:32)
[2017-09-14] MEDS: LACTOBACILLUS RHAMNOSUS GG 1 CAP CAPSULE GT SCH ×2 (09:32→20:46)
[2017-09-14] MEDS: amLODIPine BESYLATE 10 MG TABLET GT SCH (09:32)
[2017-09-14] MEDS: GABAPENTIN 100 MG CAPSULE GT SCH ×3 (09:32→20:46)
[2017-09-14] MEDS: LEVOTHYROXINE SODIUM 0.1 MG TABLET GT SCH (09:34)
[2017-09-14] MEDS: AMIODARONE HCL 200 MG TABLET GT SCH (09:34)
[2017-09-14] MEDS: VALPROATE SODIUM 500 MG in D5W 100 ML IV SCH ×2 (09:35→22:00)
[2017-09-14] MEDS: CEFTAZIDIME 1 GM in D5W 50 ML IV SCH ×2 (09:36→20:47)
[2017-09-14] MEDS: CLOTRIMAZOLE/BETAMETHASONE 45 GM TOPICAL CREAM TP SCH ×2 (09:38→20:47)
[2017-09-14] MEDS: BALSAM PERU/CASTOR OIL 60 GM OINT...G. TP SCH (09:38)
[2017-09-14] MEDS: DOCUSATE SODIUM 100 MG/10 ML UDC GT SCH ×2 (09:42→20:46)
[2017-09-14 12:34] VITALS: BP_SYST 126
[2017-09-14] MEDS: 0.45% NACL 1,000 ML IV SCH ×2 (14:33→19:35)
[2017-09-14 16:07] VITALS: BP_SYST 106
[2017-09-14 20:00] VITALS: BP_SYST 131
[2017-09-14] MEDS: DOXAZOSIN MESYLATE 2 MG TABLET GT SCH (20:46)
[2017-09-14] MEDS: DOXYCYCLINE HYCLATE 100 MG in D5W 100 ML IV SCH (21:35)
[2017-09-15] VITALS (7 sets, daily range): BP systolic 109–126
[2017-09-15] MEDS: LABETALOL HCL 100 MG TABLET GT SCH ×5 (00:01→23:28)
[2017-09-15] MEDS: IPRATROPIUM/ALBUTEROL SULFATE 3 ML AMPUL.NEB INH SCH ×5 (03:58→23:13)
[2017-09-15] MEDS: metroNIDAZOLE 500 mg/NS 100 ML IV SCH ×3 (05:03→14:14)
[2017-09-15] MEDS: traMADol HCL HCL 50 MG TABLET (ULTRAM) GT SCH ×2 (05:04→23:26)
[2017-09-15] MEDS: TAMSULOSIN HCL 0.4 MG CAP GT SCH (09:50)
[2017-09-15] MEDS: PANTOPRAZOLE SODIUM 40 MG/VIAL (PROTONIX) IVP SCH ×2 (09:50→21:20)
[2017-09-15] MEDS: ASCORBIC ACID 500 MG TABLET GT SCH (09:50)
[2017-09-15] MEDS: GABAPENTIN 100 MG CAPSULE GT SCH ×3 (09:50→21:23)
[2017-09-15] MEDS: LEVOTHYROXINE SODIUM 0.1 MG TABLET GT SCH (09:50)
[2017-09-15] MEDS: DOCUSATE SODIUM 100 MG/10 ML UDC GT SCH ×2 (09:50→21:23)
[2017-09-15] MEDS: amLODIPine BESYLATE 10 MG TABLET GT SCH (09:50)
[2017-09-15] MEDS: AMIODARONE HCL 200 MG TABLET GT SCH (09:51)
[2017-09-15] MEDS: CHOLECALCIFEROL (VITAMIN D3) 2,000 UNIT TABLET GT SCH (09:51)
[2017-09-15] MEDS: DOXYCYCLINE HYCLATE 100 MG in D5W 100 ML IV SCH (09:52)
[2017-09-15] MEDS: LACTOBACILLUS RHAMNOSUS GG 1 CAP CAPSULE GT SCH ×2 (09:52→21:22)
[2017-09-15] MEDS: VALPROATE SODIUM 500 MG in D5W 100 ML IV SCH ×2 (09:55→20:12)
[2017-09-15] MEDS: CLOTRIMAZOLE/BETAMETHASONE 45 GM TOPICAL CREAM TP SCH ×2 (09:58→21:24)
[2017-09-15] MEDS: BALSAM PERU/CASTOR OIL 60 GM OINT...G. TP SCH (09:58)
[2017-09-15] MEDS: 0.45% NACL 1,000 ML IV SCH (14:14)
[2017-09-15] MEDS ORDERED: FLUCONAZOLE 200 MG TABLET (DIFLUCAN) GT ONE (15:30)
[2017-09-15] MEDS: CEFTAZIDIME 1 GM in D5W 50 ML IV SCH (16:03)
[2017-09-15] MEDS: DOXAZOSIN MESYLATE 2 MG TABLET GT SCH (21:22)
[2017-09-15] MEDS: LINEZOLID 300 ML IV SCH (21:23)
[2017-09-16] VITALS: BP_SYST 97
[2017-09-16] MEDS: IPRATROPIUM/ALBUTEROL SULFATE 3 ML AMPUL.NEB INH SCH ×6 (04:05→23:08)
[2017-09-16] MEDS: 0.45% NACL 1,000 ML IV SCH ×2 (04:55→21:23)
[2017-09-16] MEDS: traMADol HCL HCL 50 MG TABLET (ULTRAM) GT SCH (05:10)
[2017-09-16] MEDS: LABETALOL HCL 100 MG TABLET GT SCH ×3 (05:10→17:17)
[2017-09-16 08:00] VITALS: BP_SYST 145
[2017-09-16] MEDS: LINEZOLID 300 ML IV SCH ×2 (08:42→21:58)
[2017-09-16] MEDS: DOCUSATE SODIUM 100 MG/10 ML UDC GT SCH ×2 (08:42→21:09)
[2017-09-16] MEDS: LEVOTHYROXINE SODIUM 0.1 MG TABLET GT SCH (08:43)
[2017-09-16] MEDS: TAMSULOSIN HCL 0.4 MG CAP GT SCH (08:43)
[2017-09-16] MEDS: MORPHINE 4 MG/ML INJ. SYRINGE IVP PRN (08:43)
[2017-09-16] MEDS: PANTOPRAZOLE SODIUM 40 MG/VIAL (PROTONIX) IVP SCH ×2 (08:43→21:11)
[2017-09-16] MEDS: LACTOBACILLUS RHAMNOSUS GG 1 CAP CAPSULE GT SCH ×2 (08:43→21:10)
[2017-09-16] MEDS: ASCORBIC ACID 500 MG TABLET GT SCH (08:44)
[2017-09-16] MEDS: GABAPENTIN 100 MG CAPSULE GT SCH ×3 (08:44→21:10)
[2017-09-16] MEDS: AMIODARONE HCL 200 MG TABLET GT SCH (08:44)
[2017-09-16] MEDS: FLUCONAZOLE 200 MG TABLET (DIFLUCAN) GT SCH (08:44)
[2017-09-16] MEDS: CHOLECALCIFEROL (VITAMIN D3) 2,000 UNIT TABLET GT SCH (08:44)
[2017-09-16] MEDS: amLODIPine BESYLATE 10 MG TABLET GT SCH (08:45)
[2017-09-16] MEDS: CLOTRIMAZOLE/BETAMETHASONE 45 GM TOPICAL CREAM TP SCH ×2 (08:46→21:11)
[2017-09-16] MEDS: BALSAM PERU/CASTOR OIL 60 GM OINT...G. TP SCH (08:46)
[2017-09-16] MEDS: VALPROATE SODIUM 500 MG in D5W 100 ML IV SCH ×2 (09:58→21:09)
[2017-09-16 12:20] VITALS: BP_SYST 123
[2017-09-16 16:01] VITALS: BP_SYST 124
[2017-09-16] MEDS: ACETAMINOPHEN 650 MG/20.3 ML UDC GT PRN (17:41)
[2017-09-16 20:00] VITALS: BP_SYST 142
[2017-09-16] MEDS: DOXAZOSIN MESYLATE 2 MG TABLET GT SCH (21:10)
[2017-09-17] VITALS (15 sets, daily range): BP systolic 115–145
[2017-09-17] MEDS: LABETALOL HCL 100 MG TABLET GT SCH ×4 (00:40→17:46)
[2017-09-17] MEDS: IPRATROPIUM/ALBUTEROL SULFATE 3 ML AMPUL.NEB INH SCH ×6 (02:19→23:48)
[2017-09-17 06:41] LABS: BASOPHILS # (AUTO) 0.1 K/uL (0.0-0.2); BASOPHILS % (AUTO) 0.3 % (0.0-2.0); EOSINOPHILS # (AUTO) 2.3 K/uL (0.0-0.4); EOSINOPHILS % (AUTO) 13.1 % (0.0-4.0); HEMATOCRIT 23.3 % (36-54); HEMOGLOBIN 7.5 g/dL (14.0-18.0); LYMPHOCYTES % (AUTO) 11.7 % (20.5-51.5); MEAN CORPUSCULAR HEMOGLOBIN 31 pg (27-31); MEAN CORPUSCULAR HGB CONC 32 % (32-36); MEAN CORPUSCULAR VOLUME 97 fL (79.0-98.0); MONOCYTES # (AUTO) 1.3 K/uL (0.0-1.0); MONOCYTES % (AUTO) 7.7 % (1.7-9.3); NEUTROPHILS # (AUTO) 11.7 K/uL (1.8-7.7); NEUTROPHILS % (AUTO) 67.2 % (40.0-70.0); RED CELL DISTRIBUTION WIDTH 16.3 % (9.0-15.0); WHITE BLOOD COUNT (AUTO) 17.4 K/uL (4.8-10.8)
[2017-09-17 06:45] LABS: PLATELET COUNT (AUTO) 838 K/uL (130-430)
[2017-09-17 07:13] LABS: ALBUMIN 1.7 g/dL (3.4-4.8); CALCIUM 9.3 mg/dL (8.4-11.0); CREATININE 0.99 mg/dL (0.55-1.30); POTASSIUM 4.3 mmol/L (3.5-5.1); TOTAL BILIRUBIN 0.3 mg/dL (0.0-1.0)
[2017-09-17] MEDS: TAMSULOSIN HCL 0.4 MG CAP GT SCH ×2 (09:00→09:21)
[2017-09-17] MEDS: LEVOTHYROXINE SODIUM 0.1 MG TABLET GT SCH ×2 (09:00→09:21)
[2017-09-17] MEDS: CLOTRIMAZOLE/BETAMETHASONE 45 GM TOPICAL CREAM TP SCH ×2 (09:00→20:49)
[2017-09-17] MEDS: VALPROATE SODIUM 500 MG in D5W 100 ML IV SCH ×2 (09:00→20:49)
[2017-09-17] MEDS: AMIODARONE HCL 200 MG TABLET GT SCH ×2 (09:00→09:09)
[2017-09-17] MEDS: DOCUSATE SODIUM 100 MG/10 ML UDC GT SCH ×3 (09:00→20:47)
[2017-09-17] MEDS: LACTOBACILLUS RHAMNOSUS GG 1 CAP CAPSULE GT SCH ×3 (09:00→20:47)
[2017-09-17] MEDS: ASCORBIC ACID 500 MG TABLET GT SCH ×2 (09:00→09:02)
[2017-09-17] MEDS: GABAPENTIN 100 MG CAPSULE GT SCH ×4 (09:00→20:48)
[2017-09-17] MEDS: CHOLECALCIFEROL (VITAMIN D3) 2,000 UNIT TABLET GT SCH ×2 (09:00→09:10)
[2017-09-17] MEDS: FLUCONAZOLE 200 MG TABLET (DIFLUCAN) GT SCH (09:00)
[2017-09-17] MEDS: amLODIPine BESYLATE 10 MG TABLET GT SCH ×2 (09:00→09:10)
[2017-09-17] MEDS: PANTOPRAZOLE SODIUM 40 MG/VIAL (PROTONIX) IVP SCH ×2 (09:21→20:48)
[2017-09-17] MEDS: LINEZOLID 300 ML IV SCH ×2 (09:23→21:57)
[2017-09-17] MEDS: BALSAM PERU/CASTOR OIL 60 GM OINT...G. TP SCH (09:23)
[2017-09-17] MEDS: DIPHENHYDRAMINE INJ 50 MG/ML VIAL IVP PRN (11:21)
[2017-09-17] MEDS ORDERED: MEPERIDINE HCL/PF 50 MG/ML AMP ONE (15:30)
[2017-09-17] MEDS ORDERED: ONDANSETRON HCL 4 MG/2 ML VIAL IVP ONE ×2 (16:15→16:35)
[2017-09-17] MEDS ORDERED: MIDAZOLAM HCL 5 MG/5 ML VIAL IVP PRN (16:15)
[2017-09-17] MEDS ORDERED: NALOXONE HCL 0.4 MG/ML AMP (NARCAN) IVP ONE (16:15)
[2017-09-17] MEDS ORDERED: MEPERIDINE HCL/PF 25 MG/ML DISP.SYRIN IVP PRN (16:15)
[2017-09-17] MEDS ORDERED: HYDROmorphone 1 MG INJ. 1 MG/ML AMPUL IVP PRN (16:15)
[2017-09-17] MEDS ORDERED: GLYCOPYRROLATE 0.2 MG/ML VIAL IJ ONE (16:35)
[2017-09-17] MEDS ORDERED: VECURONIUM BROMIDE 10 MG/VIAL (NORCURON) IV ONE (16:35)
[2017-09-17] MEDS ORDERED: PROPOFOL 200MG/ 20ML VIAL (DIPRIVAN) IV ONE (16:35)
[2017-09-17] MEDS ORDERED: NS IRRIG SOLN 1000 ML IR ONE (16:35)
[2017-09-17] MEDS ORDERED: MIDAZOLAM HCL 5 MG/5 ML VIAL IVP ONE (16:35)
[2017-09-17] MEDS ORDERED: NEOSTIGMINE METHYLSULFATE 1 MG/ML, 10 ML VIAL IVP ONE (16:35)
[2017-09-17] MEDS ORDERED: SEVOFLURANE 15 MIN GAS INH ONE (16:35)
[2017-09-17] MEDS ORDERED: LR 1,000 ML IV.SOLN IV ONE (16:35)
[2017-09-17] MEDS ORDERED: fentaNYL CITRATE 250 MCG/5 ML AMP IV ONE (16:35)
[2017-09-17] MEDS ORDERED: MEPERIDINE HCL/PF 100 MG/ML AMP IM ONE (16:35)
[2017-09-17] MEDS: 0.45% NACL 1,000 ML IV SCH (17:47)
[2017-09-17] MEDS: MORPHINE 2 MG/ML INJ. SYRINGE IVP PRN (20:48)
[2017-09-17] MEDS: DOXAZOSIN MESYLATE 2 MG TABLET GT SCH (20:49)
[2017-09-18] VITALS (20 sets, daily range): BP systolic 119–155
[2017-09-18] MEDS: LABETALOL HCL 100 MG TABLET GT SCH ×4 (00:16→17:22)
[2017-09-18] MEDS: IPRATROPIUM/ALBUTEROL SULFATE 3 ML AMPUL.NEB INH SCH ×6 (03:48→23:41)
[2017-09-18] MEDS: MORPHINE 2 MG/ML INJ. SYRINGE IVP PRN ×2 (03:53→08:46)
[2017-09-18] MEDS: ACETAMINOPHEN 650 MG/20.3 ML UDC GT PRN (05:22)
[2017-09-18 06:47] LABS: CALCIUM 9.1 mg/dL (8.4-11.0); CREATININE 1.04 mg/dL (0.55-1.30); POTASSIUM 4.1 mmol/L (3.5-5.1)
[2017-09-18 06:56] LABS: ALBUMIN 1.9 g/dL (3.4-4.8); TOTAL BILIRUBIN 0.3 mg/dL (0.0-1.0)
[2017-09-18 08:23] LABS: RED BLOOD CELL COUNT(AUTO) 2.48 MIL/uL (4.2-6.2); WHITE BLOOD COUNT (AUTO) 27.5 K/uL (4.8-10.8)
[2017-09-18 08:24] LABS: HEMATOCRIT 23.9 % (36-54); HEMOGLOBIN 7.9 g/dL (14.0-18.0); MEAN CORPUSCULAR HEMOGLOBIN 32 pg (27-31); MEAN CORPUSCULAR HGB CONC 33 % (32-36); MEAN CORPUSCULAR VOLUME 97 fL (79.0-98.0); RED CELL DISTRIBUTION WIDTH 16.1 % (9.0-15.0)
[2017-09-18 08:27] LABS: BASOPHILS % (AUTO) 0.2 % (0.0-2.0); EOSINOPHILS % (AUTO) 0.7 % (0.0-4.0); LYMPHOCYTES # (AUTO) 1.3 K/uL (1.0-5.5); LYMPHOCYTES % (AUTO) 4.8 % (20.5-51.5); MONOCYTES % (AUTO) 6.3 % (1.7-9.3); NEUTROPHILS # (AUTO) 24.2 K/uL (1.8-7.7)
[2017-09-18 08:30] LABS: BASOPHILS # (AUTO) 0.1 K/uL (0.0-0.2); EOSINOPHILS # (AUTO) 0.2 K/uL (0.0-0.4); MONOCYTES # (AUTO) 1.7 K/uL (0.0-1.0)
[2017-09-18] MEDS ORDERED: VALPROATE SODIUM 100 MG/ML VIAL (DEPACON) IV ONE ×2 (08:33→21:25)
[2017-09-18 08:34] LABS: PLATELET COUNT (AUTO) 766 K/uL (130-430)
[2017-09-18] MEDS: 0.45% NACL 1,000 ML IV SCH ×2 (08:44→23:35)
[2017-09-18] MEDS: VALPROATE SODIUM 500 MG in D5W 100 ML IV SCH ×2 (08:45→21:40)
[2017-09-18] MEDS: DOCUSATE SODIUM 100 MG/10 ML UDC GT SCH ×2 (08:45→21:41)
[2017-09-18] MEDS: TAMSULOSIN HCL 0.4 MG CAP GT SCH (08:46)
[2017-09-18] MEDS: amLODIPine BESYLATE 10 MG TABLET GT SCH (08:47)
[2017-09-18] MEDS: PANTOPRAZOLE SODIUM 40 MG/VIAL (PROTONIX) IVP SCH ×2 (08:47→21:42)
[2017-09-18] MEDS: GABAPENTIN 100 MG CAPSULE GT SCH ×3 (08:47→21:43)
[2017-09-18] MEDS: CHOLECALCIFEROL (VITAMIN D3) 2,000 UNIT TABLET GT SCH (08:47)
[2017-09-18] MEDS: LACTOBACILLUS RHAMNOSUS GG 1 CAP CAPSULE GT SCH ×2 (08:47→21:42)
[2017-09-18] MEDS: FLUCONAZOLE 200 MG TABLET (DIFLUCAN) GT SCH (08:47)
[2017-09-18] MEDS: LEVOTHYROXINE SODIUM 0.1 MG TABLET GT SCH (08:47)
[2017-09-18] MEDS: ASCORBIC ACID 500 MG TABLET GT SCH (08:47)
[2017-09-18] MEDS: AMIODARONE HCL 200 MG TABLET GT SCH (08:48)
[2017-09-18] MEDS: BALSAM PERU/CASTOR OIL 60 GM OINT...G. TP SCH (08:49)
[2017-09-18] MEDS: CLOTRIMAZOLE/BETAMETHASONE 45 GM TOPICAL CREAM TP SCH ×2 (09:00→21:44)
[2017-09-18] MEDS: LINEZOLID 300 ML IV SCH (11:34)
[2017-09-18] MEDS: DOXAZOSIN MESYLATE 2 MG TABLET GT SCH (21:43)
[2017-09-18] MEDS ORDERED: CEFEPIME 1 GM/VIAL (MAXIPIME) ONE (22:41)
[2017-09-18] MEDS: CEFEPIME 1 GM in D5W 50 ML IV SCH (23:28)
[2017-09-19] MEDS: LABETALOL HCL 100 MG TABLET GT SCH (00:29)
[2017-09-19] MEDS: MORPHINE 2 MG/ML INJ. SYRINGE IVP PRN ×2 (00:31→23:31)
[2017-09-19] MEDS: LINEZOLID 300 ML IV SCH ×3 (00:31→22:57)
[2017-09-19] MEDS: IPRATROPIUM/ALBUTEROL SULFATE 3 ML AMPUL.NEB INH SCH ×4 (03:46→23:33)
[2017-09-19] MEDS: 0.45% NACL 1,000 ML IV SCH (06:41)
[2017-09-19 06:44] VITALS: BP_SYST 111
[2017-09-19 07:15] LABS: BASOPHILS # (AUTO) 0.1 K/uL (0.0-0.2); BASOPHILS % (AUTO) 0.3 % (0.0-2.0); EOSINOPHILS # (AUTO) 0.4 K/uL (0.0-0.4); EOSINOPHILS % (AUTO) 1.4 % (0.0-4.0); HEMOGLOBIN 7.1 g/dL (14.0-18.0); LYMPHOCYTES # (AUTO) 1.8 K/uL (1.0-5.5); LYMPHOCYTES % (AUTO) 6.3 % (20.5-51.5); MEAN CORPUSCULAR HEMOGLOBIN 32 pg (27-31); MEAN CORPUSCULAR HGB CONC 33 % (32-36); MEAN CORPUSCULAR VOLUME 97 fL (79.0-98.0); MONOCYTES # (AUTO) 2.1 K/uL (0.0-1.0); MONOCYTES % (AUTO) 7.5 % (1.7-9.3); PLATELET COUNT (AUTO) 697 K/uL (130-430); RED BLOOD CELL COUNT(AUTO) 2.21 MIL/uL (4.2-6.2); RED CELL DISTRIBUTION WIDTH 16.3 % (9.0-15.0); WHITE BLOOD COUNT (AUTO) 28.4 K/uL (4.8-10.8)
[2017-09-19 07:52] LABS: CALCIUM 8.9 mg/dL (8.4-11.0); CREATININE 1.12 mg/dL (0.55-1.30); POTASSIUM 3.8 mmol/L (3.5-5.1)
[2017-09-19 08:00] VITALS: BP_SYST 124
[2017-09-19 08:15] LABS: HEMATOCRIT 21.5 % (36-54)
[2017-09-19] MEDS: LEVOTHYROXINE SODIUM 0.1 MG TABLET GT SCH (08:25)
[2017-09-19] MEDS: TAMSULOSIN HCL 0.4 MG CAP GT SCH (08:25)
[2017-09-19] MEDS: FLUCONAZOLE 200 MG TABLET (DIFLUCAN) GT SCH (08:26)
[2017-09-19] MEDS: AMIODARONE HCL 200 MG TABLET GT SCH (08:26)
[2017-09-19] MEDS: CHOLECALCIFEROL (VITAMIN D3) 2,000 UNIT TABLET GT SCH (08:26)
[2017-09-19] MEDS: ASCORBIC ACID 500 MG TABLET GT SCH (08:27)
[2017-09-19] MEDS: amLODIPine BESYLATE 10 MG TABLET GT SCH (08:27)
[2017-09-19] MEDS: DOCUSATE SODIUM 100 MG/10 ML UDC GT SCH ×2 (08:27→20:15)
[2017-09-19] MEDS: BALSAM PERU/CASTOR OIL 60 GM OINT...G. TP SCH (09:00)
[2017-09-19] MEDS: LACTOBACILLUS RHAMNOSUS GG 1 CAP CAPSULE GT SCH (09:07)
[2017-09-19] MEDS: GABAPENTIN 100 MG CAPSULE GT SCH ×3 (09:08→20:16)
[2017-09-19] MEDS: CLOTRIMAZOLE/BETAMETHASONE 45 GM TOPICAL CREAM TP SCH ×2 (09:12→20:15)
[2017-09-19] MEDS: CEFEPIME 1 GM in D5W 50 ML IV SCH ×2 (10:27→20:17)
[2017-09-19 11:19] LABS: NEUTROPHILS % (AUTO) 84.5 % (40.0-70.0)
[2017-09-19 11:27] VITALS: BP_SYST 128
[2017-09-19] MEDS: VALPROATE SODIUM 500 MG in D5W 100 ML IV SCH ×2 (12:18→21:16)
[2017-09-19] MEDS: METOCLOPRAMIDE HCL 10 MG/2 ML VIAL IVP SCH ×3 (15:13→23:31)
[2017-09-19 15:37] VITALS: BP_SYST 135
[2017-09-19] MEDS: NACL 0.9% 1,000 ML IV SCH (18:16)
[2017-09-19 20:13] VITALS: BP_SYST 123
[2017-09-19] MEDS: DOXAZOSIN MESYLATE 2 MG TABLET GT SCH (20:16)
[2017-09-19 22:40] VITALS: BP_SYST 122
[2017-09-20] MEDS: NACL 0.9% 1,000 ML IV SCH ×2 (00:03→14:57)
[2017-09-20] MEDS: IPRATROPIUM/ALBUTEROL SULFATE 3 ML AMPUL.NEB INH SCH ×6 (02:11→23:13)
[2017-09-20] MEDS: METOCLOPRAMIDE HCL 10 MG/2 ML VIAL IVP SCH ×4 (06:14→23:20)
[2017-09-20 07:35] LABS: CALCIUM 9.1 mg/dL (8.4-11.0); CREATININE 1.05 mg/dL (0.55-1.30); POTASSIUM 3.6 mmol/L (3.5-5.1)
[2017-09-20 08:00] VITALS: BP_SYST 135
[2017-09-20 08:06] LABS: BASOPHILS % (AUTO) 0.2 % (0.0-2.0); EOSINOPHILS # (AUTO) 0.6 K/uL (0.0-0.4); EOSINOPHILS % (AUTO) 2.7 % (0.0-4.0); HEMOGLOBIN 8.2 g/dL (14.0-18.0); LYMPHOCYTES # (AUTO) 1.2 K/uL (1.0-5.5); LYMPHOCYTES % (AUTO) 5.6 % (20.5-51.5); MEAN CORPUSCULAR HEMOGLOBIN 32 pg (27-31); MEAN CORPUSCULAR HGB CONC 34 % (32-36); MEAN CORPUSCULAR VOLUME 95 fL (79.0-98.0); MONOCYTES % (AUTO) 9.2 % (1.7-9.3); NEUTROPHILS # (AUTO) 17.7 K/uL (1.8-7.7); PLATELET COUNT (AUTO) 601 K/uL (130-430); RED BLOOD CELL COUNT(AUTO) 2.52 MIL/uL (4.2-6.2); RED CELL DISTRIBUTION WIDTH 16.7 % (9.0-15.0); WHITE BLOOD COUNT (AUTO) 21.5 K/uL (4.8-10.8)
[2017-09-20] MEDS: CEFEPIME 1 GM in D5W 50 ML IV SCH ×2 (08:29→20:27)
[2017-09-20] MEDS: CLOTRIMAZOLE/BETAMETHASONE 45 GM TOPICAL CREAM TP SCH ×2 (09:00→22:06)
[2017-09-20] MEDS: DOCUSATE SODIUM 100 MG/10 ML UDC GT SCH ×2 (09:00→20:28)
[2017-09-20] MEDS: BALSAM PERU/CASTOR OIL 60 GM OINT...G. TP SCH (09:00)
[2017-09-20] MEDS: ASCORBIC ACID 500 MG TABLET GT SCH (09:00)
[2017-09-20] MEDS: VALPROATE SODIUM 500 MG in D5W 100 ML IV SCH ×2 (09:14→22:02)
[2017-09-20] MEDS: FLUCONAZOLE 200 MG TABLET (DIFLUCAN) GT SCH (10:13)
[2017-09-20] MEDS: LEVOTHYROXINE SODIUM 0.1 MG TABLET GT SCH (10:13)
[2017-09-20] MEDS: AMIODARONE HCL 200 MG TABLET GT SCH (10:14)
[2017-09-20] MEDS: CHOLECALCIFEROL (VITAMIN D3) 2,000 UNIT TABLET GT SCH (10:14)
[2017-09-20] MEDS: amLODIPine BESYLATE 10 MG TABLET GT SCH (10:15)
[2017-09-20] MEDS: GABAPENTIN 100 MG CAPSULE GT SCH ×3 (10:15→20:30)
[2017-09-20] MEDS: PANTOPRAZOLE SODIUM 40 MG/VIAL (PROTONIX) IVP SCH ×2 (10:17→20:28)
[2017-09-20] MEDS: LINEZOLID 300 ML IV SCH ×2 (10:24→23:15)
[2017-09-20 11:34] LABS: NEUTROPHILS % (AUTO) 82.3 % (40.0-70.0)
[2017-09-20 12:00] VITALS: BP_SYST 128
[2017-09-20 16:00] VITALS: BP_SYST 125
[2017-09-20 17:06] VITALS: BP_SYST 125
[2017-09-20 20:00] VITALS: BP_SYST 132
[2017-09-20] MEDS ORDERED: VALPROATE SODIUM 100 MG/ML VIAL (DEPACON) IV ONE (20:13)
[2017-09-20] MEDS: DOXAZOSIN MESYLATE 2 MG TABLET GT SCH (20:29)
[2017-09-21 01:03] VITALS: BP_SYST 133
[2017-09-21] MEDS: IPRATROPIUM/ALBUTEROL SULFATE 3 ML AMPUL.NEB INH SCH ×6 (04:16→23:32)
[2017-09-21] MEDS: NACL 0.9% 1,000 ML IV SCH ×3 (04:39→21:53)
[2017-09-21] MEDS: METOCLOPRAMIDE HCL 10 MG/2 ML VIAL IVP SCH ×2 (05:41→11:09)
[2017-09-21 08:49] VITALS: BP_SYST 144
[2017-09-21] MEDS: CEFEPIME 1 GM in D5W 50 ML IV SCH ×2 (08:53→21:52)
[2017-09-21] MEDS: PANTOPRAZOLE SODIUM 40 MG/VIAL (PROTONIX) IVP SCH ×2 (08:54→21:51)
[2017-09-21] MEDS: DOCUSATE SODIUM 100 MG/10 ML UDC GT SCH ×2 (08:57→21:48)
[2017-09-21] MEDS: CHOLECALCIFEROL (VITAMIN D3) 2,000 UNIT TABLET GT SCH (08:58)
[2017-09-21] MEDS: ASCORBIC ACID 500 MG TABLET GT SCH (08:58)
[2017-09-21] MEDS: CLOTRIMAZOLE/BETAMETHASONE 45 GM TOPICAL CREAM TP SCH ×2 (08:58→21:51)
[2017-09-21] MEDS: GABAPENTIN 100 MG CAPSULE GT SCH ×3 (08:58→21:47)
[2017-09-21] MEDS: LEVOTHYROXINE SODIUM 0.1 MG TABLET GT SCH (08:58)
[2017-09-21] MEDS: FLUCONAZOLE 200 MG TABLET (DIFLUCAN) GT SCH (08:58)
[2017-09-21] MEDS: amLODIPine BESYLATE 10 MG TABLET GT SCH (08:59)
[2017-09-21] MEDS: AMIODARONE HCL 200 MG TABLET GT SCH (09:00)
[2017-09-21] MEDS: BALSAM PERU/CASTOR OIL 60 GM OINT...G. TP SCH (09:48)
[2017-09-21] MEDS: VALPROATE SODIUM 500 MG in D5W 100 ML IV SCH ×2 (09:52→21:53)
[2017-09-21] MEDS: LINEZOLID 300 ML IV SCH ×2 (11:03→21:51)
[2017-09-21 11:21] VITALS: BP_SYST 129
[2017-09-21 14:55] LABS: BASOPHILS # (AUTO) 0.1 K/uL (0.0-0.2); BASOPHILS % (AUTO) 0.5 % (0.0-2.0); EOSINOPHILS # (AUTO) 0.4 K/uL (0.0-0.4); LYMPHOCYTES # (AUTO) 1.3 K/uL (1.0-5.5); MEAN CORPUSCULAR HGB CONC 33 % (32-36); RED CELL DISTRIBUTION WIDTH 16.3 % (9.0-15.0)
[2017-09-21 15:01] LABS: EOSINOPHILS % (AUTO) 2.9 % (0.0-4.0); HEMATOCRIT 24.4 % (36-54); HEMOGLOBIN 8.1 g/dL (14.0-18.0); LYMPHOCYTES % (AUTO) 8.5 % (20.5-51.5); MEAN CORPUSCULAR HEMOGLOBIN 32 pg (27-31); MEAN CORPUSCULAR VOLUME 95 fL (79.0-98.0); MONOCYTES # (AUTO) 1.7 K/uL (0.0-1.0); MONOCYTES % (AUTO) 10.9 % (1.7-9.3); NEUTROPHILS # (AUTO) 11.9 K/uL (1.8-7.7); NEUTROPHILS % (AUTO) 77.2 % (40.0-70.0); PLATELET COUNT (AUTO) 600 K/uL (130-430); RED BLOOD CELL COUNT(AUTO) 2.56 MIL/uL (4.2-6.2); WHITE BLOOD COUNT (AUTO) 15.4 K/uL (4.8-10.8)
[2017-09-21 15:12] LABS: CALCIUM 8.9 mg/dL (8.4-11.0); CREATININE 1.04 mg/dL (0.55-1.30); POTASSIUM 3.5 mmol/L (3.5-5.1)
[2017-09-21 15:25] VITALS: BP_SYST 108
[2017-09-21 21:09] VITALS: BP_SYST 136
[2017-09-21] MEDS: DOXAZOSIN MESYLATE 2 MG TABLET GT SCH (21:47)
[2017-09-22 00:11] VITALS: BP_SYST 132
[2017-09-22] MEDS: METOCLOPRAMIDE HCL 10 MG/2 ML VIAL IVP SCH ×3 (01:20→12:15)
[2017-09-22] MEDS: IPRATROPIUM/ALBUTEROL SULFATE 3 ML AMPUL.NEB INH SCH ×6 (04:30→23:08)
[2017-09-22 08:01] VITALS: BP_SYST 147
[2017-09-22] MEDS: CLOTRIMAZOLE/BETAMETHASONE 45 GM TOPICAL CREAM TP SCH (09:00)
[2017-09-22] MEDS: CEFEPIME 1 GM in D5W 50 ML IV SCH ×2 (09:52→21:47)
[2017-09-22] MEDS: PANTOPRAZOLE SODIUM 40 MG/VIAL (PROTONIX) IVP SCH (09:53)
[2017-09-22] MEDS: DOCUSATE SODIUM 100 MG/10 ML UDC GT SCH ×2 (09:53→21:52)
[2017-09-22] MEDS: CHOLECALCIFEROL (VITAMIN D3) 2,000 UNIT TABLET GT SCH (09:54)
[2017-09-22] MEDS: ASCORBIC ACID 500 MG TABLET GT SCH (09:54)
[2017-09-22] MEDS: AMIODARONE HCL 200 MG TABLET GT SCH (09:54)
[2017-09-22] MEDS: LEVOTHYROXINE SODIUM 0.1 MG TABLET GT SCH (09:54)
[2017-09-22] MEDS: amLODIPine BESYLATE 10 MG TABLET GT SCH (09:54)
[2017-09-22] MEDS: GABAPENTIN 100 MG CAPSULE GT SCH ×3 (09:54→21:53)
[2017-09-22] MEDS: BALSAM PERU/CASTOR OIL 60 GM OINT...G. TP SCH (09:57)
[2017-09-22] MEDS ORDERED: NACL 0.9% 1,000 ML IV SCH (10:00)
[2017-09-22] MEDS: VALPROATE SODIUM 500 MG in D5W 100 ML IV SCH ×2 (11:01→22:39)
[2017-09-22 11:36] VITALS: BP_SYST 148
[2017-09-22] MEDS ORDERED: LINEZOLID 300 ML IV SCH (12:30)
[2017-09-22] MEDS ORDERED: METOCLOPRAMIDE HCL 10 MG/10 ML UDC GT PRN (12:45)
[2017-09-22] MEDS ORDERED: LINEZOLID 600 MG TABLET GT ONE (13:00)
[2017-09-22] MEDS: FERROUS SULFATE 300 MG/5 ML UDC GT SCH ×2 (15:59→21:53)
[2017-09-22 16:00] VITALS: BP_SYST 109
[2017-09-22 20:00] VITALS: BP_SYST 144
[2017-09-22] MEDS ORDERED: VALPROATE SODIUM 100 MG/ML VIAL (DEPACON) IV ONE (21:44)
[2017-09-22] MEDS: DOXAZOSIN MESYLATE 2 MG TABLET GT SCH (21:49)
[2017-09-22] MEDS: LINEZOLID 600 MG TABLET GT SCH (21:57)
[2017-09-23 00:46] VITALS: BP_SYST 132
[2017-09-23] MEDS: IPRATROPIUM/ALBUTEROL SULFATE 3 ML AMPUL.NEB INH SCH ×5 (04:03→23:05)
[2017-09-23 08:36] VITALS: BP_SYST 155
[2017-09-23] MEDS: VALPROATE SODIUM 500 MG in D5W 100 ML IV SCH ×2 (09:37→21:50)
[2017-09-23] MEDS: FERROUS SULFATE 300 MG/5 ML UDC GT SCH ×3 (09:38→21:42)
[2017-09-23] MEDS: DOCUSATE SODIUM 100 MG/10 ML UDC GT SCH ×2 (09:38→21:42)
[2017-09-23] MEDS: CEFEPIME 1 GM in D5W 50 ML IV SCH ×2 (09:38→21:42)
[2017-09-23] MEDS: AMIODARONE HCL 200 MG TABLET GT SCH (09:39)
[2017-09-23] MEDS: LEVOTHYROXINE SODIUM 0.1 MG TABLET GT SCH (09:40)
[2017-09-23] MEDS: FLUCONAZOLE 100 MG TABLET (DIFLUCAN) PO SCH (09:40)
[2017-09-23] MEDS: LINEZOLID 600 MG TABLET GT SCH ×2 (09:40→21:43)
[2017-09-23] MEDS: PANTOPRAZOLE SODIUM 40 MG TAB GT SCH (09:40)
[2017-09-23] MEDS: CHOLECALCIFEROL (VITAMIN D3) 2,000 UNIT TABLET GT SCH (09:41)
[2017-09-23] MEDS: GABAPENTIN 100 MG CAPSULE GT SCH ×3 (09:41→21:43)
[2017-09-23] MEDS: amLODIPine BESYLATE 10 MG TABLET GT SCH (09:42)
[2017-09-23] MEDS: ASCORBIC ACID 500 MG TABLET GT SCH (09:42)
[2017-09-23] MEDS: BALSAM PERU/CASTOR OIL 60 GM OINT...G. TP SCH (09:43)
[2017-09-23 12:07] VITALS: BP_SYST 144
[2017-09-23 16:01] VITALS: BP_SYST 144
[2017-09-23] MEDS: MORPHINE SULFATE 10 MG/5 ML ORAL SOL. UDC GT PRN (16:30)
[2017-09-23 17:55] VITALS: BP_SYST 144
[2017-09-23 20:07] VITALS: BP_SYST 130
[2017-09-23] MEDS ORDERED: VALPROATE SODIUM 100 MG/ML VIAL (DEPACON) IV ONE (21:40)
[2017-09-23] MEDS: DOXAZOSIN MESYLATE 2 MG TABLET GT SCH (21:43)
[2017-09-24 00:31] VITALS: BP_SYST 132
[2017-09-24] MEDS: IPRATROPIUM/ALBUTEROL SULFATE 3 ML AMPUL.NEB INH SCH ×6 (03:10→23:43)
[2017-09-24 06:37] LABS: HEMATOCRIT 24.7 % (36-54); HEMOGLOBIN 8.1 g/dL (14.0-18.0); MEAN CORPUSCULAR HEMOGLOBIN 31 pg (27-31); MEAN CORPUSCULAR HGB CONC 33 % (32-36); MEAN CORPUSCULAR VOLUME 96 fL (79.0-98.0); PLATELET COUNT (AUTO) 634 K/uL (130-430); RED BLOOD CELL COUNT(AUTO) 2.58 MIL/uL (4.2-6.2); RED CELL DISTRIBUTION WIDTH 15.2 % (9.0-15.0); WHITE BLOOD COUNT (AUTO) 18.4 K/uL (4.8-10.8)
[2017-09-24 07:06] LABS: CALCIUM 8.8 mg/dL (8.4-11.0); CREATININE 1.03 mg/dL (0.55-1.30)
[2017-09-24 07:38] LABS: LYMPHOCYTES % (MANUAL) 8 % (20-46)
[2017-09-24 07:39] LABS: BAND % (MANUAL) 1 % (0-6); BASOPHILS % (MANUAL) 0 % (0-2); EOSINOPHILS % (MANUAL) 9 % (0-7); METAMYELOCYTES % 2 % (0-0); MONOCYTES % (MANUAL) 10 % (0-11)
[2017-09-24 08:21] VITALS: BP_SYST 125
[2017-09-24] MEDS: MORPHINE SULFATE 10 MG/5 ML ORAL SOL. UDC GT PRN ×2 (09:06→15:49)
[2017-09-24] MEDS: GABAPENTIN 100 MG CAPSULE GT SCH ×3 (09:07→21:48)
[2017-09-24] MEDS: LINEZOLID 600 MG TABLET GT SCH ×2 (09:07→21:48)
[2017-09-24] MEDS: CHOLECALCIFEROL (VITAMIN D3) 2,000 UNIT TABLET GT SCH (09:07)
[2017-09-24] MEDS: amLODIPine BESYLATE 10 MG TABLET GT SCH (09:07)
[2017-09-24] MEDS: PANTOPRAZOLE SODIUM 40 MG TAB GT SCH (09:08)
[2017-09-24] MEDS: FLUCONAZOLE 100 MG TABLET (DIFLUCAN) PO SCH (09:08)
[2017-09-24] MEDS: ASCORBIC ACID 500 MG TABLET GT SCH (09:08)
[2017-09-24] MEDS: LEVOTHYROXINE SODIUM 0.1 MG TABLET GT SCH (09:08)
[2017-09-24] MEDS: DOCUSATE SODIUM 100 MG/10 ML UDC GT SCH ×2 (09:09→21:48)
[2017-09-24] MEDS: FERROUS SULFATE 300 MG/5 ML UDC GT SCH ×3 (09:09→21:48)
[2017-09-24] MEDS: AMIODARONE HCL 200 MG TABLET GT SCH (09:09)
[2017-09-24] MEDS: BALSAM PERU/CASTOR OIL 60 GM OINT...G. TP SCH (09:10)
[2017-09-24] MEDS: VALPROATE SODIUM 500 MG in D5W 100 ML IV SCH (09:11)
[2017-09-24] MEDS: CEFEPIME 1 GM in D5W 50 ML IV SCH (09:12)
[2017-09-24 12:17] VITALS: BP_SYST 143
[2017-09-24 16:54] VITALS: BP_SYST 136
[2017-09-24 19:30] VITALS: BP_SYST 119
[2017-09-24] MEDS: DOXAZOSIN MESYLATE 2 MG TABLET GT SCH (21:48)
[2017-09-24] MEDS ORDERED: VALPROIC ACID ORAL SYRUP 250 MG/5 ML UDC GT ONE (22:00)
[2017-09-24] MEDS ORDERED: VALPROIC ACID 250 MG CAPSULE (DEPAKENE) PO ONE (22:30)
[2017-09-24 23:11] VITALS: BP_SYST 133
[2017-09-25] MEDS: IPRATROPIUM/ALBUTEROL SULFATE 3 ML AMPUL.NEB INH SCH ×6 (02:50→23:51)
[2017-09-25] MEDS ORDERED: VALPROIC ACID 250 MG CAPSULE (DEPAKENE) PO SCH (09:00)
[2017-09-25] MEDS ORDERED: VALPROIC ACID ORAL SYRUP 250 MG/5 ML UDC GT SCH (09:00)
[2017-09-25] MEDS: DOCUSATE SODIUM 100 MG/10 ML UDC GT SCH ×2 (09:47→22:05)
[2017-09-25] MEDS: VALPROIC ACID ORAL SYRUP 250 MG/5 ML UDC GT SCH ×2 (09:47→22:06)
[2017-09-25] MEDS: CHOLECALCIFEROL (VITAMIN D3) 2,000 UNIT TABLET GT SCH (09:47)
[2017-09-25] MEDS: FERROUS SULFATE 300 MG/5 ML UDC GT SCH ×3 (09:47→22:06)
[2017-09-25] MEDS: PANTOPRAZOLE SODIUM 40 MG TAB GT SCH (09:48)
[2017-09-25] MEDS: LEVOTHYROXINE SODIUM 0.1 MG TABLET GT SCH (09:48)
[2017-09-25] MEDS: LINEZOLID 600 MG TABLET GT SCH ×2 (09:48→22:07)
[2017-09-25] MEDS: amLODIPine BESYLATE 10 MG TABLET GT SCH (09:48)
[2017-09-25] MEDS: ASCORBIC ACID 500 MG TABLET GT SCH (09:48)
[2017-09-25] MEDS: GABAPENTIN 100 MG CAPSULE GT SCH ×3 (09:48→22:06)
[2017-09-25] MEDS: AMIODARONE HCL 200 MG TABLET GT SCH (09:49)
[2017-09-25] MEDS: FLUCONAZOLE 100 MG TABLET (DIFLUCAN) PO SCH (09:49)
[2017-09-25] MEDS: BALSAM PERU/CASTOR OIL 60 GM OINT...G. TP SCH (09:50)
[2017-09-25 12:35] VITALS: BP_SYST 139
[2017-09-25 17:01] VITALS: BP_SYST 132
[2017-09-25 19:00] VITALS: BP_SYST 146
[2017-09-25] MEDS: DOXAZOSIN MESYLATE 2 MG TABLET GT SCH (22:04)
[2017-09-26 00:22] VITALS: BP_SYST 146
[2017-09-26] MEDS: IPRATROPIUM/ALBUTEROL SULFATE 3 ML AMPUL.NEB INH SCH ×6 (03:11→23:46)
[2017-09-26 06:37] LABS: CALCIUM 9.3 mg/dL (8.4-11.0); CREATININE 0.99 mg/dL (0.55-1.30); POTASSIUM 4.3 mmol/L (3.5-5.1)
[2017-09-26 08:05] VITALS: BP_SYST 134
[2017-09-26] MEDS: FERROUS SULFATE 300 MG/5 ML UDC GT SCH ×3 (09:51→21:05)
[2017-09-26] MEDS: DOCUSATE SODIUM 100 MG/10 ML UDC GT SCH ×2 (09:52→21:05)
[2017-09-26] MEDS: VALPROIC ACID ORAL SYRUP 250 MG/5 ML UDC GT SCH ×2 (09:53→21:05)
[2017-09-26] MEDS: FLUCONAZOLE 100 MG TABLET (DIFLUCAN) PO SCH (09:53)
[2017-09-26] MEDS: PANTOPRAZOLE SODIUM 40 MG TAB GT SCH (09:53)
[2017-09-26] MEDS: ASCORBIC ACID 500 MG TABLET GT SCH (09:54)
[2017-09-26] MEDS: amLODIPine BESYLATE 10 MG TABLET GT SCH (09:54)
[2017-09-26] MEDS: LEVOTHYROXINE SODIUM 0.1 MG TABLET GT SCH (09:54)
[2017-09-26] MEDS: AMIODARONE HCL 200 MG TABLET GT SCH (09:55)
[2017-09-26] MEDS: GABAPENTIN 100 MG CAPSULE GT SCH ×3 (09:56→21:04)
[2017-09-26] MEDS: CHOLECALCIFEROL (VITAMIN D3) 2,000 UNIT TABLET GT SCH (09:56)
[2017-09-26] MEDS: LINEZOLID 600 MG TABLET GT SCH ×2 (09:56→21:04)
[2017-09-26] MEDS: BALSAM PERU/CASTOR OIL 60 GM OINT...G. TP SCH (10:01)
[2017-09-26 11:45] VITALS: BP_SYST 138
[2017-09-26 12:29] VITALS: BP_SYST 138
[2017-09-26] MEDS: MORPHINE SULFATE 10 MG/5 ML ORAL SOL. UDC GT PRN (14:11)
[2017-09-26 16:43] VITALS: BP_SYST 120
[2017-09-26 20:03] VITALS: BP_SYST 121
[2017-09-26] MEDS: DOXAZOSIN MESYLATE 2 MG TABLET GT SCH (21:04)
[2017-09-27] VITALS: BP_SYST 138
[2017-09-27 01:02] VITALS: BP_SYST 128
[2017-09-27] MEDS: IPRATROPIUM/ALBUTEROL SULFATE 3 ML AMPUL.NEB INH SCH ×6 (03:54→23:39)
[2017-09-27 07:26] LABS: BASOPHILS # (AUTO) 0.1 K/uL (0.0-0.2); BASOPHILS % (AUTO) 0.6 % (0.0-2.0); EOSINOPHILS # (AUTO) 2.3 K/uL (0.0-0.4); EOSINOPHILS % (AUTO) 11.8 % (0.0-4.0); HEMATOCRIT 25.2 % (36-54); HEMOGLOBIN 8.4 g/dL (14.0-18.0); LYMPHOCYTES # (AUTO) 1.8 K/uL (1.0-5.5); LYMPHOCYTES % (AUTO) 9.2 % (20.5-51.5); MEAN CORPUSCULAR HEMOGLOBIN 32 pg (27-31); MEAN CORPUSCULAR HGB CONC 33 % (32-36); MEAN CORPUSCULAR VOLUME 97 fL (79.0-98.0); MONOCYTES # (AUTO) 2.1 K/uL (0.0-1.0); MONOCYTES % (AUTO) 11.1 % (1.7-9.3); NEUTROPHILS % (AUTO) 67.3 % (40.0-70.0); PLATELET COUNT (AUTO) 725 K/uL (130-430); RED CELL DISTRIBUTION WIDTH 15.7 % (9.0-15.0); WHITE BLOOD COUNT (AUTO) 19.3 K/uL (4.8-10.8)
[2017-09-27 07:32] LABS: ALBUMIN 1.8 g/dL (3.4-4.8); CALCIUM 9.6 mg/dL (8.4-11.0); CREATININE 1.16 mg/dL (0.55-1.30); POTASSIUM 4.6 mmol/L (3.5-5.1); TOTAL BILIRUBIN 0.3 mg/dL (0.0-1.0)
[2017-09-27 08:00] VITALS: BP_SYST 131
[2017-09-27] MEDS: VALPROIC ACID ORAL SYRUP 250 MG/5 ML UDC GT SCH ×2 (09:19→20:43)
[2017-09-27] MEDS: GABAPENTIN 100 MG CAPSULE GT SCH ×3 (09:20→20:43)
[2017-09-27] MEDS: amLODIPine BESYLATE 10 MG TABLET GT SCH (09:20)
[2017-09-27] MEDS: LEVOTHYROXINE SODIUM 0.1 MG TABLET GT SCH (09:21)
[2017-09-27] MEDS: LINEZOLID 600 MG TABLET GT SCH ×2 (09:21→20:43)
[2017-09-27] MEDS: ASCORBIC ACID 500 MG TABLET GT SCH (09:21)
[2017-09-27] MEDS: CHOLECALCIFEROL (VITAMIN D3) 2,000 UNIT TABLET GT SCH (09:21)
[2017-09-27] MEDS: FLUCONAZOLE 100 MG TABLET (DIFLUCAN) PO SCH (09:21)
[2017-09-27] MEDS: AMIODARONE HCL 200 MG TABLET GT SCH (09:21)
[2017-09-27] MEDS: PANTOPRAZOLE SODIUM 40 MG TAB GT SCH (09:21)
[2017-09-27] MEDS: FERROUS SULFATE 300 MG/5 ML UDC GT SCH ×3 (09:22→20:43)
[2017-09-27] MEDS: DOCUSATE SODIUM 100 MG/10 ML UDC GT SCH ×2 (09:22→20:42)
[2017-09-27] MEDS: BALSAM PERU/CASTOR OIL 60 GM OINT...G. TP SCH (09:25)
[2017-09-27 12:18] VITALS: BP_SYST 130
[2017-09-27] MEDS: MORPHINE SULFATE 10 MG/5 ML ORAL SOL. UDC GT PRN (15:22)
[2017-09-27 16:00] VITALS: BP_SYST 128
[2017-09-27 20:05] VITALS: BP_SYST 138
[2017-09-27] MEDS: DOXAZOSIN MESYLATE 2 MG TABLET GT SCH (20:42)
[2017-09-28] MEDS: IPRATROPIUM/ALBUTEROL SULFATE 3 ML AMPUL.NEB INH SCH ×6 (03:42→23:13)
[2017-09-28 05:49] VITALS: BP_SYST 138
[2017-09-28 07:53] VITALS: BP_SYST 161
[2017-09-28] MEDS: DOCUSATE SODIUM 100 MG/10 ML UDC GT SCH ×2 (09:43→21:50)
[2017-09-28] MEDS: FERROUS SULFATE 300 MG/5 ML UDC GT SCH ×3 (09:43→21:50)
[2017-09-28] MEDS: VALPROIC ACID ORAL SYRUP 250 MG/5 ML UDC GT SCH ×2 (09:44→21:49)
[2017-09-28] MEDS: amLODIPine BESYLATE 10 MG TABLET GT SCH (09:44)
[2017-09-28] MEDS: LEVOTHYROXINE SODIUM 0.1 MG TABLET GT SCH (09:44)
[2017-09-28] MEDS: FLUCONAZOLE 100 MG TABLET (DIFLUCAN) PO SCH (09:44)
[2017-09-28] MEDS: ASCORBIC ACID 500 MG TABLET GT SCH (09:44)
[2017-09-28] MEDS: CHOLECALCIFEROL (VITAMIN D3) 2,000 UNIT TABLET GT SCH (09:45)
[2017-09-28] MEDS: PANTOPRAZOLE SODIUM 40 MG TAB GT SCH (09:45)
[2017-09-28] MEDS: GABAPENTIN 100 MG CAPSULE GT SCH ×3 (09:45→21:50)
[2017-09-28] MEDS: AMIODARONE HCL 200 MG TABLET GT SCH (09:45)
[2017-09-28] MEDS: BALSAM PERU/CASTOR OIL 60 GM OINT...G. TP SCH (09:57)
[2017-09-28] MEDS: LINEZOLID 600 MG TABLET GT SCH ×2 (10:22→21:50)
[2017-09-28 12:03] VITALS: BP_SYST 144
[2017-09-28 15:23] VITALS: BP_SYST 117
[2017-09-28 20:30] VITALS: BP_SYST 136
[2017-09-28] MEDS: DOXAZOSIN MESYLATE 2 MG TABLET GT SCH (22:04)
[2017-09-29] VITALS (7 sets, daily range): BP systolic 115–139
[2017-09-29] MEDS: IPRATROPIUM/ALBUTEROL SULFATE 3 ML AMPUL.NEB INH SCH ×6 (04:00→23:30)
[2017-09-29] MEDS: DOCUSATE SODIUM 100 MG/10 ML UDC GT SCH ×2 (09:21→22:14)
[2017-09-29] MEDS: FERROUS SULFATE 300 MG/5 ML UDC GT SCH ×3 (09:21→22:14)
[2017-09-29] MEDS: VALPROIC ACID ORAL SYRUP 250 MG/5 ML UDC GT SCH ×2 (09:22→22:15)
[2017-09-29] MEDS: FLUCONAZOLE 100 MG TABLET (DIFLUCAN) PO SCH (09:23)
[2017-09-29] MEDS: ASCORBIC ACID 500 MG TABLET GT SCH (09:23)
[2017-09-29] MEDS: GABAPENTIN 100 MG CAPSULE GT SCH ×3 (09:23→22:14)
[2017-09-29] MEDS: PANTOPRAZOLE SODIUM 40 MG TAB GT SCH (09:23)
[2017-09-29] MEDS: CHOLECALCIFEROL (VITAMIN D3) 2,000 UNIT TABLET GT SCH (09:23)
[2017-09-29] MEDS: LEVOTHYROXINE SODIUM 0.1 MG TABLET GT SCH (09:23)
[2017-09-29] MEDS: amLODIPine BESYLATE 10 MG TABLET GT SCH (09:25)
[2017-09-29] MEDS: AMIODARONE HCL 200 MG TABLET GT SCH (09:26)
[2017-09-29] MEDS: BALSAM PERU/CASTOR OIL 60 GM OINT...G. TP SCH (09:28)
[2017-09-29] MEDS: DOXAZOSIN MESYLATE 2 MG TABLET GT SCH (22:15)
[2017-09-30] MEDS: IPRATROPIUM/ALBUTEROL SULFATE 3 ML AMPUL.NEB INH SCH ×6 (05:13→23:34)
[2017-09-30 08:32] VITALS: BP_SYST 137
[2017-09-30] MEDS: FERROUS SULFATE 300 MG/5 ML UDC GT SCH ×3 (08:33→21:29)
[2017-09-30] MEDS: DOCUSATE SODIUM 100 MG/10 ML UDC GT SCH ×2 (08:33→21:29)
[2017-09-30] MEDS: PANTOPRAZOLE SODIUM 40 MG TAB GT SCH (08:34)
[2017-09-30] MEDS: LEVOTHYROXINE SODIUM 0.1 MG TABLET GT SCH (08:34)
[2017-09-30] MEDS: GABAPENTIN 100 MG CAPSULE GT SCH ×3 (08:34→21:25)
[2017-09-30] MEDS: CHOLECALCIFEROL (VITAMIN D3) 2,000 UNIT TABLET GT SCH (08:34)
[2017-09-30] MEDS: ASCORBIC ACID 500 MG TABLET GT SCH (08:34)
[2017-09-30] MEDS: VALPROIC ACID ORAL SYRUP 250 MG/5 ML UDC GT SCH ×2 (08:34→21:29)
[2017-09-30] MEDS: amLODIPine BESYLATE 10 MG TABLET GT SCH (08:34)
[2017-09-30] MEDS: AMIODARONE HCL 200 MG TABLET GT SCH (08:35)
[2017-09-30] MEDS: BALSAM PERU/CASTOR OIL 60 GM OINT...G. TP SCH (08:36)
[2017-09-30 11:22] VITALS: BP_SYST 138
[2017-09-30] MEDS ORDERED: LINEZOLID 600 MG TABLET GT ONE (12:30)
[2017-09-30] MEDS ORDERED: FLUCONAZOLE 100 MG TABLET (DIFLUCAN) PO ONE (12:30)
[2017-09-30 15:38] VITALS: BP_SYST 117
[2017-09-30 20:00] VITALS: BP_SYST 125
[2017-09-30] MEDS: DOXAZOSIN MESYLATE 2 MG TABLET GT SCH (21:27)
[2017-09-30] MEDS: LINEZOLID 600 MG TABLET GT SCH (21:28)
[2017-10-01 00:26] VITALS: BP_SYST 131
[2017-10-01] MEDS: IPRATROPIUM/ALBUTEROL SULFATE 3 ML AMPUL.NEB INH SCH ×6 (04:13→23:30)
[2017-10-01] MEDS: FERROUS SULFATE 300 MG/5 ML UDC GT SCH ×3 (09:07→21:41)
[2017-10-01] MEDS: DOCUSATE SODIUM 100 MG/10 ML UDC GT SCH ×2 (09:07→21:41)
[2017-10-01] MEDS: VALPROIC ACID ORAL SYRUP 250 MG/5 ML UDC GT SCH ×2 (09:07→23:05)
[2017-10-01] MEDS: FLUCONAZOLE 100 MG TABLET (DIFLUCAN) PO SCH (09:08)
[2017-10-01] MEDS: PANTOPRAZOLE SODIUM 40 MG TAB GT SCH (09:08)
[2017-10-01] MEDS: ASCORBIC ACID 500 MG TABLET GT SCH (09:08)
[2017-10-01] MEDS: LEVOTHYROXINE SODIUM 0.1 MG TABLET GT SCH (09:08)
[2017-10-01] MEDS: GABAPENTIN 100 MG CAPSULE GT SCH ×3 (09:08→21:41)
[2017-10-01] MEDS: LINEZOLID 600 MG TABLET GT SCH ×2 (09:08→21:41)
[2017-10-01] MEDS: CHOLECALCIFEROL (VITAMIN D3) 2,000 UNIT TABLET GT SCH (09:08)
[2017-10-01] MEDS: amLODIPine BESYLATE 10 MG TABLET GT SCH (09:17)
[2017-10-01] MEDS: AMIODARONE HCL 200 MG TABLET GT SCH (09:18)
[2017-10-01] MEDS: BALSAM PERU/CASTOR OIL 60 GM OINT...G. TP SCH (09:19)
[2017-10-01 12:17] VITALS: BP_SYST 116
[2017-10-01 16:50] VITALS: BP_SYST 124
[2017-10-01 20:15] VITALS: BP_SYST 127
[2017-10-01] MEDS: DOXAZOSIN MESYLATE 2 MG TABLET GT SCH (21:42)
[2017-10-02] VITALS (7 sets, daily range): BP systolic 127–179
[2017-10-02] MEDS: IPRATROPIUM/ALBUTEROL SULFATE 3 ML AMPUL.NEB INH SCH ×6 (03:58→23:27)
[2017-10-02 08:01] LABS: HEMATOCRIT 26.7 % (36-54); MEAN CORPUSCULAR HEMOGLOBIN 33 pg (27-31); MEAN CORPUSCULAR HGB CONC 34 % (32-36); MEAN CORPUSCULAR VOLUME 97 fL (79.0-98.0); PLATELET COUNT (AUTO) 711 K/uL (130-430); RED BLOOD CELL COUNT(AUTO) 2.76 MIL/uL (4.2-6.2); RED CELL DISTRIBUTION WIDTH 15.7 % (9.0-15.0); WHITE BLOOD COUNT (AUTO) 21.9 K/uL (4.8-10.8)
[2017-10-02 08:18] LABS: CALCIUM 9.6 mg/dL (8.4-11.0); CREATININE 1.15 mg/dL (0.55-1.30); POTASSIUM 4.4 mmol/L (3.5-5.1)
[2017-10-02] MEDS: CHOLECALCIFEROL (VITAMIN D3) 2,000 UNIT TABLET GT SCH (08:53)
[2017-10-02] MEDS: DOCUSATE SODIUM 100 MG/10 ML UDC GT SCH ×2 (08:53→20:16)
[2017-10-02] MEDS: FERROUS SULFATE 300 MG/5 ML UDC GT SCH ×3 (08:53→20:16)
[2017-10-02] MEDS: FLUCONAZOLE 100 MG TABLET (DIFLUCAN) PO SCH (08:54)
[2017-10-02] MEDS: AMIODARONE HCL 200 MG TABLET GT SCH (08:54)
[2017-10-02] MEDS: LEVOTHYROXINE SODIUM 0.1 MG TABLET GT SCH (08:54)
[2017-10-02] MEDS: LINEZOLID 600 MG TABLET GT SCH ×2 (08:54→20:17)
[2017-10-02] MEDS: PANTOPRAZOLE SODIUM 40 MG TAB GT SCH (08:54)
[2017-10-02] MEDS: BALSAM PERU/CASTOR OIL 60 GM OINT...G. TP SCH (08:56)
[2017-10-02] MEDS: amLODIPine BESYLATE 10 MG TABLET GT SCH (08:56)
[2017-10-02] MEDS: GABAPENTIN 100 MG CAPSULE GT SCH ×3 (08:56→20:17)
[2017-10-02] MEDS: ASCORBIC ACID 500 MG TABLET GT SCH (08:56)
[2017-10-02] MEDS: VALPROIC ACID ORAL SYRUP 250 MG/5 ML UDC GT SCH ×2 (08:57→20:15)
[2017-10-02 12:06] LABS: BAND % (MANUAL) 4 % (0-6)
[2017-10-02 12:07] LABS: BASOPHILS % (MANUAL) 0 % (0-2); EOSINOPHILS % (MANUAL) 6 % (0-7); LYMPHOCYTES % (MANUAL) 3 % (20-46); METAMYELOCYTES % 2 % (0-0); MONOCYTES % (MANUAL) 7 % (0-11)
[2017-10-02] MEDS: DOXAZOSIN MESYLATE 2 MG TABLET GT SCH (20:17)
[2017-10-02] MEDS ORDERED: NACL 0.9% 1,000 ML IV SCH (21:30)
[2017-10-03 01:25] VITALS: BP_SYST 123
[2017-10-03 04:00] VITALS: BP_SYST 135
[2017-10-03] MEDS: IPRATROPIUM/ALBUTEROL SULFATE 3 ML AMPUL.NEB INH SCH ×6 (04:13→23:41)
[2017-10-03 08:00] VITALS: BP_SYST 143
[2017-10-03] MEDS: BALSAM PERU/CASTOR OIL 60 GM OINT...G. TP SCH (09:00)
[2017-10-03] MEDS: LEVOTHYROXINE SODIUM 0.1 MG TABLET GT SCH (09:04)
[2017-10-03] MEDS: VALPROIC ACID ORAL SYRUP 250 MG/5 ML UDC GT SCH ×2 (09:04→20:16)
[2017-10-03] MEDS: DOCUSATE SODIUM 100 MG/10 ML UDC GT SCH ×2 (09:04→20:15)
[2017-10-03] MEDS: GABAPENTIN 100 MG CAPSULE GT SCH ×3 (09:04→20:16)
[2017-10-03] MEDS: CHOLECALCIFEROL (VITAMIN D3) 2,000 UNIT TABLET GT SCH (09:05)
[2017-10-03] MEDS: FLUCONAZOLE 100 MG TABLET (DIFLUCAN) PO SCH (09:05)
[2017-10-03] MEDS: PANTOPRAZOLE SODIUM 40 MG TAB GT SCH (09:05)
[2017-10-03] MEDS: AMIODARONE HCL 200 MG TABLET GT SCH (09:06)
[2017-10-03] MEDS: LINEZOLID 600 MG TABLET GT SCH ×2 (09:06→20:16)
[2017-10-03] MEDS: amLODIPine BESYLATE 10 MG TABLET GT SCH (09:07)
[2017-10-03] MEDS: FERROUS SULFATE 300 MG/5 ML UDC GT SCH ×3 (09:07→20:16)
[2017-10-03] MEDS: ASCORBIC ACID 500 MG TABLET GT SCH (09:07)
[2017-10-03 12:46] VITALS: BP_SYST 127
[2017-10-03] MEDS: DIPHENHYDRAMINE INJ 50 MG/ML VIAL IVP PRN ×2 (14:05→20:15)
[2017-10-03 16:02] VITALS: BP_SYST 128
[2017-10-03 20:00] VITALS: BP_SYST 140
[2017-10-03] MEDS: DOXAZOSIN MESYLATE 2 MG TABLET GT SCH (20:17)
[2017-10-04 00:04] VITALS: BP_SYST 128
[2017-10-04] MEDS: IPRATROPIUM/ALBUTEROL SULFATE 3 ML AMPUL.NEB INH SCH ×6 (02:53→23:15)
[2017-10-04] MEDS ORDERED: traMADol HCL HCL 50 MG TABLET (ULTRAM) PO SCH (05:45)
[2017-10-04] MEDS ORDERED: traMADol HCL HCL 50 MG TABLET (ULTRAM) PO PRN (06:15)
[2017-10-04] MEDS: MORPHINE SULFATE 10 MG/5 ML ORAL SOL. UDC GT PRN ×2 (06:17→14:29)
[2017-10-04 08:00] VITALS: BP_SYST 138
[2017-10-04] MEDS: FERROUS SULFATE 300 MG/5 ML UDC GT SCH ×3 (09:36→20:23)
[2017-10-04] MEDS: CHOLECALCIFEROL (VITAMIN D3) 2,000 UNIT TABLET GT SCH (09:37)
[2017-10-04] MEDS: PANTOPRAZOLE SODIUM 40 MG TAB GT SCH (09:37)
[2017-10-04] MEDS: VALPROIC ACID ORAL SYRUP 250 MG/5 ML UDC GT SCH ×2 (09:37→20:24)
[2017-10-04] MEDS: DOCUSATE SODIUM 100 MG/10 ML UDC GT SCH ×2 (09:37→20:23)
[2017-10-04] MEDS: GABAPENTIN 100 MG CAPSULE GT SCH ×3 (09:38→20:24)
[2017-10-04] MEDS: LEVOTHYROXINE SODIUM 0.1 MG TABLET GT SCH (09:38)
[2017-10-04] MEDS: ASCORBIC ACID 500 MG TABLET GT SCH (09:38)
[2017-10-04] MEDS: FLUCONAZOLE 100 MG TABLET (DIFLUCAN) PO SCH (09:38)
[2017-10-04] MEDS: LINEZOLID 600 MG TABLET GT SCH ×2 (09:40→20:25)
[2017-10-04] MEDS: AMIODARONE HCL 200 MG TABLET GT SCH (09:40)
[2017-10-04] MEDS: amLODIPine BESYLATE 10 MG TABLET GT SCH (09:41)
[2017-10-04 11:56] VITALS: BP_SYST 120
[2017-10-04] MEDS: BALSAM PERU/CASTOR OIL 60 GM OINT...G. TP SCH (14:30)
[2017-10-04 16:00] VITALS: BP_SYST 119
[2017-10-04 20:10] VITALS: BP_SYST 140
[2017-10-04] MEDS: DOXAZOSIN MESYLATE 2 MG TABLET GT SCH (20:24)
[2017-10-05] VITALS: BP_SYST 126
[2017-10-05] MEDS: IPRATROPIUM/ALBUTEROL SULFATE 3 ML AMPUL.NEB INH SCH ×6 (03:46→23:19)
[2017-10-05] MEDS: MORPHINE SULFATE 10 MG/5 ML ORAL SOL. UDC GT PRN ×2 (05:09→22:06)
[2017-10-05 06:52] LABS: BASOPHILS # (AUTO) 0.1 K/uL (0.0-0.2); BASOPHILS % (AUTO) 0.6 % (0.0-2.0); EOSINOPHILS # (AUTO) 2.3 K/uL (0.0-0.4); EOSINOPHILS % (AUTO) 9.4 % (0.0-4.0); HEMOGLOBIN 9.1 g/dL (14.0-18.0); LYMPHOCYTES # (AUTO) 1.2 K/uL (1.0-5.5); MEAN CORPUSCULAR HEMOGLOBIN 32 pg (27-31); MEAN CORPUSCULAR HGB CONC 33 % (32-36); MEAN CORPUSCULAR VOLUME 98 fL (79.0-98.0); MONOCYTES # (AUTO) 1.6 K/uL (0.0-1.0); MONOCYTES % (AUTO) 6.4 % (1.7-9.3); NEUTROPHILS # (AUTO) 19.1 K/uL (1.8-7.7); PLATELET COUNT (AUTO) 634 K/uL (130-430); RED BLOOD CELL COUNT(AUTO) 2.86 MIL/uL (4.2-6.2); WHITE BLOOD COUNT (AUTO) 24.3 K/uL (4.8-10.8)
[2017-10-05 07:20] LABS: CALCIUM 9.9 mg/dL (8.4-11.0); CREATININE 1.11 mg/dL (0.55-1.30); POTASSIUM 4.9 mmol/L (3.5-5.1)
[2017-10-05 07:24] LABS: NEUTROPHILS % (AUTO) 78.6 % (40.0-70.0)
[2017-10-05 08:45] VITALS: BP_SYST 132
[2017-10-05] MEDS: DOCUSATE SODIUM 100 MG/10 ML UDC GT SCH ×2 (08:50→21:39)
[2017-10-05] MEDS: VALPROIC ACID ORAL SYRUP 250 MG/5 ML UDC GT SCH ×2 (08:50→21:39)
[2017-10-05] MEDS: FERROUS SULFATE 300 MG/5 ML UDC GT SCH ×3 (08:50→21:39)
[2017-10-05] MEDS: LEVOTHYROXINE SODIUM 0.1 MG TABLET GT SCH (08:50)
[2017-10-05] MEDS: GABAPENTIN 100 MG CAPSULE GT SCH ×3 (08:50→21:37)
[2017-10-05] MEDS: AMIODARONE HCL 200 MG TABLET GT SCH (08:53)
[2017-10-05] MEDS: CHOLECALCIFEROL (VITAMIN D3) 2,000 UNIT TABLET GT SCH (08:54)
[2017-10-05] MEDS: LINEZOLID 600 MG TABLET GT SCH ×2 (08:54→21:38)
[2017-10-05] MEDS: ASCORBIC ACID 500 MG TABLET GT SCH (08:54)
[2017-10-05] MEDS: amLODIPine BESYLATE 10 MG TABLET GT SCH (08:54)
[2017-10-05] MEDS: FLUCONAZOLE 100 MG TABLET (DIFLUCAN) PO SCH (08:54)
[2017-10-05] MEDS: BALSAM PERU/CASTOR OIL 60 GM OINT...G. TP SCH (08:55)
[2017-10-05] MEDS: PANTOPRAZOLE SODIUM 40 MG TAB GT SCH (08:55)
[2017-10-05 09:10] VITALS: BP_SYST 132
[2017-10-05 12:32] VITALS: BP_SYST 139
[2017-10-05] MEDS: MORPHINE 4 MG/ML INJ. SYRINGE IVP PRN (13:13)
[2017-10-05 15:10] VITALS: BP_SYST 138
[2017-10-05 16:35] VITALS: BP_SYST 138
[2017-10-05] MEDS: DOXAZOSIN MESYLATE 2 MG TABLET GT SCH (21:37)
[2017-10-06 00:34] VITALS: BP_SYST 113
[2017-10-06] MEDS: IPRATROPIUM/ALBUTEROL SULFATE 3 ML AMPUL.NEB INH SCH ×6 (03:50→23:09)
[2017-10-06 09:31] VITALS: BP_SYST 135
[2017-10-06] MEDS: VALPROIC ACID ORAL SYRUP 250 MG/5 ML UDC GT SCH ×2 (09:32→21:00)
[2017-10-06] MEDS: FERROUS SULFATE 300 MG/5 ML UDC GT SCH ×3 (09:32→20:33)
[2017-10-06] MEDS: DOCUSATE SODIUM 100 MG/10 ML UDC GT SCH ×2 (09:33→20:33)
[2017-10-06] MEDS: CHOLECALCIFEROL (VITAMIN D3) 2,000 UNIT TABLET GT SCH (09:34)
[2017-10-06] MEDS: PANTOPRAZOLE SODIUM 40 MG TAB GT SCH (09:34)
[2017-10-06] MEDS: AMIODARONE HCL 200 MG TABLET GT SCH (09:35)
[2017-10-06] MEDS: ASCORBIC ACID 500 MG TABLET GT SCH (09:36)
[2017-10-06] MEDS: GABAPENTIN 100 MG CAPSULE GT SCH ×3 (09:36→20:33)
[2017-10-06] MEDS: BALSAM PERU/CASTOR OIL 60 GM OINT...G. TP SCH (09:37)
[2017-10-06] MEDS: LINEZOLID 600 MG TABLET GT SCH ×2 (09:37→20:35)
[2017-10-06] MEDS: LEVOTHYROXINE SODIUM 0.1 MG TABLET GT SCH (10:01)
[2017-10-06] MEDS: FLUCONAZOLE 100 MG TABLET (DIFLUCAN) PO SCH (10:01)
[2017-10-06] MEDS: amLODIPine BESYLATE 10 MG TABLET GT SCH (10:03)
[2017-10-06 13:15] VITALS: BP_SYST 120
[2017-10-06 16:23] VITALS: BP_SYST 123
[2017-10-06] MEDS: DOXAZOSIN MESYLATE 2 MG TABLET GT SCH (20:34)
[2017-10-06] MEDS: MORPHINE SULFATE 10 MG/5 ML ORAL SOL. UDC GT PRN (20:36)
[2017-10-06] MEDS: DIPHENHYDRAMINE INJ 50 MG/ML VIAL IVP PRN (20:36)
[2017-10-06 23:30] VITALS: BP_SYST 130
[2017-10-07] MEDS: IPRATROPIUM/ALBUTEROL SULFATE 3 ML AMPUL.NEB INH SCH ×6 (04:10→23:58)
[2017-10-07 08:16] VITALS: BP_SYST 134
[2017-10-07] MEDS: AMIODARONE HCL 200 MG TABLET GT SCH (09:25)
[2017-10-07] MEDS: ASCORBIC ACID 500 MG TABLET GT SCH (09:26)
[2017-10-07] MEDS: CHOLECALCIFEROL (VITAMIN D3) 2,000 UNIT TABLET GT SCH (09:26)
[2017-10-07] MEDS: PANTOPRAZOLE SODIUM 40 MG TAB GT SCH (09:26)
[2017-10-07] MEDS: LEVOTHYROXINE SODIUM 0.1 MG TABLET GT SCH (09:27)
[2017-10-07] MEDS: FLUCONAZOLE 100 MG TABLET (DIFLUCAN) PO SCH (09:27)
[2017-10-07] MEDS: GABAPENTIN 100 MG CAPSULE GT SCH ×3 (09:27→21:01)
[2017-10-07] MEDS: amLODIPine BESYLATE 10 MG TABLET GT SCH (09:28)
[2017-10-07] MEDS: DOCUSATE SODIUM 100 MG/10 ML UDC GT SCH ×2 (09:31→21:00)
[2017-10-07] MEDS: VALPROIC ACID ORAL SYRUP 250 MG/5 ML UDC GT SCH ×2 (09:31→21:03)
[2017-10-07] MEDS: FERROUS SULFATE 300 MG/5 ML UDC GT SCH ×3 (09:32→21:00)
[2017-10-07] MEDS: BALSAM PERU/CASTOR OIL 60 GM OINT...G. TP SCH (09:46)
[2017-10-07] MEDS: MORPHINE SULFATE 10 MG/5 ML ORAL SOL. UDC GT PRN ×2 (10:34→18:42)
[2017-10-07] MEDS: DIPHENHYDRAMINE INJ 50 MG/ML VIAL IVP PRN (10:36)
[2017-10-07 12:00] VITALS: BP_SYST 148
[2017-10-07 13:00] VITALS: BP_SYST 148
[2017-10-07] MEDS: MORPHINE 4 MG/ML INJ. SYRINGE IVP PRN (13:20)
[2017-10-07 16:10] VITALS: BP_SYST 123
[2017-10-07 16:19] LABS: MEAN CORPUSCULAR HGB CONC 34 % (32-36); WHITE BLOOD COUNT (AUTO) 18.3 K/uL (4.8-10.8)
[2017-10-07 16:31] LABS: HEMATOCRIT 26.8 % (36-54); MEAN CORPUSCULAR HEMOGLOBIN 32 pg (27-31); MEAN CORPUSCULAR VOLUME 97 fL (79.0-98.0); PLATELET COUNT (AUTO) 603 K/uL (130-430); RED BLOOD CELL COUNT(AUTO) 2.78 MIL/uL (4.2-6.2); RED CELL DISTRIBUTION WIDTH 15.8 % (9.0-15.0)
[2017-10-07 16:32] LABS: CREATININE 1.55 mg/dL (0.55-1.30)
[2017-10-07 17:02] LABS: ATYPICAL LYMPHOCYTES % 0 % (0-0); BAND % (MANUAL) 1 % (0-6); BASOPHILS % (MANUAL) 0 % (0-2); EOSINOPHILS % (MANUAL) 11 % (0-7); LYMPHOCYTES % (MANUAL) 12 % (20-46); MONOCYTES % (MANUAL) 6 % (0-11)
[2017-10-07 20:20] VITALS: BP_SYST 136
[2017-10-07] MEDS: DOXAZOSIN MESYLATE 2 MG TABLET GT SCH (21:00)
[2017-10-08 02:21] VITALS: BP_SYST 128
[2017-10-08] MEDS: IPRATROPIUM/ALBUTEROL SULFATE 3 ML AMPUL.NEB INH SCH ×5 (03:30→23:27)
[2017-10-08 07:10] VITALS: BP_SYST 120
[2017-10-08 09:10] VITALS: BP_SYST 128
[2017-10-08] MEDS: FERROUS SULFATE 300 MG/5 ML UDC GT SCH ×3 (09:14→21:48)
[2017-10-08] MEDS: GABAPENTIN 100 MG CAPSULE GT SCH ×3 (09:16→21:53)
[2017-10-08] MEDS: ASCORBIC ACID 500 MG TABLET GT SCH (09:16)
[2017-10-08] MEDS: DOCUSATE SODIUM 100 MG/10 ML UDC GT SCH ×2 (09:16→21:48)
[2017-10-08] MEDS: LEVOTHYROXINE SODIUM 0.1 MG TABLET GT SCH (09:17)
[2017-10-08] MEDS: VALPROIC ACID ORAL SYRUP 250 MG/5 ML UDC GT SCH ×2 (09:17→21:49)
[2017-10-08] MEDS: CHOLECALCIFEROL (VITAMIN D3) 2,000 UNIT TABLET GT SCH (09:17)
[2017-10-08] MEDS: PANTOPRAZOLE SODIUM 40 MG TAB GT SCH (09:17)
[2017-10-08] MEDS: AMIODARONE HCL 200 MG TABLET GT SCH (09:17)
[2017-10-08] MEDS: BALSAM PERU/CASTOR OIL 60 GM OINT...G. TP SCH (09:18)
[2017-10-08] MEDS: amLODIPine BESYLATE 10 MG TABLET GT SCH (09:18)
[2017-10-08 16:26] VITALS: BP_SYST 132
[2017-10-08 20:00] VITALS: BP_SYST 127
[2017-10-08] MEDS: DOXAZOSIN MESYLATE 2 MG TABLET GT SCH (21:47)
[2017-10-08 23:00] VITALS: BP_SYST 122
[2017-10-09] VITALS (7 sets, daily range): BP systolic 120–133
[2017-10-09] MEDS: IPRATROPIUM/ALBUTEROL SULFATE 3 ML AMPUL.NEB INH SCH ×6 (03:10→23:16)
[2017-10-09] MEDS: ASCORBIC ACID 500 MG TABLET GT SCH (09:01)
[2017-10-09] MEDS: CHOLECALCIFEROL (VITAMIN D3) 2,000 UNIT TABLET GT SCH (09:01)
[2017-10-09] MEDS: AMIODARONE HCL 200 MG TABLET GT SCH (09:01)
[2017-10-09] MEDS: amLODIPine BESYLATE 10 MG TABLET GT SCH (09:02)
[2017-10-09] MEDS: GABAPENTIN 100 MG CAPSULE GT SCH ×3 (09:02→21:51)
[2017-10-09] MEDS: LEVOTHYROXINE SODIUM 0.1 MG TABLET GT SCH (09:02)
[2017-10-09] MEDS: PANTOPRAZOLE SODIUM 40 MG TAB GT SCH (09:02)
[2017-10-09] MEDS: DOCUSATE SODIUM 100 MG/10 ML UDC GT SCH ×2 (09:03→21:51)
[2017-10-09] MEDS: FERROUS SULFATE 300 MG/5 ML UDC GT SCH ×3 (09:03→21:50)
[2017-10-09] MEDS: VALPROIC ACID ORAL SYRUP 250 MG/5 ML UDC GT SCH ×2 (09:04→21:52)
[2017-10-09] MEDS: BALSAM PERU/CASTOR OIL 60 GM OINT...G. TP SCH (09:06)
[2017-10-09] MEDS: D5/0.45 NS 1,000 ML IV SCH ×2 (12:37→21:55)
[2017-10-09] MEDS: MORPHINE SULFATE 10 MG/5 ML ORAL SOL. UDC GT PRN (21:50)
[2017-10-09] MEDS: DOXAZOSIN MESYLATE 2 MG TABLET GT SCH (21:51)
[2017-10-10] MEDS: IPRATROPIUM/ALBUTEROL SULFATE 3 ML AMPUL.NEB INH SCH ×6 (03:40→23:48)
[2017-10-10 06:32] LABS: CALCIUM 9.7 mg/dL (8.4-11.0); CREATININE 1.63 mg/dL (0.55-1.30); POTASSIUM 4.3 mmol/L (3.5-5.1)
[2017-10-10 07:12] LABS: BASOPHILS # (AUTO) 0.1 K/uL (0.0-0.2); BASOPHILS % (AUTO) 0.2 % (0.0-2.0); EOSINOPHILS % (AUTO) 7.6 % (0.0-4.0); HEMATOCRIT 26.4 % (36-54); HEMOGLOBIN 8.6 g/dL (14.0-18.0); LYMPHOCYTES % (AUTO) 7.3 % (20.5-51.5); MEAN CORPUSCULAR HEMOGLOBIN 32 pg (27-31); MEAN CORPUSCULAR HGB CONC 33 % (32-36); MEAN CORPUSCULAR VOLUME 97 fL (79.0-98.0); MONOCYTES % (AUTO) 7.3 % (1.7-9.3); NEUTROPHILS # (AUTO) 20.9 K/uL (1.8-7.7); PLATELET COUNT (AUTO) 554 K/uL (130-430); RED BLOOD CELL COUNT(AUTO) 2.71 MIL/uL (4.2-6.2); RED CELL DISTRIBUTION WIDTH 15.9 % (9.0-15.0)
[2017-10-10 07:19] LABS: NEUTROPHILS % (AUTO) 77.6 % (40.0-70.0)
[2017-10-10] MEDS: D5/0.45 NS 1,000 ML IV SCH (09:22)
[2017-10-10] MEDS: VALPROIC ACID ORAL SYRUP 250 MG/5 ML UDC GT SCH ×2 (09:23→21:13)
[2017-10-10] MEDS: LEVOTHYROXINE SODIUM 0.1 MG TABLET GT SCH (09:25)
[2017-10-10] MEDS: DOCUSATE SODIUM 100 MG/10 ML UDC GT SCH ×2 (09:25→21:14)
[2017-10-10] MEDS: CHOLECALCIFEROL (VITAMIN D3) 2,000 UNIT TABLET GT SCH (09:25)
[2017-10-10] MEDS: FERROUS SULFATE 300 MG/5 ML UDC GT SCH ×3 (09:25→21:14)
[2017-10-10] MEDS: AMIODARONE HCL 200 MG TABLET GT SCH (09:29)
[2017-10-10] MEDS: GABAPENTIN 100 MG CAPSULE GT SCH ×3 (09:29→21:13)
[2017-10-10] MEDS: PANTOPRAZOLE SODIUM 40 MG TAB GT SCH (09:29)
[2017-10-10 09:30] VITALS: BP_SYST 131
[2017-10-10] MEDS: amLODIPine BESYLATE 10 MG TABLET GT SCH (09:30)
[2017-10-10] MEDS: ASCORBIC ACID 500 MG TABLET GT SCH (09:30)
[2017-10-10] MEDS: BALSAM PERU/CASTOR OIL 60 GM OINT...G. TP SCH (09:31)
[2017-10-10 12:01] VITALS: BP_SYST 109
[2017-10-10] MEDS: 0.45% NACL 1,000 ML IV SCH (13:42)
[2017-10-10 16:00] VITALS: BP_SYST 125
[2017-10-10 21:05] VITALS: BP_SYST 130
[2017-10-10] MEDS: MORPHINE SULFATE 10 MG/5 ML ORAL SOL. UDC GT PRN (21:13)
[2017-10-10] MEDS: DOXAZOSIN MESYLATE 2 MG TABLET GT SCH (21:25)
[2017-10-10 23:34] VITALS: BP_SYST 119
[2017-10-11] MEDS: IPRATROPIUM/ALBUTEROL SULFATE 3 ML AMPUL.NEB INH SCH ×6 (03:00→23:24)
[2017-10-11] MEDS: 0.45% NACL 1,000 ML IV SCH ×2 (03:30→21:26)
[2017-10-11 07:17] LABS: CALCIUM 9.6 mg/dL (8.4-11.0); CREATININE 1.4 mg/dL (0.55-1.30); POTASSIUM 4.4 mmol/L (3.5-5.1)
[2017-10-11 07:28] LABS: BASOPHILS # (AUTO) 0.1 K/uL (0.0-0.2); BASOPHILS % (AUTO) 0.3 % (0.0-2.0); EOSINOPHILS # (AUTO) 2.1 K/uL (0.0-0.4); EOSINOPHILS % (AUTO) 10.3 % (0.0-4.0); HEMATOCRIT 26.1 % (36-54); HEMOGLOBIN 8.6 g/dL (14.0-18.0); LYMPHOCYTES # (AUTO) 2.1 K/uL (1.0-5.5); LYMPHOCYTES % (AUTO) 10.3 % (20.5-51.5); MEAN CORPUSCULAR HEMOGLOBIN 32 pg (27-31); MEAN CORPUSCULAR HGB CONC 33 % (32-36); MEAN CORPUSCULAR VOLUME 97 fL (79.0-98.0); MONOCYTES # (AUTO) 1.4 K/uL (0.0-1.0); MONOCYTES % (AUTO) 7.1 % (1.7-9.3); NEUTROPHILS # (AUTO) 14.5 K/uL (1.8-7.7); PLATELET COUNT (AUTO) 515 K/uL (130-430); RED BLOOD CELL COUNT(AUTO) 2.69 MIL/uL (4.2-6.2); RED CELL DISTRIBUTION WIDTH 15.6 % (9.0-15.0)
[2017-10-11 07:34] LABS: WHITE BLOOD COUNT (AUTO) 20.2 K/uL (4.8-10.8)
[2017-10-11 09:45] VITALS: BP_SYST 130
[2017-10-11] MEDS: ASCORBIC ACID 500 MG TABLET GT SCH (09:52)
[2017-10-11] MEDS: GABAPENTIN 100 MG CAPSULE GT SCH ×3 (09:52→21:24)
[2017-10-11] MEDS: AMIODARONE HCL 200 MG TABLET GT SCH (09:53)
[2017-10-11] MEDS: amLODIPine BESYLATE 10 MG TABLET GT SCH (09:54)
[2017-10-11] MEDS: PANTOPRAZOLE SODIUM 40 MG TAB GT SCH (09:55)
[2017-10-11] MEDS: LEVOTHYROXINE SODIUM 0.1 MG TABLET GT SCH (09:55)
[2017-10-11] MEDS: CHOLECALCIFEROL (VITAMIN D3) 2,000 UNIT TABLET GT SCH (09:55)
[2017-10-11] MEDS: DOCUSATE SODIUM 100 MG/10 ML UDC GT SCH ×2 (09:56→21:23)
[2017-10-11] MEDS: FERROUS SULFATE 300 MG/5 ML UDC GT SCH ×3 (09:56→21:23)
[2017-10-11] MEDS: VALPROIC ACID ORAL SYRUP 250 MG/5 ML UDC GT SCH ×2 (09:57→21:23)
[2017-10-11] MEDS: BALSAM PERU/CASTOR OIL 60 GM OINT...G. TP SCH (09:58)
[2017-10-11 12:17] VITALS: BP_SYST 147
[2017-10-11 15:27] VITALS: BP_SYST 130
[2017-10-11 16:09] VITALS: BP_SYST 130
[2017-10-11] MEDS: MORPHINE 4 MG/ML INJ. SYRINGE IVP PRN (16:26)
[2017-10-11 20:00] VITALS: BP_SYST 140
[2017-10-11] MEDS: DOXAZOSIN MESYLATE 2 MG TABLET GT SCH (21:24)
[2017-10-11] MEDS: MORPHINE SULFATE 10 MG/5 ML ORAL SOL. UDC GT PRN (23:08)
[2017-10-11 23:44] VITALS: BP_SYST 126
[2017-10-12] MEDS: IPRATROPIUM/ALBUTEROL SULFATE 3 ML AMPUL.NEB INH SCH ×6 (04:07→23:09)
[2017-10-12 07:55] VITALS: BP_SYST 132
[2017-10-12] MEDS: DOCUSATE SODIUM 100 MG/10 ML UDC GT SCH ×2 (09:17→20:44)
[2017-10-12] MEDS: FERROUS SULFATE 300 MG/5 ML UDC GT SCH ×3 (09:17→20:45)
[2017-10-12] MEDS: PANTOPRAZOLE SODIUM 40 MG TAB GT SCH (09:17)
[2017-10-12] MEDS: LEVOTHYROXINE SODIUM 0.1 MG TABLET GT SCH (09:18)
[2017-10-12] MEDS: ASCORBIC ACID 500 MG TABLET GT SCH (09:18)
[2017-10-12] MEDS: amLODIPine BESYLATE 10 MG TABLET GT SCH (09:18)
[2017-10-12] MEDS: CHOLECALCIFEROL (VITAMIN D3) 2,000 UNIT TABLET GT SCH (09:19)
[2017-10-12] MEDS: GABAPENTIN 100 MG CAPSULE GT SCH ×3 (09:19→20:45)
[2017-10-12] MEDS: AMIODARONE HCL 200 MG TABLET GT SCH (09:19)
[2017-10-12] MEDS: VALPROIC ACID ORAL SYRUP 250 MG/5 ML UDC GT SCH ×2 (09:22→20:45)
[2017-10-12] MEDS: BALSAM PERU/CASTOR OIL 60 GM OINT...G. TP SCH (09:22)
[2017-10-12 11:58] VITALS: BP_SYST 139
[2017-10-12] MEDS: AMIKACIN SULFATE 500 MG in D5W 100 ML IV SCH (12:50)
[2017-10-12] MEDS: 0.45% NACL 1,000 ML IV SCH (12:56)
[2017-10-12 16:07] VITALS: BP_SYST 127
[2017-10-12] MEDS: DOXAZOSIN MESYLATE 2 MG TABLET GT SCH (20:43)
[2017-10-13 01:27] VITALS: BP_SYST 122
[2017-10-13] MEDS: IPRATROPIUM/ALBUTEROL SULFATE 3 ML AMPUL.NEB INH SCH ×6 (03:48→23:51)
[2017-10-13 06:17] LABS: BASOPHILS # (AUTO) 0.1 K/uL (0.0-0.2); BASOPHILS % (AUTO) 0.6 % (0.0-2.0); EOSINOPHILS # (AUTO) 1.7 K/uL (0.0-0.4); EOSINOPHILS % (AUTO) 10.8 % (0.0-4.0); LYMPHOCYTES # (AUTO) 1.4 K/uL (1.0-5.5); LYMPHOCYTES % (AUTO) 8.8 % (20.5-51.5); MEAN CORPUSCULAR HEMOGLOBIN 33 pg (27-31); MEAN CORPUSCULAR HGB CONC 35 % (32-36); MEAN CORPUSCULAR VOLUME 96 fL (79.0-98.0); MONOCYTES % (AUTO) 6.2 % (1.7-9.3); NEUTROPHILS % (AUTO) 73.6 % (40.0-70.0); PLATELET COUNT (AUTO) 554 K/uL (130-430); RED BLOOD CELL COUNT(AUTO) 2.71 MIL/uL (4.2-6.2); RED CELL DISTRIBUTION WIDTH 15.3 % (9.0-15.0); WHITE BLOOD COUNT (AUTO) 16.2 K/uL (4.8-10.8)
[2017-10-13 06:45] LABS: ALBUMIN 1.9 g/dL (3.4-4.8); CALCIUM 9.6 mg/dL (8.4-11.0); CREATININE 1.1 mg/dL (0.55-1.30); POTASSIUM 4.2 mmol/L (3.5-5.1); TOTAL BILIRUBIN 0.3 mg/dL (0.0-1.0)
[2017-10-13 08:40] VITALS: BP_SYST 130
[2017-10-13] MEDS: DOCUSATE SODIUM 100 MG/10 ML UDC GT SCH ×2 (09:43→20:49)
[2017-10-13] MEDS: FERROUS SULFATE 300 MG/5 ML UDC GT SCH ×3 (09:43→20:49)
[2017-10-13] MEDS: GABAPENTIN 100 MG CAPSULE GT SCH ×3 (09:44→20:49)
[2017-10-13] MEDS: CHOLECALCIFEROL (VITAMIN D3) 2,000 UNIT TABLET GT SCH (09:45)
[2017-10-13] MEDS: AMIODARONE HCL 200 MG TABLET GT SCH (09:45)
[2017-10-13] MEDS: ASCORBIC ACID 500 MG TABLET GT SCH (09:46)
[2017-10-13] MEDS: VALPROIC ACID ORAL SYRUP 250 MG/5 ML UDC GT SCH ×2 (09:47→20:49)
[2017-10-13] MEDS: PANTOPRAZOLE SODIUM 40 MG TAB GT SCH (09:47)
[2017-10-13] MEDS: BALSAM PERU/CASTOR OIL 60 GM OINT...G. TP SCH (09:47)
[2017-10-13] MEDS: amLODIPine BESYLATE 10 MG TABLET GT SCH (09:48)
[2017-10-13] MEDS: LEVOTHYROXINE SODIUM 0.1 MG TABLET GT SCH (09:48)
[2017-10-13] MEDS: 0.45% NACL 1,000 ML IV SCH ×2 (10:07→22:20)
[2017-10-13] MEDS: AMIKACIN SULFATE 500 MG in D5W 100 ML IV SCH (11:39)
[2017-10-13 12:06] VITALS: BP_SYST 146
[2017-10-13] MEDS: MORPHINE 4 MG/ML INJ. SYRINGE IVP PRN (14:20)
[2017-10-13 16:02] VITALS: BP_SYST 135
[2017-10-13 20:00] VITALS: BP_SYST 137
[2017-10-13] MEDS: DOXAZOSIN MESYLATE 2 MG TABLET GT SCH (20:49)
[2017-10-14] VITALS (7 sets, daily range): BP systolic 111–145
[2017-10-14] MEDS: 0.45% NACL 1,000 ML IV SCH ×2 (03:23→21:24)
[2017-10-14] MEDS: IPRATROPIUM/ALBUTEROL SULFATE 3 ML AMPUL.NEB INH SCH ×6 (03:50→23:21)
[2017-10-14] MEDS: DOCUSATE SODIUM 100 MG/10 ML UDC GT SCH ×2 (08:59→21:57)
[2017-10-14] MEDS: VALPROIC ACID ORAL SYRUP 250 MG/5 ML UDC GT SCH ×2 (09:00→21:58)
[2017-10-14] MEDS: GABAPENTIN 100 MG CAPSULE GT SCH ×3 (09:00→21:58)
[2017-10-14] MEDS: CHOLECALCIFEROL (VITAMIN D3) 2,000 UNIT TABLET GT SCH (09:00)
[2017-10-14] MEDS: AMIODARONE HCL 200 MG TABLET GT SCH (09:01)
[2017-10-14] MEDS: FERROUS SULFATE 300 MG/5 ML UDC GT SCH ×3 (09:01→21:58)
[2017-10-14] MEDS: ASCORBIC ACID 500 MG TABLET GT SCH (09:01)
[2017-10-14] MEDS: BALSAM PERU/CASTOR OIL 60 GM OINT...G. TP SCH (09:01)
[2017-10-14] MEDS: PANTOPRAZOLE SODIUM 40 MG TAB GT SCH (09:01)
[2017-10-14] MEDS: LEVOTHYROXINE SODIUM 0.1 MG TABLET GT SCH (09:01)
[2017-10-14] MEDS: amLODIPine BESYLATE 10 MG TABLET GT SCH (09:01)
[2017-10-14] MEDS: AMIKACIN SULFATE 500 MG in D5W 100 ML IV SCH (13:26)
[2017-10-14] MEDS: COLISTIMETHATE SODIUM 150 MG VIAL INH SCH (21:00)
[2017-10-14] MEDS: DOXAZOSIN MESYLATE 2 MG TABLET GT SCH (21:57)
[2017-10-15] VITALS: BP_SYST 127
[2017-10-15] MEDS: IPRATROPIUM/ALBUTEROL SULFATE 3 ML AMPUL.NEB INH SCH ×6 (04:25→23:55)
[2017-10-15 08:00] VITALS: BP_SYST 133
[2017-10-15] MEDS: BALSAM PERU/CASTOR OIL 60 GM OINT...G. TP SCH (09:00)
[2017-10-15] MEDS: COLISTIMETHATE SODIUM 150 MG VIAL INH SCH ×2 (09:00→21:38)
[2017-10-15] MEDS: FERROUS SULFATE 300 MG/5 ML UDC GT SCH ×3 (11:18→21:26)
[2017-10-15] MEDS: DOCUSATE SODIUM 100 MG/10 ML UDC GT SCH ×2 (11:18→21:26)
[2017-10-15] MEDS: GABAPENTIN 100 MG CAPSULE GT SCH ×3 (11:19→21:27)
[2017-10-15] MEDS: VALPROIC ACID ORAL SYRUP 250 MG/5 ML UDC GT SCH ×2 (11:19→21:27)
[2017-10-15] MEDS: CHOLECALCIFEROL (VITAMIN D3) 2,000 UNIT TABLET GT SCH (11:20)
[2017-10-15] MEDS: PANTOPRAZOLE SODIUM 40 MG TAB GT SCH (11:20)
[2017-10-15] MEDS: amLODIPine BESYLATE 10 MG TABLET GT SCH (11:20)
[2017-10-15 11:21] VITALS: BP_SYST 175
[2017-10-15] MEDS: LEVOTHYROXINE SODIUM 0.1 MG TABLET GT SCH (11:21)
[2017-10-15] MEDS: AMIODARONE HCL 200 MG TABLET GT SCH (11:22)
[2017-10-15] MEDS: ASCORBIC ACID 500 MG TABLET GT SCH (11:23)
[2017-10-15] MEDS: AMIKACIN SULFATE 500 MG in D5W 100 ML IV SCH (12:25)
[2017-10-15 12:28] VITALS: BP_SYST 132
[2017-10-15 16:48] VITALS: BP_SYST 130
[2017-10-15 19:28] VITALS: BP_SYST 135
[2017-10-16] MEDS: 0.45% NACL 1,000 ML IV SCH ×2 (00:38→17:41)
[2017-10-16 00:55] VITALS: BP_SYST 137
[2017-10-16] MEDS: IPRATROPIUM/ALBUTEROL SULFATE 3 ML AMPUL.NEB INH SCH ×6 (03:59→23:00)
[2017-10-16 08:00] VITALS: BP_SYST 139
[2017-10-16] MEDS: COLISTIMETHATE SODIUM 150 MG VIAL INH SCH ×2 (09:00→20:57)
[2017-10-16] MEDS: CHOLECALCIFEROL (VITAMIN D3) 2,000 UNIT TABLET GT SCH (09:45)
[2017-10-16] MEDS: FERROUS SULFATE 300 MG/5 ML UDC GT SCH ×3 (09:45→20:55)
[2017-10-16] MEDS: DOCUSATE SODIUM 100 MG/10 ML UDC GT SCH ×2 (09:45→20:55)
[2017-10-16] MEDS: LEVOTHYROXINE SODIUM 0.1 MG TABLET GT SCH (09:45)
[2017-10-16] MEDS: amLODIPine BESYLATE 10 MG TABLET GT SCH (09:46)
[2017-10-16] MEDS: AMIODARONE HCL 200 MG TABLET GT SCH (09:47)
[2017-10-16] MEDS: PANTOPRAZOLE SODIUM 40 MG TAB GT SCH (09:48)
[2017-10-16] MEDS: GABAPENTIN 100 MG CAPSULE GT SCH ×3 (09:48→20:55)
[2017-10-16] MEDS: ASCORBIC ACID 500 MG TABLET GT SCH (09:48)
[2017-10-16] MEDS: VALPROIC ACID ORAL SYRUP 250 MG/5 ML UDC GT SCH ×2 (09:51→20:56)
[2017-10-16 11:23] VITALS: BP_SYST 143
[2017-10-16] MEDS: AMIKACIN SULFATE 500 MG in D5W 100 ML IV SCH (12:50)
[2017-10-16] MEDS: BALSAM PERU/CASTOR OIL 60 GM OINT...G. TP SCH (15:30)
[2017-10-16 15:35] VITALS: BP_SYST 142
[2017-10-16 20:00] VITALS: BP_SYST 147
[2017-10-16 23:50] VITALS: BP_SYST 142
[2017-10-17] MEDS: IPRATROPIUM/ALBUTEROL SULFATE 3 ML AMPUL.NEB INH SCH ×6 (03:57→23:40)
[2017-10-17 08:40] VITALS: BP_SYST 157
[2017-10-17] MEDS: FERROUS SULFATE 300 MG/5 ML UDC GT SCH ×3 (09:37→20:29)
[2017-10-17] MEDS: MORPHINE SULFATE 10 MG/5 ML ORAL SOL. UDC GT PRN (09:37)
[2017-10-17] MEDS: DOCUSATE SODIUM 100 MG/10 ML UDC GT SCH ×2 (09:38→20:29)
[2017-10-17] MEDS: ASCORBIC ACID 500 MG TABLET GT SCH (09:39)
[2017-10-17] MEDS: PANTOPRAZOLE SODIUM 40 MG TAB GT SCH (09:39)
[2017-10-17] MEDS: VALPROIC ACID ORAL SYRUP 250 MG/5 ML UDC GT SCH ×2 (09:39→20:29)
[2017-10-17] MEDS: amLODIPine BESYLATE 10 MG TABLET GT SCH (09:39)
[2017-10-17] MEDS: GABAPENTIN 100 MG CAPSULE GT SCH ×3 (09:39→20:29)
[2017-10-17] MEDS: CHOLECALCIFEROL (VITAMIN D3) 2,000 UNIT TABLET GT SCH (09:39)
[2017-10-17] MEDS: LEVOTHYROXINE SODIUM 0.1 MG TABLET GT SCH (09:40)
[2017-10-17] MEDS: AMIODARONE HCL 200 MG TABLET GT SCH (09:40)
[2017-10-17] MEDS: BALSAM PERU/CASTOR OIL 60 GM OINT...G. TP SCH (09:40)
[2017-10-17] MEDS: 0.45% NACL 1,000 ML IV SCH (09:41)
[2017-10-17] MEDS: COLISTIMETHATE SODIUM 150 MG VIAL INH SCH ×2 (10:00→21:11)
[2017-10-17 12:09] VITALS: BP_SYST 154
[2017-10-17] MEDS: AMIKACIN SULFATE 500 MG in D5W 100 ML IV SCH (12:56)
[2017-10-17 16:02] VITALS: BP_SYST 154
[2017-10-17 16:43] VITALS: BP_SYST 137
[2017-10-17 20:00] VITALS: BP_SYST 143
[2017-10-18 00:41] VITALS: BP_SYST 139
[2017-10-18] MEDS: 0.45% NACL 1,000 ML IV SCH ×2 (01:16→18:21)
[2017-10-18] MEDS: IPRATROPIUM/ALBUTEROL SULFATE 3 ML AMPUL.NEB INH SCH ×6 (04:08→23:48)
[2017-10-18 08:00] VITALS: BP_SYST 141
[2017-10-18] MEDS: DOCUSATE SODIUM 100 MG/10 ML UDC GT SCH ×2 (09:31→20:23)
[2017-10-18] MEDS: FERROUS SULFATE 300 MG/5 ML UDC GT SCH ×3 (09:31→20:23)
[2017-10-18] MEDS: LEVOTHYROXINE SODIUM 0.1 MG TABLET GT SCH (09:32)
[2017-10-18] MEDS: CHOLECALCIFEROL (VITAMIN D3) 2,000 UNIT TABLET GT SCH (09:32)
[2017-10-18] MEDS: PANTOPRAZOLE SODIUM 40 MG TAB GT SCH (09:32)
[2017-10-18] MEDS: VALPROIC ACID ORAL SYRUP 250 MG/5 ML UDC GT SCH ×2 (09:32→20:23)
[2017-10-18] MEDS: amLODIPine BESYLATE 10 MG TABLET GT SCH (09:32)
[2017-10-18] MEDS: ASCORBIC ACID 500 MG TABLET GT SCH (09:33)
[2017-10-18] MEDS: AMIODARONE HCL 200 MG TABLET GT SCH (09:33)
[2017-10-18] MEDS: GABAPENTIN 100 MG CAPSULE GT SCH ×3 (09:33→20:23)
[2017-10-18] MEDS: BALSAM PERU/CASTOR OIL 60 GM OINT...G. TP SCH (09:34)
[2017-10-18] MEDS: COLISTIMETHATE SODIUM 150 MG VIAL INH SCH ×2 (11:35→21:09)
[2017-10-18 11:59] VITALS: BP_SYST 144
[2017-10-18] MEDS: AMIKACIN SULFATE 500 MG in D5W 100 ML IV SCH (12:15)
[2017-10-18] MEDS: MORPHINE SULFATE 10 MG/5 ML ORAL SOL. UDC GT PRN (13:22)
[2017-10-18 16:09] VITALS: BP_SYST 140
[2017-10-18 20:00] VITALS: BP_SYST 125
[2017-10-19] VITALS: BP_SYST 134
[2017-10-19] MEDS: IPRATROPIUM/ALBUTEROL SULFATE 3 ML AMPUL.NEB INH SCH ×6 (03:58→23:27)
[2017-10-19] MEDS: COLISTIMETHATE SODIUM 150 MG VIAL INH SCH ×2 (07:44→20:54)
[2017-10-19 08:28] VITALS: BP_SYST 139
[2017-10-19] MEDS: DOCUSATE SODIUM 100 MG/10 ML UDC GT SCH ×2 (09:41→21:51)
[2017-10-19] MEDS: FERROUS SULFATE 300 MG/5 ML UDC GT SCH ×3 (09:41→21:51)
[2017-10-19] MEDS: amLODIPine BESYLATE 10 MG TABLET GT SCH (09:42)
[2017-10-19] MEDS: LEVOTHYROXINE SODIUM 0.1 MG TABLET GT SCH (09:42)
[2017-10-19] MEDS: ASCORBIC ACID 500 MG TABLET GT SCH (09:42)
[2017-10-19] MEDS: CHOLECALCIFEROL (VITAMIN D3) 2,000 UNIT TABLET GT SCH (09:42)
[2017-10-19] MEDS: GABAPENTIN 100 MG CAPSULE GT SCH ×3 (09:42→21:50)
[2017-10-19] MEDS: PANTOPRAZOLE SODIUM 40 MG TAB GT SCH (09:42)
[2017-10-19] MEDS: AMIODARONE HCL 200 MG TABLET GT SCH (09:43)
[2017-10-19] MEDS: VALPROIC ACID ORAL SYRUP 250 MG/5 ML UDC GT SCH ×2 (09:44→21:51)
[2017-10-19] MEDS: BALSAM PERU/CASTOR OIL 60 GM OINT...G. TP SCH (10:30)
[2017-10-19] MEDS: 0.45% NACL 1,000 ML IV SCH ×2 (11:40→18:53)
[2017-10-19 15:28] VITALS: BP_SYST 121
[2017-10-19 21:17] VITALS: BP_SYST 148
[2017-10-20 01:52] VITALS: BP_SYST 128
[2017-10-20] MEDS: IPRATROPIUM/ALBUTEROL SULFATE 3 ML AMPUL.NEB INH SCH ×6 (03:59→23:53)
[2017-10-20 07:45] VITALS: BP_SYST 145
[2017-10-20 08:13] VITALS: BP_SYST 145
[2017-10-20] MEDS: COLISTIMETHATE SODIUM 150 MG VIAL INH SCH ×3 (09:45→23:54)
[2017-10-20] MEDS: DOCUSATE SODIUM 100 MG/10 ML UDC GT SCH ×2 (09:55→20:44)
[2017-10-20] MEDS: ASCORBIC ACID 500 MG TABLET GT SCH (09:55)
[2017-10-20] MEDS: FERROUS SULFATE 300 MG/5 ML UDC GT SCH ×3 (09:55→20:45)
[2017-10-20] MEDS: amLODIPine BESYLATE 10 MG TABLET GT SCH (09:56)
[2017-10-20] MEDS: LEVOTHYROXINE SODIUM 0.1 MG TABLET GT SCH (09:56)
[2017-10-20] MEDS: AMIODARONE HCL 200 MG TABLET GT SCH (09:56)
[2017-10-20] MEDS: GABAPENTIN 100 MG CAPSULE GT SCH ×3 (09:56→20:45)
[2017-10-20] MEDS: CHOLECALCIFEROL (VITAMIN D3) 2,000 UNIT TABLET GT SCH (09:56)
[2017-10-20] MEDS: PANTOPRAZOLE SODIUM 40 MG TAB GT SCH (09:56)
[2017-10-20] MEDS: VALPROIC ACID ORAL SYRUP 250 MG/5 ML UDC GT SCH ×2 (09:57→20:45)
[2017-10-20] MEDS: BALSAM PERU/CASTOR OIL 60 GM OINT...G. TP SCH (09:58)
[2017-10-20 11:56] LABS: BASOPHILS # (AUTO) 0.1 K/uL (0.0-0.2); BASOPHILS % (AUTO) 0.5 % (0.0-2.0); EOSINOPHILS # (AUTO) 1.7 K/uL (0.0-0.4); HEMATOCRIT 25.2 % (36-54); HEMOGLOBIN 8.2 g/dL (14.0-18.0); LYMPHOCYTES # (AUTO) 1.6 K/uL (1.0-5.5); LYMPHOCYTES % (AUTO) 8.8 % (20.5-51.5); MEAN CORPUSCULAR HEMOGLOBIN 31 pg (27-31); MEAN CORPUSCULAR HGB CONC 33 % (32-36); MEAN CORPUSCULAR VOLUME 96 fL (79.0-98.0); MONOCYTES # (AUTO) 1.6 K/uL (0.0-1.0); MONOCYTES % (AUTO) 8.7 % (1.7-9.3); NEUTROPHILS # (AUTO) 13.4 K/uL (1.8-7.7); PLATELET COUNT (AUTO) 631 K/uL (130-430); RED BLOOD CELL COUNT(AUTO) 2.62 MIL/uL (4.2-6.2); RED CELL DISTRIBUTION WIDTH 16.4 % (9.0-15.0); WHITE BLOOD COUNT (AUTO) 18.4 K/uL (4.8-10.8)
[2017-10-20 12:11] LABS: CALCIUM 9.6 mg/dL (8.4-11.0); CREATININE 1.08 mg/dL (0.55-1.30)
[2017-10-20 12:30] VITALS: BP_SYST 142
[2017-10-20] MEDS: 0.45% NACL 1,000 ML IV SCH (15:00)
[2017-10-20 16:03] VITALS: BP_SYST 146
[2017-10-20 20:40] VITALS: BP_SYST 142
[2017-10-21 00:35] VITALS: BP_SYST 143
[2017-10-21] MEDS: IPRATROPIUM/ALBUTEROL SULFATE 3 ML AMPUL.NEB INH SCH ×6 (03:54→23:05)
[2017-10-21 08:08] VITALS: BP_SYST 158
[2017-10-21] MEDS: DOCUSATE SODIUM 100 MG/10 ML UDC GT SCH ×2 (09:22→20:23)
[2017-10-21] MEDS: FERROUS SULFATE 300 MG/5 ML UDC GT SCH ×3 (09:22→20:23)
[2017-10-21] MEDS: VALPROIC ACID ORAL SYRUP 250 MG/5 ML UDC GT SCH ×2 (09:22→20:23)
[2017-10-21] MEDS: ASCORBIC ACID 500 MG TABLET GT SCH (09:23)
[2017-10-21] MEDS: AMIODARONE HCL 200 MG TABLET GT SCH (09:23)
[2017-10-21] MEDS: GABAPENTIN 100 MG CAPSULE GT SCH ×3 (09:23→20:23)
[2017-10-21] MEDS: CHOLECALCIFEROL (VITAMIN D3) 2,000 UNIT TABLET GT SCH (09:24)
[2017-10-21] MEDS: amLODIPine BESYLATE 10 MG TABLET GT SCH (09:24)
[2017-10-21] MEDS: PANTOPRAZOLE SODIUM 40 MG TAB GT SCH (09:24)
[2017-10-21] MEDS: LEVOTHYROXINE SODIUM 0.1 MG TABLET GT SCH (09:24)
[2017-10-21] MEDS: BALSAM PERU/CASTOR OIL 60 GM OINT...G. TP SCH (09:25)
[2017-10-21 12:00] VITALS: BP_SYST 135
[2017-10-21] MEDS: 0.45% NACL 1,000 ML IV SCH (13:40)
[2017-10-21 16:04] VITALS: BP_SYST 145
[2017-10-21 20:38] VITALS: BP_SYST 141
[2017-10-22 00:48] VITALS: BP_SYST 138
[2017-10-22] MEDS: IPRATROPIUM/ALBUTEROL SULFATE 3 ML AMPUL.NEB INH SCH ×6 (02:02→23:23)
[2017-10-22 07:57] VITALS: BP_SYST 144
[2017-10-22] MEDS: FERROUS SULFATE 300 MG/5 ML UDC GT SCH ×3 (08:32→21:28)
[2017-10-22] MEDS: traMADol HCL HCL 50 MG TABLET (ULTRAM) PO PRN ×2 (08:33→21:29)
[2017-10-22] MEDS: DOCUSATE SODIUM 100 MG/10 ML UDC GT SCH ×2 (08:33→21:27)
[2017-10-22] MEDS: ASCORBIC ACID 500 MG TABLET GT SCH (08:33)
[2017-10-22] MEDS: PANTOPRAZOLE SODIUM 40 MG TAB GT SCH (08:33)
[2017-10-22] MEDS: LEVOTHYROXINE SODIUM 0.1 MG TABLET GT SCH (08:33)
[2017-10-22] MEDS: amLODIPine BESYLATE 10 MG TABLET GT SCH (08:34)
[2017-10-22] MEDS: CHOLECALCIFEROL (VITAMIN D3) 2,000 UNIT TABLET GT SCH (08:34)
[2017-10-22] MEDS: GABAPENTIN 100 MG CAPSULE GT SCH ×3 (08:34→21:28)
[2017-10-22] MEDS: VALPROIC ACID ORAL SYRUP 250 MG/5 ML UDC GT SCH ×2 (08:35→21:28)
[2017-10-22] MEDS: AMIODARONE HCL 200 MG TABLET GT SCH (08:35)
[2017-10-22 12:13] VITALS: BP_SYST 129
[2017-10-22] MEDS: MORPHINE SULFATE 10 MG/5 ML ORAL SOL. UDC GT PRN ×2 (15:15→15:33)
[2017-10-22] MEDS ORDERED: GASTROGRAFIN 120 ML ONE (15:40)
[2017-10-22] MEDS: BALSAM PERU/CASTOR OIL 60 GM OINT...G. TP SCH (15:51)
[2017-10-22 16:10] VITALS: BP_SYST 164
[2017-10-22 19:10] VITALS: BP_SYST 146
[2017-10-23] VITALS (7 sets, daily range): BP systolic 132–150
[2017-10-23] MEDS: IPRATROPIUM/ALBUTEROL SULFATE 3 ML AMPUL.NEB INH SCH ×6 (03:39→23:47)
[2017-10-23 07:12] LABS: CALCIUM 9.6 mg/dL (8.4-11.0); CREATININE 1.12 mg/dL (0.55-1.30)
[2017-10-23 07:50] LABS: BASOPHILS # (AUTO) 0.1 K/uL (0.0-0.2); BASOPHILS % (AUTO) 0.7 % (0.0-2.0); EOSINOPHILS # (AUTO) 2.8 K/uL (0.0-0.4); EOSINOPHILS % (AUTO) 17.1 % (0.0-4.0); HEMATOCRIT 26.5 % (36-54); LYMPHOCYTES # (AUTO) 2.1 K/uL (1.0-5.5); LYMPHOCYTES % (AUTO) 12.7 % (20.5-51.5); MEAN CORPUSCULAR HEMOGLOBIN 33 pg (27-31); MEAN CORPUSCULAR HGB CONC 34 % (32-36); MEAN CORPUSCULAR VOLUME 97 fL (79.0-98.0); MONOCYTES # (AUTO) 1.3 K/uL (0.0-1.0); PLATELET COUNT (AUTO) 576 K/uL (130-430); RED BLOOD CELL COUNT(AUTO) 2.75 MIL/uL (4.2-6.2); WHITE BLOOD COUNT (AUTO) 16.3 K/uL (4.8-10.8)
[2017-10-23] MEDS: DOCUSATE SODIUM 100 MG/10 ML UDC GT SCH ×2 (08:59→20:53)
[2017-10-23] MEDS: GABAPENTIN 100 MG CAPSULE GT SCH ×3 (08:59→20:53)
[2017-10-23] MEDS: FERROUS SULFATE 300 MG/5 ML UDC GT SCH ×3 (08:59→20:53)
[2017-10-23] MEDS: amLODIPine BESYLATE 10 MG TABLET GT SCH (09:00)
[2017-10-23] MEDS: ASCORBIC ACID 500 MG TABLET GT SCH (09:00)
[2017-10-23] MEDS: PANTOPRAZOLE SODIUM 40 MG TAB GT SCH (09:00)
[2017-10-23] MEDS: CHOLECALCIFEROL (VITAMIN D3) 2,000 UNIT TABLET GT SCH (09:00)
[2017-10-23] MEDS: LEVOTHYROXINE SODIUM 0.1 MG TABLET GT SCH (09:00)
[2017-10-23] MEDS: AMIODARONE HCL 200 MG TABLET GT SCH (09:01)
[2017-10-23] MEDS: VALPROIC ACID ORAL SYRUP 250 MG/5 ML UDC GT SCH ×2 (09:02→20:53)
[2017-10-23] MEDS: BALSAM PERU/CASTOR OIL 60 GM OINT...G. TP SCH (09:03)
[2017-10-23 09:05] LABS: NEUTROPHILS % (AUTO) 61.5 % (40.0-70.0)
[2017-10-23] MEDS: traMADol HCL HCL 50 MG TABLET (ULTRAM) PO PRN ×2 (10:14→20:54)
[2017-10-24] MEDS: IPRATROPIUM/ALBUTEROL SULFATE 3 ML AMPUL.NEB INH SCH ×6 (03:30→23:25)
[2017-10-24] MEDS: PRAMOXINE HCL/CALAMINE 180 ML LOTION TP PRN (04:32)
[2017-10-24 07:50] VITALS: BP_SYST 145
[2017-10-24 08:00] VITALS: BP_SYST 142
[2017-10-24] MEDS: VALPROIC ACID ORAL SYRUP 250 MG/5 ML UDC GT SCH ×2 (08:58→20:26)
[2017-10-24] MEDS: FERROUS SULFATE 300 MG/5 ML UDC GT SCH ×3 (08:58→20:25)
[2017-10-24] MEDS: amLODIPine BESYLATE 10 MG TABLET GT SCH (08:59)
[2017-10-24] MEDS: DOCUSATE SODIUM 100 MG/10 ML UDC GT SCH ×2 (08:59→20:26)
[2017-10-24] MEDS: GABAPENTIN 100 MG CAPSULE GT SCH ×3 (08:59→20:26)
[2017-10-24] MEDS: PANTOPRAZOLE SODIUM 40 MG TAB GT SCH (08:59)
[2017-10-24] MEDS: ASCORBIC ACID 500 MG TABLET GT SCH (08:59)
[2017-10-24] MEDS: LEVOTHYROXINE SODIUM 0.1 MG TABLET GT SCH (08:59)
[2017-10-24] MEDS: CHOLECALCIFEROL (VITAMIN D3) 2,000 UNIT TABLET GT SCH (09:00)
[2017-10-24] MEDS: AMIODARONE HCL 200 MG TABLET GT SCH (09:00)
[2017-10-24] MEDS: BALSAM PERU/CASTOR OIL 60 GM OINT...G. TP SCH (09:07)
[2017-10-24 12:26] VITALS: BP_SYST 132
[2017-10-24 16:03] VITALS: BP_SYST 128
[2017-10-24 20:00] VITALS: BP_SYST 148
[2017-10-24] MEDS: traMADol HCL HCL 50 MG TABLET (ULTRAM) PO PRN (20:27)
[2017-10-24 23:55] VITALS: BP_SYST 140
[2017-10-25] VITALS (7 sets, daily range): BP systolic 132–147
[2017-10-25] MEDS: IPRATROPIUM/ALBUTEROL SULFATE 3 ML AMPUL.NEB INH SCH ×6 (02:56→23:22)
[2017-10-25] MEDS: PANTOPRAZOLE SODIUM 40 MG TAB GT SCH (10:08)
[2017-10-25] MEDS: MORPHINE SULFATE 10 MG/5 ML ORAL SOL. UDC GT PRN (10:08)
[2017-10-25] MEDS: LEVOTHYROXINE SODIUM 0.1 MG TABLET GT SCH (10:08)
[2017-10-25] MEDS: GABAPENTIN 100 MG CAPSULE GT SCH ×3 (10:09→20:25)
[2017-10-25] MEDS: ASCORBIC ACID 500 MG TABLET GT SCH (10:09)
[2017-10-25] MEDS: CHOLECALCIFEROL (VITAMIN D3) 2,000 UNIT TABLET GT SCH (10:10)
[2017-10-25] MEDS: AMIODARONE HCL 200 MG TABLET GT SCH (10:11)
[2017-10-25] MEDS: amLODIPine BESYLATE 10 MG TABLET GT SCH (10:13)
[2017-10-25] MEDS: FERROUS SULFATE 300 MG/5 ML UDC GT SCH ×3 (10:13→20:25)
[2017-10-25] MEDS: DOCUSATE SODIUM 100 MG/10 ML UDC GT SCH ×2 (10:13→20:25)
[2017-10-25] MEDS: VALPROIC ACID ORAL SYRUP 250 MG/5 ML UDC GT SCH ×2 (10:14→20:25)
[2017-10-25] MEDS: BALSAM PERU/CASTOR OIL 60 GM OINT...G. TP SCH (10:15)
[2017-10-26] MEDS: IPRATROPIUM/ALBUTEROL SULFATE 3 ML AMPUL.NEB INH SCH ×6 (03:33→23:11)
[2017-10-26 07:38] LABS: CALCIUM 9.9 mg/dL (8.4-11.0); CREATININE 1.4 mg/dL (0.55-1.30); POTASSIUM 3.9 mmol/L (3.5-5.1); TOTAL BILIRUBIN 0.3 mg/dL (0.0-1.0)
[2017-10-26 07:40] LABS: HEMATOCRIT 24.7 % (36-54); HEMOGLOBIN 8.6 g/dL (14.0-18.0); MEAN CORPUSCULAR HEMOGLOBIN 33 pg (27-31); MEAN CORPUSCULAR HGB CONC 35 % (32-36); MEAN CORPUSCULAR VOLUME 96 fL (79.0-98.0); PLATELET COUNT (AUTO) 530 K/uL (130-430); RED BLOOD CELL COUNT(AUTO) 2.57 MIL/uL (4.2-6.2); RED CELL DISTRIBUTION WIDTH 15.9 % (9.0-15.0); WHITE BLOOD COUNT (AUTO) 17.3 K/uL (4.8-10.8)
[2017-10-26 08:00] VITALS: BP_SYST 136
[2017-10-26] MEDS: FERROUS SULFATE 300 MG/5 ML UDC GT SCH ×3 (09:22→21:23)
[2017-10-26] MEDS: DOCUSATE SODIUM 100 MG/10 ML UDC GT SCH ×2 (09:22→21:23)
[2017-10-26] MEDS: amLODIPine BESYLATE 10 MG TABLET GT SCH (09:23)
[2017-10-26] MEDS: VALPROIC ACID ORAL SYRUP 250 MG/5 ML UDC GT SCH ×2 (09:23→21:23)
[2017-10-26] MEDS: ASCORBIC ACID 500 MG TABLET GT SCH (09:24)
[2017-10-26] MEDS: GABAPENTIN 100 MG CAPSULE GT SCH ×3 (09:24→21:23)
[2017-10-26] MEDS: CHOLECALCIFEROL (VITAMIN D3) 2,000 UNIT TABLET GT SCH (09:24)
[2017-10-26] MEDS: PANTOPRAZOLE SODIUM 40 MG TAB GT SCH (09:24)
[2017-10-26] MEDS: AMIODARONE HCL 200 MG TABLET GT SCH (09:24)
[2017-10-26] MEDS: LEVOTHYROXINE SODIUM 0.1 MG TABLET GT SCH (09:24)
[2017-10-26] MEDS: BALSAM PERU/CASTOR OIL 60 GM OINT...G. TP SCH (09:25)
[2017-10-26 10:10] LABS: ATYPICAL LYMPHOCYTES % 0 % (0-0); BAND % (MANUAL) 2 % (0-6); BASOPHILS % (MANUAL) 0 % (0-2); EOSINOPHILS % (MANUAL) 21 % (0-7); LYMPHOCYTES % (MANUAL) 16 % (20-46); MONOCYTES % (MANUAL) 10 % (0-11)
[2017-10-26 11:29] VITALS: BP_SYST 136
[2017-10-26 11:32] VITALS: BP_SYST 132
[2017-10-26 15:44] VITALS: BP_SYST 118
[2017-10-27 00:27] VITALS: BP_SYST 140
[2017-10-27] MEDS: IPRATROPIUM/ALBUTEROL SULFATE 3 ML AMPUL.NEB INH SCH ×6 (03:04→23:24)
[2017-10-27 08:00] VITALS: BP_SYST 147
[2017-10-27] MEDS: BALSAM PERU/CASTOR OIL 60 GM OINT...G. TP SCH (09:00)
[2017-10-27] MEDS: ASCORBIC ACID 500 MG TABLET GT SCH (09:24)
[2017-10-27] MEDS: PANTOPRAZOLE SODIUM 40 MG TAB GT SCH (09:25)
[2017-10-27] MEDS: AMIODARONE HCL 200 MG TABLET GT SCH (09:25)
[2017-10-27] MEDS: GABAPENTIN 100 MG CAPSULE GT SCH ×3 (09:26→21:07)
[2017-10-27] MEDS: LEVOTHYROXINE SODIUM 0.1 MG TABLET GT SCH (09:26)
[2017-10-27] MEDS: CHOLECALCIFEROL (VITAMIN D3) 2,000 UNIT TABLET GT SCH (09:26)
[2017-10-27] MEDS: amLODIPine BESYLATE 10 MG TABLET GT SCH (09:26)
[2017-10-27] MEDS: FERROUS SULFATE 300 MG/5 ML UDC GT SCH ×3 (09:27→21:07)
[2017-10-27] MEDS: DOCUSATE SODIUM 100 MG/10 ML UDC GT SCH ×2 (09:27→21:07)
[2017-10-27] MEDS: VALPROIC ACID ORAL SYRUP 250 MG/5 ML UDC GT SCH ×2 (09:28→21:07)
[2017-10-27 11:28] VITALS: BP_SYST 146
[2017-10-27 15:40] VITALS: BP_SYST 144
[2017-10-27 19:50] VITALS: BP_SYST 153
[2017-10-27 23:55] VITALS: BP_SYST 134
[2017-10-28] MEDS: IPRATROPIUM/ALBUTEROL SULFATE 3 ML AMPUL.NEB INH SCH ×6 (04:18→23:18)
[2017-10-28 08:00] VITALS: BP_SYST 150
[2017-10-28] MEDS: BALSAM PERU/CASTOR OIL 60 GM OINT...G. TP SCH (08:22)
[2017-10-28] MEDS: VALPROIC ACID ORAL SYRUP 250 MG/5 ML UDC GT SCH ×2 (08:24→21:13)
[2017-10-28] MEDS: CHOLECALCIFEROL (VITAMIN D3) 2,000 UNIT TABLET GT SCH (08:25)
[2017-10-28] MEDS: DOCUSATE SODIUM 100 MG/10 ML UDC GT SCH ×2 (08:25→21:12)
[2017-10-28] MEDS: LEVOTHYROXINE SODIUM 0.1 MG TABLET GT SCH (08:25)
[2017-10-28] MEDS: FERROUS SULFATE 300 MG/5 ML UDC GT SCH ×3 (08:25→21:11)
[2017-10-28] MEDS: PANTOPRAZOLE SODIUM 40 MG TAB GT SCH (08:25)
[2017-10-28] MEDS: amLODIPine BESYLATE 10 MG TABLET GT SCH (08:26)
[2017-10-28] MEDS: GABAPENTIN 100 MG CAPSULE GT SCH ×3 (08:26→21:11)
[2017-10-28] MEDS: ASCORBIC ACID 500 MG TABLET GT SCH (08:26)
[2017-10-28] MEDS: AMIODARONE HCL 200 MG TABLET GT SCH (08:27)
[2017-10-28 13:02] VITALS: BP_SYST 138
[2017-10-28 16:40] VITALS: BP_SYST 138; BP_SYST 142
[2017-10-28 20:00] VITALS: BP_SYST 145
[2017-10-29] VITALS: BP_SYST 142
[2017-10-29] MEDS: IPRATROPIUM/ALBUTEROL SULFATE 3 ML AMPUL.NEB INH SCH ×6 (03:58→23:11)
[2017-10-29 08:37] VITALS: BP_SYST 146
[2017-10-29] MEDS: DOCUSATE SODIUM 100 MG/10 ML UDC GT SCH ×2 (09:01→20:11)
[2017-10-29] MEDS: CHOLECALCIFEROL (VITAMIN D3) 2,000 UNIT TABLET GT SCH (09:02)
[2017-10-29] MEDS: FERROUS SULFATE 300 MG/5 ML UDC GT SCH ×3 (09:02→20:11)
[2017-10-29] MEDS: VALPROIC ACID ORAL SYRUP 250 MG/5 ML UDC GT SCH ×2 (09:02→20:11)
[2017-10-29] MEDS: AMIODARONE HCL 200 MG TABLET GT SCH (09:03)
[2017-10-29] MEDS: LEVOTHYROXINE SODIUM 0.1 MG TABLET GT SCH (09:03)
[2017-10-29] MEDS: ASCORBIC ACID 500 MG TABLET GT SCH (09:03)
[2017-10-29] MEDS: PANTOPRAZOLE SODIUM 40 MG TAB GT SCH (09:03)
[2017-10-29] MEDS: GABAPENTIN 100 MG CAPSULE GT SCH ×3 (09:03→20:11)
[2017-10-29] MEDS: amLODIPine BESYLATE 10 MG TABLET GT SCH (09:04)
[2017-10-29] MEDS: BALSAM PERU/CASTOR OIL 60 GM OINT...G. TP SCH (09:05)
[2017-10-29 11:30] VITALS: BP_SYST 137
[2017-10-29 11:47] VITALS: BP_SYST 137
[2017-10-29] MEDS: MORPHINE SULFATE 10 MG/5 ML ORAL SOL. UDC GT PRN (13:38)
[2017-10-29 16:44] VITALS: BP_SYST 141
[2017-10-30 00:14] VITALS: BP_SYST 147
[2017-10-30] MEDS: IPRATROPIUM/ALBUTEROL SULFATE 3 ML AMPUL.NEB INH SCH ×6 (03:56→23:21)
[2017-10-30 09:00] VITALS: BP_SYST 126
[2017-10-30] MEDS: traMADol HCL HCL 50 MG TABLET (ULTRAM) PO PRN (09:09)
[2017-10-30] MEDS: VALPROIC ACID ORAL SYRUP 250 MG/5 ML UDC GT SCH ×2 (09:10→20:58)
[2017-10-30] MEDS: DOCUSATE SODIUM 100 MG/10 ML UDC GT SCH ×2 (09:10→20:57)
[2017-10-30] MEDS: FERROUS SULFATE 300 MG/5 ML UDC GT SCH ×3 (09:10→20:58)
[2017-10-30] MEDS: GABAPENTIN 100 MG CAPSULE GT SCH ×3 (09:11→20:58)
[2017-10-30] MEDS: CHOLECALCIFEROL (VITAMIN D3) 2,000 UNIT TABLET GT SCH (09:11)
[2017-10-30] MEDS: ASCORBIC ACID 500 MG TABLET GT SCH (09:11)
[2017-10-30] MEDS: amLODIPine BESYLATE 10 MG TABLET GT SCH (09:12)
[2017-10-30] MEDS: AMIODARONE HCL 200 MG TABLET GT SCH (09:13)
[2017-10-30] MEDS: BALSAM PERU/CASTOR OIL 60 GM OINT...G. TP SCH (09:14)
[2017-10-30] MEDS: PANTOPRAZOLE SODIUM 40 MG TAB GT SCH (09:14)
[2017-10-30] MEDS: LEVOTHYROXINE SODIUM 0.1 MG TABLET GT SCH (09:14)
[2017-10-30 12:21] VITALS: BP_SYST 125
[2017-10-30 16:29] VITALS: BP_SYST 132
[2017-10-30 20:30] VITALS: BP_SYST 142
[2017-10-31 00:46] VITALS: BP_SYST 142
[2017-10-31] MEDS: IPRATROPIUM/ALBUTEROL SULFATE 3 ML AMPUL.NEB INH SCH ×6 (03:38→22:35)
[2017-10-31 06:52] LABS: CALCIUM 10.1 mg/dL (8.4-11.0); CREATININE 1.54 mg/dL (0.55-1.30)
[2017-10-31 07:02] LABS: BASOPHILS # (AUTO) 0.1 K/uL (0.0-0.2); BASOPHILS % (AUTO) 0.5 % (0.0-2.0); EOSINOPHILS # (AUTO) 3.6 K/uL (0.0-0.4); EOSINOPHILS % (AUTO) 19.6 % (0.0-4.0); HEMATOCRIT 26.8 % (36-54); HEMOGLOBIN 9.2 g/dL (14.0-18.0); LYMPHOCYTES # (AUTO) 2.2 K/uL (1.0-5.5); LYMPHOCYTES % (AUTO) 11.8 % (20.5-51.5); MEAN CORPUSCULAR HEMOGLOBIN 34 pg (27-31); MEAN CORPUSCULAR HGB CONC 34 % (32-36); MEAN CORPUSCULAR VOLUME 98 fL (79.0-98.0); MONOCYTES # (AUTO) 1.5 K/uL (0.0-1.0); MONOCYTES % (AUTO) 7.9 % (1.7-9.3); NEUTROPHILS # (AUTO) 11.2 K/uL (1.8-7.7); NEUTROPHILS % (AUTO) 60.2 % (40.0-70.0); PLATELET COUNT (AUTO) 470 K/uL (130-430); RED BLOOD CELL COUNT(AUTO) 2.73 MIL/uL (4.2-6.2); RED CELL DISTRIBUTION WIDTH 16.1 % (9.0-15.0); WHITE BLOOD COUNT (AUTO) 18.6 K/uL (4.8-10.8)
[2017-10-31 08:00] VITALS: BP_SYST 137
[2017-10-31] MEDS: FERROUS SULFATE 300 MG/5 ML UDC GT SCH ×3 (08:58→20:54)
[2017-10-31] MEDS: DOCUSATE SODIUM 100 MG/10 ML UDC GT SCH ×2 (08:58→20:54)
[2017-10-31] MEDS: CHOLECALCIFEROL (VITAMIN D3) 2,000 UNIT TABLET GT SCH (08:59)
[2017-10-31] MEDS: PANTOPRAZOLE SODIUM 40 MG TAB GT SCH (08:59)
[2017-10-31] MEDS: GABAPENTIN 100 MG CAPSULE GT SCH ×3 (08:59→20:54)
[2017-10-31] MEDS: LEVOTHYROXINE SODIUM 0.1 MG TABLET GT SCH (08:59)
[2017-10-31] MEDS: amLODIPine BESYLATE 10 MG TABLET GT SCH (09:00)
[2017-10-31] MEDS: AMIODARONE HCL 200 MG TABLET GT SCH (09:00)
[2017-10-31] MEDS: ASCORBIC ACID 500 MG TABLET GT SCH (09:00)
[2017-10-31] MEDS: VALPROIC ACID ORAL SYRUP 250 MG/5 ML UDC GT SCH ×2 (09:01→20:54)
[2017-10-31] MEDS: BALSAM PERU/CASTOR OIL 60 GM OINT...G. TP SCH (09:01)
[2017-10-31 11:41] VITALS: BP_SYST 139
[2017-10-31 17:05] VITALS: BP_SYST 128
[2017-10-31 20:00] VITALS: BP_SYST 148
[2017-11-01 00:22] VITALS: BP_SYST 138
[2017-11-01] MEDS: IPRATROPIUM/ALBUTEROL SULFATE 3 ML AMPUL.NEB INH SCH ×6 (02:05→23:22)
[2017-11-01 08:03] VITALS: BP_SYST 128
[2017-11-01] MEDS: DOCUSATE SODIUM 100 MG/10 ML UDC GT SCH ×2 (09:36→21:29)
[2017-11-01] MEDS: FERROUS SULFATE 300 MG/5 ML UDC GT SCH ×3 (09:36→21:29)
[2017-11-01] MEDS: CHOLECALCIFEROL (VITAMIN D3) 2,000 UNIT TABLET GT SCH (09:38)
[2017-11-01] MEDS: GABAPENTIN 100 MG CAPSULE GT SCH ×3 (09:38→21:30)
[2017-11-01] MEDS: ASCORBIC ACID 500 MG TABLET GT SCH (09:38)
[2017-11-01] MEDS: PANTOPRAZOLE SODIUM 40 MG TAB GT SCH (09:38)
[2017-11-01] MEDS: AMIODARONE HCL 200 MG TABLET GT SCH (09:38)
[2017-11-01] MEDS: amLODIPine BESYLATE 10 MG TABLET GT SCH (09:38)
[2017-11-01] MEDS: LEVOTHYROXINE SODIUM 0.1 MG TABLET GT SCH (09:39)
[2017-11-01] MEDS: VALPROIC ACID ORAL SYRUP 250 MG/5 ML UDC GT SCH ×2 (09:42→21:28)
[2017-11-01] MEDS: BALSAM PERU/CASTOR OIL 60 GM OINT...G. TP SCH (09:43)
[2017-11-01 11:36] VITALS: BP_SYST 128
[2017-11-01 16:25] VITALS: BP_SYST 124
[2017-11-01 17:20] VITALS: BP_SYST 124
[2017-11-01 19:50] VITALS: BP_SYST 132
[2017-11-02 00:54] VITALS: BP_SYST 138
[2017-11-02] MEDS: IPRATROPIUM/ALBUTEROL SULFATE 3 ML AMPUL.NEB INH SCH ×6 (02:06→22:59)
[2017-11-02 08:30] VITALS: BP_SYST 136
[2017-11-02] MEDS: GABAPENTIN 100 MG CAPSULE GT SCH ×3 (08:39→20:57)
[2017-11-02] MEDS: LEVOTHYROXINE SODIUM 0.1 MG TABLET GT SCH (08:39)
[2017-11-02] MEDS: ASCORBIC ACID 500 MG TABLET GT SCH (08:40)
[2017-11-02] MEDS: CHOLECALCIFEROL (VITAMIN D3) 2,000 UNIT TABLET GT SCH (08:40)
[2017-11-02] MEDS: PANTOPRAZOLE SODIUM 40 MG TAB GT SCH (08:40)
[2017-11-02] MEDS: FERROUS SULFATE 300 MG/5 ML UDC GT SCH ×3 (08:41→20:57)
[2017-11-02] MEDS: DOCUSATE SODIUM 100 MG/10 ML UDC GT SCH ×2 (08:41→20:57)
[2017-11-02] MEDS: VALPROIC ACID ORAL SYRUP 250 MG/5 ML UDC GT SCH ×2 (08:42→21:03)
[2017-11-02] MEDS: AMIODARONE HCL 200 MG TABLET GT SCH (08:53)
[2017-11-02] MEDS: amLODIPine BESYLATE 10 MG TABLET GT SCH (08:54)
[2017-11-02] MEDS: BALSAM PERU/CASTOR OIL 60 GM OINT...G. TP SCH (08:55)
[2017-11-02 12:05] VITALS: BP_SYST 131
[2017-11-02 16:11] VITALS: BP_SYST 136
[2017-11-02 20:15] VITALS: BP_SYST 142
[2017-11-03 00:03] VITALS: BP_SYST 142
[2017-11-03] MEDS: IPRATROPIUM/ALBUTEROL SULFATE 3 ML AMPUL.NEB INH SCH ×6 (02:00→23:16)
[2017-11-03 08:37] VITALS: BP_SYST 144
[2017-11-03] MEDS: FERROUS SULFATE 300 MG/5 ML UDC GT SCH ×3 (08:40→21:54)
[2017-11-03] MEDS: VALPROIC ACID ORAL SYRUP 250 MG/5 ML UDC GT SCH ×2 (08:40→21:54)
[2017-11-03] MEDS: DOCUSATE SODIUM 100 MG/10 ML UDC GT SCH ×2 (08:40→21:53)
[2017-11-03] MEDS: LEVOTHYROXINE SODIUM 0.1 MG TABLET GT SCH (08:41)
[2017-11-03] MEDS: PANTOPRAZOLE SODIUM 40 MG TAB GT SCH (08:41)
[2017-11-03] MEDS: GABAPENTIN 100 MG CAPSULE GT SCH ×3 (08:41→21:52)
[2017-11-03] MEDS: CHOLECALCIFEROL (VITAMIN D3) 2,000 UNIT TABLET GT SCH (08:42)
[2017-11-03] MEDS: ASCORBIC ACID 500 MG TABLET GT SCH (08:42)
[2017-11-03] MEDS: amLODIPine BESYLATE 10 MG TABLET GT SCH (08:42)
[2017-11-03] MEDS: AMIODARONE HCL 200 MG TABLET GT SCH (08:43)
[2017-11-03] MEDS: BALSAM PERU/CASTOR OIL 60 GM OINT...G. TP SCH (08:43)
[2017-11-03 12:47] VITALS: BP_SYST 134
[2017-11-03 15:57] VITALS: BP_SYST 134
[2017-11-03 20:00] VITALS: BP_SYST 141
[2017-11-04 00:12] VITALS: BP_SYST 132
[2017-11-04] MEDS: IPRATROPIUM/ALBUTEROL SULFATE 3 ML AMPUL.NEB INH SCH ×6 (03:22→23:16)
[2017-11-04 08:00] VITALS: BP_SYST 133
[2017-11-04] MEDS: CHOLECALCIFEROL (VITAMIN D3) 2,000 UNIT TABLET GT SCH (09:10)
[2017-11-04] MEDS: GABAPENTIN 100 MG CAPSULE GT SCH ×3 (09:10→21:31)
[2017-11-04] MEDS: LEVOTHYROXINE SODIUM 0.1 MG TABLET GT SCH (09:10)
[2017-11-04] MEDS: amLODIPine BESYLATE 10 MG TABLET GT SCH (09:13)
[2017-11-04] MEDS: FERROUS SULFATE 300 MG/5 ML UDC GT SCH ×3 (09:13→21:32)
[2017-11-04] MEDS: ASCORBIC ACID 500 MG TABLET GT SCH (09:14)
[2017-11-04] MEDS: VALPROIC ACID ORAL SYRUP 250 MG/5 ML UDC GT SCH ×2 (09:14→21:32)
[2017-11-04] MEDS: PANTOPRAZOLE SODIUM 40 MG TAB GT SCH (09:14)
[2017-11-04] MEDS: BALSAM PERU/CASTOR OIL 60 GM OINT...G. TP SCH (09:15)
[2017-11-04 09:23] VITALS: BP_SYST 133
[2017-11-04 12:45] VITALS: BP_SYST 118
[2017-11-04] MEDS ORDERED: MORPHINE SULFATE 10 MG/5 ML ORAL SOL. UDC GT PRN (16:30)
[2017-11-04] MEDS ORDERED: traMADol HCL HCL 50 MG TABLET (ULTRAM) PO PRN (16:30)
[2017-11-04 16:36] VITALS: BP_SYST 140
[2017-11-04 20:00] VITALS: BP_SYST 126
[2017-11-04] MEDS: DOCUSATE SODIUM 100 MG/10 ML UDC GT SCH (21:32)
[2017-11-05 00:57] VITALS: BP_SYST 148
[2017-11-05] MEDS: IPRATROPIUM/ALBUTEROL SULFATE 3 ML AMPUL.NEB INH SCH ×6 (03:11→23:11)
[2017-11-05 08:40] VITALS: BP_SYST 145
[2017-11-05] MEDS: FERROUS SULFATE 300 MG/5 ML UDC GT SCH ×3 (09:11→21:59)
[2017-11-05] MEDS: DOCUSATE SODIUM 100 MG/10 ML UDC GT SCH ×2 (09:11→21:59)
[2017-11-05] MEDS: CHOLECALCIFEROL (VITAMIN D3) 2,000 UNIT TABLET GT SCH (09:12)
[2017-11-05] MEDS: LEVOTHYROXINE SODIUM 0.1 MG TABLET GT SCH (09:12)
[2017-11-05] MEDS: PANTOPRAZOLE SODIUM 40 MG TAB GT SCH (09:12)
[2017-11-05] MEDS: VALPROIC ACID ORAL SYRUP 250 MG/5 ML UDC GT SCH ×2 (09:12→21:59)
[2017-11-05] MEDS: AMIODARONE HCL 200 MG TABLET GT SCH (09:13)
[2017-11-05] MEDS: ASCORBIC ACID 500 MG TABLET GT SCH (09:13)
[2017-11-05] MEDS: amLODIPine BESYLATE 10 MG TABLET GT SCH (09:13)
[2017-11-05] MEDS: GABAPENTIN 100 MG CAPSULE GT SCH ×3 (09:13→21:58)
[2017-11-05 11:58] VITALS: BP_SYST 129
[2017-11-05 15:20] VITALS: BP_SYST 120
[2017-11-05 16:43] VITALS: BP_SYST 120
[2017-11-05] MEDS ORDERED: traMADol HCL HCL 50 MG TABLET (ULTRAM) GT PRN (19:04)
[2017-11-05 20:00] VITALS: BP_SYST 123
[2017-11-06 00:18] VITALS: BP_SYST 127
[2017-11-06] MEDS: IPRATROPIUM/ALBUTEROL SULFATE 3 ML AMPUL.NEB INH SCH ×6 (03:13→23:41)
[2017-11-06 06:32] LABS: CREATININE 1.67 mg/dL (0.55-1.30); POTASSIUM 3.7 mmol/L (3.5-5.1)
[2017-11-06 06:57] LABS: HEMATOCRIT 29.8 % (36-54); HEMOGLOBIN 10.2 g/dL (14.0-18.0); MEAN CORPUSCULAR HEMOGLOBIN 34 pg (27-31); MEAN CORPUSCULAR HGB CONC 34 % (32-36); MEAN CORPUSCULAR VOLUME 99 fL (79.0-98.0); PLATELET COUNT (AUTO) 426 K/uL (130-430); RED BLOOD CELL COUNT(AUTO) 3.02 MIL/uL (4.2-6.2); RED CELL DISTRIBUTION WIDTH 16.3 % (9.0-15.0)
[2017-11-06 07:12] LABS: WHITE BLOOD COUNT (AUTO) 34.7 K/uL (4.8-10.8)
[2017-11-06 08:00] VITALS: BP_SYST 141
[2017-11-06 08:28] LABS: BAND % (MANUAL) 10 % (0-6); LYMPHOCYTES % (MANUAL) 7 % (20-46)
[2017-11-06 08:29] LABS: BASOPHILS % (MANUAL) 0 % (0-2); EOSINOPHILS % (MANUAL) 4 % (0-7); METAMYELOCYTES % 1 % (0-0); MONOCYTES % (MANUAL) 5 % (0-11)
[2017-11-06] MEDS: FERROUS SULFATE 300 MG/5 ML UDC GT SCH ×3 (09:10→21:00)
[2017-11-06] MEDS: DOCUSATE SODIUM 100 MG/10 ML UDC GT SCH ×2 (09:10→21:00)
[2017-11-06] MEDS: ACETAMINOPHEN 650 MG/20.3 ML UDC GT PRN (09:10)
[2017-11-06] MEDS: VALPROIC ACID ORAL SYRUP 250 MG/5 ML UDC GT SCH ×2 (09:11→21:00)
[2017-11-06] MEDS: CHOLECALCIFEROL (VITAMIN D3) 2,000 UNIT TABLET GT SCH (09:12)
[2017-11-06] MEDS: amLODIPine BESYLATE 10 MG TABLET GT SCH (09:12)
[2017-11-06] MEDS: AMIODARONE HCL 200 MG TABLET GT SCH (09:12)
[2017-11-06] MEDS: BALSAM PERU/CASTOR OIL 60 GM OINT...G. TP SCH (09:13)
[2017-11-06] MEDS: LEVOTHYROXINE SODIUM 0.1 MG TABLET GT SCH (09:13)
[2017-11-06] MEDS: PANTOPRAZOLE SODIUM 40 MG TAB GT SCH (09:13)
[2017-11-06] MEDS: GABAPENTIN 100 MG CAPSULE GT SCH ×3 (09:13→21:00)
[2017-11-06] MEDS: ASCORBIC ACID 500 MG TABLET GT SCH (09:13)
[2017-11-06 12:49] VITALS: BP_SYST 127
[2017-11-06 14:21] LABS: BILIRUBIN,URINE NEGATIVE (NEGATIVE); BLOOD, URINE 3+ (NEGATIVE); CLARITY/URINE CLOUDY (CLEAR); COLOR,URINE YELLOW (YELLOW); GLUCOSE,URINE NEGATIVE (NEGATIVE); KETONES,URINE TRACE (NEGATIVE); LEUKOCYTE ESTERASE ,URINE 3+ (NEGATIVE); NITRITE, URINE NEGATIVE (NEGATIVE); PH,URINE 5.5 (5.0-8.0); PROTEIN URINE 2+ (NEGATIVE); UROBILINOGEN,URINE 0.2 (0.2-1.0)
[2017-11-06 14:34] LABS: BACTERIA,URINE MANY /HPF (None Seen); RBC,URINE >100 /HPF (0-3); WBC,URINE >100 /HPF (0-3)
[2017-11-06 14:35] LABS: COARSE GRANULAR CASTS,URINE 0-10 /LPF (None Seen); MUCUS,URINE None Seen /LPF (None Seen); URINE AMORPHOUS URATE 2+ /HPF (None Seen)
[2017-11-06 15:25] VITALS: BP_SYST 121
[2017-11-06 16:59] VITALS: BP_SYST 121
[2017-11-06] MEDS: PIPERACILLIN/TAZO 2.25G/DEX-IS 50 ML IV SCH ×2 (17:33→23:10)
[2017-11-06 20:00] VITALS: BP_SYST 126
[2017-11-07 01:32] VITALS: BP_SYST 136
[2017-11-07] MEDS: IPRATROPIUM/ALBUTEROL SULFATE 3 ML AMPUL.NEB INH SCH ×6 (03:52→23:14)
[2017-11-07] MEDS: PIPERACILLIN/TAZO 2.25G/DEX-IS 50 ML IV SCH ×4 (05:15→23:18)
[2017-11-07] MEDS: ACETAMINOPHEN 650 MG/20.3 ML UDC GT PRN (05:37)
[2017-11-07 08:15] VITALS: BP_SYST 110
[2017-11-07] MEDS: DOCUSATE SODIUM 100 MG/10 ML UDC GT SCH ×2 (08:25→20:54)
[2017-11-07] MEDS: GABAPENTIN 100 MG CAPSULE GT SCH ×3 (08:26→20:54)
[2017-11-07] MEDS: VALPROIC ACID ORAL SYRUP 250 MG/5 ML UDC GT SCH ×2 (08:26→20:54)
[2017-11-07] MEDS: PANTOPRAZOLE SODIUM 40 MG TAB GT SCH (08:26)
[2017-11-07] MEDS: FERROUS SULFATE 300 MG/5 ML UDC GT SCH ×3 (08:26→20:54)
[2017-11-07] MEDS: CHOLECALCIFEROL (VITAMIN D3) 2,000 UNIT TABLET GT SCH (08:26)
[2017-11-07] MEDS: LEVOTHYROXINE SODIUM 0.1 MG TABLET GT SCH (08:27)
[2017-11-07] MEDS: amLODIPine BESYLATE 10 MG TABLET GT SCH (08:28)
[2017-11-07] MEDS: AMIODARONE HCL 200 MG TABLET GT SCH (08:28)
[2017-11-07] MEDS: ASCORBIC ACID 500 MG TABLET GT SCH (08:29)
[2017-11-07] MEDS: BALSAM PERU/CASTOR OIL 60 GM OINT...G. TP SCH (08:30)
[2017-11-07 12:57] VITALS: BP_SYST 123
[2017-11-07 16:42] VITALS: BP_SYST 131
[2017-11-07 20:00] VITALS: BP_SYST 124
[2017-11-07 23:58] VITALS: BP_SYST 116
[2017-11-08] MEDS: IPRATROPIUM/ALBUTEROL SULFATE 3 ML AMPUL.NEB INH SCH ×6 (03:53→23:46)
[2017-11-08 05:31] LABS: BASOPHILS # (AUTO) 0.1 K/uL (0.0-0.2); BASOPHILS % (AUTO) 0.3 % (0.0-2.0); EOSINOPHILS # (AUTO) 2.6 K/uL (0.0-0.4); EOSINOPHILS % (AUTO) 7.7 % (0.0-4.0); HEMATOCRIT 26.5 % (36-54); LYMPHOCYTES # (AUTO) 2.4 K/uL (1.0-5.5); LYMPHOCYTES % (AUTO) 7.2 % (20.5-51.5); MEAN CORPUSCULAR HEMOGLOBIN 34 pg (27-31); MEAN CORPUSCULAR HGB CONC 34 % (32-36); MEAN CORPUSCULAR VOLUME 99 fL (79.0-98.0); MONOCYTES # (AUTO) 1.8 K/uL (0.0-1.0); MONOCYTES % (AUTO) 5.5 % (1.7-9.3); NEUTROPHILS # (AUTO) 26.7 K/uL (1.8-7.7); NEUTROPHILS % (AUTO) 79.3 % (40.0-70.0); PLATELET COUNT (AUTO) 345 K/uL (130-430); RED BLOOD CELL COUNT(AUTO) 2.67 MIL/uL (4.2-6.2); RED CELL DISTRIBUTION WIDTH 15.9 % (9.0-15.0)
[2017-11-08 05:45] LABS: CALCIUM 9.9 mg/dL (8.4-11.0); CREATININE 1.94 mg/dL (0.55-1.30); POTASSIUM 3.4 mmol/L (3.5-5.1)
[2017-11-08] MEDS: PIPERACILLIN/TAZO 2.25G/DEX-IS 50 ML IV SCH ×4 (05:53→23:35)
[2017-11-08 07:13] LABS: WHITE BLOOD COUNT (AUTO) 33.6 K/uL (4.8-10.8)
[2017-11-08 07:45] VITALS: BP_SYST 135
[2017-11-08] MEDS ORDERED: POTASSIUM CHLORIDE 20 MEQ/PKT PACKET PO ONE (09:15)
[2017-11-08] MEDS: FERROUS SULFATE 300 MG/5 ML UDC GT SCH ×3 (09:58→21:20)
[2017-11-08] MEDS: LEVOTHYROXINE SODIUM 0.1 MG TABLET GT SCH (09:59)
[2017-11-08] MEDS: amLODIPine BESYLATE 10 MG TABLET GT SCH (09:59)
[2017-11-08] MEDS: DOCUSATE SODIUM 100 MG/10 ML UDC GT SCH ×2 (09:59→21:19)
[2017-11-08] MEDS: GABAPENTIN 100 MG CAPSULE GT SCH ×3 (10:00→21:20)
[2017-11-08] MEDS: ASCORBIC ACID 500 MG TABLET GT SCH (10:00)
[2017-11-08] MEDS: AMIODARONE HCL 200 MG TABLET GT SCH (10:00)
[2017-11-08] MEDS: PANTOPRAZOLE SODIUM 40 MG TAB GT SCH (10:00)
[2017-11-08] MEDS: CHOLECALCIFEROL (VITAMIN D3) 2,000 UNIT TABLET GT SCH (10:00)
[2017-11-08] MEDS: BALSAM PERU/CASTOR OIL 60 GM OINT...G. TP SCH (10:01)
[2017-11-08 12:05] VITALS: BP_SYST 123
[2017-11-08] MEDS: VALPROIC ACID ORAL SYRUP 250 MG/5 ML UDC GT SCH ×2 (12:06→21:19)
[2017-11-08 16:20] VITALS: BP_SYST 128
[2017-11-08 20:35] VITALS: BP_SYST 117
[2017-11-08 23:51] VITALS: BP_SYST 113
[2017-11-09] MEDS: IPRATROPIUM/ALBUTEROL SULFATE 3 ML AMPUL.NEB INH SCH ×6 (04:02→23:11)
[2017-11-09] MEDS: PIPERACILLIN/TAZO 2.25G/DEX-IS 50 ML IV SCH ×3 (05:38→17:39)
[2017-11-09] MEDS: FERROUS SULFATE 300 MG/5 ML UDC GT SCH ×3 (09:12→21:40)
[2017-11-09] MEDS: VALPROIC ACID ORAL SYRUP 250 MG/5 ML UDC GT SCH ×2 (09:12→21:40)
[2017-11-09] MEDS: DOCUSATE SODIUM 100 MG/10 ML UDC GT SCH ×2 (09:12→21:40)
[2017-11-09] MEDS: GABAPENTIN 100 MG CAPSULE GT SCH ×3 (09:13→21:40)
[2017-11-09] MEDS: ASCORBIC ACID 500 MG TABLET GT SCH (09:13)
[2017-11-09] MEDS: PANTOPRAZOLE SODIUM 40 MG TAB GT SCH (09:13)
[2017-11-09] MEDS: CHOLECALCIFEROL (VITAMIN D3) 2,000 UNIT TABLET GT SCH (09:13)
[2017-11-09 09:15] VITALS: BP_SYST 117
[2017-11-09] MEDS: amLODIPine BESYLATE 10 MG TABLET GT SCH (09:16)
[2017-11-09] MEDS: LEVOTHYROXINE SODIUM 0.1 MG TABLET GT SCH (09:17)
[2017-11-09] MEDS: AMIODARONE HCL 200 MG TABLET GT SCH (09:18)
[2017-11-09] MEDS: BALSAM PERU/CASTOR OIL 60 GM OINT...G. TP SCH (09:19)
[2017-11-09 11:50] VITALS: BP_SYST 120
[2017-11-09 17:05] VITALS: BP_SYST 114
[2017-11-09 20:30] VITALS: BP_SYST 133
[2017-11-10] VITALS (7 sets, daily range): BP systolic 124–143
[2017-11-10] MEDS: PIPERACILLIN/TAZO 2.25G/DEX-IS 50 ML IV SCH ×4 (00:09→17:44)
[2017-11-10] MEDS: IPRATROPIUM/ALBUTEROL SULFATE 3 ML AMPUL.NEB INH SCH ×4 (02:30→23:51)
[2017-11-10 06:20] LABS: BASOPHILS # (AUTO) 0.1 K/uL (0.0-0.2); BASOPHILS % (AUTO) 0.4 % (0.0-2.0); EOSINOPHILS # (AUTO) 5.4 K/uL (0.0-0.4); EOSINOPHILS % (AUTO) 22.8 % (0.0-4.0); HEMATOCRIT 25.3 % (36-54); HEMOGLOBIN 8.6 g/dL (14.0-18.0); LYMPHOCYTES # (AUTO) 1.8 K/uL (1.0-5.5); LYMPHOCYTES % (AUTO) 7.7 % (20.5-51.5); MEAN CORPUSCULAR HEMOGLOBIN 33 pg (27-31); MEAN CORPUSCULAR HGB CONC 34 % (32-36); MEAN CORPUSCULAR VOLUME 99 fL (79.0-98.0); MONOCYTES # (AUTO) 1.4 K/uL (0.0-1.0); MONOCYTES % (AUTO) 5.8 % (1.7-9.3); NEUTROPHILS % (AUTO) 63.3 % (40.0-70.0); PLATELET COUNT (AUTO) 349 K/uL (130-430); RED BLOOD CELL COUNT(AUTO) 2.56 MIL/uL (4.2-6.2); RED CELL DISTRIBUTION WIDTH 15.7 % (9.0-15.0); WHITE BLOOD COUNT (AUTO) 23.7 K/uL (4.8-10.8)
[2017-11-10 06:29] LABS: CALCIUM 9.9 mg/dL (8.4-11.0); CREATININE 1.8 mg/dL (0.55-1.30); POTASSIUM 3.4 mmol/L (3.5-5.1)
[2017-11-10] MEDS: DOCUSATE SODIUM 100 MG/10 ML UDC GT SCH ×2 (09:50→20:46)
[2017-11-10] MEDS: FERROUS SULFATE 300 MG/5 ML UDC GT SCH ×3 (09:51→20:47)
[2017-11-10] MEDS: VALPROIC ACID ORAL SYRUP 250 MG/5 ML UDC GT SCH ×2 (09:51→20:47)
[2017-11-10] MEDS: GABAPENTIN 100 MG CAPSULE GT SCH ×3 (09:51→20:47)
[2017-11-10] MEDS: CHOLECALCIFEROL (VITAMIN D3) 2,000 UNIT TABLET GT SCH (09:51)
[2017-11-10] MEDS: PANTOPRAZOLE SODIUM 40 MG TAB GT SCH (09:53)
[2017-11-10] MEDS: LEVOTHYROXINE SODIUM 0.1 MG TABLET GT SCH (09:53)
[2017-11-10] MEDS: AMIODARONE HCL 200 MG TABLET GT SCH (09:53)
[2017-11-10] MEDS: amLODIPine BESYLATE 10 MG TABLET GT SCH (09:54)
[2017-11-10] MEDS: ASCORBIC ACID 500 MG TABLET GT SCH (09:54)
[2017-11-10] MEDS: BALSAM PERU/CASTOR OIL 60 GM OINT...G. TP SCH (09:55)
[2017-11-10] MEDS ORDERED: POTASSIUM CHLORIDE 20 MEQ/PKT PACKET PO ONE (12:00)
[2017-11-11] VITALS: BP_SYST 134
[2017-11-11] MEDS: PIPERACILLIN/TAZO 2.25G/DEX-IS 50 ML IV SCH ×5 (00:49→23:36)
[2017-11-11] MEDS: ACETAMINOPHEN 650 MG/20.3 ML UDC GT PRN (02:23)
[2017-11-11] MEDS: IPRATROPIUM/ALBUTEROL SULFATE 3 ML AMPUL.NEB INH SCH ×6 (03:04→23:03)
[2017-11-11 08:00] VITALS: BP_SYST 129
[2017-11-11] MEDS: FERROUS SULFATE 300 MG/5 ML UDC GT SCH ×3 (09:55→21:52)
[2017-11-11] MEDS: DOCUSATE SODIUM 100 MG/10 ML UDC GT SCH ×2 (09:56→21:52)
[2017-11-11] MEDS: GABAPENTIN 100 MG CAPSULE GT SCH ×3 (09:57→21:52)
[2017-11-11] MEDS: CHOLECALCIFEROL (VITAMIN D3) 2,000 UNIT TABLET GT SCH (09:57)
[2017-11-11] MEDS: AMIODARONE HCL 200 MG TABLET GT SCH (10:04)
[2017-11-11] MEDS: LEVOTHYROXINE SODIUM 0.1 MG TABLET GT SCH (10:05)
[2017-11-11] MEDS: ASCORBIC ACID 500 MG TABLET GT SCH (10:05)
[2017-11-11] MEDS: PANTOPRAZOLE SODIUM 40 MG TAB GT SCH (10:06)
[2017-11-11] MEDS: amLODIPine BESYLATE 10 MG TABLET GT SCH (10:19)
[2017-11-11] MEDS: VALPROIC ACID ORAL SYRUP 250 MG/5 ML UDC GT SCH ×2 (10:21→21:54)
[2017-11-11] MEDS: BALSAM PERU/CASTOR OIL 60 GM OINT...G. TP SCH (10:24)
[2017-11-11 12:35] VITALS: BP_SYST 132
[2017-11-11 17:58] VITALS: BP_SYST 129
[2017-11-11 20:00] VITALS: BP_SYST 138
[2017-11-12 00:20] VITALS: BP_SYST 130
[2017-11-12] MEDS: IPRATROPIUM/ALBUTEROL SULFATE 3 ML AMPUL.NEB INH SCH ×6 (03:17→23:14)
[2017-11-12] MEDS: PIPERACILLIN/TAZO 2.25G/DEX-IS 50 ML IV SCH ×4 (05:19→23:42)
[2017-11-12 08:20] VITALS: BP_SYST 126
[2017-11-12] MEDS: DOCUSATE SODIUM 100 MG/10 ML UDC GT SCH ×2 (08:39→21:14)
[2017-11-12] MEDS: GABAPENTIN 100 MG CAPSULE GT SCH ×3 (08:40→21:15)
[2017-11-12] MEDS: PANTOPRAZOLE SODIUM 40 MG TAB GT SCH (08:40)
[2017-11-12] MEDS: AMIODARONE HCL 200 MG TABLET GT SCH (08:40)
[2017-11-12] MEDS: FERROUS SULFATE 300 MG/5 ML UDC GT SCH ×3 (08:41→21:14)
[2017-11-12] MEDS: VALPROIC ACID ORAL SYRUP 250 MG/5 ML UDC GT SCH ×2 (08:41→21:15)
[2017-11-12] MEDS: ASCORBIC ACID 500 MG TABLET GT SCH (08:42)
[2017-11-12] MEDS: CHOLECALCIFEROL (VITAMIN D3) 2,000 UNIT TABLET GT SCH (08:42)
[2017-11-12] MEDS: LEVOTHYROXINE SODIUM 0.1 MG TABLET GT SCH (08:42)
[2017-11-12] MEDS: amLODIPine BESYLATE 10 MG TABLET GT SCH (08:42)
[2017-11-12] MEDS: BALSAM PERU/CASTOR OIL 60 GM OINT...G. TP SCH (08:43)
[2017-11-12 11:53] VITALS: BP_SYST 125
[2017-11-12 16:10] VITALS: BP_SYST 127
[2017-11-13] VITALS (9 sets, daily range): BP systolic 96–158
[2017-11-13] MEDS: IPRATROPIUM/ALBUTEROL SULFATE 3 ML AMPUL.NEB INH SCH ×5 (03:22→23:46)
[2017-11-13] MEDS: PIPERACILLIN/TAZO 2.25G/DEX-IS 50 ML IV SCH ×3 (05:25→17:30)
[2017-11-13 06:33] LABS: CALCIUM 10.1 mg/dL (8.4-11.0); CREATININE 1.63 mg/dL (0.55-1.30); POTASSIUM 3.9 mmol/L (3.5-5.1)
[2017-11-13 06:43] LABS: HEMATOCRIT 26.6 % (36-54); HEMOGLOBIN 9.4 g/dL (14.0-18.0); MEAN CORPUSCULAR HEMOGLOBIN 35 pg (27-31); MEAN CORPUSCULAR HGB CONC 35 % (32-36); MEAN CORPUSCULAR VOLUME 99 fL (79.0-98.0); PLATELET COUNT (AUTO) 520 K/uL (130-430); RED CELL DISTRIBUTION WIDTH 15.5 % (9.0-15.0); WHITE BLOOD COUNT (AUTO) 24.8 K/uL (4.8-10.8)
[2017-11-13 08:15] LABS: BAND % (MANUAL) 6 % (0-6); BASOPHILS % (MANUAL) 0 % (0-2); EOSINOPHILS % (MANUAL) 21 % (0-7); LYMPHOCYTES % (MANUAL) 10 % (20-46); METAMYELOCYTES % 1 % (0-0); MONOCYTES % (MANUAL) 2 % (0-11); MYELOCYTES % 2 % (0-0)
[2017-11-13] MEDS: DOCUSATE SODIUM 100 MG/10 ML UDC GT SCH ×2 (09:28→21:05)
[2017-11-13] MEDS: FERROUS SULFATE 300 MG/5 ML UDC GT SCH ×3 (09:28→21:04)
[2017-11-13] MEDS: PANTOPRAZOLE SODIUM 40 MG TAB GT SCH (09:28)
[2017-11-13] MEDS: ASCORBIC ACID 500 MG TABLET GT SCH (09:29)
[2017-11-13] MEDS: AMIODARONE HCL 200 MG TABLET GT SCH (09:29)
[2017-11-13] MEDS: LEVOTHYROXINE SODIUM 0.1 MG TABLET GT SCH (09:29)
[2017-11-13] MEDS: GABAPENTIN 100 MG CAPSULE GT SCH ×3 (09:29→21:05)
[2017-11-13] MEDS: CHOLECALCIFEROL (VITAMIN D3) 2,000 UNIT TABLET GT SCH (09:29)
[2017-11-13] MEDS: VALPROIC ACID ORAL SYRUP 250 MG/5 ML UDC GT SCH ×2 (09:30→21:05)
[2017-11-13] MEDS: amLODIPine BESYLATE 10 MG TABLET GT SCH (09:30)
[2017-11-13] MEDS: BALSAM PERU/CASTOR OIL 60 GM OINT...G. TP SCH (09:31)
[2017-11-13] MEDS: D5W 1,000 ML IV SCH (15:52)
[2017-11-14] MEDS: IPRATROPIUM/ALBUTEROL SULFATE 3 ML AMPUL.NEB INH SCH ×6 (04:43→23:56)
[2017-11-14] MEDS: PIPERACILLIN/TAZO 2.25G/DEX-IS 50 ML IV SCH ×5 (05:36→23:36)
[2017-11-14 08:53] VITALS: BP_SYST 148
[2017-11-14] MEDS: DOCUSATE SODIUM 100 MG/10 ML UDC GT SCH ×2 (08:55→20:51)
[2017-11-14] MEDS: FERROUS SULFATE 300 MG/5 ML UDC GT SCH ×3 (08:55→20:50)
[2017-11-14] MEDS: VALPROIC ACID ORAL SYRUP 250 MG/5 ML UDC GT SCH ×2 (08:55→20:51)
[2017-11-14] MEDS: ASCORBIC ACID 500 MG TABLET GT SCH (08:56)
[2017-11-14] MEDS: AMIODARONE HCL 200 MG TABLET GT SCH (08:56)
[2017-11-14] MEDS: PANTOPRAZOLE SODIUM 40 MG TAB GT SCH (08:56)
[2017-11-14] MEDS: CHOLECALCIFEROL (VITAMIN D3) 2,000 UNIT TABLET GT SCH (08:56)
[2017-11-14] MEDS: GABAPENTIN 100 MG CAPSULE GT SCH ×3 (08:56→20:50)
[2017-11-14] MEDS: LEVOTHYROXINE SODIUM 0.1 MG TABLET GT SCH (08:57)
[2017-11-14] MEDS: amLODIPine BESYLATE 10 MG TABLET GT SCH (08:57)
[2017-11-14] MEDS: BALSAM PERU/CASTOR OIL 60 GM OINT...G. TP SCH (08:58)
[2017-11-14 11:00] VITALS: BP_SYST 150
[2017-11-14] MEDS: D5W 1,000 ML IV SCH (11:17)
[2017-11-14 11:41] VITALS: BP_SYST 142
[2017-11-14 16:45] VITALS: BP_SYST 148
[2017-11-14 23:27] VITALS: BP_SYST 143
[2017-11-15] MEDS: IPRATROPIUM/ALBUTEROL SULFATE 3 ML AMPUL.NEB INH SCH ×6 (03:10→23:23)
[2017-11-15] MEDS: PIPERACILLIN/TAZO 2.25G/DEX-IS 50 ML IV SCH ×3 (05:42→17:22)
[2017-11-15] MEDS: D5W 1,000 ML IV SCH (05:47)
[2017-11-15 07:01] LABS: BASOPHILS % (AUTO) 0.2 % (0.0-2.0); EOSINOPHILS # (AUTO) 4.9 K/uL (0.0-0.4); EOSINOPHILS % (AUTO) 22.1 % (0.0-4.0); HEMATOCRIT 26.4 % (36-54); HEMOGLOBIN 9.1 g/dL (14.0-18.0); LYMPHOCYTES # (AUTO) 2.2 K/uL (1.0-5.5); LYMPHOCYTES % (AUTO) 10.1 % (20.5-51.5); MEAN CORPUSCULAR HEMOGLOBIN 34 pg (27-31); MEAN CORPUSCULAR HGB CONC 35 % (32-36); MEAN CORPUSCULAR VOLUME 98 fL (79.0-98.0); MONOCYTES # (AUTO) 1.6 K/uL (0.0-1.0); MONOCYTES % (AUTO) 7.1 % (1.7-9.3); NEUTROPHILS # (AUTO) 13.3 K/uL (1.8-7.7); NEUTROPHILS % (AUTO) 60.5 % (40.0-70.0); PLATELET COUNT (AUTO) 600 K/uL (130-430); RED BLOOD CELL COUNT(AUTO) 2.71 MIL/uL (4.2-6.2); RED CELL DISTRIBUTION WIDTH 15.3 % (9.0-15.0)
[2017-11-15 07:40] LABS: CALCIUM 10.3 mg/dL (8.4-11.0); CREATININE 1.74 mg/dL (0.55-1.30); POTASSIUM 3.7 mmol/L (3.5-5.1)
[2017-11-15 08:00] VITALS: BP_SYST 126
[2017-11-15] MEDS: DOCUSATE SODIUM 100 MG/10 ML UDC GT SCH ×2 (09:02→21:37)
[2017-11-15] MEDS: LEVOTHYROXINE SODIUM 0.1 MG TABLET GT SCH (09:03)
[2017-11-15] MEDS: VALPROIC ACID ORAL SYRUP 250 MG/5 ML UDC GT SCH ×2 (09:03→21:37)
[2017-11-15] MEDS: GABAPENTIN 100 MG CAPSULE GT SCH ×3 (09:03→21:37)
[2017-11-15] MEDS: PANTOPRAZOLE SODIUM 40 MG TAB GT SCH (09:03)
[2017-11-15] MEDS: FERROUS SULFATE 300 MG/5 ML UDC GT SCH ×3 (09:03→21:37)
[2017-11-15] MEDS: amLODIPine BESYLATE 10 MG TABLET GT SCH (09:04)
[2017-11-15] MEDS: CHOLECALCIFEROL (VITAMIN D3) 2,000 UNIT TABLET GT SCH (09:04)
[2017-11-15] MEDS: AMIODARONE HCL 200 MG TABLET GT SCH (09:04)
[2017-11-15] MEDS: ASCORBIC ACID 500 MG TABLET GT SCH (09:04)
[2017-11-15] MEDS: BALSAM PERU/CASTOR OIL 60 GM OINT...G. TP SCH (09:06)
[2017-11-15 12:57] VITALS: BP_SYST 133
[2017-11-15 17:25] VITALS: BP_SYST 128
[2017-11-15 20:37] VITALS: BP_SYST 141
[2017-11-16] MEDS: PIPERACILLIN/TAZO 2.25G/DEX-IS 50 ML IV SCH ×4 (00:03→17:42)
[2017-11-16 00:13] VITALS: BP_SYST 142
[2017-11-16] MEDS: D5W 1,000 ML IV SCH ×2 (03:02→22:45)
[2017-11-16] MEDS: IPRATROPIUM/ALBUTEROL SULFATE 3 ML AMPUL.NEB INH SCH ×6 (03:50→22:36)
[2017-11-16 08:35] VITALS: BP_SYST 165
[2017-11-16] MEDS: DOCUSATE SODIUM 100 MG/10 ML UDC GT SCH ×2 (08:48→20:34)
[2017-11-16] MEDS: FERROUS SULFATE 300 MG/5 ML UDC GT SCH ×3 (08:48→20:35)
[2017-11-16] MEDS: VALPROIC ACID ORAL SYRUP 250 MG/5 ML UDC GT SCH ×2 (08:49→20:34)
[2017-11-16] MEDS: ASCORBIC ACID 500 MG TABLET GT SCH (08:49)
[2017-11-16] MEDS: GABAPENTIN 100 MG CAPSULE GT SCH ×3 (08:49→20:34)
[2017-11-16] MEDS: PANTOPRAZOLE SODIUM 40 MG TAB GT SCH (08:49)
[2017-11-16] MEDS: LEVOTHYROXINE SODIUM 0.1 MG TABLET GT SCH (08:49)
[2017-11-16] MEDS: CHOLECALCIFEROL (VITAMIN D3) 2,000 UNIT TABLET GT SCH (08:49)
[2017-11-16] MEDS: BALSAM PERU/CASTOR OIL 60 GM OINT...G. TP SCH (08:50)
[2017-11-16] MEDS: AMIODARONE HCL 200 MG TABLET GT SCH (08:53)
[2017-11-16] MEDS: amLODIPine BESYLATE 10 MG TABLET GT SCH (08:53)
[2017-11-16 11:26] VITALS: BP_SYST 143
[2017-11-16 12:54] VITALS: BP_SYST 143
[2017-11-16 15:34] VITALS: BP_SYST 121
[2017-11-16 20:00] VITALS: BP_SYST 134
[2017-11-17] VITALS (7 sets, daily range): BP systolic 116–151
[2017-11-17] MEDS: PIPERACILLIN/TAZO 2.25G/DEX-IS 50 ML IV SCH ×5 (00:12→23:09)
[2017-11-17] MEDS: D5W 1,000 ML IV SCH (01:55)
[2017-11-17] MEDS: IPRATROPIUM/ALBUTEROL SULFATE 3 ML AMPUL.NEB INH SCH ×6 (02:40→23:20)
[2017-11-17 07:11] LABS: CALCIUM 10.6 mg/dL (8.4-11.0); CREATININE 1.77 mg/dL (0.55-1.30); POTASSIUM 3.9 mmol/L (3.5-5.1)
[2017-11-17 07:18] LABS: BASOPHILS % (AUTO) 0.2 % (0.0-2.0); EOSINOPHILS # (AUTO) 5.2 K/uL (0.0-0.4); EOSINOPHILS % (AUTO) 21.5 % (0.0-4.0); HEMATOCRIT 28.2 % (36-54); HEMOGLOBIN 9.9 g/dL (14.0-18.0); LYMPHOCYTES % (AUTO) 8.1 % (20.5-51.5); MEAN CORPUSCULAR HEMOGLOBIN 35 pg (27-31); MEAN CORPUSCULAR HGB CONC 35 % (32-36); MEAN CORPUSCULAR VOLUME 98 fL (79.0-98.0); MONOCYTES # (AUTO) 1.6 K/uL (0.0-1.0); MONOCYTES % (AUTO) 6.7 % (1.7-9.3); NEUTROPHILS # (AUTO) 15.4 K/uL (1.8-7.7); NEUTROPHILS % (AUTO) 63.5 % (40.0-70.0); PLATELET COUNT (AUTO) 658 K/uL (130-430); RED BLOOD CELL COUNT(AUTO) 2.88 MIL/uL (4.2-6.2); RED CELL DISTRIBUTION WIDTH 15.8 % (9.0-15.0)
[2017-11-17 07:23] LABS: WHITE BLOOD COUNT (AUTO) 24.2 K/uL (4.8-10.8)
[2017-11-17] MEDS: DOCUSATE SODIUM 100 MG/10 ML UDC GT SCH ×2 (09:31→20:22)
[2017-11-17] MEDS: LEVOTHYROXINE SODIUM 0.1 MG TABLET GT SCH (09:31)
[2017-11-17] MEDS: ASCORBIC ACID 500 MG TABLET GT SCH (09:31)
[2017-11-17] MEDS: FERROUS SULFATE 300 MG/5 ML UDC GT SCH ×3 (09:31→20:22)
[2017-11-17] MEDS: AMIODARONE HCL 200 MG TABLET GT SCH (09:32)
[2017-11-17] MEDS: CHOLECALCIFEROL (VITAMIN D3) 2,000 UNIT TABLET GT SCH (09:32)
[2017-11-17] MEDS: GABAPENTIN 100 MG CAPSULE GT SCH ×3 (09:32→20:22)
[2017-11-17] MEDS: PANTOPRAZOLE SODIUM 40 MG TAB GT SCH (09:32)
[2017-11-17] MEDS: amLODIPine BESYLATE 10 MG TABLET GT SCH (09:33)
[2017-11-17] MEDS: VALPROIC ACID ORAL SYRUP 250 MG/5 ML UDC GT SCH ×2 (09:35→20:23)
[2017-11-17] MEDS: 0.45% NACL 1,000 ML IV SCH (11:33)
[2017-11-17] MEDS: BALSAM PERU/CASTOR OIL 60 GM OINT...G. TP SCH (14:40)
[2017-11-18] MEDS: IPRATROPIUM/ALBUTEROL SULFATE 3 ML AMPUL.NEB INH SCH ×2 (04:22→23:21)
[2017-11-18] MEDS: PIPERACILLIN/TAZO 2.25G/DEX-IS 50 ML IV SCH ×2 (05:05→12:05)
[2017-11-18 08:00] VITALS: BP_SYST 140
[2017-11-18] MEDS: FERROUS SULFATE 300 MG/5 ML UDC GT SCH ×3 (10:10→21:58)
[2017-11-18] MEDS: DOCUSATE SODIUM 100 MG/10 ML UDC GT SCH ×2 (10:11→21:58)
[2017-11-18] MEDS: VALPROIC ACID ORAL SYRUP 250 MG/5 ML UDC GT SCH ×2 (10:12→21:00)
[2017-11-18] MEDS: ASCORBIC ACID 500 MG TABLET GT SCH (10:12)
[2017-11-18] MEDS: PANTOPRAZOLE SODIUM 40 MG TAB GT SCH (10:12)
[2017-11-18] MEDS: CHOLECALCIFEROL (VITAMIN D3) 2,000 UNIT TABLET GT SCH (10:12)
[2017-11-18] MEDS: LEVOTHYROXINE SODIUM 0.1 MG TABLET GT SCH (10:12)
[2017-11-18] MEDS: AMIODARONE HCL 200 MG TABLET GT SCH (10:13)
[2017-11-18] MEDS: GABAPENTIN 100 MG CAPSULE GT SCH ×3 (10:13→21:58)
[2017-11-18] MEDS: amLODIPine BESYLATE 10 MG TABLET GT SCH (10:14)
[2017-11-18 12:45] VITALS: BP_SYST 127
[2017-11-18] MEDS: BALSAM PERU/CASTOR OIL 60 GM OINT...G. TP SCH (16:42)
[2017-11-18] MEDS: 0.45% NACL 1,000 ML IV SCH (16:43)
[2017-11-18 17:54] VITALS: BP_SYST 144
[2017-11-18] MEDS: DIPHENHYDRAMINE INJ 50 MG/ML VIAL IVP PRN (21:58)
[2017-11-19] VITALS (7 sets, daily range): BP systolic 129–144
[2017-11-19] MEDS: IPRATROPIUM/ALBUTEROL SULFATE 3 ML AMPUL.NEB INH SCH ×5 (02:11→23:43)
[2017-11-19] MEDS: DIPHENHYDRAMINE INJ 50 MG/ML VIAL IVP PRN ×2 (05:13→09:58)
[2017-11-19] MEDS: PANTOPRAZOLE SODIUM 40 MG TAB GT SCH (09:54)
[2017-11-19] MEDS: GABAPENTIN 100 MG CAPSULE GT SCH ×3 (09:54→20:32)
[2017-11-19] MEDS: FERROUS SULFATE 300 MG/5 ML UDC GT SCH ×3 (09:54→20:32)
[2017-11-19] MEDS: DOCUSATE SODIUM 100 MG/10 ML UDC GT SCH ×2 (09:54→20:32)
[2017-11-19] MEDS: VALPROIC ACID ORAL SYRUP 250 MG/5 ML UDC GT SCH ×2 (09:56→20:32)
[2017-11-19] MEDS: AMIODARONE HCL 200 MG TABLET GT SCH (09:56)
[2017-11-19] MEDS: 0.45% NACL 1,000 ML IV SCH ×2 (11:00→20:37)
[2017-11-19] MEDS: BALSAM PERU/CASTOR OIL 60 GM OINT...G. TP SCH (16:19)
[2017-11-19] MEDS: MORPHINE 4 MG/ML INJ. SYRINGE IVP PRN (16:38)
[2017-11-20 00:39] VITALS: BP_SYST 144
[2017-11-20] MEDS: IPRATROPIUM/ALBUTEROL SULFATE 3 ML AMPUL.NEB INH SCH ×6 (03:44→23:25)
[2017-11-20] MEDS: DOCUSATE SODIUM 100 MG/10 ML UDC GT SCH ×2 (08:33→21:02)
[2017-11-20] MEDS: FERROUS SULFATE 300 MG/5 ML UDC GT SCH ×3 (08:34→21:03)
[2017-11-20] MEDS: VALPROIC ACID ORAL SYRUP 250 MG/5 ML UDC GT SCH ×2 (08:34→21:03)
[2017-11-20] MEDS: PANTOPRAZOLE SODIUM 40 MG TAB GT SCH (08:35)
[2017-11-20] MEDS: GABAPENTIN 100 MG CAPSULE GT SCH ×3 (08:35→21:02)
[2017-11-20] MEDS: AMIODARONE HCL 200 MG TABLET GT SCH (08:35)
[2017-11-20 08:49] VITALS: BP_SYST 151
[2017-11-20] MEDS: BALSAM PERU/CASTOR OIL 60 GM OINT...G. TP SCH (09:37)
[2017-11-20] MEDS: DIPHENHYDRAMINE INJ 50 MG/ML VIAL IVP PRN (09:37)
[2017-11-20 12:09] VITALS: BP_SYST 132
[2017-11-20 15:15] VITALS: BP_SYST 150
[2017-11-20 16:20] VITALS: BP_SYST 150
[2017-11-21 01:03] VITALS: BP_SYST 138
[2017-11-21] MEDS: IPRATROPIUM/ALBUTEROL SULFATE 3 ML AMPUL.NEB INH SCH ×6 (03:26→23:17)
[2017-11-21 08:00] VITALS: BP_SYST 133
[2017-11-21] MEDS: 0.45% NACL 1,000 ML IV SCH (08:31)
[2017-11-21] MEDS: DOCUSATE SODIUM 100 MG/10 ML UDC GT SCH ×2 (10:15→21:04)
[2017-11-21] MEDS: VALPROIC ACID ORAL SYRUP 250 MG/5 ML UDC GT SCH ×2 (10:16→21:04)
[2017-11-21] MEDS: PANTOPRAZOLE SODIUM 40 MG TAB GT SCH (10:16)
[2017-11-21] MEDS: GABAPENTIN 100 MG CAPSULE GT SCH ×3 (10:16→21:03)
[2017-11-21] MEDS: BALSAM PERU/CASTOR OIL 60 GM OINT...G. TP SCH (10:17)
[2017-11-21] MEDS: AMIODARONE HCL 200 MG TABLET GT SCH (10:17)
[2017-11-21 12:49] VITALS: BP_SYST 146
[2017-11-21 16:28] VITALS: BP_SYST 141
[2017-11-21 19:15] VITALS: BP_SYST 143
[2017-11-21] MEDS: FERROUS SULFATE 300 MG/5 ML UDC GT SCH (21:06)
[2017-11-21 23:37] VITALS: BP_SYST 116
[2017-11-22] MEDS: DIPHENHYDRAMINE INJ 50 MG/ML VIAL IVP PRN ×3 (03:23→20:07)
[2017-11-22] MEDS: IPRATROPIUM/ALBUTEROL SULFATE 3 ML AMPUL.NEB INH SCH ×6 (03:27→23:01)
[2017-11-22 07:10] LABS: BASOPHILS # (AUTO) 0.1 K/uL (0.0-0.2); BASOPHILS % (AUTO) 0.3 % (0.0-2.0); EOSINOPHILS # (AUTO) 4.2 K/uL (0.0-0.4); EOSINOPHILS % (AUTO) 19.4 % (0.0-4.0); HEMATOCRIT 27.9 % (36-54); HEMOGLOBIN 9.8 g/dL (14.0-18.0); LYMPHOCYTES # (AUTO) 1.7 K/uL (1.0-5.5); LYMPHOCYTES % (AUTO) 7.9 % (20.5-51.5); MEAN CORPUSCULAR HEMOGLOBIN 34 pg (27-31); MEAN CORPUSCULAR HGB CONC 35 % (32-36); MEAN CORPUSCULAR VOLUME 97 fL (79.0-98.0); MONOCYTES # (AUTO) 1.2 K/uL (0.0-1.0); MONOCYTES % (AUTO) 5.4 % (1.7-9.3); NEUTROPHILS # (AUTO) 14.6 K/uL (1.8-7.7); PLATELET COUNT (AUTO) 490 K/uL (130-430); RED BLOOD CELL COUNT(AUTO) 2.89 MIL/uL (4.2-6.2); RED CELL DISTRIBUTION WIDTH 15.9 % (9.0-15.0); WHITE BLOOD COUNT (AUTO) 21.8 K/uL (4.8-10.8)
[2017-11-22 07:26] LABS: CALCIUM 10.4 mg/dL (8.4-11.0); CREATININE 1.4 mg/dL (0.55-1.30)
[2017-11-22 08:00] VITALS: BP_SYST 152
[2017-11-22] MEDS: DOCUSATE SODIUM 100 MG/10 ML UDC GT SCH ×2 (10:21→20:08)
[2017-11-22] MEDS: GABAPENTIN 100 MG CAPSULE GT SCH ×3 (10:21→20:08)
[2017-11-22] MEDS: FERROUS SULFATE 300 MG/5 ML UDC GT SCH ×3 (10:21→20:08)
[2017-11-22] MEDS: PANTOPRAZOLE GRANULES PACKET 40 MG GT SCH (10:21)
[2017-11-22] MEDS: VALPROIC ACID ORAL SYRUP 250 MG/5 ML UDC GT SCH ×2 (10:22→20:08)
[2017-11-22] MEDS: AMIODARONE HCL 200 MG TABLET GT SCH (10:22)
[2017-11-22 11:43] VITALS: BP_SYST 152
[2017-11-22 12:30] VITALS: BP_SYST 153
[2017-11-22] MEDS: 0.45% NACL 1,000 ML IV SCH (15:44)
[2017-11-22] MEDS: BALSAM PERU/CASTOR OIL 60 GM OINT...G. TP SCH (15:45)
[2017-11-22 16:35] VITALS: BP_SYST 147
[2017-11-22 19:10] VITALS: BP_SYST 149
[2017-11-23 00:41] VITALS: BP_SYST 129
[2017-11-23] MEDS: MORPHINE 4 MG/ML INJ. SYRINGE IVP PRN (02:06)
[2017-11-23] MEDS: IPRATROPIUM/ALBUTEROL SULFATE 3 ML AMPUL.NEB INH SCH ×6 (03:51→23:02)
[2017-11-23 08:00] VITALS: BP_SYST 150
[2017-11-23] MEDS: DOCUSATE SODIUM 100 MG/10 ML UDC GT SCH ×2 (10:02→21:19)
[2017-11-23] MEDS: PANTOPRAZOLE GRANULES PACKET 40 MG GT SCH (10:02)
[2017-11-23] MEDS: FERROUS SULFATE 300 MG/5 ML UDC GT SCH ×3 (10:02→21:19)
[2017-11-23] MEDS: AMIODARONE HCL 200 MG TABLET GT SCH (10:03)
[2017-11-23] MEDS: GABAPENTIN 100 MG CAPSULE GT SCH ×3 (10:03→21:19)
[2017-11-23] MEDS: VALPROIC ACID ORAL SYRUP 250 MG/5 ML UDC GT SCH ×2 (10:04→21:19)
[2017-11-23] MEDS: DIPHENHYDRAMINE INJ 50 MG/ML VIAL IVP PRN (10:06)
[2017-11-23 12:25] VITALS: BP_SYST 122
[2017-11-23] MEDS: 0.45% NACL 1,000 ML IV SCH (14:11)
[2017-11-23] MEDS: BALSAM PERU/CASTOR OIL 60 GM OINT...G. TP SCH (14:12)
[2017-11-23 18:08] VITALS: BP_SYST 145
[2017-11-23 20:10] VITALS: BP_SYST 170
[2017-11-24 01:06] VITALS: BP_SYST 144
[2017-11-24] MEDS: IPRATROPIUM/ALBUTEROL SULFATE 3 ML AMPUL.NEB INH SCH ×6 (03:46→23:31)
[2017-11-24 07:50] VITALS: BP_SYST 149
[2017-11-24] MEDS: GABAPENTIN 100 MG CAPSULE GT SCH ×3 (09:09→20:55)
[2017-11-24] MEDS: PANTOPRAZOLE GRANULES PACKET 40 MG GT SCH (09:09)
[2017-11-24] MEDS: AMIODARONE HCL 200 MG TABLET GT SCH (09:10)
[2017-11-24] MEDS: FERROUS SULFATE 300 MG/5 ML UDC GT SCH ×3 (09:11→20:55)
[2017-11-24] MEDS: DOCUSATE SODIUM 100 MG/10 ML UDC GT SCH ×2 (09:11→20:54)
[2017-11-24] MEDS: VALPROIC ACID ORAL SYRUP 250 MG/5 ML UDC GT SCH ×2 (09:12→20:55)
[2017-11-24] MEDS: BALSAM PERU/CASTOR OIL 60 GM OINT...G. TP SCH (10:12)
[2017-11-24 12:56] VITALS: BP_SYST 128
[2017-11-24] MEDS: 0.45% NACL 1,000 ML IV SCH (14:27)
[2017-11-24 16:44] VITALS: BP_SYST 131
[2017-11-24 20:00] VITALS: BP_SYST 119
[2017-11-24] MEDS: DIPHENHYDRAMINE INJ 50 MG/ML VIAL IVP PRN (22:36)
[2017-11-24 23:59] VITALS: BP_SYST 142
[2017-11-25] MEDS: IPRATROPIUM/ALBUTEROL SULFATE 3 ML AMPUL.NEB INH SCH ×6 (03:22→23:56)
[2017-11-25 08:00] VITALS: BP_SYST 154
[2017-11-25] MEDS: PANTOPRAZOLE GRANULES PACKET 40 MG GT SCH (09:29)
[2017-11-25] MEDS: AMIODARONE HCL 200 MG TABLET GT SCH (09:31)
[2017-11-25] MEDS: GABAPENTIN 100 MG CAPSULE GT SCH ×3 (09:31→22:38)
[2017-11-25] MEDS: DOCUSATE SODIUM 100 MG/10 ML UDC GT SCH ×2 (09:32→22:39)
[2017-11-25] MEDS: FERROUS SULFATE 300 MG/5 ML UDC GT SCH ×3 (09:33→22:38)
[2017-11-25] MEDS: VALPROIC ACID ORAL SYRUP 250 MG/5 ML UDC GT SCH ×2 (09:33→22:38)
[2017-11-25] MEDS: BALSAM PERU/CASTOR OIL 60 GM OINT...G. TP SCH (09:40)
[2017-11-25] MEDS: DIPHENHYDRAMINE INJ 50 MG/ML VIAL IVP PRN (09:47)
[2017-11-25] MEDS: MORPHINE 4 MG/ML INJ. SYRINGE IVP PRN (09:47)
[2017-11-25 12:01] VITALS: BP_SYST 149
[2017-11-25 12:02] VITALS: BP_SYST 154
[2017-11-25 15:36] VITALS: BP_SYST 158
[2017-11-25] MEDS: 0.45% NACL 1,000 ML IV SCH (17:55)
[2017-11-25 20:00] VITALS: BP_SYST 140
[2017-11-26 00:30] VITALS: BP_SYST 150
[2017-11-26] MEDS: IPRATROPIUM/ALBUTEROL SULFATE 3 ML AMPUL.NEB INH SCH ×6 (03:58→23:49)
[2017-11-26 06:48] LABS: HEMATOCRIT 24.6 % (36-54); HEMOGLOBIN 8.7 g/dL (14.0-18.0); MEAN CORPUSCULAR HEMOGLOBIN 35 pg (27-31); MEAN CORPUSCULAR HGB CONC 35 % (32-36); MEAN CORPUSCULAR VOLUME 98 fL (79.0-98.0); PLATELET COUNT (AUTO) 399 K/uL (130-430); RED BLOOD CELL COUNT(AUTO) 2.52 MIL/uL (4.2-6.2); RED CELL DISTRIBUTION WIDTH 15.2 % (9.0-15.0)
[2017-11-26 07:14] LABS: CALCIUM 10.3 mg/dL (8.4-11.0); CREATININE 1.34 mg/dL (0.55-1.30); POTASSIUM 3.6 mmol/L (3.5-5.1)
[2017-11-26 08:10] LABS: BASOPHILS % (MANUAL) 0 % (0-2); EOSINOPHILS % (MANUAL) 20 % (0-7); LYMPHOCYTES % (MANUAL) 8 % (20-46); MONOCYTES % (MANUAL) 4 % (0-11)
[2017-11-26] MEDS: BALSAM PERU/CASTOR OIL 60 GM OINT...G. TP SCH (09:00)
[2017-11-26] MEDS: DOCUSATE SODIUM 100 MG/10 ML UDC GT SCH ×2 (09:00→21:43)
[2017-11-26] MEDS: VALPROIC ACID ORAL SYRUP 250 MG/5 ML UDC GT SCH ×2 (11:06→21:44)
[2017-11-26] MEDS: GABAPENTIN 100 MG CAPSULE GT SCH ×3 (11:06→21:44)
[2017-11-26] MEDS: FERROUS SULFATE 300 MG/5 ML UDC GT SCH ×3 (11:06→21:44)
[2017-11-26] MEDS: PANTOPRAZOLE GRANULES PACKET 40 MG GT SCH (11:07)
[2017-11-26] MEDS: AMIODARONE HCL 200 MG TABLET GT SCH (11:15)
[2017-11-26] MEDS: DIPHENHYDRAMINE INJ 50 MG/ML VIAL IVP PRN ×2 (11:22→21:44)
[2017-11-26] MEDS: 0.45% NACL 1,000 ML IV SCH (11:46)
[2017-11-26 12:05] VITALS: BP_SYST 150
[2017-11-26 16:51] VITALS: BP_SYST 146
[2017-11-26 21:30] VITALS: BP_SYST 146
[2017-11-27 00:04] VITALS: BP_SYST 146
[2017-11-27] MEDS: IPRATROPIUM/ALBUTEROL SULFATE 3 ML AMPUL.NEB INH SCH ×6 (03:24→23:44)
[2017-11-27 08:00] VITALS: BP_SYST 157
[2017-11-27] MEDS: FERROUS SULFATE 300 MG/5 ML UDC GT SCH ×3 (08:22→21:51)
[2017-11-27] MEDS: DOCUSATE SODIUM 100 MG/10 ML UDC GT SCH ×2 (08:22→21:51)
[2017-11-27] MEDS: PANTOPRAZOLE GRANULES PACKET 40 MG GT SCH (08:23)
[2017-11-27] MEDS: GABAPENTIN 100 MG CAPSULE GT SCH ×3 (08:23→21:51)
[2017-11-27] MEDS: VALPROIC ACID ORAL SYRUP 250 MG/5 ML UDC GT SCH ×2 (08:23→21:51)
[2017-11-27] MEDS: BALSAM PERU/CASTOR OIL 60 GM OINT...G. TP SCH (08:24)
[2017-11-27] MEDS: AMIODARONE HCL 200 MG TABLET GT SCH (08:27)
[2017-11-27] MEDS: 0.45% NACL 1,000 ML IV SCH (10:51)
[2017-11-27] MEDS: MORPHINE 4 MG/ML INJ. SYRINGE IVP PRN (13:03)
[2017-11-27] MEDS ORDERED: cloNIDine HCL 0.1 MG TABLET PO PRN (14:30)
[2017-11-27 14:51] VITALS: BP_SYST 160
[2017-11-27] MEDS ORDERED: amLODIPine BESYLATE 5 MG TABLET PO ONE (15:15)
[2017-11-27] MEDS: DIPHENHYDRAMINE INJ 50 MG/ML VIAL IVP PRN (15:45)
[2017-11-27 17:12] VITALS: BP_SYST 156
[2017-11-27 20:10] VITALS: BP_SYST 154
[2017-11-28] MEDS: DIPHENHYDRAMINE INJ 50 MG/ML VIAL IVP PRN ×2 (00:23→20:49)
[2017-11-28 00:51] VITALS: BP_SYST 165
[2017-11-28] MEDS: IPRATROPIUM/ALBUTEROL SULFATE 3 ML AMPUL.NEB INH SCH ×5 (03:52→23:04)
[2017-11-28 08:00] VITALS: BP_SYST 159
[2017-11-28] MEDS: amLODIPine BESYLATE 5 MG TABLET PO SCH (09:21)
[2017-11-28] MEDS: AMIODARONE HCL 200 MG TABLET GT SCH (09:21)
[2017-11-28] MEDS: PANTOPRAZOLE GRANULES PACKET 40 MG GT SCH (09:21)
[2017-11-28] MEDS: GABAPENTIN 100 MG CAPSULE GT SCH ×3 (09:21→20:49)
[2017-11-28] MEDS: FERROUS SULFATE 300 MG/5 ML UDC GT SCH ×3 (09:21→20:49)
[2017-11-28] MEDS: VALPROIC ACID ORAL SYRUP 250 MG/5 ML UDC GT SCH ×2 (09:22→20:50)
[2017-11-28] MEDS: DOCUSATE SODIUM 100 MG/10 ML UDC GT SCH ×2 (09:22→20:50)
[2017-11-28] MEDS: BALSAM PERU/CASTOR OIL 60 GM OINT...G. TP SCH (09:23)
[2017-11-28] MEDS: 0.45% NACL 1,000 ML IV SCH (11:00)
[2017-11-28 11:29] VITALS: BP_SYST 156
[2017-11-28 14:54] VITALS: BP_SYST 156
[2017-11-28 15:38] VITALS: BP_SYST 164
[2017-11-28 20:05] VITALS: BP_SYST 154
[2017-11-29] VITALS: BP_SYST 170
[2017-11-29] MEDS: IPRATROPIUM/ALBUTEROL SULFATE 3 ML AMPUL.NEB INH SCH ×6 (03:12→23:10)
[2017-11-29 08:55] VITALS: BP_SYST 132
[2017-11-29 09:10] VITALS: BP_SYST 132
[2017-11-29] MEDS: DOCUSATE SODIUM 100 MG/10 ML UDC GT SCH ×2 (09:18→21:49)
[2017-11-29] MEDS: FERROUS SULFATE 300 MG/5 ML UDC GT SCH ×3 (09:18→21:50)
[2017-11-29] MEDS: VALPROIC ACID ORAL SYRUP 250 MG/5 ML UDC GT SCH ×2 (09:19→21:50)
[2017-11-29] MEDS: amLODIPine BESYLATE 5 MG TABLET PO SCH (09:19)
[2017-11-29] MEDS: DIPHENHYDRAMINE INJ 50 MG/ML VIAL IVP PRN (09:19)
[2017-11-29] MEDS: GABAPENTIN 100 MG CAPSULE GT SCH ×3 (09:20→21:51)
[2017-11-29] MEDS: BALSAM PERU/CASTOR OIL 60 GM OINT...G. TP SCH (09:20)
[2017-11-29] MEDS: AMIODARONE HCL 200 MG TABLET GT SCH (09:20)
[2017-11-29] MEDS: PANTOPRAZOLE GRANULES PACKET 40 MG GT SCH (09:20)
[2017-11-29 11:16] VITALS: BP_SYST 155
[2017-11-29] MEDS: 0.45% NACL 1,000 ML IV SCH (11:50)
[2017-11-29 15:50] VITALS: BP_SYST 109
[2017-11-29] MEDS: MORPHINE 4 MG/ML INJ. SYRINGE IVP PRN (16:30)
[2017-11-29 19:00] VITALS: BP_SYST 135
[2017-11-30 00:35] VITALS: BP_SYST 133
[2017-11-30] MEDS: IPRATROPIUM/ALBUTEROL SULFATE 3 ML AMPUL.NEB INH SCH ×6 (02:07→23:11)
[2017-11-30 08:55] VITALS: BP_SYST 147
[2017-11-30] MEDS: FERROUS SULFATE 300 MG/5 ML UDC GT SCH ×3 (09:00→21:24)
[2017-11-30] MEDS: PANTOPRAZOLE GRANULES PACKET 40 MG GT SCH (09:00)
[2017-11-30] MEDS: DOCUSATE SODIUM 100 MG/10 ML UDC GT SCH ×2 (09:00→21:23)
[2017-11-30] MEDS: VALPROIC ACID ORAL SYRUP 250 MG/5 ML UDC GT SCH ×2 (09:03→21:24)
[2017-11-30] MEDS: amLODIPine BESYLATE 5 MG TABLET PO SCH (09:07)
[2017-11-30] MEDS: AMIODARONE HCL 200 MG TABLET GT SCH (09:07)
[2017-11-30] MEDS: DIPHENHYDRAMINE INJ 50 MG/ML VIAL IVP PRN ×2 (09:07→21:27)
[2017-11-30] MEDS: GABAPENTIN 100 MG CAPSULE GT SCH ×3 (09:07→21:25)
[2017-11-30] MEDS: BALSAM PERU/CASTOR OIL 60 GM OINT...G. TP SCH (09:08)
[2017-11-30] MEDS: 0.45% NACL 1,000 ML IV SCH (11:00)
[2017-11-30 12:24] LABS: PROTHROMBIN TIME 10.3 SECS (9.5-12.5)
[2017-11-30 12:32] VITALS: BP_SYST 145
[2017-11-30 16:00] VITALS: BP_SYST 130
[2017-11-30 19:00] VITALS: BP_SYST 130
[2017-11-30 20:00] VITALS: BP_SYST 130
[2017-12-01] MEDS: IPRATROPIUM/ALBUTEROL SULFATE 3 ML AMPUL.NEB INH SCH ×6 (02:01→23:15)
[2017-12-01 02:23] VITALS: BP_SYST 138
[2017-12-01 08:00] VITALS: BP_SYST 135
[2017-12-01] MEDS: BALSAM PERU/CASTOR OIL 60 GM OINT...G. TP SCH (09:00)
[2017-12-01] MEDS: PANTOPRAZOLE GRANULES PACKET 40 MG GT SCH (09:24)
[2017-12-01] MEDS: DOCUSATE SODIUM 100 MG/10 ML UDC GT SCH ×2 (09:25→20:35)
[2017-12-01] MEDS: FERROUS SULFATE 300 MG/5 ML UDC GT SCH ×3 (09:25→20:34)
[2017-12-01] MEDS: AMIODARONE HCL 200 MG TABLET GT SCH (09:25)
[2017-12-01] MEDS: GABAPENTIN 100 MG CAPSULE GT SCH ×3 (09:25→20:35)
[2017-12-01] MEDS: VALPROIC ACID ORAL SYRUP 250 MG/5 ML UDC GT SCH ×2 (09:26→20:38)
[2017-12-01] MEDS: amLODIPine BESYLATE 5 MG TABLET PO SCH (09:26)
[2017-12-01] MEDS: 0.45% NACL 1,000 ML IV SCH ×2 (11:00→18:21)
[2017-12-01 12:00] VITALS: BP_SYST 135
[2017-12-01 16:34] VITALS: BP_SYST 150
[2017-12-01 20:00] VITALS: BP_SYST 132
[2017-12-02 01:58] VITALS: BP_SYST 129
[2017-12-02] MEDS: IPRATROPIUM/ALBUTEROL SULFATE 3 ML AMPUL.NEB INH SCH ×6 (04:01→23:12)
[2017-12-02 08:19] VITALS: BP_SYST 136
[2017-12-02] MEDS: MORPHINE 4 MG/ML INJ. SYRINGE IVP PRN (08:23)
[2017-12-02] MEDS: VALPROIC ACID ORAL SYRUP 250 MG/5 ML UDC GT SCH ×2 (08:24→21:27)
[2017-12-02] MEDS: DOCUSATE SODIUM 100 MG/10 ML UDC GT SCH ×2 (08:24→21:28)
[2017-12-02] MEDS: FERROUS SULFATE 300 MG/5 ML UDC GT SCH ×3 (08:24→21:28)
[2017-12-02] MEDS: DIPHENHYDRAMINE INJ 50 MG/ML VIAL IVP PRN (08:24)
[2017-12-02] MEDS: GABAPENTIN 100 MG CAPSULE GT SCH ×3 (08:25→21:28)
[2017-12-02] MEDS: amLODIPine BESYLATE 5 MG TABLET PO SCH (08:25)
[2017-12-02] MEDS: AMIODARONE HCL 200 MG TABLET GT SCH (08:25)
[2017-12-02] MEDS: PANTOPRAZOLE GRANULES PACKET 40 MG GT SCH (08:25)
[2017-12-02] MEDS: BALSAM PERU/CASTOR OIL 60 GM OINT...G. TP SCH (08:26)
[2017-12-02 12:31] VITALS: BP_SYST 146
[2017-12-02 16:11] VITALS: BP_SYST 158
[2017-12-02 20:00] VITALS: BP_SYST 142
[2017-12-02 23:39] VITALS: BP_SYST 128
[2017-12-03] MEDS: IPRATROPIUM/ALBUTEROL SULFATE 3 ML AMPUL.NEB INH SCH ×6 (03:57→23:21)
[2017-12-03 06:50] LABS: BASOPHILS # (AUTO) 0.1 K/uL (0.0-0.2); BASOPHILS % (AUTO) 0.2 % (0.0-2.0); EOSINOPHILS # (AUTO) 5.6 K/uL (0.0-0.4); EOSINOPHILS % (AUTO) 19.2 % (0.0-4.0); HEMATOCRIT 24.3 % (36-54); HEMOGLOBIN 8.6 g/dL (14.0-18.0); LYMPHOCYTES # (AUTO) 1.8 K/uL (1.0-5.5); LYMPHOCYTES % (AUTO) 6.2 % (20.5-51.5); MEAN CORPUSCULAR HEMOGLOBIN 35 pg (27-31); MEAN CORPUSCULAR HGB CONC 35 % (32-36); MEAN CORPUSCULAR VOLUME 99 fL (79.0-98.0); MONOCYTES # (AUTO) 2.2 K/uL (0.0-1.0); MONOCYTES % (AUTO) 7.7 % (1.7-9.3); NEUTROPHILS # (AUTO) 19.2 K/uL (1.8-7.7); NEUTROPHILS % (AUTO) 66.7 % (40.0-70.0); PLATELET COUNT (AUTO) 402 K/uL (130-430); RED BLOOD CELL COUNT(AUTO) 2.45 MIL/uL (4.2-6.2); RED CELL DISTRIBUTION WIDTH 15.6 % (9.0-15.0); WHITE BLOOD COUNT (AUTO) 28.9 K/uL (4.8-10.8)
[2017-12-03 07:27] LABS: CALCIUM 9.5 mg/dL (8.4-11.0); CREATININE 1.45 mg/dL (0.55-1.30); POTASSIUM 3.9 mmol/L (3.5-5.1)
[2017-12-03 07:28] LABS: TOTAL BILIRUBIN 0.3 mg/dL (0.0-1.0)
[2017-12-03 08:00] VITALS: BP_SYST 146
[2017-12-03] MEDS: FERROUS SULFATE 300 MG/5 ML UDC GT SCH ×3 (09:56→21:25)
[2017-12-03] MEDS: DOCUSATE SODIUM 100 MG/10 ML UDC GT SCH ×2 (09:56→21:24)
[2017-12-03] MEDS: VALPROIC ACID ORAL SYRUP 250 MG/5 ML UDC GT SCH ×2 (09:57→21:25)
[2017-12-03] MEDS: GABAPENTIN 100 MG CAPSULE GT SCH ×3 (09:57→21:25)
[2017-12-03] MEDS: PANTOPRAZOLE GRANULES PACKET 40 MG GT SCH (09:57)
[2017-12-03] MEDS: AMIODARONE HCL 200 MG TABLET GT SCH (10:00)
[2017-12-03] MEDS: amLODIPine BESYLATE 5 MG TABLET PO SCH (10:01)
[2017-12-03] MEDS: 0.45% NACL 1,000 ML IV SCH (11:00)
[2017-12-03 12:15] VITALS: BP_SYST 140
[2017-12-03] MEDS: BALSAM PERU/CASTOR OIL 60 GM OINT...G. TP SCH (14:27)
[2017-12-03] MEDS: ACETAMINOPHEN 650 MG/20.3 ML UDC GT PRN (14:32)
[2017-12-03 18:05] VITALS: BP_SYST 149
[2017-12-03 20:00] VITALS: BP_SYST 118
[2017-12-04 00:25] VITALS: BP_SYST 111
[2017-12-04] MEDS: IPRATROPIUM/ALBUTEROL SULFATE 3 ML AMPUL.NEB INH SCH ×6 (02:19→23:14)
[2017-12-04 08:10] VITALS: BP_SYST 130
[2017-12-04] MEDS: FERROUS SULFATE 300 MG/5 ML UDC GT SCH ×3 (09:00→21:41)
[2017-12-04] MEDS: DOCUSATE SODIUM 100 MG/10 ML UDC GT SCH ×2 (09:00→21:41)
[2017-12-04] MEDS: PANTOPRAZOLE GRANULES PACKET 40 MG GT SCH (09:00)
[2017-12-04] MEDS: GABAPENTIN 100 MG CAPSULE GT SCH ×3 (09:00→21:41)
[2017-12-04] MEDS: VALPROIC ACID ORAL SYRUP 250 MG/5 ML UDC GT SCH ×2 (09:00→21:40)
[2017-12-04] MEDS: AMIODARONE HCL 200 MG TABLET GT SCH (09:02)
[2017-12-04] MEDS: amLODIPine BESYLATE 5 MG TABLET PO SCH (09:03)
[2017-12-04] MEDS: BALSAM PERU/CASTOR OIL 60 GM OINT...G. TP SCH (09:07)
[2017-12-04 12:20] VITALS: BP_SYST 138
[2017-12-04] MEDS: 0.45% NACL 1,000 ML IV SCH ×2 (12:51→21:40)
[2017-12-04 13:55] VITALS: BP_SYST 130
[2017-12-04 16:00] VITALS: BP_SYST 123
[2017-12-04 20:00] VITALS: BP_SYST 128
[2017-12-04] MEDS: MORPHINE 4 MG/ML INJ. SYRINGE IVP PRN (21:42)
[2017-12-05] VITALS (11 sets, daily range): BP systolic 108–155
[2017-12-05] MEDS: IPRATROPIUM/ALBUTEROL SULFATE 3 ML AMPUL.NEB INH SCH ×6 (03:43→23:13)
[2017-12-05] MEDS: VALPROIC ACID ORAL SYRUP 250 MG/5 ML UDC GT SCH ×2 (09:52→21:38)
[2017-12-05] MEDS: DOCUSATE SODIUM 100 MG/10 ML UDC GT SCH ×2 (09:52→21:37)
[2017-12-05] MEDS: FERROUS SULFATE 300 MG/5 ML UDC GT SCH ×3 (09:53→21:38)
[2017-12-05] MEDS: GABAPENTIN 100 MG CAPSULE GT SCH ×3 (09:53→21:38)
[2017-12-05] MEDS: PANTOPRAZOLE GRANULES PACKET 40 MG GT SCH (09:53)
[2017-12-05] MEDS: AMIODARONE HCL 200 MG TABLET GT SCH (09:53)
[2017-12-05] MEDS: amLODIPine BESYLATE 5 MG TABLET PO SCH (09:54)
[2017-12-05] MEDS ORDERED: NS IRRIG SOLN 1000 ML IR ONE (16:55)
[2017-12-05] MEDS ORDERED: NS 50 ML BAG IV ONE (16:55)
[2017-12-05] MEDS ORDERED: fentaNYL CITRATE/PF 100 MCG/2 ML AMP IVP ONE (16:55)
[2017-12-05] MEDS ORDERED: BACITRACIN ZINC 15 GM TOPICAL OINTMENT TP ONE (16:55)
[2017-12-05] MEDS ORDERED: MIDAZOLAM HCL 5 MG/5 ML VIAL IVP ONE (16:55)
[2017-12-05] MEDS ORDERED: fentaNYL CITRATE/PF 100 MCG/2 ML AMP IVP PRN ×2 (17:15)
[2017-12-05] MEDS ORDERED: ONDANSETRON HCL 4 MG/2 ML VIAL IVP PRN (17:15)
[2017-12-05] MEDS: MORPHINE 4 MG/ML INJ. SYRINGE IVP PRN (21:39)
[2017-12-06] MEDS: IPRATROPIUM/ALBUTEROL SULFATE 3 ML AMPUL.NEB INH SCH ×7 (03:40→23:48)
[2017-12-06] MEDS: 0.45% NACL 1,000 ML IV SCH (03:59)
[2017-12-06 08:05] LABS: HEMATOCRIT 25.3 % (36-54); HEMOGLOBIN 8.8 g/dL (14.0-18.0); MEAN CORPUSCULAR HEMOGLOBIN 34 pg (27-31); MEAN CORPUSCULAR HGB CONC 35 % (32-36); MEAN CORPUSCULAR VOLUME 99 fL (79.0-98.0); PLATELET COUNT (AUTO) 527 K/uL (130-430); RED BLOOD CELL COUNT(AUTO) 2.57 MIL/uL (4.2-6.2); RED CELL DISTRIBUTION WIDTH 15.8 % (9.0-15.0)
[2017-12-06 08:14] LABS: WHITE BLOOD COUNT (AUTO) 32.9 K/uL (4.8-10.8)
[2017-12-06 08:16] LABS: CALCIUM 9.6 mg/dL (8.4-11.0); CREATININE 1.41 mg/dL (0.55-1.30); POTASSIUM 4.2 mmol/L (3.5-5.1)
[2017-12-06 08:30] LABS: ATYPICAL LYMPHOCYTES % 0 % (0-0); BAND % (MANUAL) 3 % (0-6); BASOPHILS % (MANUAL) 0 % (0-2); EOSINOPHILS % (MANUAL) 16 % (0-7); LYMPHOCYTES % (MANUAL) 6 % (20-46); MONOCYTES % (MANUAL) 3 % (0-11)
[2017-12-06 08:55] VITALS: BP_SYST 158
[2017-12-06] MEDS: DOCUSATE SODIUM 100 MG/10 ML UDC GT SCH ×2 (09:37→21:01)
[2017-12-06] MEDS: FERROUS SULFATE 300 MG/5 ML UDC GT SCH ×3 (09:37→21:01)
[2017-12-06] MEDS: VALPROIC ACID ORAL SYRUP 250 MG/5 ML UDC GT SCH ×2 (09:38→21:01)
[2017-12-06] MEDS: amLODIPine BESYLATE 5 MG TABLET PO SCH (09:39)
[2017-12-06] MEDS: GABAPENTIN 100 MG CAPSULE GT SCH ×3 (09:39→21:01)
[2017-12-06] MEDS: AMIODARONE HCL 200 MG TABLET GT SCH (09:39)
[2017-12-06] MEDS: PANTOPRAZOLE GRANULES PACKET 40 MG GT SCH (09:39)
[2017-12-06] MEDS: BALSAM PERU/CASTOR OIL 60 GM OINT...G. TP SCH ×2 (09:40→09:42)
[2017-12-06] MEDS: MORPHINE 4 MG/ML INJ. SYRINGE IVP PRN (10:10)
[2017-12-06 12:37] VITALS: BP_SYST 154
[2017-12-06 16:53] VITALS: BP_SYST 162
[2017-12-06 20:00] VITALS: BP_SYST 152
[2017-12-06] MEDS: DIPHENHYDRAMINE INJ 50 MG/ML VIAL IVP PRN (21:01)
[2017-12-07 00:16] VITALS: BP_SYST 140
[2017-12-07] MEDS: 0.45% NACL 1,000 ML IV SCH (01:40)
[2017-12-07] MEDS: IPRATROPIUM/ALBUTEROL SULFATE 3 ML AMPUL.NEB INH SCH ×6 (03:32→23:48)
[2017-12-07] MEDS: DIPHENHYDRAMINE INJ 50 MG/ML VIAL IVP PRN ×3 (04:06→15:16)
[2017-12-07 06:26] LABS: CALCIUM 9.6 mg/dL (8.4-11.0); CREATININE 1.39 mg/dL (0.55-1.30); POTASSIUM 4.2 mmol/L (3.5-5.1)
[2017-12-07 06:46] LABS: HEMATOCRIT 25.8 % (36-54); HEMOGLOBIN 8.9 g/dL (14.0-18.0); MEAN CORPUSCULAR HEMOGLOBIN 34 pg (27-31); MEAN CORPUSCULAR HGB CONC 35 % (32-36); MEAN CORPUSCULAR VOLUME 100 fL (79.0-98.0); PLATELET COUNT (AUTO) 582 K/uL (130-430); RED CELL DISTRIBUTION WIDTH 15.3 % (9.0-15.0)
[2017-12-07 07:18] LABS: WHITE BLOOD COUNT (AUTO) 30.2 K/uL (4.8-10.8)
[2017-12-07 08:00] VITALS: BP_SYST 135
[2017-12-07 08:29] LABS: BAND % (MANUAL) 7 % (0-6); BASOPHILS % (MANUAL) 0 % (0-2); EOSINOPHILS % (MANUAL) 16 % (0-7); LYMPHOCYTES % (MANUAL) 7 % (20-46); METAMYELOCYTES % 2 % (0-0); MONOCYTES % (MANUAL) 4 % (0-11); MYELOCYTES % 1 % (0-0)
[2017-12-07] MEDS: PANTOPRAZOLE GRANULES PACKET 40 MG GT SCH (09:52)
[2017-12-07] MEDS: VALPROIC ACID ORAL SYRUP 250 MG/5 ML UDC GT SCH ×2 (09:53→21:50)
[2017-12-07] MEDS: FERROUS SULFATE 300 MG/5 ML UDC GT SCH ×3 (09:53→21:32)
[2017-12-07] MEDS: GABAPENTIN 100 MG CAPSULE GT SCH ×3 (09:54→21:31)
[2017-12-07] MEDS: amLODIPine BESYLATE 5 MG TABLET PO SCH (09:55)
[2017-12-07] MEDS: AMIODARONE HCL 200 MG TABLET GT SCH (09:56)
[2017-12-07 10:14] VITALS: BP_SYST 127
[2017-12-07 11:33] VITALS: BP_SYST 146
[2017-12-07] MEDS: ACETAMINOPHEN 650 MG/20.3 ML UDC GT PRN (15:11)
[2017-12-07 15:14] VITALS: BP_SYST 142
[2017-12-07 20:00] VITALS: BP_SYST 140
[2017-12-07] MEDS: DOCUSATE SODIUM 100 MG/10 ML UDC GT SCH (21:32)
[2017-12-08 00:03] VITALS: BP_SYST 130
[2017-12-08] MEDS: IPRATROPIUM/ALBUTEROL SULFATE 3 ML AMPUL.NEB INH SCH ×6 (04:16→23:34)
[2017-12-08 09:08] VITALS: BP_SYST 130
[2017-12-08] MEDS: VALPROIC ACID ORAL SYRUP 250 MG/5 ML UDC GT SCH ×2 (09:33→21:00)
[2017-12-08] MEDS: DOCUSATE SODIUM 100 MG/10 ML UDC GT SCH ×2 (09:33→21:08)
[2017-12-08] MEDS: FERROUS SULFATE 300 MG/5 ML UDC GT SCH ×3 (09:33→21:07)
[2017-12-08] MEDS: AMIODARONE HCL 200 MG TABLET GT SCH (09:34)
[2017-12-08] MEDS: amLODIPine BESYLATE 5 MG TABLET PO SCH (09:35)
[2017-12-08] MEDS: PANTOPRAZOLE GRANULES PACKET 40 MG GT SCH (09:35)
[2017-12-08] MEDS: GABAPENTIN 100 MG CAPSULE GT SCH ×3 (09:35→21:08)
[2017-12-08 11:42] VITALS: BP_SYST 142
[2017-12-08] MEDS: 0.45% NACL 1,000 ML IV SCH (15:17)
[2017-12-08 17:15] VITALS: BP_SYST 130
[2017-12-08] MEDS: DIPHENHYDRAMINE INJ 50 MG/ML VIAL IVP PRN (21:08)
[2017-12-09 00:53] VITALS: BP_SYST 114
[2017-12-09] MEDS: IPRATROPIUM/ALBUTEROL SULFATE 3 ML AMPUL.NEB INH SCH ×6 (04:24→23:49)
[2017-12-09] MEDS: 0.45% NACL 1,000 ML IV SCH (06:30)
[2017-12-09 08:00] VITALS: BP_SYST 154
[2017-12-09] MEDS: PANTOPRAZOLE GRANULES PACKET 40 MG GT SCH (09:59)
[2017-12-09] MEDS: AMIODARONE HCL 200 MG TABLET GT SCH (10:00)
[2017-12-09] MEDS: amLODIPine BESYLATE 5 MG TABLET PO SCH (10:01)
[2017-12-09] MEDS: GABAPENTIN 100 MG CAPSULE GT SCH ×3 (10:01→20:17)
[2017-12-09] MEDS: FERROUS SULFATE 300 MG/5 ML UDC GT SCH ×3 (10:02→20:17)
[2017-12-09] MEDS: ACETAMINOPHEN 650 MG/20.3 ML UDC GT PRN (10:02)
[2017-12-09] MEDS: DOCUSATE SODIUM 100 MG/10 ML UDC GT SCH ×2 (10:02→20:17)
[2017-12-09] MEDS: DIPHENHYDRAMINE INJ 50 MG/ML VIAL IVP PRN (10:04)
[2017-12-09] MEDS: BALSAM PERU/CASTOR OIL 60 GM OINT...G. TP SCH (10:05)
[2017-12-09] MEDS: VALPROIC ACID ORAL SYRUP 250 MG/5 ML UDC GT SCH ×2 (10:07→20:17)
[2017-12-09 12:00] VITALS: BP_SYST 135
[2017-12-09 16:06] VITALS: BP_SYST 133
[2017-12-09 20:00] VITALS: BP_SYST 150
[2017-12-09] MEDS: COLISTIMETHATE SODIUM 150 MG VIAL INH SCH (20:42)
[2017-12-10 00:33] VITALS: BP_SYST 141
[2017-12-10] MEDS: DIPHENHYDRAMINE INJ 50 MG/ML VIAL IVP PRN ×3 (01:42→23:47)
[2017-12-10] MEDS: BALSAM PERU/CASTOR OIL 60 GM OINT...G. TP SCH (03:30)
[2017-12-10] MEDS: IPRATROPIUM/ALBUTEROL SULFATE 3 ML AMPUL.NEB INH SCH ×6 (03:57→23:55)
[2017-12-10 06:58] LABS: HEMATOCRIT 24.4 % (36-54); HEMOGLOBIN 8.6 g/dL (14.0-18.0); MEAN CORPUSCULAR HEMOGLOBIN 35 pg (27-31); MEAN CORPUSCULAR HGB CONC 35 % (32-36); MEAN CORPUSCULAR VOLUME 98 fL (79.0-98.0); RED BLOOD CELL COUNT(AUTO) 2.48 MIL/uL (4.2-6.2); RED CELL DISTRIBUTION WIDTH 15.6 % (9.0-15.0); WHITE BLOOD COUNT (AUTO) 29.8 K/uL (4.8-10.8)
[2017-12-10] MEDS: COLISTIMETHATE SODIUM 150 MG VIAL INH SCH ×2 (07:04→23:54)
[2017-12-10 07:05] LABS: PLATELET COUNT (AUTO) 903 K/uL (130-430)
[2017-12-10 07:16] LABS: CALCIUM 9.8 mg/dL (8.4-11.0); CREATININE 1.63 mg/dL (0.55-1.30); POTASSIUM 4.2 mmol/L (3.5-5.1)
[2017-12-10 09:03] VITALS: BP_SYST 134
[2017-12-10 09:30] VITALS: BP_SYST 134
[2017-12-10] MEDS: PANTOPRAZOLE GRANULES PACKET 40 MG GT SCH (09:39)
[2017-12-10] MEDS: GABAPENTIN 100 MG CAPSULE GT SCH ×3 (09:39→20:20)
[2017-12-10] MEDS: AMIODARONE HCL 200 MG TABLET GT SCH (09:40)
[2017-12-10] MEDS: FERROUS SULFATE 300 MG/5 ML UDC GT SCH ×3 (09:40→20:19)
[2017-12-10] MEDS: DOCUSATE SODIUM 100 MG/10 ML UDC GT SCH ×2 (09:40→20:19)
[2017-12-10] MEDS: VALPROIC ACID ORAL SYRUP 250 MG/5 ML UDC GT SCH ×2 (09:41→20:26)
[2017-12-10] MEDS: amLODIPine BESYLATE 5 MG TABLET PO SCH (09:42)
[2017-12-10 10:17] LABS: BAND % (MANUAL) 13 % (0-6); BASOPHILS % (MANUAL) 0 % (0-2); EOSINOPHILS % (MANUAL) 14 % (0-7); LYMPHOCYTES % (MANUAL) 4 % (20-46); MONOCYTES % (MANUAL) 4 % (0-11); MYELOCYTES % 2 % (0-0)
[2017-12-10] MEDS: 0.45% NACL 1,000 ML IV SCH ×2 (12:10→23:59)
[2017-12-10 12:43] VITALS: BP_SYST 151
[2017-12-10 16:27] VITALS: BP_SYST 147
[2017-12-10] MEDS: ACETAMINOPHEN 650 MG/20.3 ML UDC GT PRN (23:46)
[2017-12-11 00:49] VITALS: BP_SYST 113
[2017-12-11] MEDS: BALSAM PERU/CASTOR OIL 60 GM OINT...G. TP SCH (03:30)
[2017-12-11] MEDS: IPRATROPIUM/ALBUTEROL SULFATE 3 ML AMPUL.NEB INH SCH ×6 (03:47→23:47)
[2017-12-11 06:26] LABS: BASOPHILS # (AUTO) 0.5 K/uL (0.0-0.2); BASOPHILS % (AUTO) 1.7 % (0.0-2.0); EOSINOPHILS # (AUTO) 5.2 K/uL (0.0-0.4); EOSINOPHILS % (AUTO) 19.7 % (0.0-4.0); HEMATOCRIT 27.2 % (36-54); HEMOGLOBIN 9.4 g/dL (14.0-18.0); LYMPHOCYTES # (AUTO) 2.8 K/uL (1.0-5.5); LYMPHOCYTES % (AUTO) 10.7 % (20.5-51.5); MEAN CORPUSCULAR HEMOGLOBIN 34 pg (27-31); MEAN CORPUSCULAR HGB CONC 35 % (32-36); MEAN CORPUSCULAR VOLUME 99 fL (79.0-98.0); MONOCYTES # (AUTO) 2.6 K/uL (0.0-1.0); MONOCYTES % (AUTO) 9.7 % (1.7-9.3); NEUTROPHILS # (AUTO) 15.4 K/uL (1.8-7.7); NEUTROPHILS % (AUTO) 58.2 % (40.0-70.0); RED BLOOD CELL COUNT(AUTO) 2.75 MIL/uL (4.2-6.2); RED CELL DISTRIBUTION WIDTH 15.3 % (9.0-15.0); WHITE BLOOD COUNT (AUTO) 26.5 K/uL (4.8-10.8)
[2017-12-11 07:01] LABS: CREATININE 1.65 mg/dL (0.55-1.30)
[2017-12-11 07:07] LABS: ALBUMIN 2.1 g/dL (3.4-4.8); TOTAL BILIRUBIN 0.3 mg/dL (0.0-1.0)
[2017-12-11] MEDS: COLISTIMETHATE SODIUM 150 MG VIAL INH SCH ×2 (07:56→19:46)
[2017-12-11] MEDS: DIPHENHYDRAMINE INJ 50 MG/ML VIAL IVP PRN ×2 (09:46→17:08)
[2017-12-11] MEDS: PANTOPRAZOLE GRANULES PACKET 40 MG GT SCH (09:49)
[2017-12-11 09:50] VITALS: BP_SYST 133
[2017-12-11] MEDS: GABAPENTIN 100 MG CAPSULE GT SCH ×3 (09:50→20:16)
[2017-12-11] MEDS: DOCUSATE SODIUM 100 MG/10 ML UDC GT SCH ×2 (09:50→20:15)
[2017-12-11] MEDS: FERROUS SULFATE 300 MG/5 ML UDC GT SCH ×3 (09:50→20:15)
[2017-12-11] MEDS: amLODIPine BESYLATE 5 MG TABLET PO SCH (09:51)
[2017-12-11] MEDS: VALPROIC ACID ORAL SYRUP 250 MG/5 ML UDC GT SCH ×2 (09:52→20:16)
[2017-12-11] MEDS: AMIODARONE HCL 200 MG TABLET GT SCH (09:52)
[2017-12-11 10:03] LABS: PLATELET COUNT (AUTO) 1042 K/uL (130-430)
[2017-12-11] MEDS: 0.45% NACL 1,000 ML IV SCH (11:09)
[2017-12-11 12:49] VITALS: BP_SYST 136
[2017-12-11] MEDS ORDERED: ASPIRIN 81 MG TAB.CHEW GT ONE (14:15)
[2017-12-11 16:17] VITALS: BP_SYST 152
[2017-12-11 20:40] VITALS: BP_SYST 154
[2017-12-12 00:48] VITALS: BP_SYST 153
[2017-12-12] MEDS: IPRATROPIUM/ALBUTEROL SULFATE 3 ML AMPUL.NEB INH SCH ×6 (03:26→23:09)
[2017-12-12] MEDS: COLISTIMETHATE SODIUM 150 MG VIAL INH SCH ×2 (07:35→19:39)
[2017-12-12 08:00] VITALS: BP_SYST 141
[2017-12-12] MEDS: 0.45% NACL 1,000 ML IV SCH (08:13)
[2017-12-12] MEDS: AMIODARONE HCL 200 MG TABLET GT SCH (10:02)
[2017-12-12] MEDS: ASPIRIN 81 MG TAB.CHEW GT SCH (10:02)
[2017-12-12] MEDS: GABAPENTIN 100 MG CAPSULE GT SCH ×3 (10:03→20:33)
[2017-12-12] MEDS: DOCUSATE SODIUM 100 MG/10 ML UDC GT SCH ×2 (10:03→20:33)
[2017-12-12] MEDS: PANTOPRAZOLE GRANULES PACKET 40 MG GT SCH (10:03)
[2017-12-12] MEDS: VALPROIC ACID ORAL SYRUP 250 MG/5 ML UDC GT SCH ×2 (10:04→20:33)
[2017-12-12] MEDS: FERROUS SULFATE 300 MG/5 ML UDC GT SCH ×3 (10:04→20:33)
[2017-12-12] MEDS: amLODIPine BESYLATE 5 MG TABLET PO SCH (10:08)
[2017-12-12] MEDS: BALSAM PERU/CASTOR OIL 60 GM OINT...G. TP SCH (10:09)
[2017-12-12] MEDS ORDERED: COMMUNICATION ORDER XX ONE (11:15)
[2017-12-12] MEDS: DIPHENHYDRAMINE INJ 50 MG/ML VIAL IVP PRN (11:58)
[2017-12-12 12:15] VITALS: BP_SYST 141
[2017-12-12 16:15] VITALS: BP_SYST 137
[2017-12-12 20:07] VITALS: BP_SYST 152
[2017-12-13] VITALS (7 sets, daily range): BP systolic 120–156
[2017-12-13] MEDS ORDERED: LEVOFLOXACIN 500 MG/D5W 0 ML IV ONE (03:33)
[2017-12-13] MEDS: 0.45% NACL 1,000 ML IV SCH ×2 (05:32→22:49)
[2017-12-13 06:55] LABS: CALCIUM 10.2 mg/dL (8.4-11.0); CREATININE 1.75 mg/dL (0.55-1.30); POTASSIUM 4.2 mmol/L (3.5-5.1)
[2017-12-13 07:00] LABS: HEMATOCRIT 26.6 % (36-54); HEMOGLOBIN 9.4 g/dL (14.0-18.0); MEAN CORPUSCULAR HEMOGLOBIN 35 pg (27-31); MEAN CORPUSCULAR HGB CONC 36 % (32-36); MEAN CORPUSCULAR VOLUME 100 fL (79.0-98.0); RED BLOOD CELL COUNT(AUTO) 2.67 MIL/uL (4.2-6.2); RED CELL DISTRIBUTION WIDTH 15.3 % (9.0-15.0); WHITE BLOOD COUNT (AUTO) 23.4 K/uL (4.8-10.8)
[2017-12-13] MEDS: COLISTIMETHATE SODIUM 150 MG VIAL INH SCH ×2 (07:00→20:19)
[2017-12-13] MEDS: IPRATROPIUM/ALBUTEROL SULFATE 3 ML AMPUL.NEB INH SCH ×5 (07:12→22:56)
[2017-12-13 07:16] LABS: PLATELET COUNT (AUTO) 1076 K/uL (130-430)
[2017-12-13 07:57] LABS: BAND % (MANUAL) 6 % (0-6); BASOPHILS % (MANUAL) 0 % (0-2); EOSINOPHILS % (MANUAL) 23 % (0-7); LYMPHOCYTES % (MANUAL) 8 % (20-46); MONOCYTES % (MANUAL) 3 % (0-11)
[2017-12-13] MEDS: GABAPENTIN 100 MG CAPSULE GT SCH ×3 (10:05→21:03)
[2017-12-13] MEDS: DOCUSATE SODIUM 100 MG/10 ML UDC GT SCH ×2 (10:05→21:04)
[2017-12-13] MEDS: PANTOPRAZOLE GRANULES PACKET 40 MG GT SCH (10:05)
[2017-12-13] MEDS: FERROUS SULFATE 300 MG/5 ML UDC GT SCH ×3 (10:05→21:03)
[2017-12-13] MEDS: ASPIRIN 81 MG TAB.CHEW GT SCH (10:05)
[2017-12-13] MEDS: amLODIPine BESYLATE 5 MG TABLET GT SCH (10:06)
[2017-12-13] MEDS: AMIODARONE HCL 200 MG TABLET GT SCH (10:07)
[2017-12-13] MEDS: BALSAM PERU/CASTOR OIL 60 GM OINT...G. TP SCH (10:08)
[2017-12-13] MEDS: VALPROIC ACID ORAL SYRUP 250 MG/5 ML UDC GT SCH ×2 (10:08→21:04)
[2017-12-14 00:40] VITALS: BP_SYST 144
[2017-12-14] MEDS: IPRATROPIUM/ALBUTEROL SULFATE 3 ML AMPUL.NEB INH SCH ×6 (02:28→23:16)
[2017-12-14 07:04] LABS: BASOPHILS # (AUTO) 0.7 K/uL (0.0-0.2); BASOPHILS % (AUTO) 2.4 % (0.0-2.0); EOSINOPHILS # (AUTO) 4.3 K/uL (0.0-0.4); EOSINOPHILS % (AUTO) 15.9 % (0.0-4.0); HEMATOCRIT 27.6 % (36-54); HEMOGLOBIN 9.6 g/dL (14.0-18.0); LYMPHOCYTES # (AUTO) 2.2 K/uL (1.0-5.5); MEAN CORPUSCULAR HEMOGLOBIN 35 pg (27-31); MEAN CORPUSCULAR HGB CONC 35 % (32-36); MEAN CORPUSCULAR VOLUME 100 fL (79.0-98.0); MONOCYTES # (AUTO) 1.7 K/uL (0.0-1.0); MONOCYTES % (AUTO) 6.3 % (1.7-9.3); NEUTROPHILS # (AUTO) 18.2 K/uL (1.8-7.7); NEUTROPHILS % (AUTO) 67.4 % (40.0-70.0); RED BLOOD CELL COUNT(AUTO) 2.77 MIL/uL (4.2-6.2); RED CELL DISTRIBUTION WIDTH 15.6 % (9.0-15.0); WHITE BLOOD COUNT (AUTO) 27.1 K/uL (4.8-10.8)
[2017-12-14] MEDS: COLISTIMETHATE SODIUM 150 MG VIAL INH SCH ×2 (07:19→20:14)
[2017-12-14 08:00] VITALS: BP_SYST 142
[2017-12-14 08:12] LABS: POTASSIUM 4.3 mmol/L (3.5-5.1)
[2017-12-14 08:13] LABS: CALCIUM 9.9 mg/dL (8.4-11.0); CREATININE 1.77 mg/dL (0.55-1.30)
[2017-12-14] MEDS: ASPIRIN 81 MG TAB.CHEW GT SCH (09:58)
[2017-12-14] MEDS: amLODIPine BESYLATE 5 MG TABLET GT SCH (09:58)
[2017-12-14] MEDS: GABAPENTIN 100 MG CAPSULE GT SCH ×3 (09:59→20:06)
[2017-12-14] MEDS: PANTOPRAZOLE GRANULES PACKET 40 MG GT SCH (09:59)
[2017-12-14] MEDS: AMIODARONE HCL 200 MG TABLET GT SCH (09:59)
[2017-12-14] MEDS: VALPROIC ACID ORAL SYRUP 250 MG/5 ML UDC GT SCH ×2 (10:00→20:07)
[2017-12-14] MEDS: FERROUS SULFATE 300 MG/5 ML UDC GT SCH ×3 (10:00→20:06)
[2017-12-14] MEDS: DOCUSATE SODIUM 100 MG/10 ML UDC GT SCH ×2 (10:00→20:06)
[2017-12-14] MEDS ORDERED: LIDOCAINE 2% JELLY UROJECT 10 ML MM ONE (10:01)
[2017-12-14] MEDS ORDERED: MIDAZOLAM HCL 5 MG/5 ML VIAL ONE (10:02)
[2017-12-14] MEDS ORDERED: fentaNYL CITRATE/PF 100 MCG/2 ML AMP ONE (10:02)
[2017-12-14] MEDS ORDERED: LIDOCAINE 1%, 20 ML MDV 60 ML ONE (10:03)
[2017-12-14 10:33] LABS: PLATELET COUNT (AUTO) 1071 K/uL (130-430)
[2017-12-14 12:00] VITALS: BP_SYST 125
[2017-12-14 16:00] VITALS: BP_SYST 128
[2017-12-14] MEDS: 0.45% NACL 1,000 ML IV SCH (16:02)
[2017-12-14] MEDS: BALSAM PERU/CASTOR OIL 60 GM OINT...G. TP SCH (16:03)
[2017-12-14 20:05] VITALS: BP_SYST 146
[2017-12-14 23:44] VITALS: BP_SYST 146
[2017-12-15] MEDS: IPRATROPIUM/ALBUTEROL SULFATE 3 ML AMPUL.NEB INH SCH ×6 (02:02→23:36)
[2017-12-15 06:28] LABS: BASOPHILS # (AUTO) 0.1 K/uL (0.0-0.2); BASOPHILS % (AUTO) 0.3 % (0.0-2.0); EOSINOPHILS # (AUTO) 3.8 K/uL (0.0-0.4); EOSINOPHILS % (AUTO) 13.8 % (0.0-4.0); HEMATOCRIT 25.6 % (36-54); LYMPHOCYTES # (AUTO) 1.9 K/uL (1.0-5.5); MEAN CORPUSCULAR HEMOGLOBIN 35 pg (27-31); MEAN CORPUSCULAR HGB CONC 35 % (32-36); MEAN CORPUSCULAR VOLUME 99 fL (79.0-98.0); MONOCYTES % (AUTO) 7.3 % (1.7-9.3); NEUTROPHILS # (AUTO) 19.6 K/uL (1.8-7.7); NEUTROPHILS % (AUTO) 71.6 % (40.0-70.0); RED BLOOD CELL COUNT(AUTO) 2.59 MIL/uL (4.2-6.2); RED CELL DISTRIBUTION WIDTH 15.5 % (9.0-15.0); WHITE BLOOD COUNT (AUTO) 27.4 K/uL (4.8-10.8)
[2017-12-15 06:39] LABS: CALCIUM 9.9 mg/dL (8.4-11.0); CREATININE 1.81 mg/dL (0.55-1.30); POTASSIUM 4.1 mmol/L (3.5-5.1)
[2017-12-15 08:04] VITALS: BP_SYST 123
[2017-12-15] MEDS: COLISTIMETHATE SODIUM 150 MG VIAL INH SCH ×2 (08:07→20:06)
[2017-12-15] MEDS: FERROUS SULFATE 300 MG/5 ML UDC GT SCH ×3 (09:32→20:03)
[2017-12-15] MEDS: 0.45% NACL 1,000 ML IV SCH (09:32)
[2017-12-15] MEDS: DOCUSATE SODIUM 100 MG/10 ML UDC GT SCH ×2 (09:33→20:03)
[2017-12-15] MEDS: VALPROIC ACID ORAL SYRUP 250 MG/5 ML UDC GT SCH ×2 (09:34→20:04)
[2017-12-15] MEDS: GABAPENTIN 100 MG CAPSULE GT SCH ×3 (09:34→20:04)
[2017-12-15] MEDS: PANTOPRAZOLE GRANULES PACKET 40 MG GT SCH (09:34)
[2017-12-15] MEDS: ASPIRIN 81 MG TAB.CHEW GT SCH (09:34)
[2017-12-15] MEDS: AMIODARONE HCL 200 MG TABLET GT SCH (09:35)
[2017-12-15] MEDS: amLODIPine BESYLATE 5 MG TABLET GT SCH (09:35)
[2017-12-15] MEDS: DIPHENHYDRAMINE INJ 50 MG/ML VIAL IVP PRN ×2 (09:35→20:57)
[2017-12-15 11:39] VITALS: BP_SYST 135
[2017-12-15 12:05] LABS: PLATELET COUNT (AUTO) 905 K/uL (130-430)
[2017-12-15] MEDS: BALSAM PERU/CASTOR OIL 60 GM OINT...G. TP SCH (15:13)
[2017-12-15 16:30] VITALS: BP_SYST 136
[2017-12-15 20:00] VITALS: BP_SYST 145
[2017-12-16] VITALS: BP_SYST 158
[2017-12-16] MEDS: 0.45% NACL 1,000 ML IV SCH ×2 (01:36→23:55)
[2017-12-16] MEDS: IPRATROPIUM/ALBUTEROL SULFATE 3 ML AMPUL.NEB INH SCH ×6 (03:55→23:25)
[2017-12-16] MEDS: COLISTIMETHATE SODIUM 150 MG VIAL INH SCH ×2 (08:02→19:49)
[2017-12-16 08:52] VITALS: BP_SYST 142
[2017-12-16] MEDS: DOCUSATE SODIUM 100 MG/10 ML UDC GT SCH ×2 (08:57→21:00)
[2017-12-16] MEDS: FERROUS SULFATE 300 MG/5 ML UDC GT SCH ×3 (08:57→21:00)
[2017-12-16] MEDS: AMIODARONE HCL 200 MG TABLET GT SCH (08:58)
[2017-12-16] MEDS: GABAPENTIN 100 MG CAPSULE GT SCH ×3 (08:58→21:00)
[2017-12-16] MEDS: amLODIPine BESYLATE 5 MG TABLET GT SCH (08:58)
[2017-12-16] MEDS: ASPIRIN 81 MG TAB.CHEW GT SCH (08:59)
[2017-12-16] MEDS: VALPROIC ACID ORAL SYRUP 250 MG/5 ML UDC GT SCH ×2 (08:59→21:00)
[2017-12-16] MEDS: PANTOPRAZOLE GRANULES PACKET 40 MG GT SCH (09:00)
[2017-12-16 10:23] VITALS: BP_SYST 142
[2017-12-16] MEDS: DIPHENHYDRAMINE INJ 50 MG/ML VIAL IVP PRN ×2 (11:50→23:58)
[2017-12-16 12:29] VITALS: BP_SYST 135
[2017-12-16] MEDS: BALSAM PERU/CASTOR OIL 60 GM OINT...G. TP SCH (12:42)
[2017-12-16 16:03] VITALS: BP_SYST 139
[2017-12-16 19:00] VITALS: BP_SYST 145
[2017-12-17 00:48] VITALS: BP_SYST 137
[2017-12-17] MEDS: IPRATROPIUM/ALBUTEROL SULFATE 3 ML AMPUL.NEB INH SCH ×4 (03:56→23:38)
[2017-12-17 06:48] LABS: HEMATOCRIT 25.5 % (36-54); HEMOGLOBIN 8.9 g/dL (14.0-18.0); MEAN CORPUSCULAR HEMOGLOBIN 34 pg (27-31); MEAN CORPUSCULAR HGB CONC 35 % (32-36); MEAN CORPUSCULAR VOLUME 98 fL (79.0-98.0); RED CELL DISTRIBUTION WIDTH 15.9 % (9.0-15.0)
[2017-12-17 07:28] LABS: PLATELET COUNT (AUTO) 872 K/uL (130-430); WHITE BLOOD COUNT (AUTO) 30.3 K/uL (4.8-10.8)
[2017-12-17 08:14] LABS: BAND % (MANUAL) 13 % (0-6); BASOPHILS % (MANUAL) 0 % (0-2); EOSINOPHILS % (MANUAL) 19 % (0-7); LYMPHOCYTES % (MANUAL) 13 % (20-46); MONOCYTES % (MANUAL) 10 % (0-11)
[2017-12-17] MEDS: COLISTIMETHATE SODIUM 150 MG VIAL INH SCH (08:14)
[2017-12-17 08:24] VITALS: BP_SYST 143
[2017-12-17] MEDS: FERROUS SULFATE 300 MG/5 ML UDC GT SCH ×3 (08:29→20:43)
[2017-12-17] MEDS: DOCUSATE SODIUM 100 MG/10 ML UDC GT SCH ×2 (08:30→20:43)
[2017-12-17] MEDS: PANTOPRAZOLE GRANULES PACKET 40 MG GT SCH (08:30)
[2017-12-17] MEDS: VALPROIC ACID ORAL SYRUP 250 MG/5 ML UDC GT SCH ×2 (08:30→20:44)
[2017-12-17] MEDS: GABAPENTIN 100 MG CAPSULE GT SCH ×3 (08:31→20:44)
[2017-12-17] MEDS: ASPIRIN 81 MG TAB.CHEW GT SCH (08:31)
[2017-12-17] MEDS: AMIODARONE HCL 200 MG TABLET GT SCH (08:31)
[2017-12-17] MEDS: DIPHENHYDRAMINE INJ 50 MG/ML VIAL IVP PRN ×2 (08:32→20:44)
[2017-12-17] MEDS: amLODIPine BESYLATE 5 MG TABLET GT SCH (08:32)
[2017-12-17 12:24] VITALS: BP_SYST 126
[2017-12-17] MEDS: 0.45% NACL 1,000 ML IV SCH (16:12)
[2017-12-17 16:23] VITALS: BP_SYST 134
[2017-12-17 19:10] VITALS: BP_SYST 147
[2017-12-17] MEDS: ACETAMINOPHEN 650 MG/20.3 ML UDC GT PRN (20:43)
[2017-12-17] MEDS: BALSAM PERU/CASTOR OIL 60 GM OINT...G. TP SCH (20:46)
[2017-12-17] MEDS: CEFEPIME 1 GM in D5W 50 ML IV SCH (21:08)
[2017-12-18] MEDS: 0.45% NACL 1,000 ML IV SCH ×2 (02:51→21:40)
[2017-12-18] MEDS: ACETAMINOPHEN 650 MG/20.3 ML UDC GT PRN (02:52)
[2017-12-18] MEDS: DIPHENHYDRAMINE INJ 50 MG/ML VIAL IVP PRN ×2 (02:52→21:38)
[2017-12-18] MEDS: IPRATROPIUM/ALBUTEROL SULFATE 3 ML AMPUL.NEB INH SCH ×6 (05:03→23:59)
[2017-12-18 06:57] LABS: BASOPHILS # (AUTO) 0.1 K/uL (0.0-0.2); BASOPHILS % (AUTO) 0.3 % (0.0-2.0); EOSINOPHILS # (AUTO) 4.5 K/uL (0.0-0.4); EOSINOPHILS % (AUTO) 17.4 % (0.0-4.0); HEMATOCRIT 23.7 % (36-54); LYMPHOCYTES # (AUTO) 2.2 K/uL (1.0-5.5); LYMPHOCYTES % (AUTO) 8.5 % (20.5-51.5); MEAN CORPUSCULAR HEMOGLOBIN 34 pg (27-31); MEAN CORPUSCULAR HGB CONC 34 % (32-36); MEAN CORPUSCULAR VOLUME 99 fL (79.0-98.0); MONOCYTES # (AUTO) 2.5 K/uL (0.0-1.0); MONOCYTES % (AUTO) 9.8 % (1.7-9.3); NEUTROPHILS # (AUTO) 16.3 K/uL (1.8-7.7); RED CELL DISTRIBUTION WIDTH 16.2 % (9.0-15.0); WHITE BLOOD COUNT (AUTO) 25.6 K/uL (4.8-10.8)
[2017-12-18 07:14] LABS: PLATELET COUNT (AUTO) 783 K/uL (130-430)
[2017-12-18 08:24] VITALS: BP_SYST 138
[2017-12-18] MEDS: FERROUS SULFATE 300 MG/5 ML UDC GT SCH ×3 (09:47→21:39)
[2017-12-18] MEDS: CEFEPIME 1 GM in D5W 50 ML IV SCH (09:47)
[2017-12-18] MEDS: PANTOPRAZOLE GRANULES PACKET 40 MG GT SCH (09:47)
[2017-12-18] MEDS: DOCUSATE SODIUM 100 MG/10 ML UDC GT SCH ×2 (09:47→21:39)
[2017-12-18] MEDS: amLODIPine BESYLATE 5 MG TABLET GT SCH (09:48)
[2017-12-18] MEDS: GABAPENTIN 100 MG CAPSULE GT SCH ×3 (09:48→21:38)
[2017-12-18] MEDS: ASPIRIN 81 MG TAB.CHEW GT SCH (09:48)
[2017-12-18] MEDS: AMIODARONE HCL 200 MG TABLET GT SCH (09:49)
[2017-12-18] MEDS: VALPROIC ACID ORAL SYRUP 250 MG/5 ML UDC GT SCH ×2 (09:50→21:39)
[2017-12-18] MEDS: BALSAM PERU/CASTOR OIL 60 GM OINT...G. TP SCH (09:52)
[2017-12-18 12:44] VITALS: BP_SYST 138
[2017-12-18] MEDS: cefTRIAXone 1 GM in D5W 50 ML IV SCH (16:06)
[2017-12-18 16:47] VITALS: BP_SYST 145
[2017-12-19] VITALS: BP_SYST 149
[2017-12-19] MEDS: MORPHINE 4 MG/ML INJ. SYRINGE IVP PRN (02:02)
[2017-12-19] MEDS: IPRATROPIUM/ALBUTEROL SULFATE 3 ML AMPUL.NEB INH SCH ×6 (03:46→23:21)
[2017-12-19] MEDS: DIPHENHYDRAMINE INJ 50 MG/ML VIAL IVP PRN ×3 (06:12→21:17)
[2017-12-19 06:47] LABS: BASOPHILS # (AUTO) 0.2 K/uL (0.0-0.2); BASOPHILS % (AUTO) 0.7 % (0.0-2.0); EOSINOPHILS # (AUTO) 4.3 K/uL (0.0-0.4); EOSINOPHILS % (AUTO) 15.9 % (0.0-4.0); HEMATOCRIT 24.1 % (36-54); HEMOGLOBIN 8.2 g/dL (14.0-18.0); LYMPHOCYTES # (AUTO) 2.2 K/uL (1.0-5.5); LYMPHOCYTES % (AUTO) 7.9 % (20.5-51.5); MEAN CORPUSCULAR HEMOGLOBIN 34 pg (27-31); MEAN CORPUSCULAR HGB CONC 34 % (32-36); MEAN CORPUSCULAR VOLUME 99 fL (79.0-98.0); MONOCYTES # (AUTO) 2.1 K/uL (0.0-1.0); MONOCYTES % (AUTO) 7.8 % (1.7-9.3); NEUTROPHILS # (AUTO) 18.4 K/uL (1.8-7.7); PLATELET COUNT (AUTO) 708 K/uL (130-430); RED BLOOD CELL COUNT(AUTO) 2.43 MIL/uL (4.2-6.2); RED CELL DISTRIBUTION WIDTH 15.7 % (9.0-15.0); WHITE BLOOD COUNT (AUTO) 27.2 K/uL (4.8-10.8)
[2017-12-19 08:00] VITALS: BP_SYST 138
[2017-12-19] MEDS: PANTOPRAZOLE GRANULES PACKET 40 MG GT SCH (09:16)
[2017-12-19] MEDS: ASPIRIN 81 MG TAB.CHEW GT SCH (09:17)
[2017-12-19] MEDS: GABAPENTIN 100 MG CAPSULE GT SCH ×3 (09:17→21:17)
[2017-12-19] MEDS: amLODIPine BESYLATE 5 MG TABLET GT SCH (09:17)
[2017-12-19] MEDS: FERROUS SULFATE 300 MG/5 ML UDC GT SCH ×3 (09:18→21:16)
[2017-12-19] MEDS: DOCUSATE SODIUM 100 MG/10 ML UDC GT SCH ×2 (09:18→21:16)
[2017-12-19] MEDS: AMIODARONE HCL 200 MG TABLET GT SCH (09:18)
[2017-12-19] MEDS: VALPROIC ACID ORAL SYRUP 250 MG/5 ML UDC GT SCH ×2 (09:19→21:16)
[2017-12-19] MEDS: 0.45% NACL 1,000 ML IV SCH (09:26)
[2017-12-19] MEDS ORDERED: EPOETIN ALFA 4,000 UNITS/ML VIAL SUBCUT ONE (11:15)
[2017-12-19 11:40] LABS: NEUTROPHILS % (AUTO) 67.7 % (40.0-70.0)
[2017-12-19 12:05] VITALS: BP_SYST 119
[2017-12-19] MEDS: cefTRIAXone 1 GM in D5W 50 ML IV SCH (14:13)
[2017-12-19 15:58] VITALS: BP_SYST 138
[2017-12-19 16:05] VITALS: BP_SYST 128
[2017-12-19 19:10] VITALS: BP_SYST 141
[2017-12-19] MEDS: BALSAM PERU/CASTOR OIL 60 GM OINT...G. TP SCH (21:16)
[2017-12-20] MEDS: MORPHINE 4 MG/ML INJ. SYRINGE IVP PRN ×2 (00:08→14:38)
[2017-12-20] MEDS: IPRATROPIUM/ALBUTEROL SULFATE 3 ML AMPUL.NEB INH SCH ×6 (03:59→23:06)
[2017-12-20] MEDS: 0.45% NACL 1,000 ML IV SCH ×2 (04:21→20:09)
[2017-12-20] MEDS: DIPHENHYDRAMINE INJ 50 MG/ML VIAL IVP PRN ×4 (05:33→21:29)
[2017-12-20 08:00] VITALS: BP_SYST 142
[2017-12-20] MEDS: ASPIRIN 81 MG TAB.CHEW GT SCH (08:23)
[2017-12-20] MEDS: amLODIPine BESYLATE 5 MG TABLET GT SCH (08:23)
[2017-12-20] MEDS: AMIODARONE HCL 200 MG TABLET GT SCH (08:24)
[2017-12-20] MEDS: GABAPENTIN 100 MG CAPSULE GT SCH ×3 (08:24→21:29)
[2017-12-20] MEDS: PANTOPRAZOLE GRANULES PACKET 40 MG GT SCH (08:24)
[2017-12-20] MEDS: DOCUSATE SODIUM 100 MG/10 ML UDC GT SCH ×2 (08:26→21:29)
[2017-12-20] MEDS: FERROUS SULFATE 300 MG/5 ML UDC GT SCH ×3 (08:26→21:29)
[2017-12-20] MEDS: VALPROIC ACID ORAL SYRUP 250 MG/5 ML UDC GT SCH ×2 (08:31→21:29)
[2017-12-20] MEDS: BALSAM PERU/CASTOR OIL 60 GM OINT...G. TP SCH ×2 (10:14→21:28)
[2017-12-20 11:46] VITALS: BP_SYST 157
[2017-12-20] MEDS: cefTRIAXone 1 GM in D5W 50 ML IV SCH (14:38)
[2017-12-20 15:57] VITALS: BP_SYST 131
[2017-12-20] MEDS ORDERED: BISACODYL 10 MG/SUPPOSITORY RC ONE (16:00)
[2017-12-21 01:45] VITALS: BP_SYST 135
[2017-12-21] MEDS: MORPHINE 4 MG/ML INJ. SYRINGE IVP PRN (04:21)
[2017-12-21] MEDS: IPRATROPIUM/ALBUTEROL SULFATE 3 ML AMPUL.NEB INH SCH ×5 (04:55→23:05)
[2017-12-21] MEDS: DIPHENHYDRAMINE INJ 50 MG/ML VIAL IVP PRN ×2 (06:11→10:40)
[2017-12-21] MEDS: VALPROIC ACID ORAL SYRUP 250 MG/5 ML UDC GT SCH ×2 (08:52→20:40)
[2017-12-21] MEDS: DOCUSATE SODIUM 100 MG/10 ML UDC GT SCH ×2 (08:52→20:39)
[2017-12-21] MEDS: PANTOPRAZOLE GRANULES PACKET 40 MG GT SCH (08:52)
[2017-12-21] MEDS: FERROUS SULFATE 300 MG/5 ML UDC GT SCH ×3 (08:52→20:39)
[2017-12-21] MEDS: AMIODARONE HCL 200 MG TABLET GT SCH (08:53)
[2017-12-21] MEDS: GABAPENTIN 100 MG CAPSULE GT SCH ×3 (08:53→20:39)
[2017-12-21] MEDS: ASPIRIN 81 MG TAB.CHEW GT SCH (08:53)
[2017-12-21] MEDS: amLODIPine BESYLATE 5 MG TABLET GT SCH (08:54)
[2017-12-21 12:20] VITALS: BP_SYST 138
[2017-12-21] MEDS: cefTRIAXone 1 GM in D5W 50 ML IV SCH (14:36)
[2017-12-21] MEDS: 0.45% NACL 1,000 ML IV SCH (14:37)
[2017-12-21 16:00] VITALS: BP_SYST 126
[2017-12-21 20:00] VITALS: BP_SYST 149
[2017-12-22 00:47] VITALS: BP_SYST 148
[2017-12-22 06:26] LABS: LYMPHOCYTES # (AUTO) 2.3 K/uL (1.0-5.5); NEUTROPHILS # (AUTO) 15.4 K/uL (1.8-7.7); RED CELL DISTRIBUTION WIDTH 16.3 % (9.0-15.0)
[2017-12-22 06:42] LABS: BASOPHILS # (AUTO) 0.1 K/uL (0.0-0.2); BASOPHILS % (AUTO) 0.3 % (0.0-2.0); EOSINOPHILS # (AUTO) 6.4 K/uL (0.0-0.4); EOSINOPHILS % (AUTO) 24.1 % (0.0-4.0); HEMATOCRIT 24.7 % (36-54); HEMOGLOBIN 8.3 g/dL (14.0-18.0); LYMPHOCYTES % (AUTO) 8.5 % (20.5-51.5); MEAN CORPUSCULAR HEMOGLOBIN 33 pg (27-31); MEAN CORPUSCULAR HGB CONC 34 % (32-36); MEAN CORPUSCULAR VOLUME 99 fL (79.0-98.0); MONOCYTES # (AUTO) 2.5 K/uL (0.0-1.0); MONOCYTES % (AUTO) 9.5 % (1.7-9.3); NEUTROPHILS % (AUTO) 57.6 % (40.0-70.0); PLATELET COUNT (AUTO) 597 K/uL (130-430); RED BLOOD CELL COUNT(AUTO) 2.48 MIL/uL (4.2-6.2); WHITE BLOOD COUNT (AUTO) 26.7 K/uL (4.8-10.8)
[2017-12-22] MEDS: IPRATROPIUM/ALBUTEROL SULFATE 3 ML AMPUL.NEB INH SCH ×5 (07:07→23:18)
[2017-12-22 07:17] LABS: POTASSIUM 4.7 mmol/L (3.5-5.1)
[2017-12-22 07:18] LABS: CALCIUM 10.5 mg/dL (8.4-11.0); CREATININE 2.01 mg/dL (0.55-1.30)
[2017-12-22 08:30] VITALS: BP_SYST 136
[2017-12-22] MEDS: PANTOPRAZOLE GRANULES PACKET 40 MG GT SCH (08:34)
[2017-12-22] MEDS: 0.45% NACL 1,000 ML IV SCH ×2 (08:34→21:52)
[2017-12-22] MEDS: amLODIPine BESYLATE 5 MG TABLET GT SCH (08:35)
[2017-12-22] MEDS: GABAPENTIN 100 MG CAPSULE GT SCH ×3 (08:35→21:52)
[2017-12-22] MEDS: ASPIRIN 81 MG TAB.CHEW GT SCH (08:35)
[2017-12-22] MEDS: AMIODARONE HCL 200 MG TABLET GT SCH (08:36)
[2017-12-22] MEDS: VALPROIC ACID ORAL SYRUP 250 MG/5 ML UDC GT SCH ×2 (08:36→21:52)
[2017-12-22] MEDS: FERROUS SULFATE 300 MG/5 ML UDC GT SCH ×3 (08:36→21:51)
[2017-12-22] MEDS: DOCUSATE SODIUM 100 MG/10 ML UDC GT SCH ×2 (08:36→21:51)
[2017-12-22] MEDS: BALSAM PERU/CASTOR OIL 60 GM OINT...G. TP SCH ×2 (08:37→21:53)
[2017-12-22 11:01] VITALS: BP_SYST 136
[2017-12-22 12:20] VITALS: BP_SYST 143; BP_SYST 158
[2017-12-22] MEDS: cefTRIAXone 1 GM in D5W 50 ML IV SCH (14:40)
[2017-12-22 16:20] VITALS: BP_SYST 158
[2017-12-22 20:30] VITALS: BP_SYST 140
[2017-12-22] MEDS: MORPHINE 4 MG/ML INJ. SYRINGE IVP PRN (22:23)
[2017-12-23 00:44] VITALS: BP_SYST 135
[2017-12-23] MEDS: DIPHENHYDRAMINE INJ 50 MG/ML VIAL IVP PRN ×3 (02:32→21:49)
[2017-12-23] MEDS: IPRATROPIUM/ALBUTEROL SULFATE 3 ML AMPUL.NEB INH SCH ×6 (03:44→23:23)
[2017-12-23 08:00] VITALS: BP_SYST 112
[2017-12-23] MEDS: PANTOPRAZOLE GRANULES PACKET 40 MG GT SCH (10:14)
[2017-12-23] MEDS: FERROUS SULFATE 300 MG/5 ML UDC GT SCH ×3 (10:14→21:49)
[2017-12-23] MEDS: GABAPENTIN 100 MG CAPSULE GT SCH ×3 (10:14→21:49)
[2017-12-23] MEDS: DOCUSATE SODIUM 100 MG/10 ML UDC GT SCH ×2 (10:14→21:50)
[2017-12-23] MEDS: AMIODARONE HCL 200 MG TABLET GT SCH (10:17)
[2017-12-23] MEDS: ASPIRIN 81 MG TAB.CHEW GT SCH (10:18)
[2017-12-23] MEDS: amLODIPine BESYLATE 5 MG TABLET GT SCH (10:18)
[2017-12-23 12:00] VITALS: BP_SYST 147
[2017-12-23] MEDS ORDERED: COMMUNICATION ORDER XX SCH (12:30)
[2017-12-23] MEDS: cefTRIAXone 1 GM in D5W 50 ML IV SCH (14:39)
[2017-12-23] MEDS: 0.45% NACL 1,000 ML IV SCH (14:40)
[2017-12-23 16:35] VITALS: BP_SYST 127
[2017-12-23 20:00] VITALS: BP_SYST 135
[2017-12-23] MEDS: VALPROIC ACID ORAL SYRUP 250 MG/5 ML UDC GT SCH (21:49)
[2017-12-23 23:32] VITALS: BP_SYST 133
[2017-12-24] MEDS: 0.45% NACL 1,000 ML IV SCH ×3 (03:06→23:43)
[2017-12-24] MEDS: IPRATROPIUM/ALBUTEROL SULFATE 3 ML AMPUL.NEB INH SCH ×5 (04:07→23:29)
[2017-12-24 08:10] VITALS: BP_SYST 131
[2017-12-24] MEDS: GABAPENTIN 100 MG CAPSULE GT SCH ×3 (08:26→20:57)
[2017-12-24] MEDS: amLODIPine BESYLATE 5 MG TABLET GT SCH (08:27)
[2017-12-24] MEDS: AMIODARONE HCL 200 MG TABLET GT SCH (08:27)
[2017-12-24] MEDS: PANTOPRAZOLE GRANULES PACKET 40 MG GT SCH (08:28)
[2017-12-24] MEDS: DOCUSATE SODIUM 100 MG/10 ML UDC GT SCH ×2 (08:28→20:57)
[2017-12-24] MEDS: FERROUS SULFATE 300 MG/5 ML UDC GT SCH ×3 (08:28→20:57)
[2017-12-24] MEDS: ASPIRIN 81 MG TAB.CHEW GT SCH (08:29)
[2017-12-24] MEDS: VALPROIC ACID ORAL SYRUP 250 MG/5 ML UDC GT SCH ×2 (08:29→20:56)
[2017-12-24] MEDS ORDERED: LORazepam 2 MG/ML VIAL ONE (08:49)
[2017-12-24] MEDS: AMIODARONE HCL 200 MG TABLET PO SCH ×2 (08:53→20:57)
[2017-12-24] MEDS ORDERED: VALPROATE SODIUM 750 MG in D5W 100 ML IV ONE (09:15)
[2017-12-24 09:20] VITALS: BP_SYST 120
[2017-12-24] MEDS: BALSAM PERU/CASTOR OIL 60 GM OINT...G. TP SCH (10:41)
[2017-12-24] MEDS ORDERED: AMIODARONE HCL 200 MG TABLET ONE (10:42)
[2017-12-24] MEDS ORDERED: AMIODARONE HCL 200 MG TABLET PO ONE (10:45)
[2017-12-24 12:00] VITALS: BP_SYST 106; BP_SYST 96
[2017-12-24] MEDS: cefTRIAXone 1 GM in D5W 50 ML IV SCH (15:02)
[2017-12-24 16:00] VITALS: BP_SYST 106
[2017-12-24 20:00] VITALS: BP_SYST 130
[2017-12-25 01:07] VITALS: BP_SYST 131
[2017-12-25] MEDS: IPRATROPIUM/ALBUTEROL SULFATE 3 ML AMPUL.NEB INH SCH ×6 (04:14→23:17)
[2017-12-25] MEDS: MORPHINE 4 MG/ML INJ. SYRINGE IVP PRN ×2 (06:03→23:03)
[2017-12-25 06:26] LABS: BASOPHILS # (AUTO) 0.1 K/uL (0.0-0.2); BASOPHILS % (AUTO) 0.3 % (0.0-2.0); EOSINOPHILS # (AUTO) 4.7 K/uL (0.0-0.4); EOSINOPHILS % (AUTO) 19.1 % (0.0-4.0); LYMPHOCYTES # (AUTO) 1.9 K/uL (1.0-5.5); LYMPHOCYTES % (AUTO) 7.9 % (20.5-51.5); MEAN CORPUSCULAR HEMOGLOBIN 34 pg (27-31); MEAN CORPUSCULAR HGB CONC 34 % (32-36); MONOCYTES # (AUTO) 2.5 K/uL (0.0-1.0); MONOCYTES % (AUTO) 10.1 % (1.7-9.3); NEUTROPHILS # (AUTO) 15.4 K/uL (1.8-7.7); NEUTROPHILS % (AUTO) 62.6 % (40.0-70.0); PLATELET COUNT (AUTO) 488 K/uL (130-430); RED BLOOD CELL COUNT(AUTO) 2.04 MIL/uL (4.2-6.2); RED CELL DISTRIBUTION WIDTH 16.1 % (9.0-15.0); WHITE BLOOD COUNT (AUTO) 24.6 K/uL (4.8-10.8)
[2017-12-25 06:49] LABS: CALCIUM 9.5 mg/dL (8.4-11.0); CREATININE 1.79 mg/dL (0.55-1.30); HEMOGLOBIN 6.9 g/dL (14.0-18.0); POTASSIUM 3.9 mmol/L (3.5-5.1)
[2017-12-25 06:50] LABS: HEMATOCRIT 20.4 % (36-54)
[2017-12-25 08:26] LABS: MEAN CORPUSCULAR VOLUME 100 fL (79.0-98.0)
[2017-12-25] MEDS: BALSAM PERU/CASTOR OIL 60 GM OINT...G. TP SCH (09:00)
[2017-12-25] MEDS: GABAPENTIN 100 MG CAPSULE GT SCH ×3 (09:08→21:45)
[2017-12-25] MEDS: ASPIRIN 81 MG TAB.CHEW GT SCH (09:08)
[2017-12-25] MEDS: DOCUSATE SODIUM 100 MG/10 ML UDC GT SCH ×2 (09:08→21:45)
[2017-12-25] MEDS: VALPROIC ACID ORAL SYRUP 250 MG/5 ML UDC GT SCH ×2 (09:08→21:46)
[2017-12-25] MEDS: FERROUS SULFATE 300 MG/5 ML UDC GT SCH ×3 (09:08→21:45)
[2017-12-25] MEDS: PANTOPRAZOLE GRANULES PACKET 40 MG GT SCH (09:08)
[2017-12-25] MEDS: amLODIPine BESYLATE 5 MG TABLET GT SCH (09:11)
[2017-12-25] MEDS: AMIODARONE HCL 200 MG TABLET PO SCH ×2 (09:11→21:45)
[2017-12-25] MEDS: DIPHENHYDRAMINE INJ 50 MG/ML VIAL IVP PRN ×2 (09:29→21:52)
[2017-12-25 10:52] LABS: BASOPHILS # (AUTO) 0.1 K/uL (0.0-0.2); BASOPHILS % (AUTO) 0.4 % (0.0-2.0); EOSINOPHILS % (AUTO) 20.8 % (0.0-4.0); LYMPHOCYTES # (AUTO) 2.3 K/uL (1.0-5.5); LYMPHOCYTES % (AUTO) 9.4 % (20.5-51.5); MEAN CORPUSCULAR HEMOGLOBIN 33 pg (27-31); MEAN CORPUSCULAR HGB CONC 33 % (32-36); MEAN CORPUSCULAR VOLUME 100 fL (79.0-98.0); MONOCYTES # (AUTO) 2.4 K/uL (0.0-1.0); MONOCYTES % (AUTO) 10.1 % (1.7-9.3); NEUTROPHILS # (AUTO) 14.4 K/uL (1.8-7.7); NEUTROPHILS % (AUTO) 59.3 % (40.0-70.0); PLATELET COUNT (AUTO) 523 K/uL (130-430); RED BLOOD CELL COUNT(AUTO) 2.04 MIL/uL (4.2-6.2); RED CELL DISTRIBUTION WIDTH 16.3 % (9.0-15.0); WHITE BLOOD COUNT (AUTO) 24.2 K/uL (4.8-10.8)
[2017-12-25 10:57] LABS: TOTAL IRON BIND. CAPACITY 178 ug/dL (250-450)
[2017-12-25 11:04] LABS: HEMATOCRIT 20.4 % (36-54); HEMOGLOBIN 6.7 g/dL (14.0-18.0)
[2017-12-25 11:45] VITALS: BP_SYST 135
[2017-12-25 12:00] VITALS: BP_SYST 135
[2017-12-25 16:00] VITALS: BP_SYST 138
[2017-12-25 20:00] VITALS: BP_SYST 110
[2017-12-25] MEDS: 0.45% NACL 1,000 ML IV SCH (21:45)
[2017-12-26 00:05] VITALS: BP_SYST 147
[2017-12-26] MEDS: IPRATROPIUM/ALBUTEROL SULFATE 3 ML AMPUL.NEB INH SCH ×6 (04:01→23:07)
[2017-12-26 06:16] LABS: BASOPHILS # (AUTO) 0.1 K/uL (0.0-0.2); BASOPHILS % (AUTO) 0.4 % (0.0-2.0); EOSINOPHILS # (AUTO) 6.8 K/uL (0.0-0.4); EOSINOPHILS % (AUTO) 27.6 % (0.0-4.0); HEMATOCRIT 24.8 % (36-54); HEMOGLOBIN 8.6 g/dL (14.0-18.0); LYMPHOCYTES # (AUTO) 2.4 K/uL (1.0-5.5); LYMPHOCYTES % (AUTO) 9.7 % (20.5-51.5); MEAN CORPUSCULAR HEMOGLOBIN 34 pg (27-31); MEAN CORPUSCULAR HGB CONC 35 % (32-36); MEAN CORPUSCULAR VOLUME 97 fL (79.0-98.0); MONOCYTES # (AUTO) 2.5 K/uL (0.0-1.0); NEUTROPHILS % (AUTO) 52.3 % (40.0-70.0); PLATELET COUNT (AUTO) 488 K/uL (130-430); RED BLOOD CELL COUNT(AUTO) 2.57 MIL/uL (4.2-6.2); RED CELL DISTRIBUTION WIDTH 18.2 % (9.0-15.0); WHITE BLOOD COUNT (AUTO) 24.8 K/uL (4.8-10.8)
[2017-12-26 06:29] LABS: CALCIUM 10.1 mg/dL (8.4-11.0); CREATININE 1.71 mg/dL (0.55-1.30); POTASSIUM 4.4 mmol/L (3.5-5.1)
[2017-12-26] MEDS ORDERED: DOCUSATE SODIUM 100 MG/10 ML UDC ONE (08:45)
[2017-12-26] MEDS: FERROUS SULFATE 300 MG/5 ML UDC GT SCH ×3 (08:47→21:25)
[2017-12-26] MEDS: VALPROIC ACID ORAL SYRUP 250 MG/5 ML UDC GT SCH ×2 (08:48→21:25)
[2017-12-26] MEDS: DOCUSATE SODIUM 100 MG/10 ML UDC GT SCH ×2 (08:48→21:24)
[2017-12-26] MEDS: GABAPENTIN 100 MG CAPSULE GT SCH ×3 (08:49→21:25)
[2017-12-26] MEDS: AMIODARONE HCL 200 MG TABLET PO SCH ×2 (08:49→21:26)
[2017-12-26] MEDS: ASPIRIN 81 MG TAB.CHEW GT SCH (08:49)
[2017-12-26] MEDS: amLODIPine BESYLATE 5 MG TABLET GT SCH (08:49)
[2017-12-26] MEDS: DIPHENHYDRAMINE INJ 50 MG/ML VIAL IVP PRN ×2 (08:49→23:29)
[2017-12-26] MEDS: PANTOPRAZOLE GRANULES PACKET 40 MG GT SCH (08:49)
[2017-12-26] MEDS: BALSAM PERU/CASTOR OIL 60 GM OINT...G. TP SCH (08:50)
[2017-12-26 09:14] VITALS: BP_SYST 139
[2017-12-26 12:18] VITALS: BP_SYST 136
[2017-12-26 16:45] VITALS: BP_SYST 106
[2017-12-26 20:00] VITALS: BP_SYST 100
[2017-12-26] MEDS: 0.45% NACL 1,000 ML IV SCH (23:28)
[2017-12-26 23:38] VITALS: BP_SYST 121
[2017-12-27] MEDS: IPRATROPIUM/ALBUTEROL SULFATE 3 ML AMPUL.NEB INH SCH ×7 (03:29→23:18)
[2017-12-27 07:20] VITALS: BP_SYST 103
[2017-12-27] MEDS: AMIODARONE HCL 200 MG TABLET PO SCH ×2 (07:24→20:31)
[2017-12-27] MEDS: PANTOPRAZOLE GRANULES PACKET 40 MG GT SCH (08:24)
[2017-12-27] MEDS: VALPROIC ACID ORAL SYRUP 250 MG/5 ML UDC GT SCH ×2 (08:24→20:30)
[2017-12-27] MEDS: FERROUS SULFATE 300 MG/5 ML UDC GT SCH ×3 (08:24→20:30)
[2017-12-27] MEDS: ASPIRIN 81 MG TAB.CHEW GT SCH (08:24)
[2017-12-27] MEDS: GABAPENTIN 100 MG CAPSULE GT SCH ×3 (08:24→20:30)
[2017-12-27] MEDS: DOCUSATE SODIUM 100 MG/10 ML UDC GT SCH ×2 (08:25→20:29)
[2017-12-27] MEDS: amLODIPine BESYLATE 5 MG TABLET GT SCH ×2 (08:26→08:32)
[2017-12-27] MEDS: BALSAM PERU/CASTOR OIL 60 GM OINT...G. TP SCH (08:34)
[2017-12-27 12:22] VITALS: BP_SYST 132
[2017-12-27 16:04] VITALS: BP_SYST 127
[2017-12-27] MEDS: DIPHENHYDRAMINE INJ 50 MG/ML VIAL IVP PRN ×2 (16:22→20:31)
[2017-12-27 20:00] VITALS: BP_SYST 138
[2017-12-27] MEDS: 0.45% NACL 1,000 ML IV SCH (20:42)
[2017-12-27 23:44] VITALS: BP_SYST 145
[2017-12-28] MEDS: IPRATROPIUM/ALBUTEROL SULFATE 3 ML AMPUL.NEB INH SCH ×6 (04:02→23:15)
[2017-12-28 08:01] VITALS: BP_SYST 149
[2017-12-28] MEDS: FERROUS SULFATE 300 MG/5 ML UDC GT SCH ×3 (10:31→21:03)
[2017-12-28] MEDS: DOCUSATE SODIUM 100 MG/10 ML UDC GT SCH ×2 (10:31→21:03)
[2017-12-28] MEDS: ASPIRIN 81 MG TAB.CHEW GT SCH (10:32)
[2017-12-28] MEDS: VALPROIC ACID ORAL SYRUP 250 MG/5 ML UDC GT SCH ×2 (10:32→21:04)
[2017-12-28] MEDS: GABAPENTIN 100 MG CAPSULE GT SCH ×3 (10:33→21:03)
[2017-12-28] MEDS: amLODIPine BESYLATE 5 MG TABLET GT SCH (10:33)
[2017-12-28] MEDS: PANTOPRAZOLE GRANULES PACKET 40 MG GT SCH (10:33)
[2017-12-28] MEDS: AMIODARONE HCL 200 MG TABLET PO SCH ×2 (10:33→21:04)
[2017-12-28] MEDS: BALSAM PERU/CASTOR OIL 60 GM OINT...G. TP SCH (10:34)
[2017-12-28] MEDS: EPOETIN ALFA 4,000 UNITS/ML VIAL SUBCUT SCH (10:49)
[2017-12-28 12:23] VITALS: BP_SYST 149
[2017-12-28] MEDS ORDERED: AMIODARONE HCL 200 MG TABLET PO ONE (13:45)
[2017-12-28 16:15] VITALS: BP_SYST 110
[2017-12-28] MEDS ORDERED: DILTIAZEM HCL 60 MG TABLET PO ONE (16:30)
[2017-12-28] MEDS: DILTIAZEM HCL 30 MG TABLET PO SCH (18:00)
[2017-12-28 20:10] VITALS: BP_SYST 130
[2017-12-28] MEDS: 0.45% NACL 1,000 ML IV SCH (22:11)
[2017-12-28] MEDS: LORazepam 2 MG/ML VIAL IVP PRN (22:11)
[2017-12-28 23:46] VITALS: BP_SYST 102
[2017-12-29] MEDS: DILTIAZEM HCL 30 MG TABLET PO SCH ×2 (00:01→05:38)
[2017-12-29] MEDS: DIPHENHYDRAMINE INJ 50 MG/ML VIAL IVP PRN ×2 (02:09→16:09)
[2017-12-29] MEDS: IPRATROPIUM/ALBUTEROL SULFATE 3 ML AMPUL.NEB INH SCH ×6 (03:59→23:41)
[2017-12-29 06:19] LABS: BASOPHILS # (AUTO) 0.1 K/uL (0.0-0.2); BASOPHILS % (AUTO) 0.4 % (0.0-2.0); EOSINOPHILS # (AUTO) 3.5 K/uL (0.0-0.4); EOSINOPHILS % (AUTO) 13.7 % (0.0-4.0); HEMATOCRIT 24.1 % (36-54); HEMOGLOBIN 8.4 g/dL (14.0-18.0); LYMPHOCYTES # (AUTO) 2.4 K/uL (1.0-5.5); LYMPHOCYTES % (AUTO) 9.3 % (20.5-51.5); MEAN CORPUSCULAR HEMOGLOBIN 34 pg (27-31); MEAN CORPUSCULAR HGB CONC 35 % (32-36); MEAN CORPUSCULAR VOLUME 97 fL (79.0-98.0); MONOCYTES # (AUTO) 2.9 K/uL (0.0-1.0); MONOCYTES % (AUTO) 11.2 % (1.7-9.3); NEUTROPHILS # (AUTO) 16.6 K/uL (1.8-7.7); NEUTROPHILS % (AUTO) 65.4 % (40.0-70.0); PLATELET COUNT (AUTO) 507 K/uL (130-430); RED BLOOD CELL COUNT(AUTO) 2.48 MIL/uL (4.2-6.2); RED CELL DISTRIBUTION WIDTH 18.3 % (9.0-15.0); WHITE BLOOD COUNT (AUTO) 25.5 K/uL (4.8-10.8)
[2017-12-29 06:41] LABS: ALBUMIN 1.7 g/dL (3.4-4.8); CALCIUM 9.4 mg/dL (8.4-11.0); CREATININE 1.89 mg/dL (0.55-1.30); POTASSIUM 4.3 mmol/L (3.5-5.1); TOTAL BILIRUBIN 0.3 mg/dL (0.0-1.0)
[2017-12-29 07:40] VITALS: BP_SYST 120
[2017-12-29] MEDS ORDERED: AMIODARONE HCL 200 MG TABLET GT SCH (09:00)
[2017-12-29] MEDS ORDERED: DILTIAZEM HCL 60 MG TABLET GT SCH (09:00)
[2017-12-29] MEDS: PANTOPRAZOLE GRANULES PACKET 40 MG GT SCH (09:26)
[2017-12-29] MEDS: FERROUS SULFATE 300 MG/5 ML UDC GT SCH ×3 (09:26→21:14)
[2017-12-29] MEDS: VALPROIC ACID ORAL SYRUP 250 MG/5 ML UDC GT SCH ×2 (09:26→21:14)
[2017-12-29] MEDS: GABAPENTIN 100 MG CAPSULE GT SCH ×3 (09:26→21:19)
[2017-12-29] MEDS: amLODIPine BESYLATE 5 MG TABLET GT SCH (09:26)
[2017-12-29] MEDS: DOCUSATE SODIUM 100 MG/10 ML UDC GT SCH ×2 (09:26→21:14)
[2017-12-29] MEDS: AMIODARONE HCL 200 MG TABLET GT SCH ×2 (09:27→21:19)
[2017-12-29] MEDS: ASPIRIN 81 MG TAB.CHEW GT SCH (09:27)
[2017-12-29] MEDS: DILTIAZEM HCL 60 MG TABLET GT SCH ×2 (11:44→21:19)
[2017-12-29] MEDS ORDERED: DILTIAZEM HCL 60 MG TABLET GT ONE (12:00)
[2017-12-29 12:41] VITALS: BP_SYST 113
[2017-12-29] MEDS: 0.45% NACL 1,000 ML IV SCH (14:41)
[2017-12-29] MEDS: BALSAM PERU/CASTOR OIL 60 GM OINT...G. TP SCH (15:26)
[2017-12-29 16:07] VITALS: BP_SYST 131
[2017-12-29 20:30] VITALS: BP_SYST 137
[2017-12-29 23:48] VITALS: BP_SYST 140
[2017-12-30] MEDS: 0.45% NACL 1,000 ML IV SCH (01:11)
[2017-12-30] MEDS: DIPHENHYDRAMINE INJ 50 MG/ML VIAL IVP PRN (02:14)
[2017-12-30] MEDS: IPRATROPIUM/ALBUTEROL SULFATE 3 ML AMPUL.NEB INH SCH ×5 (03:58→23:12)
[2017-12-30] MEDS: LORazepam 2 MG/ML VIAL IVP PRN (05:25)
[2017-12-30] MEDS: DILTIAZEM HCL 60 MG TABLET GT SCH ×3 (05:56→22:19)
[2017-12-30] MEDS: AMIODARONE HCL 200 MG TABLET GT SCH ×2 (05:57→22:18)
[2017-12-30 06:14] VITALS: BP_SYST 119
[2017-12-30 07:10] LABS: ALBUMIN 1.8 g/dL (3.4-4.8); CALCIUM 9.6 mg/dL (8.4-11.0); CREATININE 2.04 mg/dL (0.55-1.30); PHOSPHORUS 3.4 mg/dL (2.7-4.5); POTASSIUM 4.9 mmol/L (3.5-5.1); TOTAL BILIRUBIN 0.3 mg/dL (0.0-1.0)
[2017-12-30 07:18] LABS: HEMATOCRIT 24.1 % (36-54); HEMOGLOBIN 8.5 g/dL (14.0-18.0); MEAN CORPUSCULAR HEMOGLOBIN 34 pg (27-31); MEAN CORPUSCULAR HGB CONC 35 % (32-36); MEAN CORPUSCULAR VOLUME 97 fL (79.0-98.0); PLATELET COUNT (AUTO) 489 K/uL (130-430); RED BLOOD CELL COUNT(AUTO) 2.49 MIL/uL (4.2-6.2); RED CELL DISTRIBUTION WIDTH 17.7 % (9.0-15.0); WHITE BLOOD COUNT (AUTO) 27.3 K/uL (4.8-10.8)
[2017-12-30 07:50] LABS: BASOPHILS % (MANUAL) 0 % (0-2); EOSINOPHILS % (MANUAL) 10 % (0-7); LYMPHOCYTES % (MANUAL) 8 % (20-46); MONOCYTES % (MANUAL) 9 % (0-11)
[2017-12-30] MEDS ORDERED: AMIODARONE HCL 200 MG TABLET PO ONE (10:00)
[2017-12-30] MEDS: DOCUSATE SODIUM 100 MG/10 ML UDC GT SCH ×2 (10:04→22:17)
[2017-12-30] MEDS: FERROUS SULFATE 300 MG/5 ML UDC GT SCH ×3 (10:04→22:17)
[2017-12-30] MEDS: PANTOPRAZOLE GRANULES PACKET 40 MG GT SCH (10:05)
[2017-12-30] MEDS: amLODIPine BESYLATE 5 MG TABLET GT SCH (10:05)
[2017-12-30] MEDS: ASPIRIN 81 MG TAB.CHEW GT SCH (10:05)
[2017-12-30] MEDS: GABAPENTIN 100 MG CAPSULE GT SCH ×3 (10:05→22:17)
[2017-12-30] MEDS: VALPROIC ACID ORAL SYRUP 250 MG/5 ML UDC GT SCH ×2 (10:06→22:17)
[2017-12-30] MEDS: EPOETIN ALFA 4,000 UNITS/ML VIAL SUBCUT SCH (10:10)
[2017-12-30 12:23] VITALS: BP_SYST 158
[2017-12-30] MEDS ORDERED: DILTIAZEM HCL 25 MG/5 ML VIAL IVP ONE (13:30)
[2017-12-30] MEDS: NACL 0.9% 1,000 ML IV SCH (13:55)
[2017-12-30 16:44] VITALS: BP_SYST 141
[2017-12-30] MEDS: BALSAM PERU/CASTOR OIL 60 GM OINT...G. TP SCH (18:30)
[2017-12-30 20:00] VITALS: BP_SYST 117
[2017-12-31 00:01] VITALS: BP_SYST 129
[2017-12-31] MEDS: IPRATROPIUM/ALBUTEROL SULFATE 3 ML AMPUL.NEB INH SCH ×5 (03:52→23:23)
[2017-12-31] MEDS: NACL 0.9% 1,000 ML IV SCH ×2 (06:47→23:33)
[2017-12-31] MEDS: DILTIAZEM HCL 25 MG/5 ML VIAL IVP PRN ×2 (07:20→11:07)
[2017-12-31 07:21] VITALS: BP_SYST 123
[2017-12-31 08:00] VITALS: BP_SYST 136
[2017-12-31] MEDS: ASPIRIN 81 MG TAB.CHEW GT SCH (08:59)
[2017-12-31] MEDS: DILTIAZEM HCL 60 MG TABLET GT SCH ×4 (08:59→21:00)
[2017-12-31] MEDS: FERROUS SULFATE 300 MG/5 ML UDC GT SCH ×3 (08:59→20:59)
[2017-12-31] MEDS: PANTOPRAZOLE GRANULES PACKET 40 MG GT SCH (08:59)
[2017-12-31] MEDS: GABAPENTIN 100 MG CAPSULE GT SCH ×3 (09:00→21:00)
[2017-12-31] MEDS: amLODIPine BESYLATE 5 MG TABLET GT SCH (09:00)
[2017-12-31] MEDS: DOCUSATE SODIUM 100 MG/10 ML UDC GT SCH ×2 (09:00→20:59)
[2017-12-31] MEDS: BALSAM PERU/CASTOR OIL 60 GM OINT...G. TP SCH (09:00)
[2017-12-31] MEDS: AMIODARONE HCL 200 MG TABLET GT SCH ×2 (09:01→21:01)
[2017-12-31] MEDS: VALPROIC ACID ORAL SYRUP 250 MG/5 ML UDC GT SCH ×3 (09:17→21:01)
[2017-12-31] MEDS ORDERED: AMIODARONE HCL 200 MG TABLET PO ONE (10:00)
[2017-12-31 11:20] VITALS: BP_SYST 125
[2017-12-31 12:22] VITALS: BP_SYST 127
[2017-12-31 23:03] VITALS: BP_SYST 112
[2018-01-01] MEDS: IPRATROPIUM/ALBUTEROL SULFATE 3 ML AMPUL.NEB INH SCH ×6 (03:57→23:40)
[2018-01-01] MEDS: DILTIAZEM HCL 25 MG/5 ML VIAL IVP PRN (05:38)
[2018-01-01 07:22] LABS: HEMOGLOBIN 8.3 g/dL (14.0-18.0); MEAN CORPUSCULAR HEMOGLOBIN 34 pg (27-31); MEAN CORPUSCULAR HGB CONC 35 % (32-36); MEAN CORPUSCULAR VOLUME 97 fL (79.0-98.0); PLATELET COUNT (AUTO) 581 K/uL (130-430); RED BLOOD CELL COUNT(AUTO) 2.48 MIL/uL (4.2-6.2); RED CELL DISTRIBUTION WIDTH 17.4 % (9.0-15.0); WHITE BLOOD COUNT (AUTO) 26.2 K/uL (4.8-10.8)
[2018-01-01 07:49] LABS: CALCIUM 9.4 mg/dL (8.4-11.0); CREATININE 2.59 mg/dL (0.55-1.30); POTASSIUM 5.2 mmol/L (3.5-5.1)
[2018-01-01 07:55] VITALS: BP_SYST 128
[2018-01-01 08:00] VITALS: BP_SYST 128
[2018-01-01] MEDS: BALSAM PERU/CASTOR OIL 60 GM OINT...G. TP SCH (09:00)
[2018-01-01 09:04] LABS: BAND % (MANUAL) 5 % (0-6); LYMPHOCYTES % (MANUAL) 6 % (20-46)
[2018-01-01 09:05] LABS: BASOPHILS % (MANUAL) 0 % (0-2); EOSINOPHILS % (MANUAL) 2 % (0-7); MONOCYTES % (MANUAL) 10 % (0-11)
[2018-01-01] MEDS: PANTOPRAZOLE GRANULES PACKET 40 MG GT SCH (09:39)
[2018-01-01] MEDS: FERROUS SULFATE 300 MG/5 ML UDC GT SCH ×3 (09:40→22:08)
[2018-01-01] MEDS: VALPROIC ACID ORAL SYRUP 250 MG/5 ML UDC GT SCH ×3 (09:41→22:06)
[2018-01-01] MEDS: DOCUSATE SODIUM 100 MG/10 ML UDC GT SCH ×2 (09:41→22:05)
[2018-01-01] MEDS: DILTIAZEM HCL 60 MG TABLET GT SCH ×4 (09:42→22:08)
[2018-01-01] MEDS: GABAPENTIN 100 MG CAPSULE GT SCH ×3 (09:42→22:08)
[2018-01-01] MEDS: ASPIRIN 81 MG TAB.CHEW GT SCH (09:43)
[2018-01-01] MEDS: amLODIPine BESYLATE 5 MG TABLET GT SCH (09:43)
[2018-01-01] MEDS: AMIODARONE HCL 200 MG TABLET GT SCH ×2 (09:43→22:09)
[2018-01-01] MEDS: DIPHENHYDRAMINE INJ 50 MG/ML VIAL IVP PRN ×2 (09:44→17:19)
[2018-01-01] MEDS: EPOETIN ALFA 4,000 UNITS/ML VIAL SUBCUT SCH (09:44)
[2018-01-01 12:10] VITALS: BP_SYST 144
[2018-01-01] MEDS: NACL 0.9% 1,000 ML IV SCH ×2 (13:21→22:22)
[2018-01-01 16:05] VITALS: BP_SYST 107
[2018-01-01 20:06] VITALS: BP_SYST 121
[2018-01-02] VITALS (7 sets, daily range): BP systolic 111–124
[2018-01-02] MEDS: DIPHENHYDRAMINE INJ 50 MG/ML VIAL IVP PRN (01:08)
[2018-01-02] MEDS: NACL 0.9% 1,000 ML IV SCH ×2 (01:32→17:43)
[2018-01-02] MEDS: IPRATROPIUM/ALBUTEROL SULFATE 3 ML AMPUL.NEB INH SCH ×6 (03:40→23:47)
[2018-01-02] MEDS ORDERED: LORazepam 2 MG/ML VIAL IVP PRN (06:45)
[2018-01-02 07:00] LABS: CREATININE 2.58 mg/dL (0.55-1.30); POTASSIUM 5.4 mmol/L (3.5-5.1)
[2018-01-02 07:07] LABS: BASOPHILS # (AUTO) 0.4 K/uL (0.0-0.2); BASOPHILS % (AUTO) 1.6 % (0.0-2.0); EOSINOPHILS # (AUTO) 0.9 K/uL (0.0-0.4); EOSINOPHILS % (AUTO) 3.3 % (0.0-4.0); HEMATOCRIT 25.4 % (36-54); HEMOGLOBIN 8.9 g/dL (14.0-18.0); LYMPHOCYTES # (AUTO) 1.8 K/uL (1.0-5.5); LYMPHOCYTES % (AUTO) 6.6 % (20.5-51.5); MEAN CORPUSCULAR HEMOGLOBIN 34 pg (27-31); MEAN CORPUSCULAR HGB CONC 35 % (32-36); MEAN CORPUSCULAR VOLUME 97 fL (79.0-98.0); MONOCYTES # (AUTO) 3.1 K/uL (0.0-1.0); MONOCYTES % (AUTO) 11.2 % (1.7-9.3); NEUTROPHILS # (AUTO) 21.7 K/uL (1.8-7.7); PLATELET COUNT (AUTO) 640 K/uL (130-430); RED BLOOD CELL COUNT(AUTO) 2.61 MIL/uL (4.2-6.2); RED CELL DISTRIBUTION WIDTH 18.3 % (9.0-15.0); WHITE BLOOD COUNT (AUTO) 27.9 K/uL (4.8-10.8)
[2018-01-02] MEDS: FERROUS SULFATE 300 MG/5 ML UDC GT SCH ×3 (08:58→22:35)
[2018-01-02] MEDS: GABAPENTIN 100 MG CAPSULE GT SCH ×3 (08:59→22:31)
[2018-01-02] MEDS: PANTOPRAZOLE GRANULES PACKET 40 MG GT SCH (08:59)
[2018-01-02] MEDS: DOCUSATE SODIUM 100 MG/10 ML UDC GT SCH ×2 (08:59→22:31)
[2018-01-02] MEDS: DILTIAZEM HCL 60 MG TABLET GT SCH ×4 (09:00→22:34)
[2018-01-02] MEDS: AMIODARONE HCL 200 MG TABLET GT SCH ×2 (09:00→22:34)
[2018-01-02] MEDS: ASPIRIN 81 MG TAB.CHEW GT SCH (09:00)
[2018-01-02] MEDS: amLODIPine BESYLATE 5 MG TABLET GT SCH (09:00)
[2018-01-02] MEDS: VALPROIC ACID ORAL SYRUP 250 MG/5 ML UDC GT SCH ×3 (09:03→22:35)
[2018-01-02] MEDS: BALSAM PERU/CASTOR OIL 60 GM OINT...G. TP SCH (09:05)
[2018-01-02 10:26] LABS: NEUTROPHILS % (AUTO) 77.3 % (40.0-70.0)
[2018-01-02] MEDS ORDERED: FUROSEMIDE 40 MG/4 ML VIAL IVP ONE (13:30)
[2018-01-02] MEDS: FUROSEMIDE 20 MG TABLET GT SCH (22:35)
[2018-01-03] MEDS: NACL 0.9% 1,000 ML IV SCH ×3 (01:28→22:26)
[2018-01-03] MEDS: DILTIAZEM HCL 25 MG/5 ML VIAL IVP PRN ×2 (02:33→06:39)
[2018-01-03] MEDS: IPRATROPIUM/ALBUTEROL SULFATE 3 ML AMPUL.NEB INH SCH ×6 (04:00→23:34)
[2018-01-03 07:39] LABS: BASOPHILS # (AUTO) 0.2 K/uL (0.0-0.2); BASOPHILS % (AUTO) 0.9 % (0.0-2.0); EOSINOPHILS # (AUTO) 0.3 K/uL (0.0-0.4); EOSINOPHILS % (AUTO) 1.2 % (0.0-4.0); HEMATOCRIT 25.8 % (36-54); HEMOGLOBIN 8.5 g/dL (14.0-18.0); LYMPHOCYTES # (AUTO) 1.4 K/uL (1.0-5.5); MEAN CORPUSCULAR HEMOGLOBIN 32 pg (27-31); MEAN CORPUSCULAR HGB CONC 33 % (32-36); MEAN CORPUSCULAR VOLUME 98 fL (79.0-98.0); MONOCYTES # (AUTO) 1.1 K/uL (0.0-1.0); MONOCYTES % (AUTO) 4.9 % (1.7-9.3); NEUTROPHILS # (AUTO) 20.5 K/uL (1.8-7.7); RED BLOOD CELL COUNT(AUTO) 2.62 MIL/uL (4.2-6.2); RED CELL DISTRIBUTION WIDTH 18.3 % (9.0-15.0)
[2018-01-03 07:57] LABS: CALCIUM 9.2 mg/dL (8.4-11.0); CREATININE 2.81 mg/dL (0.55-1.30); POTASSIUM 4.6 mmol/L (3.5-5.1)
[2018-01-03 08:00] VITALS: BP_SYST 124
[2018-01-03 08:19] LABS: WHITE BLOOD COUNT (AUTO) 23.5 K/uL (4.8-10.8)
[2018-01-03 09:38] LABS: PLATELET COUNT (AUTO) 626 K/uL (130-430)
[2018-01-03] MEDS: PANTOPRAZOLE GRANULES PACKET 40 MG GT SCH (09:48)
[2018-01-03 09:49] VITALS: BP_SYST 125
[2018-01-03] MEDS: AMIODARONE HCL 200 MG TABLET GT SCH ×2 (09:50→22:28)
[2018-01-03] MEDS: FUROSEMIDE 20 MG TABLET GT SCH (09:50)
[2018-01-03] MEDS: ASPIRIN 81 MG TAB.CHEW GT SCH (09:51)
[2018-01-03] MEDS: amLODIPine BESYLATE 5 MG TABLET GT SCH (09:51)
[2018-01-03] MEDS: DILTIAZEM HCL 60 MG TABLET GT SCH ×4 (09:51→22:28)
[2018-01-03] MEDS: DOCUSATE SODIUM 100 MG/10 ML UDC GT SCH ×2 (09:52→22:27)
[2018-01-03] MEDS: GABAPENTIN 100 MG CAPSULE GT SCH ×3 (09:52→22:22)
[2018-01-03] MEDS: VALPROIC ACID ORAL SYRUP 250 MG/5 ML UDC GT SCH ×3 (09:53→22:29)
[2018-01-03] MEDS: FERROUS SULFATE 300 MG/5 ML UDC GT SCH ×3 (09:53→22:27)
[2018-01-03] MEDS: BALSAM PERU/CASTOR OIL 60 GM OINT...G. TP SCH (09:54)
[2018-01-03 12:36] VITALS: BP_SYST 125
[2018-01-03 16:49] VITALS: BP_SYST 108
[2018-01-03 20:12] VITALS: BP_SYST 121
[2018-01-03 23:43] VITALS: BP_SYST 122
[2018-01-04] MEDS: IPRATROPIUM/ALBUTEROL SULFATE 3 ML AMPUL.NEB INH SCH ×4 (04:07→23:04)
[2018-01-04] MEDS: DILTIAZEM HCL 25 MG/5 ML VIAL IVP PRN ×3 (04:33→23:25)
[2018-01-04 06:20] LABS: CALCIUM 8.9 mg/dL (8.4-11.0); CREATININE 2.3 mg/dL (0.55-1.30); POTASSIUM 4.2 mmol/L (3.5-5.1)
[2018-01-04 06:53] LABS: HEMOGLOBIN 8.5 g/dL (14.0-18.0); MEAN CORPUSCULAR HEMOGLOBIN 32 pg (27-31); MEAN CORPUSCULAR HGB CONC 33 % (32-36); MEAN CORPUSCULAR VOLUME 98 fL (79.0-98.0); PLATELET COUNT (AUTO) 699 K/uL (130-430); RED BLOOD CELL COUNT(AUTO) 2.66 MIL/uL (4.2-6.2); RED CELL DISTRIBUTION WIDTH 18.4 % (9.0-15.0); WHITE BLOOD COUNT (AUTO) 25.8 K/uL (4.8-10.8)
[2018-01-04 08:00] VITALS: BP_SYST 121
[2018-01-04 08:25] LABS: BAND % (MANUAL) 11 % (0-6); LYMPHOCYTES % (MANUAL) 4 % (20-46)
[2018-01-04 08:26] LABS: BASOPHILS % (MANUAL) 0 % (0-2); EOSINOPHILS % (MANUAL) 2 % (0-7); MONOCYTES % (MANUAL) 12 % (0-11)
[2018-01-04] MEDS: DOCUSATE SODIUM 100 MG/10 ML UDC GT SCH ×2 (09:50→20:25)
[2018-01-04] MEDS: VALPROIC ACID ORAL SYRUP 250 MG/5 ML UDC GT SCH ×3 (09:50→20:25)
[2018-01-04] MEDS: FERROUS SULFATE 300 MG/5 ML UDC GT SCH ×3 (09:50→20:25)
[2018-01-04] MEDS: GABAPENTIN 100 MG CAPSULE GT SCH ×3 (09:51→20:23)
[2018-01-04] MEDS: ASPIRIN 81 MG TAB.CHEW GT SCH (09:51)
[2018-01-04] MEDS: PANTOPRAZOLE GRANULES PACKET 40 MG GT SCH (09:51)
[2018-01-04] MEDS: amLODIPine BESYLATE 5 MG TABLET GT SCH (09:52)
[2018-01-04] MEDS: DILTIAZEM HCL 60 MG TABLET GT SCH ×4 (09:52→20:24)
[2018-01-04] MEDS: EPOETIN ALFA 4,000 UNITS/ML VIAL SUBCUT SCH (09:54)
[2018-01-04] MEDS: AMIODARONE HCL 200 MG TABLET GT SCH ×2 (09:54→20:24)
[2018-01-04] MEDS: BALSAM PERU/CASTOR OIL 60 GM OINT...G. TP SCH (09:55)
[2018-01-04 12:00] VITALS: BP_SYST 128
[2018-01-04] MEDS: NACL 0.9% 1,000 ML IV SCH (12:28)
[2018-01-04 15:11] VITALS: BP_SYST 103
[2018-01-04] MEDS ORDERED: DIGOXIN 0.5 MG/2 ML AMP IVP ONE (18:00)
[2018-01-04] MEDS ORDERED: DILTIAZEM HCL 25 MG/5 ML VIAL IVP ONE (18:00)
[2018-01-04 20:15] VITALS: BP_SYST 136
[2018-01-05 00:36] VITALS: BP_SYST 127
[2018-01-05] MEDS: NACL 0.9% 1,000 ML IV SCH ×2 (02:29→22:06)
[2018-01-05] MEDS: IPRATROPIUM/ALBUTEROL SULFATE 3 ML AMPUL.NEB INH SCH ×5 (02:59→23:31)
[2018-01-05] MEDS: ACETAMINOPHEN 650 MG/20.3 ML UDC GT PRN (04:17)
[2018-01-05 06:26] LABS: BASOPHILS # (AUTO) 0.3 K/uL (0.0-0.2); BASOPHILS % (AUTO) 1.1 % (0.0-2.0); EOSINOPHILS # (AUTO) 0.5 K/uL (0.0-0.4); EOSINOPHILS % (AUTO) 2.2 % (0.0-4.0); HEMATOCRIT 26.3 % (36-54); HEMOGLOBIN 8.9 g/dL (14.0-18.0); LYMPHOCYTES # (AUTO) 1.2 K/uL (1.0-5.5); LYMPHOCYTES % (AUTO) 5.3 % (20.5-51.5); MEAN CORPUSCULAR HEMOGLOBIN 34 pg (27-31); MEAN CORPUSCULAR HGB CONC 34 % (32-36); MEAN CORPUSCULAR VOLUME 99 fL (79.0-98.0); MONOCYTES # (AUTO) 2.4 K/uL (0.0-1.0); MONOCYTES % (AUTO) 10.7 % (1.7-9.3); NEUTROPHILS # (AUTO) 18.4 K/uL (1.8-7.7); NEUTROPHILS % (AUTO) 80.7 % (40.0-70.0); PLATELET COUNT (AUTO) 712 K/uL (130-430); RED BLOOD CELL COUNT(AUTO) 2.66 MIL/uL (4.2-6.2); RED CELL DISTRIBUTION WIDTH 18.7 % (9.0-15.0); WHITE BLOOD COUNT (AUTO) 22.8 K/uL (4.8-10.8)
[2018-01-05 07:11] LABS: ALBUMIN 1.5 g/dL (3.4-4.8); CREATININE 2.08 mg/dL (0.55-1.30); PHOSPHORUS 2.9 mg/dL (2.7-4.5); POTASSIUM 4.2 mmol/L (3.5-5.1); TOTAL BILIRUBIN 0.3 mg/dL (0.0-1.0)
[2018-01-05 07:50] VITALS: BP_SYST 136
[2018-01-05] MEDS: ASPIRIN 81 MG TAB.CHEW GT SCH (09:46)
[2018-01-05] MEDS: DOCUSATE SODIUM 100 MG/10 ML UDC GT SCH ×2 (09:46→20:54)
[2018-01-05] MEDS: FERROUS SULFATE 300 MG/5 ML UDC GT SCH ×3 (09:46→21:01)
[2018-01-05] MEDS: amLODIPine BESYLATE 5 MG TABLET GT SCH (09:48)
[2018-01-05] MEDS: AMIODARONE HCL 200 MG TABLET GT SCH ×2 (09:49→21:02)
[2018-01-05] MEDS: PANTOPRAZOLE GRANULES PACKET 40 MG GT SCH (09:50)
[2018-01-05] MEDS: DILTIAZEM HCL 60 MG TABLET GT SCH ×4 (09:50→21:02)
[2018-01-05] MEDS: GABAPENTIN 100 MG CAPSULE GT SCH ×3 (09:50→21:01)
[2018-01-05] MEDS: BALSAM PERU/CASTOR OIL 60 GM OINT...G. TP SCH (09:51)
[2018-01-05] MEDS: VALPROIC ACID ORAL SYRUP 250 MG/5 ML UDC GT SCH ×3 (09:51→21:01)
[2018-01-05 12:51] VITALS: BP_SYST 140
[2018-01-05] MEDS ORDERED: DIGOXIN 0.25 MG TABLET PO ONE (16:30)
[2018-01-05 17:05] VITALS: BP_SYST 128
[2018-01-05 20:00] VITALS: BP_SYST 153
[2018-01-05 23:35] VITALS: BP_SYST 137
[2018-01-06] MEDS: IPRATROPIUM/ALBUTEROL SULFATE 3 ML AMPUL.NEB INH SCH ×6 (04:06→23:40)
[2018-01-06 06:23] LABS: CREATININE 1.93 mg/dL (0.55-1.30); POTASSIUM 4.6 mmol/L (3.5-5.1)
[2018-01-06 09:20] VITALS: BP_SYST 138
[2018-01-06 09:26] VITALS: BP_SYST 138
[2018-01-06] MEDS: DIPHENHYDRAMINE INJ 50 MG/ML VIAL IVP PRN ×2 (09:28→15:33)
[2018-01-06] MEDS: GABAPENTIN 100 MG CAPSULE GT SCH ×2 (09:28→15:33)
[2018-01-06] MEDS: DILTIAZEM HCL 60 MG TABLET GT SCH ×3 (09:28→17:25)
[2018-01-06] MEDS: DIGOXIN 0.125 MG TABLET PO SCH (09:29)
[2018-01-06] MEDS: amLODIPine BESYLATE 5 MG TABLET GT SCH (09:29)
[2018-01-06] MEDS: ASPIRIN 81 MG TAB.CHEW GT SCH (09:30)
[2018-01-06] MEDS: PANTOPRAZOLE GRANULES PACKET 40 MG GT SCH (09:30)
[2018-01-06] MEDS: EPOETIN ALFA 4,000 UNITS/ML VIAL SUBCUT SCH (09:30)
[2018-01-06] MEDS: AMIODARONE HCL 200 MG TABLET GT SCH (09:30)
[2018-01-06] MEDS: BALSAM PERU/CASTOR OIL 60 GM OINT...G. TP SCH (09:31)
[2018-01-06] MEDS: FERROUS SULFATE 300 MG/5 ML UDC GT SCH ×2 (09:31→15:32)
[2018-01-06] MEDS: DOCUSATE SODIUM 100 MG/10 ML UDC GT SCH (09:31)
[2018-01-06] MEDS: VALPROIC ACID ORAL SYRUP 250 MG/5 ML UDC GT SCH ×2 (09:32→15:53)
[2018-01-06 11:53] VITALS: BP_SYST 137
[2018-01-06 13:30] VITALS: BP_SYST 137
[2018-01-06] MEDS: NACL 0.9% 1,000 ML IV SCH (15:32)
[2018-01-06 16:02] VITALS: BP_SYST 129
[2018-01-06 21:31] VITALS: BP_SYST 126
[2018-01-07 00:06] VITALS: BP_SYST 127
[2018-01-07] MEDS: DILTIAZEM HCL 60 MG TABLET GT SCH ×5 (00:24→21:30)
[2018-01-07] MEDS: DOCUSATE SODIUM 100 MG/10 ML UDC GT SCH ×3 (00:24→21:27)
[2018-01-07] MEDS: VALPROIC ACID ORAL SYRUP 250 MG/5 ML UDC GT SCH ×4 (00:24→21:26)
[2018-01-07] MEDS: GABAPENTIN 100 MG CAPSULE GT SCH ×4 (00:25→21:27)
[2018-01-07] MEDS: AMIODARONE HCL 200 MG TABLET GT SCH ×3 (00:25→21:30)
[2018-01-07] MEDS: FERROUS SULFATE 300 MG/5 ML UDC GT SCH ×4 (00:25→21:26)
[2018-01-07] MEDS: IPRATROPIUM/ALBUTEROL SULFATE 3 ML AMPUL.NEB INH SCH ×6 (03:52→23:45)
[2018-01-07 08:59] VITALS: BP_SYST 160
[2018-01-07] MEDS: BALSAM PERU/CASTOR OIL 60 GM OINT...G. TP SCH (09:15)
[2018-01-07] MEDS: PANTOPRAZOLE GRANULES PACKET 40 MG GT SCH (09:17)
[2018-01-07] MEDS: ASPIRIN 81 MG TAB.CHEW GT SCH (09:17)
[2018-01-07] MEDS: ACETAMINOPHEN 650 MG/20.3 ML UDC GT PRN (09:17)
[2018-01-07] MEDS: DIGOXIN 0.125 MG TABLET PO SCH (09:17)
[2018-01-07] MEDS: amLODIPine BESYLATE 5 MG TABLET GT SCH (09:18)
[2018-01-07] MEDS: DIPHENHYDRAMINE INJ 50 MG/ML VIAL IVP PRN (09:19)
[2018-01-07] MEDS: NACL 0.9% 1,000 ML IV SCH (11:38)
[2018-01-07] MEDS ORDERED: MIDAZOLAM HCL 5 MG/5 ML VIAL ONE (12:16)
[2018-01-07] MEDS ORDERED: LIDOCAINE 2% JELLY UROJECT 10 ML MM ONE (12:16)
[2018-01-07] MEDS ORDERED: LIDOCAINE 1%, 20 ML MDV 40 ML ONE (12:18)
[2018-01-07 12:33] VITALS: BP_SYST 121
[2018-01-07 16:16] VITALS: BP_SYST 129
[2018-01-07 20:00] VITALS: BP_SYST 131
[2018-01-08 00:40] VITALS: BP_SYST 117
[2018-01-08] MEDS: IPRATROPIUM/ALBUTEROL SULFATE 3 ML AMPUL.NEB INH SCH ×6 (03:40→23:46)
[2018-01-08] MEDS: NACL 0.9% 1,000 ML IV SCH (06:44)
[2018-01-08 06:51] LABS: CALCIUM 8.9 mg/dL (8.4-11.0); CREATININE 1.88 mg/dL (0.55-1.30); HEMATOCRIT 25.8 % (36-54); HEMOGLOBIN 8.5 g/dL (14.0-18.0); MEAN CORPUSCULAR HEMOGLOBIN 33 pg (27-31); MEAN CORPUSCULAR HGB CONC 33 % (32-36); MEAN CORPUSCULAR VOLUME 101 fL (79.0-98.0); PLATELET COUNT (AUTO) 749 K/uL (130-430); POTASSIUM 4.5 mmol/L (3.5-5.1); RED BLOOD CELL COUNT(AUTO) 2.55 MIL/uL (4.2-6.2); RED CELL DISTRIBUTION WIDTH 19.2 % (9.0-15.0); WHITE BLOOD COUNT (AUTO) 28.1 K/uL (4.8-10.8)
[2018-01-08 07:13] LABS: INR 1.1 (0.80-1.20); PROTHROMBIN TIME 11.5 SECS (9.5-12.5)
[2018-01-08] MEDS ORDERED: LIDOCAINE 1% 10 MG/ML, 20 ML MDV INJ ONE (07:45)
[2018-01-08 08:00] VITALS: BP_SYST 152
[2018-01-08] MEDS: DOCUSATE SODIUM 100 MG/10 ML UDC GT SCH ×2 (08:17→21:11)
[2018-01-08] MEDS: FERROUS SULFATE 300 MG/5 ML UDC GT SCH ×3 (08:17→21:11)
[2018-01-08] MEDS: VALPROIC ACID ORAL SYRUP 250 MG/5 ML UDC GT SCH ×3 (08:17→21:10)
[2018-01-08] MEDS: GABAPENTIN 100 MG CAPSULE GT SCH ×3 (08:18→21:03)
[2018-01-08] MEDS: PANTOPRAZOLE GRANULES PACKET 40 MG GT SCH (08:18)
[2018-01-08] MEDS: DILTIAZEM HCL 60 MG TABLET GT SCH ×4 (08:18→21:10)
[2018-01-08] MEDS: AMIODARONE HCL 200 MG TABLET GT SCH ×2 (08:19→21:09)
[2018-01-08] MEDS: ASPIRIN 81 MG TAB.CHEW GT SCH (08:19)
[2018-01-08] MEDS: amLODIPine BESYLATE 5 MG TABLET GT SCH (08:19)
[2018-01-08] MEDS: BALSAM PERU/CASTOR OIL 60 GM OINT...G. TP SCH (08:21)
[2018-01-08] MEDS: EPOETIN ALFA 4,000 UNITS/ML VIAL SUBCUT SCH (08:21)
[2018-01-08] MEDS: DIGOXIN 0.125 MG TABLET PO SCH (08:32)
[2018-01-08 12:25] LABS: BAND % (MANUAL) 18 % (0-6); LYMPHOCYTES % (MANUAL) 1 % (20-46)
[2018-01-08 12:26] VITALS: BP_SYST 136
[2018-01-08 12:26] LABS: BASOPHILS % (MANUAL) 0 % (0-2); EOSINOPHILS % (MANUAL) 12 % (0-7); METAMYELOCYTES % 2 % (0-0); MONOCYTES % (MANUAL) 3 % (0-11); MYELOCYTES % 1 % (0-0)
[2018-01-08] MEDS: 0.45% NACL 1,000 ML IV SCH (14:55)
[2018-01-08 15:08] LABS: SOURCE/TYPE ,BODY FLUID PLEURAL
[2018-01-08 15:09] LABS: APPEARANCE,SPUN,BODY FLUID CLEAR (CLEAR); BF APPEARANCE UNSPUN HAZY (CLEAR); BODY FLUID COLOR YELLOW (LT YELLOW); BODY FLUID SOURCE/ TYPE PLEURAL; BODY FLUID TOTAL VOLUME 2250 mL; EOSINOPHIL, BODY FLUID 0 %; LYMPHOCYTES, BODY FLUID 61 %; MONOCYTES,BODY FLUID 0 %; NEUTROPHIL, BODY FLUID 39 %; RBC, BODY FLUID 243 /uL; WBC, BODY FLUID 1052 /uL
[2018-01-08 16:05] VITALS: BP_SYST 141
[2018-01-08] MEDS: ACETAMINOPHEN 650 MG/20.3 ML UDC GT PRN (16:06)
[2018-01-08] MEDS ORDERED: *TOBRAMYCIN PER PHARMACY XX PRN (16:45)
[2018-01-08] MEDS: NS IV SCH (17:40)
[2018-01-08] MEDS: TOBRAMYCIN SULFATE IV SCH (17:40)
[2018-01-08 18:28] LABS: BODY FLUID GLUCOSE 97 mg/dL; BODY FLUID TOTAL PROTEIN 3.9 g/dL
[2018-01-09 00:25] VITALS: BP_SYST 116
[2018-01-09] MEDS: IPRATROPIUM/ALBUTEROL SULFATE 3 ML AMPUL.NEB INH SCH ×5 (03:29→20:14)
[2018-01-09] MEDS: 0.45% NACL 1,000 ML IV SCH (05:54)
[2018-01-09 07:00] LABS: BASOPHILS # (AUTO) 0.1 K/uL (0.0-0.2); BASOPHILS % (AUTO) 0.4 % (0.0-2.0); EOSINOPHILS # (AUTO) 1.8 K/uL (0.0-0.4); EOSINOPHILS % (AUTO) 7.5 % (0.0-4.0); HEMATOCRIT 26.2 % (36-54); HEMOGLOBIN 8.7 g/dL (14.0-18.0); LYMPHOCYTES # (AUTO) 1.4 K/uL (1.0-5.5); LYMPHOCYTES % (AUTO) 5.8 % (20.5-51.5); MEAN CORPUSCULAR HEMOGLOBIN 34 pg (27-31); MEAN CORPUSCULAR HGB CONC 33 % (32-36); MEAN CORPUSCULAR VOLUME 101 fL (79.0-98.0); MONOCYTES # (AUTO) 2.2 K/uL (0.0-1.0); MONOCYTES % (AUTO) 9.2 % (1.7-9.3); NEUTROPHILS % (AUTO) 77.1 % (40.0-70.0); RED CELL DISTRIBUTION WIDTH 19.5 % (9.0-15.0); WHITE BLOOD COUNT (AUTO) 23.5 K/uL (4.8-10.8)
[2018-01-09 07:05] LABS: PLATELET COUNT (AUTO) 765 K/uL (130-430)
[2018-01-09 07:31] LABS: ALBUMIN 1.4 g/dL (3.4-4.8); CREATININE 1.87 mg/dL (0.55-1.30); POTASSIUM 4.4 mmol/L (3.5-5.1); TOTAL BILIRUBIN 0.2 mg/dL (0.0-1.0)
[2018-01-09 08:00] VITALS: BP_SYST 137
[2018-01-09] MEDS: VALPROIC ACID ORAL SYRUP 250 MG/5 ML UDC GT SCH ×3 (08:38→21:55)
[2018-01-09] MEDS: DOCUSATE SODIUM 100 MG/10 ML UDC GT SCH ×2 (08:38→21:54)
[2018-01-09] MEDS: PANTOPRAZOLE GRANULES PACKET 40 MG GT SCH (08:39)
[2018-01-09] MEDS: FERROUS SULFATE 300 MG/5 ML UDC GT SCH ×3 (08:39→21:54)
[2018-01-09] MEDS: DILTIAZEM HCL 60 MG TABLET GT SCH ×4 (08:41→21:56)
[2018-01-09] MEDS: amLODIPine BESYLATE 5 MG TABLET GT SCH (08:41)
[2018-01-09] MEDS: GABAPENTIN 100 MG CAPSULE GT SCH ×3 (08:41→21:58)
[2018-01-09] MEDS: ASPIRIN 81 MG TAB.CHEW GT SCH (08:41)
[2018-01-09] MEDS: AMIODARONE HCL 200 MG TABLET GT SCH (08:42)
[2018-01-09] MEDS: DIGOXIN 0.125 MG TABLET PO SCH (08:42)
[2018-01-09] MEDS: BALSAM PERU/CASTOR OIL 60 GM OINT...G. TP SCH (08:43)
[2018-01-09] MEDS: ACETAMINOPHEN 650 MG/20.3 ML UDC GT PRN (08:43)
[2018-01-09 08:55] VITALS: BP_SYST 137
[2018-01-09] MEDS: D5W 1,000 ML IV SCH (10:59)
[2018-01-09 11:20] VITALS: BP_SYST 156
[2018-01-09 15:20] VITALS: BP_SYST 154
[2018-01-09] MEDS: TOBRAMYCIN SULFATE IV SCH (17:52)
[2018-01-09] MEDS: NS IV SCH (17:52)
[2018-01-09 19:58] VITALS: BP_SYST 137
[2018-01-10 00:40] VITALS: BP_SYST 123
[2018-01-10] MEDS: IPRATROPIUM/ALBUTEROL SULFATE 3 ML AMPUL.NEB INH SCH ×7 (01:21→23:12)
[2018-01-10] MEDS: D5W 1,000 ML IV SCH (05:41)
[2018-01-10 07:07] LABS: CALCIUM 9.1 mg/dL (8.4-11.0); CREATININE 1.57 mg/dL (0.55-1.30); POTASSIUM 4.3 mmol/L (3.5-5.1)
[2018-01-10 08:00] VITALS: BP_SYST 127
[2018-01-10] MEDS: DOCUSATE SODIUM 100 MG/10 ML UDC GT SCH ×2 (09:39→21:33)
[2018-01-10] MEDS: ASPIRIN 81 MG TAB.CHEW GT SCH (09:39)
[2018-01-10] MEDS: FERROUS SULFATE 300 MG/5 ML UDC GT SCH ×3 (09:39→21:34)
[2018-01-10] MEDS: DILTIAZEM HCL 60 MG TABLET GT SCH ×4 (09:40→21:35)
[2018-01-10] MEDS: PANTOPRAZOLE GRANULES PACKET 40 MG GT SCH (09:41)
[2018-01-10] MEDS: amLODIPine BESYLATE 5 MG TABLET GT SCH (09:41)
[2018-01-10] MEDS: AMIODARONE HCL 200 MG TABLET GT SCH (09:41)
[2018-01-10] MEDS: GABAPENTIN 100 MG CAPSULE GT SCH ×3 (09:42→21:35)
[2018-01-10] MEDS: DIGOXIN 0.125 MG TABLET PO SCH (09:42)
[2018-01-10] MEDS: BALSAM PERU/CASTOR OIL 60 GM OINT...G. TP SCH (09:43)
[2018-01-10] MEDS: VALPROIC ACID ORAL SYRUP 250 MG/5 ML UDC GT SCH ×3 (09:43→21:34)
[2018-01-10 12:32] VITALS: BP_SYST 126
[2018-01-10 16:15] VITALS: BP_SYST 120
[2018-01-10] MEDS: NS IV SCH (18:38)
[2018-01-10] MEDS: TOBRAMYCIN SULFATE IV SCH (18:38)
[2018-01-10 20:00] VITALS: BP_SYST 149
[2018-01-11 00:34] VITALS: BP_SYST 111
[2018-01-11] MEDS: D5W 1,000 ML IV SCH ×2 (01:58→22:16)
[2018-01-11] MEDS: IPRATROPIUM/ALBUTEROL SULFATE 3 ML AMPUL.NEB INH SCH ×6 (04:07→23:26)
[2018-01-11 08:05] VITALS: BP_SYST 148
[2018-01-11] MEDS: ASPIRIN 81 MG TAB.CHEW GT SCH (09:12)
[2018-01-11] MEDS: VALPROIC ACID ORAL SYRUP 250 MG/5 ML UDC GT SCH ×3 (09:12→22:13)
[2018-01-11] MEDS: DOCUSATE SODIUM 100 MG/10 ML UDC GT SCH ×2 (09:12→22:13)
[2018-01-11] MEDS: EPOETIN ALFA 4,000 UNITS/ML VIAL SUBCUT SCH (09:13)
[2018-01-11] MEDS: GABAPENTIN 100 MG CAPSULE GT SCH ×3 (09:13→22:08)
[2018-01-11] MEDS: PANTOPRAZOLE GRANULES PACKET 40 MG GT SCH (09:13)
[2018-01-11] MEDS: AMIODARONE HCL 200 MG TABLET GT SCH (09:14)
[2018-01-11] MEDS: amLODIPine BESYLATE 5 MG TABLET GT SCH (09:15)
[2018-01-11] MEDS: DIGOXIN 0.125 MG TABLET PO SCH (09:15)
[2018-01-11] MEDS: DILTIAZEM HCL 60 MG TABLET GT SCH ×4 (09:16→22:12)
[2018-01-11] MEDS: FERROUS SULFATE 300 MG/5 ML UDC GT SCH ×3 (09:16→22:13)
[2018-01-11 11:25] VITALS: BP_SYST 149
[2018-01-11] MEDS: BALSAM PERU/CASTOR OIL 60 GM OINT...G. TP SCH (13:23)
[2018-01-11] MEDS ORDERED: GLIP-195 PO (15:03)
[2018-01-11] MEDS ORDERED: INSU100V9 SUBCUT (15:03)
[2018-01-11] MEDS ORDERED: SITA100T7 PO (15:03)
[2018-01-11 15:27] VITALS: BP_SYST 148
[2018-01-11] MEDS: DIPHENHYDRAMINE INJ 50 MG/ML VIAL IVP PRN (16:39)
[2018-01-11] MEDS: ACETAMINOPHEN 650 MG/20.3 ML UDC GT PRN (16:40)
[2018-01-11] MEDS: NS IV SCH (18:04)
[2018-01-11] MEDS: TOBRAMYCIN SULFATE IV SCH (18:04)
[2018-01-11 19:55] VITALS: BP_SYST 131
[2018-01-12 00:37] VITALS: BP_SYST 133
[2018-01-12] MEDS: IPRATROPIUM/ALBUTEROL SULFATE 3 ML AMPUL.NEB INH SCH ×6 (04:00→23:38)
[2018-01-12 06:29] LABS: HEMOGLOBIN 8.9 g/dL (14.0-18.0)
[2018-01-12 06:44] LABS: HEMATOCRIT 26.5 % (36-54); MEAN CORPUSCULAR HEMOGLOBIN 33 pg (27-31); MEAN CORPUSCULAR HGB CONC 34 % (32-36); MEAN CORPUSCULAR VOLUME 99 fL (79.0-98.0); PLATELET COUNT (AUTO) 701 K/uL (130-430); RED BLOOD CELL COUNT(AUTO) 2.68 MIL/uL (4.2-6.2); RED CELL DISTRIBUTION WIDTH 18.9 % (9.0-15.0); WHITE BLOOD COUNT (AUTO) 24.8 K/uL (4.8-10.8)
[2018-01-12 06:58] LABS: ALBUMIN 1.3 g/dL (3.4-4.8); CALCIUM 8.6 mg/dL (8.4-11.0); CREATININE 1.53 mg/dL (0.55-1.30); POTASSIUM 4.5 mmol/L (3.5-5.1); TOTAL BILIRUBIN 0.2 mg/dL (0.0-1.0)
[2018-01-12 08:00] VITALS: BP_SYST 146
[2018-01-12] MEDS: DOCUSATE SODIUM 100 MG/10 ML UDC GT SCH ×2 (09:04→22:51)
[2018-01-12] MEDS: FERROUS SULFATE 300 MG/5 ML UDC GT SCH ×3 (09:04→22:52)
[2018-01-12] MEDS: VALPROIC ACID ORAL SYRUP 250 MG/5 ML UDC GT SCH ×3 (09:05→22:52)
[2018-01-12] MEDS: PANTOPRAZOLE GRANULES PACKET 40 MG GT SCH (09:05)
[2018-01-12] MEDS: ASPIRIN 81 MG TAB.CHEW GT SCH (09:05)
[2018-01-12] MEDS: AMIODARONE HCL 200 MG TABLET GT SCH (09:06)
[2018-01-12] MEDS: DILTIAZEM HCL 60 MG TABLET GT SCH ×4 (09:07→23:07)
[2018-01-12] MEDS: GABAPENTIN 100 MG CAPSULE GT SCH ×3 (09:07→22:52)
[2018-01-12] MEDS: amLODIPine BESYLATE 5 MG TABLET GT SCH (09:07)
[2018-01-12] MEDS: BALSAM PERU/CASTOR OIL 60 GM OINT...G. TP SCH (09:08)
[2018-01-12] MEDS: DIGOXIN 0.125 MG TABLET PO SCH (09:20)
[2018-01-12 09:30] VITALS: BP_SYST 146
[2018-01-12 11:32] VITALS: BP_SYST 135
[2018-01-12 14:11] LABS: ATYPICAL LYMPHOCYTES % 0 % (0-0); BAND % (MANUAL) 5 % (0-6); BASOPHILS % (MANUAL) 0 % (0-2); EOSINOPHILS % (MANUAL) 12 % (0-7); LYMPHOCYTES % (MANUAL) 4 % (20-46); MONOCYTES % (MANUAL) 9 % (0-11)
[2018-01-12 16:05] VITALS: BP_SYST 135
[2018-01-12] MEDS: D5W 1,000 ML IV SCH (17:38)
[2018-01-12] MEDS: TOBRAMYCIN SULFATE IV SCH (17:39)
[2018-01-12] MEDS: NS IV SCH (17:39)
[2018-01-12] MEDS: COLISTIMETHATE SODIUM 150 MG VIAL INH SCH (19:00)
[2018-01-12 19:56] VITALS: BP_SYST 122
[2018-01-13] VITALS: BP_SYST 123
[2018-01-13] MEDS: IPRATROPIUM/ALBUTEROL SULFATE 3 ML AMPUL.NEB INH SCH ×6 (04:09→23:41)
[2018-01-13] MEDS ORDERED: NS IV SCH (08:14)
[2018-01-13] MEDS ORDERED: TOBRAMYCIN SULFATE IV SCH (08:14)
[2018-01-13] MEDS: DOCUSATE SODIUM 100 MG/10 ML UDC GT SCH ×2 (09:14→22:06)
[2018-01-13] MEDS: VALPROIC ACID ORAL SYRUP 250 MG/5 ML UDC GT SCH ×3 (09:14→22:06)
[2018-01-13] MEDS: FERROUS SULFATE 300 MG/5 ML UDC GT SCH ×3 (09:15→22:06)
[2018-01-13] MEDS: PANTOPRAZOLE GRANULES PACKET 40 MG GT SCH (09:15)
[2018-01-13] MEDS: ASPIRIN 81 MG TAB.CHEW GT SCH (09:15)
[2018-01-13] MEDS: AMIODARONE HCL 200 MG TABLET GT SCH (09:16)
[2018-01-13] MEDS: amLODIPine BESYLATE 5 MG TABLET GT SCH (09:17)
[2018-01-13] MEDS: DILTIAZEM HCL 60 MG TABLET GT SCH ×4 (09:17→22:05)
[2018-01-13] MEDS: DIGOXIN 0.125 MG TABLET PO SCH (09:18)
[2018-01-13] MEDS: GABAPENTIN 100 MG CAPSULE GT SCH ×3 (09:18→22:05)
[2018-01-13] MEDS: COLISTIMETHATE SODIUM 150 MG VIAL INH SCH ×2 (11:19→19:58)
[2018-01-13 12:35] VITALS: BP_SYST 148
[2018-01-13] MEDS: BALSAM PERU/CASTOR OIL 60 GM OINT...G. TP SCH (13:51)
[2018-01-13] MEDS: D5W 1,000 ML IV SCH (13:52)
[2018-01-13] MEDS: EPOETIN ALFA 4,000 UNITS/ML VIAL SUBCUT SCH (13:54)
[2018-01-13 16:35] VITALS: BP_SYST 136
[2018-01-13 20:00] VITALS: BP_SYST 118
[2018-01-14 00:50] VITALS: BP_SYST 111
[2018-01-14] MEDS: D5W 1,000 ML IV SCH ×2 (00:59→23:04)
[2018-01-14] MEDS: IPRATROPIUM/ALBUTEROL SULFATE 3 ML AMPUL.NEB INH SCH ×5 (03:56→23:54)
[2018-01-14] MEDS: NS IV SCH (05:45)
[2018-01-14] MEDS: TOBRAMYCIN SULFATE IV SCH (05:45)
[2018-01-14] MEDS: COLISTIMETHATE SODIUM 150 MG VIAL INH SCH ×2 (07:00→20:35)
[2018-01-14 07:30] VITALS: BP_SYST 125
[2018-01-14] MEDS: PANTOPRAZOLE GRANULES PACKET 40 MG GT SCH (09:56)
[2018-01-14] MEDS: DOCUSATE SODIUM 100 MG/10 ML UDC GT SCH ×2 (09:56→23:05)
[2018-01-14] MEDS: FERROUS SULFATE 300 MG/5 ML UDC GT SCH ×3 (09:56→23:04)
[2018-01-14] MEDS: DILTIAZEM HCL 60 MG TABLET GT SCH ×4 (09:57→23:05)
[2018-01-14] MEDS: GABAPENTIN 100 MG CAPSULE GT SCH ×3 (09:57→23:05)
[2018-01-14] MEDS: AMIODARONE HCL 200 MG TABLET GT SCH (09:57)
[2018-01-14] MEDS: amLODIPine BESYLATE 5 MG TABLET GT SCH (09:58)
[2018-01-14] MEDS: DIGOXIN 0.125 MG TABLET PO SCH (09:58)
[2018-01-14] MEDS: ASPIRIN 81 MG TAB.CHEW GT SCH (09:58)
[2018-01-14] MEDS: BALSAM PERU/CASTOR OIL 60 GM OINT...G. TP SCH (10:00)
[2018-01-14] MEDS: VALPROIC ACID ORAL SYRUP 250 MG/5 ML UDC GT SCH ×3 (10:03→23:04)
[2018-01-14] MEDS ORDERED: DIATR MEGLU/DIATRIZ SOD 30 ML SOLUTION PO ONE (10:06)
[2018-01-14 12:35] VITALS: BP_SYST 141
[2018-01-14 16:27] VITALS: BP_SYST 115
[2018-01-14 21:22] VITALS: BP_SYST 119
[2018-01-15 00:47] VITALS: BP_SYST 133
[2018-01-15] MEDS: IPRATROPIUM/ALBUTEROL SULFATE 3 ML AMPUL.NEB INH SCH ×6 (04:14→23:39)
[2018-01-15 06:54] LABS: CALCIUM 8.9 mg/dL (8.4-11.0); CREATININE 1.85 mg/dL (0.55-1.30); POTASSIUM 4.3 mmol/L (3.5-5.1)
[2018-01-15] MEDS: COLISTIMETHATE SODIUM 150 MG VIAL INH SCH ×2 (07:57→20:00)
[2018-01-15 08:00] VITALS: BP_SYST 119
[2018-01-15 09:19] VITALS: BP_SYST 119
[2018-01-15] MEDS: GABAPENTIN 100 MG CAPSULE GT SCH ×3 (10:00→20:11)
[2018-01-15] MEDS: ASPIRIN 81 MG TAB.CHEW GT SCH (10:00)
[2018-01-15] MEDS: amLODIPine BESYLATE 5 MG TABLET GT SCH (10:00)
[2018-01-15] MEDS: DIGOXIN 0.125 MG TABLET PO SCH (10:01)
[2018-01-15] MEDS: FERROUS SULFATE 300 MG/5 ML UDC GT SCH ×3 (10:02→20:11)
[2018-01-15] MEDS: PANTOPRAZOLE GRANULES PACKET 40 MG GT SCH (10:02)
[2018-01-15] MEDS: AMIODARONE HCL 200 MG TABLET GT SCH (10:02)
[2018-01-15] MEDS: DILTIAZEM HCL 60 MG TABLET GT SCH ×4 (10:02→20:15)
[2018-01-15] MEDS: VALPROIC ACID ORAL SYRUP 250 MG/5 ML UDC GT SCH ×3 (10:03→20:14)
[2018-01-15] MEDS: DOCUSATE SODIUM 100 MG/10 ML UDC GT SCH ×2 (10:03→20:11)
[2018-01-15 12:00] VITALS: BP_SYST 112
[2018-01-15] MEDS: EPOETIN ALFA 4,000 UNITS/ML VIAL SUBCUT SCH (12:24)
[2018-01-15] MEDS: BALSAM PERU/CASTOR OIL 60 GM OINT...G. TP SCH (12:25)
[2018-01-15 16:00] VITALS: BP_SYST 102
[2018-01-15] MEDS: TOBRAMYCIN SULFATE IV SCH (17:17)
[2018-01-15] MEDS: NS IV SCH (17:17)
[2018-01-15 21:56] VITALS: BP_SYST 122
[2018-01-16 00:31] VITALS: BP_SYST 120
[2018-01-16] MEDS: IPRATROPIUM/ALBUTEROL SULFATE 3 ML AMPUL.NEB INH SCH ×6 (03:52→23:32)
[2018-01-16] MEDS: D5W 1,000 ML IV SCH ×2 (05:40→23:50)
[2018-01-16 05:59] LABS: BASOPHILS # (AUTO) 0.1 K/uL (0.0-0.2); BASOPHILS % (AUTO) 0.4 % (0.0-2.0); EOSINOPHILS # (AUTO) 0.7 K/uL (0.0-0.4); EOSINOPHILS % (AUTO) 2.8 % (0.0-4.0); HEMATOCRIT 26.3 % (36-54); LYMPHOCYTES # (AUTO) 1.8 K/uL (1.0-5.5); LYMPHOCYTES % (AUTO) 7.4 % (20.5-51.5); MEAN CORPUSCULAR HEMOGLOBIN 34 pg (27-31); MEAN CORPUSCULAR HGB CONC 34 % (32-36); MEAN CORPUSCULAR VOLUME 99 fL (79.0-98.0); MONOCYTES # (AUTO) 3.6 K/uL (0.0-1.0); MONOCYTES % (AUTO) 14.5 % (1.7-9.3); NEUTROPHILS # (AUTO) 18.4 K/uL (1.8-7.7); PLATELET COUNT (AUTO) 539 K/uL (130-430); RED BLOOD CELL COUNT(AUTO) 2.66 MIL/uL (4.2-6.2); RED CELL DISTRIBUTION WIDTH 17.6 % (9.0-15.0); WHITE BLOOD COUNT (AUTO) 24.6 K/uL (4.8-10.8)
[2018-01-16 06:39] LABS: ALBUMIN 1.3 g/dL (3.4-4.8); CALCIUM 8.7 mg/dL (8.4-11.0); CREATININE 1.86 mg/dL (0.55-1.30); POTASSIUM 4.7 mmol/L (3.5-5.1); TOTAL BILIRUBIN 0.3 mg/dL (0.0-1.0)
[2018-01-16] MEDS: COLISTIMETHATE SODIUM 150 MG VIAL INH SCH ×2 (07:58→20:11)
[2018-01-16 08:00] VITALS: BP_SYST 118
[2018-01-16] MEDS: PANTOPRAZOLE GRANULES PACKET 40 MG GT SCH (08:27)
[2018-01-16] MEDS: GABAPENTIN 100 MG CAPSULE GT SCH ×3 (08:28→20:27)
[2018-01-16] MEDS: AMIODARONE HCL 200 MG TABLET GT SCH (08:29)
[2018-01-16] MEDS: DILTIAZEM HCL 60 MG TABLET GT SCH ×4 (08:30→20:27)
[2018-01-16] MEDS: amLODIPine BESYLATE 5 MG TABLET GT SCH (08:31)
[2018-01-16] MEDS: ASPIRIN 81 MG TAB.CHEW GT SCH (08:31)
[2018-01-16] MEDS: DIGOXIN 0.125 MG TABLET PO SCH (08:31)
[2018-01-16] MEDS: DOCUSATE SODIUM 100 MG/10 ML UDC GT SCH ×2 (08:32→20:27)
[2018-01-16] MEDS: FERROUS SULFATE 300 MG/5 ML UDC GT SCH ×3 (08:34→20:28)
[2018-01-16] MEDS: VALPROIC ACID ORAL SYRUP 250 MG/5 ML UDC GT SCH ×3 (08:34→20:28)
[2018-01-16] MEDS: BALSAM PERU/CASTOR OIL 60 GM OINT...G. TP SCH (09:00)
[2018-01-16 11:30] LABS: NEUTROPHILS % (AUTO) 74.9 % (40.0-70.0)
[2018-01-16 12:55] VITALS: BP_SYST 129
[2018-01-16 16:10] VITALS: BP_SYST 114
[2018-01-16 20:00] VITALS: BP_SYST 115
[2018-01-17 00:50] VITALS: BP_SYST 108
[2018-01-17] MEDS: IPRATROPIUM/ALBUTEROL SULFATE 3 ML AMPUL.NEB INH SCH ×6 (03:38→22:57)
[2018-01-17] MEDS: BALSAM PERU/CASTOR OIL 60 GM OINT...G. TP SCH (04:46)
[2018-01-17] MEDS: TOBRAMYCIN SULFATE IV SCH (05:59)
[2018-01-17] MEDS: NS IV SCH (05:59)
[2018-01-17] MEDS: COLISTIMETHATE SODIUM 150 MG VIAL INH SCH ×2 (07:58→20:12)
[2018-01-17 08:14] VITALS: BP_SYST 117
[2018-01-17] MEDS: FERROUS SULFATE 300 MG/5 ML UDC GT SCH ×3 (10:07→21:16)
[2018-01-17] MEDS: PANTOPRAZOLE GRANULES PACKET 40 MG GT SCH (10:09)
[2018-01-17] MEDS: VALPROIC ACID ORAL SYRUP 250 MG/5 ML UDC GT SCH ×3 (10:09→21:16)
[2018-01-17] MEDS: DOCUSATE SODIUM 100 MG/10 ML UDC GT SCH ×2 (10:09→21:16)
[2018-01-17] MEDS: amLODIPine BESYLATE 5 MG TABLET GT SCH (10:10)
[2018-01-17] MEDS: GABAPENTIN 100 MG CAPSULE GT SCH ×3 (10:11→21:17)
[2018-01-17] MEDS: DIGOXIN 0.125 MG TABLET PO SCH (10:11)
[2018-01-17] MEDS: AMIODARONE HCL 200 MG TABLET GT SCH (10:12)
[2018-01-17] MEDS: DILTIAZEM HCL 60 MG TABLET GT SCH ×4 (10:12→21:17)
[2018-01-17] MEDS: ASPIRIN 81 MG TAB.CHEW GT SCH (10:12)
[2018-01-17 12:00] VITALS: BP_SYST 96
[2018-01-17 16:00] VITALS: BP_SYST 123
[2018-01-17] MEDS: D5W 1,000 ML IV SCH ×2 (18:15→22:34)
[2018-01-17 20:00] VITALS: BP_SYST 112
[2018-01-17 23:50] VITALS: BP_SYST 100
[2018-01-18] MEDS: IPRATROPIUM/ALBUTEROL SULFATE 3 ML AMPUL.NEB INH SCH ×6 (04:20→23:25)
[2018-01-18] MEDS: BALSAM PERU/CASTOR OIL 60 GM OINT...G. TP SCH (07:42)
[2018-01-18 08:00] VITALS: BP_SYST 113
[2018-01-18] MEDS: COLISTIMETHATE SODIUM 150 MG VIAL INH SCH ×2 (08:14→19:55)
[2018-01-18] MEDS: DILTIAZEM HCL 60 MG TABLET GT SCH ×4 (08:58→20:43)
[2018-01-18] MEDS: AMIODARONE HCL 200 MG TABLET GT SCH (08:59)
[2018-01-18] MEDS: ASPIRIN 81 MG TAB.CHEW GT SCH (08:59)
[2018-01-18] MEDS: DIGOXIN 0.125 MG TABLET PO SCH (09:00)
[2018-01-18] MEDS: amLODIPine BESYLATE 5 MG TABLET GT SCH (09:00)
[2018-01-18] MEDS: GABAPENTIN 100 MG CAPSULE GT SCH ×3 (09:00→20:43)
[2018-01-18] MEDS: PANTOPRAZOLE GRANULES PACKET 40 MG GT SCH (09:00)
[2018-01-18] MEDS: DOCUSATE SODIUM 100 MG/10 ML UDC GT SCH ×2 (09:01→20:44)
[2018-01-18] MEDS: VALPROIC ACID ORAL SYRUP 250 MG/5 ML UDC GT SCH ×3 (09:01→20:44)
[2018-01-18] MEDS: FERROUS SULFATE 300 MG/5 ML UDC GT SCH ×3 (09:01→20:44)
[2018-01-18 12:15] VITALS: BP_SYST 101
[2018-01-18] MEDS: EPOETIN ALFA 4,000 UNITS/ML VIAL SUBCUT SCH (17:02)
[2018-01-18 17:06] VITALS: BP_SYST 102
[2018-01-18 17:41] VITALS: BP_SYST 102
[2018-01-18] MEDS: NS IV SCH (18:35)
[2018-01-18] MEDS: TOBRAMYCIN SULFATE IV SCH (18:35)
[2018-01-18] MEDS: D5W 1,000 ML IV SCH (18:35)
[2018-01-18] MEDS ORDERED: METOCLOPRAMIDE HCL 10 MG TABLET PO ONE (19:30)
[2018-01-18 20:00] VITALS: BP_SYST 119
[2018-01-19] MEDS ORDERED: METOCLOPRAMIDE HCL 10 MG TABLET PO SCH
[2018-01-19 00:08] VITALS: BP_SYST 121
[2018-01-19] MEDS: METOCLOPRAMIDE HCL 10 MG TABLET GT SCH ×4 (01:01→17:20)
[2018-01-19] MEDS: IPRATROPIUM/ALBUTEROL SULFATE 3 ML AMPUL.NEB INH SCH ×6 (03:14→23:10)
[2018-01-19 06:27] LABS: HEMATOCRIT 23.1 % (36-54); HEMOGLOBIN 7.5 g/dL (14.0-18.0); MEAN CORPUSCULAR HEMOGLOBIN 32 pg (27-31); MEAN CORPUSCULAR HGB CONC 33 % (32-36); MEAN CORPUSCULAR VOLUME 97 fL (79.0-98.0); PLATELET COUNT (AUTO) 521 K/uL (130-430); RED BLOOD CELL COUNT(AUTO) 2.38 MIL/uL (4.2-6.2); RED CELL DISTRIBUTION WIDTH 17.2 % (9.0-15.0); WHITE BLOOD COUNT (AUTO) 27.1 K/uL (4.8-10.8)
[2018-01-19 06:38] LABS: ALBUMIN 1.3 g/dL (3.4-4.8); CALCIUM 8.4 mg/dL (8.4-11.0); CREATININE 2.47 mg/dL (0.55-1.30); POTASSIUM 5.3 mmol/L (3.5-5.1); TOTAL BILIRUBIN 0.3 mg/dL (0.0-1.0)
[2018-01-19 08:54] VITALS: BP_SYST 118
[2018-01-19] MEDS: PANTOPRAZOLE GRANULES PACKET 40 MG GT SCH (08:58)
[2018-01-19] MEDS: DOCUSATE SODIUM 100 MG/10 ML UDC GT SCH ×2 (08:58→21:13)
[2018-01-19] MEDS: FERROUS SULFATE 300 MG/5 ML UDC GT SCH ×3 (08:58→21:13)
[2018-01-19] MEDS: GABAPENTIN 100 MG CAPSULE GT SCH ×3 (08:59→21:13)
[2018-01-19] MEDS: DILTIAZEM HCL 60 MG TABLET GT SCH ×4 (08:59→21:17)
[2018-01-19] MEDS: DIGOXIN 0.125 MG TABLET PO SCH (08:59)
[2018-01-19] MEDS: ASPIRIN 81 MG TAB.CHEW GT SCH (08:59)
[2018-01-19] MEDS: AMIODARONE HCL 200 MG TABLET GT SCH (08:59)
[2018-01-19] MEDS: BALSAM PERU/CASTOR OIL 60 GM OINT...G. TP SCH (09:00)
[2018-01-19] MEDS: amLODIPine BESYLATE 5 MG TABLET GT SCH (09:00)
[2018-01-19] MEDS: VALPROIC ACID ORAL SYRUP 250 MG/5 ML UDC GT SCH ×3 (09:01→21:13)
[2018-01-19 09:06] LABS: BAND % (MANUAL) 4 % (0-6); LYMPHOCYTES % (MANUAL) 19 % (20-46)
[2018-01-19 09:07] LABS: ATYPICAL LYMPHOCYTES % 0 % (0-0); BASOPHILS % (MANUAL) 0 % (0-2); EOSINOPHILS % (MANUAL) 3 % (0-7); MONOCYTES % (MANUAL) 7 % (0-11)
[2018-01-19 09:10] VITALS: BP_SYST 118
[2018-01-19] MEDS: NACL 0.9% 1,000 ML IV SCH (12:22)
[2018-01-19 12:32] VITALS: BP_SYST 113
[2018-01-19] MEDS ORDERED: SODIUM POLYSTYRENE SULFONATE 15 GM/60 ML UDBTL GT ONE (14:30)
[2018-01-19 16:35] VITALS: BP_SYST 133
[2018-01-19 19:50] VITALS: BP_SYST 111
[2018-01-19] MEDS: COLISTIMETHATE SODIUM 150 MG VIAL INH SCH (20:17)
[2018-01-20 00:12] VITALS: BP_SYST 99
[2018-01-20] MEDS: METOCLOPRAMIDE HCL 10 MG TABLET GT SCH ×4 (00:45→18:55)
[2018-01-20] MEDS: NACL 0.9% 1,000 ML IV SCH ×2 (00:45→13:25)
[2018-01-20] MEDS: IPRATROPIUM/ALBUTEROL SULFATE 3 ML AMPUL.NEB INH SCH ×6 (03:45→23:05)
[2018-01-20 06:36] LABS: HEMATOCRIT 22.3 % (36-54); HEMOGLOBIN 7.6 g/dL (14.0-18.0); MEAN CORPUSCULAR VOLUME 99 fL (79.0-98.0); RED BLOOD CELL COUNT(AUTO) 2.25 MIL/uL (4.2-6.2); WHITE BLOOD COUNT (AUTO) 25.4 K/uL (4.8-10.8)
[2018-01-20 06:54] LABS: CALCIUM 8.3 mg/dL (8.4-11.0); CREATININE 2.36 mg/dL (0.55-1.30); POTASSIUM 4.9 mmol/L (3.5-5.1)
[2018-01-20 06:58] LABS: MEAN CORPUSCULAR HEMOGLOBIN 34 pg (27-31); MEAN CORPUSCULAR HGB CONC 34 % (32-36); PLATELET COUNT (AUTO) 500 K/uL (130-430); RED CELL DISTRIBUTION WIDTH 17.7 % (9.0-15.0)
[2018-01-20] MEDS: COLISTIMETHATE SODIUM 150 MG VIAL INH SCH ×2 (07:32→19:00)
[2018-01-20] MEDS: VALPROIC ACID ORAL SYRUP 250 MG/5 ML UDC GT SCH ×3 (08:27→21:55)
[2018-01-20] MEDS: PANTOPRAZOLE GRANULES PACKET 40 MG GT SCH (08:28)
[2018-01-20] MEDS: ASPIRIN 81 MG TAB.CHEW GT SCH (08:28)
[2018-01-20] MEDS: FERROUS SULFATE 300 MG/5 ML UDC GT SCH ×3 (08:28→21:55)
[2018-01-20] MEDS: GABAPENTIN 100 MG CAPSULE GT SCH ×3 (08:28→21:55)
[2018-01-20] MEDS: DOCUSATE SODIUM 100 MG/10 ML UDC GT SCH ×2 (08:28→21:54)
[2018-01-20] MEDS: amLODIPine BESYLATE 5 MG TABLET GT SCH (08:28)
[2018-01-20] MEDS: AMIODARONE HCL 200 MG TABLET GT SCH (08:29)
[2018-01-20] MEDS: DILTIAZEM HCL 60 MG TABLET GT SCH ×4 (08:29→22:01)
[2018-01-20] MEDS: BALSAM PERU/CASTOR OIL 60 GM OINT...G. TP SCH (08:31)
[2018-01-20 08:55] VITALS: BP_SYST 102
[2018-01-20 09:04] LABS: LYMPHOCYTES % (AUTO) 8.2 % (20.5-51.5); NEUTROPHILS % (AUTO) 70.2 % (40.0-70.0)
[2018-01-20 09:05] LABS: BASOPHILS % (AUTO) 1.1 % (0.0-2.0); EOSINOPHILS % (AUTO) 5.5 % (0.0-4.0); MONOCYTES % (AUTO) 15.1 % (1.7-9.3); NEUTROPHILS # (AUTO) 17.8 K/uL (1.8-7.7)
[2018-01-20 09:06] LABS: BASOPHILS # (AUTO) 0.3 K/uL (0.0-0.2); EOSINOPHILS # (AUTO) 1.4 K/uL (0.0-0.4); LYMPHOCYTES # (AUTO) 2.1 K/uL (1.0-5.5); MONOCYTES # (AUTO) 3.8 K/uL (0.0-1.0)
[2018-01-20 12:00] VITALS: BP_SYST 112
[2018-01-20] MEDS ORDERED: EPOETIN ALFA 4,000 UNITS/ML VIAL SUBCUT ONE (13:00)
[2018-01-20 16:00] VITALS: BP_SYST 108
[2018-01-20] MEDS: EPOETIN ALFA 4,000 UNITS/ML VIAL SUBCUT SCH (16:28)
[2018-01-20] MEDS: SOD FERRIC GLUC COMPLEX/SUC 125 MG in NS 100 ML IV SCH (16:29)
[2018-01-20] MEDS: NS IV SCH (18:55)
[2018-01-20] MEDS: TOBRAMYCIN SULFATE IV SCH (18:55)
[2018-01-20 19:10] VITALS: BP_SYST 110
[2018-01-21] MEDS: METOCLOPRAMIDE HCL 10 MG TABLET GT SCH ×5 (00:13→23:53)
[2018-01-21] MEDS: NACL 0.9% 1,000 ML IV SCH ×2 (00:14→18:14)
[2018-01-21 00:26] VITALS: BP_SYST 97
[2018-01-21] MEDS: ACETAMINOPHEN 650 MG/20.3 ML UDC GT PRN (02:18)
[2018-01-21] MEDS: IPRATROPIUM/ALBUTEROL SULFATE 3 ML AMPUL.NEB INH SCH ×6 (02:35→23:13)
[2018-01-21] MEDS: BALSAM PERU/CASTOR OIL 60 GM OINT...G. TP SCH (03:14)
[2018-01-21 06:49] LABS: HEMATOCRIT 22.2 % (36-54); HEMOGLOBIN 7.4 g/dL (14.0-18.0); MEAN CORPUSCULAR HGB CONC 33 % (32-36); RED CELL DISTRIBUTION WIDTH 17.4 % (9.0-15.0)
[2018-01-21] MEDS: COLISTIMETHATE SODIUM 150 MG VIAL INH SCH ×2 (07:00→19:53)
[2018-01-21 07:01] LABS: CALCIUM 8.1 mg/dL (8.4-11.0); CREATININE 2.7 mg/dL (0.55-1.30); POTASSIUM 4.7 mmol/L (3.5-5.1)
[2018-01-21 07:10] LABS: MEAN CORPUSCULAR HEMOGLOBIN 33 pg (27-31); MEAN CORPUSCULAR VOLUME 99 fL (79.0-98.0); PLATELET COUNT (AUTO) 467 K/uL (130-430); RED BLOOD CELL COUNT(AUTO) 2.24 MIL/uL (4.2-6.2); WHITE BLOOD COUNT (AUTO) 22.5 K/uL (4.8-10.8)
[2018-01-21 07:52] LABS: BAND % (MANUAL) 7 % (0-6); LYMPHOCYTES % (MANUAL) 6 % (20-46); MONOCYTES % (MANUAL) 10 % (0-11)
[2018-01-21 07:53] LABS: BASOPHILS % (MANUAL) 0 % (0-2); EOSINOPHILS % (MANUAL) 6 % (0-7)
[2018-01-21] MEDS: amLODIPine BESYLATE 5 MG TABLET GT SCH (09:00)
[2018-01-21] MEDS: DOCUSATE SODIUM 100 MG/10 ML UDC GT SCH ×2 (09:16→21:19)
[2018-01-21] MEDS: PANTOPRAZOLE GRANULES PACKET 40 MG GT SCH (09:16)
[2018-01-21] MEDS: DILTIAZEM HCL 60 MG TABLET GT SCH ×4 (09:17→21:20)
[2018-01-21] MEDS: ASPIRIN 81 MG TAB.CHEW GT SCH (09:17)
[2018-01-21] MEDS: FERROUS SULFATE 300 MG/5 ML UDC GT SCH ×3 (09:17→21:19)
[2018-01-21] MEDS: AMIODARONE HCL 200 MG TABLET GT SCH (09:18)
[2018-01-21] MEDS: GABAPENTIN 100 MG CAPSULE GT SCH ×3 (09:19→21:19)
[2018-01-21] MEDS: VALPROIC ACID ORAL SYRUP 250 MG/5 ML UDC GT SCH ×3 (09:19→21:19)
[2018-01-21 11:33] LABS: INR 1.2 (0.80-1.20); PROTHROMBIN TIME 12.1 SECS (9.5-12.5)
[2018-01-21 12:20] VITALS: BP_SYST 106
[2018-01-21] MEDS: SOD FERRIC GLUC COMPLEX/SUC 125 MG in NS 100 ML IV SCH (13:01)
[2018-01-21 16:29] VITALS: BP_SYST 118
[2018-01-21 20:00] VITALS: BP_SYST 115
[2018-01-22 00:02] VITALS: BP_SYST 112
[2018-01-22] MEDS: IPRATROPIUM/ALBUTEROL SULFATE 3 ML AMPUL.NEB INH SCH ×6 (03:40→23:42)
[2018-01-22] MEDS: METOCLOPRAMIDE HCL 10 MG TABLET GT SCH ×4 (06:20→23:16)
[2018-01-22 06:30] LABS: BASOPHILS # (AUTO) 0.1 K/uL (0.0-0.2); BASOPHILS % (AUTO) 0.5 % (0.0-2.0); EOSINOPHILS # (AUTO) 0.8 K/uL (0.0-0.4); EOSINOPHILS % (AUTO) 3.2 % (0.0-4.0); HEMATOCRIT 22.7 % (36-54); HEMOGLOBIN 7.3 g/dL (14.0-18.0); MEAN CORPUSCULAR HEMOGLOBIN 32 pg (27-31); MEAN CORPUSCULAR HGB CONC 32 % (32-36); MEAN CORPUSCULAR VOLUME 98 fL (79.0-98.0); MONOCYTES # (AUTO) 3.2 K/uL (0.0-1.0); MONOCYTES % (AUTO) 13.2 % (1.7-9.3); NEUTROPHILS # (AUTO) 18.9 K/uL (1.8-7.7); NEUTROPHILS % (AUTO) 79.1 % (40.0-70.0); PLATELET COUNT (AUTO) 468 K/uL (130-430); RED CELL DISTRIBUTION WIDTH 17.5 % (9.0-15.0)
[2018-01-22] MEDS: NACL 0.9% 1,000 ML IV SCH ×2 (06:33→18:28)
[2018-01-22 06:47] LABS: CALCIUM 8.3 mg/dL (8.4-11.0); CREATININE 2.51 mg/dL (0.55-1.30); POTASSIUM 4.6 mmol/L (3.5-5.1)
[2018-01-22] MEDS: COLISTIMETHATE SODIUM 150 MG VIAL INH SCH (07:25)
[2018-01-22 08:29] VITALS: BP_SYST 121
[2018-01-22] MEDS: VALPROIC ACID ORAL SYRUP 250 MG/5 ML UDC GT SCH ×3 (09:58→20:24)
[2018-01-22] MEDS: FERROUS SULFATE 300 MG/5 ML UDC GT SCH ×3 (09:58→20:24)
[2018-01-22] MEDS: DOCUSATE SODIUM 100 MG/10 ML UDC GT SCH ×2 (09:59→20:24)
[2018-01-22] MEDS: PANTOPRAZOLE GRANULES PACKET 40 MG GT SCH (09:59)
[2018-01-22] MEDS: ASPIRIN 81 MG TAB.CHEW GT SCH (09:59)
[2018-01-22] MEDS: AMIODARONE HCL 200 MG TABLET GT SCH (10:00)
[2018-01-22] MEDS: GABAPENTIN 100 MG CAPSULE GT SCH ×3 (10:00→20:24)
[2018-01-22] MEDS: amLODIPine BESYLATE 5 MG TABLET GT SCH (10:01)
[2018-01-22] MEDS: DILTIAZEM HCL 60 MG TABLET GT SCH ×4 (10:01→20:22)
[2018-01-22] MEDS: BALSAM PERU/CASTOR OIL 60 GM OINT...G. TP SCH (10:02)
[2018-01-22 12:00] VITALS: BP_SYST 95
[2018-01-22 16:00] VITALS: BP_SYST 103
[2018-01-22] MEDS: EPOETIN ALFA 4,000 UNITS/ML VIAL SUBCUT SCH (18:29)
[2018-01-22 19:20] VITALS: BP_SYST 140
[2018-01-22] MEDS: NS IV SCH (21:21)
[2018-01-22] MEDS: TOBRAMYCIN SULFATE IV SCH (21:21)
[2018-01-22 23:30] VITALS: BP_SYST 110
[2018-01-23] MEDS: IPRATROPIUM/ALBUTEROL SULFATE 3 ML AMPUL.NEB INH SCH ×6 (03:57→22:15)
[2018-01-23] MEDS: METOCLOPRAMIDE HCL 10 MG TABLET GT SCH ×3 (06:17→17:17)
[2018-01-23] MEDS: NACL 0.9% 1,000 ML IV SCH ×2 (06:19→12:10)
[2018-01-23 06:51] LABS: CREATININE 2.43 mg/dL (0.55-1.30); POTASSIUM 4.9 mmol/L (3.5-5.1)
[2018-01-23 06:57] LABS: HEMATOCRIT 23.5 % (36-54); HEMOGLOBIN 7.6 g/dL (14.0-18.0); MEAN CORPUSCULAR HEMOGLOBIN 33 pg (27-31); MEAN CORPUSCULAR HGB CONC 32 % (32-36); MEAN CORPUSCULAR VOLUME 101 fL (79.0-98.0); PLATELET COUNT (AUTO) 493 K/uL (130-430); RED BLOOD CELL COUNT(AUTO) 2.33 MIL/uL (4.2-6.2); RED CELL DISTRIBUTION WIDTH 18.3 % (9.0-15.0); WHITE BLOOD COUNT (AUTO) 29.3 K/uL (4.8-10.8)
[2018-01-23 07:58] VITALS: BP_SYST 113
[2018-01-23] MEDS: ASPIRIN 81 MG TAB.CHEW GT SCH (09:09)
[2018-01-23] MEDS: AMIODARONE HCL 200 MG TABLET GT SCH (09:09)
[2018-01-23] MEDS: PANTOPRAZOLE GRANULES PACKET 40 MG GT SCH (09:10)
[2018-01-23] MEDS: DOCUSATE SODIUM 100 MG/10 ML UDC GT SCH ×2 (09:10→20:36)
[2018-01-23] MEDS: GABAPENTIN 100 MG CAPSULE GT SCH ×3 (09:10→20:36)
[2018-01-23] MEDS: VALPROIC ACID ORAL SYRUP 250 MG/5 ML UDC GT SCH ×3 (09:13→20:36)
[2018-01-23] MEDS: amLODIPine BESYLATE 5 MG TABLET GT SCH (09:14)
[2018-01-23] MEDS: DILTIAZEM HCL 60 MG TABLET GT SCH ×4 (09:15→20:35)
[2018-01-23] MEDS: FERROUS SULFATE 300 MG/5 ML UDC GT SCH ×3 (09:15→20:36)
[2018-01-23] MEDS: BALSAM PERU/CASTOR OIL 60 GM OINT...G. TP SCH (09:16)
[2018-01-23 10:14] LABS: BAND % (MANUAL) 3 % (0-6); BASOPHILS % (MANUAL) 0 % (0-2); EOSINOPHILS % (MANUAL) 3 % (0-7); LYMPHOCYTES % (MANUAL) 3 % (20-46); MONOCYTES % (MANUAL) 2 % (0-11)
[2018-01-23 12:22] VITALS: BP_SYST 106
[2018-01-23 16:10] VITALS: BP_SYST 125
[2018-01-24] VITALS (8 sets, daily range): BP systolic 97–135
[2018-01-24] MEDS: IPRATROPIUM/ALBUTEROL SULFATE 3 ML AMPUL.NEB INH SCH ×6 (03:11→23:05)
[2018-01-24] MEDS: METOCLOPRAMIDE HCL 10 MG TABLET GT SCH ×4 (06:05→17:05)
[2018-01-24] MEDS: PANTOPRAZOLE GRANULES PACKET 40 MG GT SCH (08:42)
[2018-01-24] MEDS: GABAPENTIN 100 MG CAPSULE GT SCH ×3 (08:42→21:55)
[2018-01-24] MEDS: ASPIRIN 81 MG TAB.CHEW GT SCH (08:42)
[2018-01-24] MEDS: DOCUSATE SODIUM 100 MG/10 ML UDC GT SCH ×2 (08:43→21:53)
[2018-01-24] MEDS: FERROUS SULFATE 300 MG/5 ML UDC GT SCH ×3 (08:43→21:55)
[2018-01-24] MEDS: AMIODARONE HCL 200 MG TABLET GT SCH (08:44)
[2018-01-24] MEDS: amLODIPine BESYLATE 5 MG TABLET GT SCH (08:44)
[2018-01-24] MEDS: DILTIAZEM HCL 60 MG TABLET GT SCH ×4 (08:45→21:53)
[2018-01-24] MEDS: VALPROIC ACID ORAL SYRUP 250 MG/5 ML UDC GT SCH ×3 (08:45→21:54)
[2018-01-24] MEDS: BALSAM PERU/CASTOR OIL 60 GM OINT...G. TP SCH (08:46)
[2018-01-24] MEDS: NACL 0.9% 1,000 ML IV SCH (13:01)
[2018-01-24] MEDS: ACETAMINOPHEN 650 MG/20.3 ML UDC GT PRN (17:05)
[2018-01-25 00:16] VITALS: BP_SYST 111
[2018-01-25] MEDS: METOCLOPRAMIDE HCL 10 MG TABLET GT SCH ×4 (00:51→18:44)
[2018-01-25] MEDS: ACETAMINOPHEN 650 MG/20.3 ML UDC GT PRN (01:11)
[2018-01-25] MEDS: IPRATROPIUM/ALBUTEROL SULFATE 3 ML AMPUL.NEB INH SCH ×6 (02:10→23:01)
[2018-01-25 06:58] LABS: EOSINOPHILS # (AUTO) 0.1 K/uL (0.0-0.4)
[2018-01-25 07:34] LABS: BASOPHILS # (AUTO) 0.2 K/uL (0.0-0.2); BASOPHILS % (AUTO) 0.5 % (0.0-2.0); EOSINOPHILS % (AUTO) 0.3 % (0.0-4.0); LYMPHOCYTES # (AUTO) 0.6 K/uL (1.0-5.5); MEAN CORPUSCULAR HEMOGLOBIN 33 pg (27-31); MEAN CORPUSCULAR HGB CONC 33 % (32-36); MEAN CORPUSCULAR VOLUME 102 fL (79.0-98.0); MONOCYTES # (AUTO) 2.9 K/uL (0.0-1.0); MONOCYTES % (AUTO) 9.5 % (1.7-9.3); NEUTROPHILS # (AUTO) 26.9 K/uL (1.8-7.7); NEUTROPHILS % (AUTO) 87.7 % (40.0-70.0); PLATELET COUNT (AUTO) 347 K/uL (130-430); RED BLOOD CELL COUNT(AUTO) 2.01 MIL/uL (4.2-6.2); RED CELL DISTRIBUTION WIDTH 18.7 % (9.0-15.0)
[2018-01-25 07:49] LABS: HEMOGLOBIN 6.7 g/dL (14.0-18.0)
[2018-01-25 07:50] LABS: HEMATOCRIT 20.5 % (36-54); WHITE BLOOD COUNT (AUTO) 30.7 K/uL (4.8-10.8)
[2018-01-25 07:59] LABS: CALCIUM 8.3 mg/dL (8.4-11.0); CREATININE 2.54 mg/dL (0.55-1.30); POTASSIUM 4.2 mmol/L (3.5-5.1); TOTAL BILIRUBIN 0.3 mg/dL (0.0-1.0)
[2018-01-25 08:00] VITALS: BP_SYST 98
[2018-01-25] MEDS: DILTIAZEM HCL 60 MG TABLET GT SCH ×4 (09:00→21:25)
[2018-01-25] MEDS: amLODIPine BESYLATE 5 MG TABLET GT SCH (09:00)
[2018-01-25] MEDS: AMIODARONE HCL 200 MG TABLET GT SCH (09:00)
[2018-01-25] MEDS: DOCUSATE SODIUM 100 MG/10 ML UDC GT SCH ×2 (09:26→21:26)
[2018-01-25] MEDS: FERROUS SULFATE 300 MG/5 ML UDC GT SCH ×3 (09:26→21:27)
[2018-01-25] MEDS: VALPROIC ACID ORAL SYRUP 250 MG/5 ML UDC GT SCH ×3 (09:27→21:26)
[2018-01-25] MEDS: GABAPENTIN 100 MG CAPSULE GT SCH ×3 (09:27→21:26)
[2018-01-25] MEDS: ASPIRIN 81 MG TAB.CHEW GT SCH (09:28)
[2018-01-25] MEDS: PANTOPRAZOLE GRANULES PACKET 40 MG GT SCH ×2 (09:28→21:26)
[2018-01-25] MEDS ORDERED: LIDOCAINE 1% 10 MG/ML, 20 ML MDV INJ ONE (09:30)
[2018-01-25] MEDS ORDERED: 0.45% NACL 1,000 ML IV SCH (09:30)
[2018-01-25] MEDS ORDERED: LIDOCAINE 1%, 20 ML MDV 20 ML ONE (09:37)
[2018-01-25] MEDS: BALSAM PERU/CASTOR OIL 60 GM OINT...G. TP SCH (11:58)
[2018-01-25 12:33] VITALS: BP_SYST 90
[2018-01-25 14:15] LABS: BF APPEARANCE UNSPUN BLOODY (CLEAR); BODY FLUID SOURCE/ TYPE THORACENTESIS; SOURCE/TYPE ,BODY FLUID THORACENTESIS
[2018-01-25 14:16] LABS: APPEARANCE,SPUN,BODY FLUID TURBID (CLEAR); BODY FLUID COLOR YELLOW (LT YELLOW); BODY FLUID TOTAL VOLUME 1000 mL; LYMPHOCYTES, BODY FLUID 16 %; MONOCYTES,BODY FLUID 6 %; NEUTROPHIL, BODY FLUID 78 %; RBC, BODY FLUID 8111 /uL; WBC, BODY FLUID 1388 /uL
[2018-01-25 15:23] LABS: PLATELET COUNT (AUTO) 349 K/uL (130-430)
[2018-01-25 15:48] LABS: MEAN CORPUSCULAR HEMOGLOBIN 33 pg (27-31); MEAN CORPUSCULAR HGB CONC 32 % (32-36); MEAN CORPUSCULAR VOLUME 103 fL (79.0-98.0); RED CELL DISTRIBUTION WIDTH 19.1 % (9.0-15.0); WHITE BLOOD COUNT (AUTO) 29.6 K/uL (4.8-10.8)
[2018-01-25 15:53] LABS: RED BLOOD CELL COUNT(AUTO) 1.98 MIL/uL (4.2-6.2)
[2018-01-25 16:09] LABS: HEMATOCRIT 20.4 % (36-54); HEMOGLOBIN 6.5 g/dL (14.0-18.0)
[2018-01-25 16:36] VITALS: BP_SYST 98
[2018-01-25] MEDS: NACL 0.9% 1,000 ML IV SCH (16:48)
[2018-01-25 17:00] LABS: BAND % (MANUAL) 43 % (0-6); BASOPHILS % (MANUAL) 0 % (0-2); EOSINOPHILS % (MANUAL) 2 % (0-7); LYMPHOCYTES % (MANUAL) 3 % (20-46); MONOCYTES % (MANUAL) 12 % (0-11)
[2018-01-25 17:30] LABS: BODY FLUID GLUCOSE 100 mg/dL
[2018-01-25 17:31] LABS: BODY FLUID TOTAL PROTEIN 3.6 g/dL
[2018-01-25] MEDS: EPOETIN ALFA 4,000 UNITS/ML VIAL SUBCUT SCH (18:44)
[2018-01-25 20:00] VITALS: BP_SYST 132
[2018-01-26 00:16] VITALS: BP_SYST 119
[2018-01-26] MEDS: METOCLOPRAMIDE HCL 10 MG TABLET GT SCH ×4 (00:41→17:20)
[2018-01-26] MEDS: IPRATROPIUM/ALBUTEROL SULFATE 3 ML AMPUL.NEB INH SCH ×4 (03:40→15:00)
[2018-01-26] MEDS: NACL 0.9% 1,000 ML IV SCH ×2 (03:42→16:10)
[2018-01-26] MEDS: ACETAMINOPHEN 650 MG/20.3 ML UDC GT PRN (05:06)
[2018-01-26] MEDS: DILTIAZEM HCL 25 MG/5 ML VIAL IVP PRN (05:09)
[2018-01-26 06:42] LABS: BASOPHILS # (AUTO) 0.2 K/uL (0.0-0.2); HEMOGLOBIN 8.9 g/dL (14.0-18.0)
[2018-01-26 06:59] LABS: CALCIUM 8.9 mg/dL (8.4-11.0); CREATININE 2.73 mg/dL (0.55-1.30); POTASSIUM 4.1 mmol/L (3.5-5.1)
[2018-01-26 07:08] LABS: BASOPHILS % (AUTO) 0.6 % (0.0-2.0); HEMATOCRIT 26.7 % (36-54); LYMPHOCYTES # (AUTO) 0.2 K/uL (1.0-5.5); LYMPHOCYTES % (AUTO) 0.5 % (20.5-51.5); MEAN CORPUSCULAR HEMOGLOBIN 34 pg (27-31); MEAN CORPUSCULAR HGB CONC 34 % (32-36); MEAN CORPUSCULAR VOLUME 102 fL (79.0-98.0); MONOCYTES # (AUTO) 0.3 K/uL (0.0-1.0); NEUTROPHILS # (AUTO) 31.8 K/uL (1.8-7.7); NEUTROPHILS % (AUTO) 97.9 % (40.0-70.0); PLATELET COUNT (AUTO) 325 K/uL (130-430); RED BLOOD CELL COUNT(AUTO) 2.62 MIL/uL (4.2-6.2); RED CELL DISTRIBUTION WIDTH 18.1 % (9.0-15.0)
[2018-01-26 07:40] LABS: WHITE BLOOD COUNT (AUTO) 32.5 K/uL (4.8-10.8)
[2018-01-26 07:49] VITALS: BP_SYST 85
[2018-01-26 08:00] VITALS: BP_SYST 85
[2018-01-26] MEDS: GABAPENTIN 100 MG CAPSULE GT SCH ×2 (08:51→14:57)
[2018-01-26] MEDS: ASPIRIN 81 MG TAB.CHEW GT SCH (08:51)
[2018-01-26] MEDS: FERROUS SULFATE 300 MG/5 ML UDC GT SCH ×2 (08:51→14:57)
[2018-01-26] MEDS: PANTOPRAZOLE GRANULES PACKET 40 MG GT SCH (08:51)
[2018-01-26] MEDS: DOCUSATE SODIUM 100 MG/10 ML UDC GT SCH (08:51)
[2018-01-26] MEDS: PIPERACILLIN/TAZO 2.25G/DEX-IS 50 ML IV SCH ×2 (08:59→14:00)
[2018-01-26] MEDS: VALPROIC ACID ORAL SYRUP 250 MG/5 ML UDC GT SCH ×2 (08:59→14:56)
[2018-01-26] MEDS: AMIODARONE HCL 200 MG TABLET GT SCH (09:00)
[2018-01-26] MEDS: DILTIAZEM HCL 60 MG TABLET GT SCH ×3 (09:00→16:10)
[2018-01-26] MEDS: BALSAM PERU/CASTOR OIL 60 GM OINT...G. TP SCH (09:00)
[2018-01-26] MEDS ORDERED: DEXTROSE 50% JECT 50 ML DISP.SYRIN ONE (10:55)
[2018-01-26 11:11] VITALS: BP_SYST 76
[2018-01-26 11:54] VITALS: BP_SYST 76
[2018-01-26] MEDS: [UNRECOGNIZED DRUG - OTHER] IV PRN ×2 (15:21→19:38)
[2018-01-26] MEDS: HYDROMORPHONE IV PRN ×2 (15:21→19:38)
[2018-01-26] MEDS: SODIUM CHLORIDE IV PRN ×2 (15:21→19:38)
[2018-01-26] MEDS ORDERED: COMMUNICATION ORDER XX ONE (20:00)
[2018-01-27] MEDS ORDERED: NS IV PRN ×2
[2018-01-27] MEDS ORDERED: [UNRECOGNIZED DRUG - OTHER] IV PRN ×2
[2018-01-27] MEDS ORDERED: NS IV SCH (09:00)
[2018-01-27] MEDS ORDERED: TOBRAMYCIN SULFATE IV SCH (09:00)
== END 2018-01-26 23:15 | disposition expired | DRG 710 ==
LOC: SED 20:09 → UNDOADMIN 23:33 → STU 23:33 → SIC 09-17 16:30 → STU 09-18 13:02
PROVIDERS: ADMIT Internal Medicine; ATTEND Internal Medicine
PROC: 5A1955Z Respiratory Ventilation, Greater than 96 Consecutive Hours (ICD-10-PCS; 2017-05-23)
PROC: 30233N1 Transfusion of Nonautologous Red Blood Cells into Peripheral Vein, Percutaneous Approach (ICD-10-PCS; 2017-05-24)
PROC: 0QB10ZZ Excision of Sacrum, Open Approach (ICD-10-PCS; 2017-05-26)
PROC: 0D1N0Z4 Bypass Sigmoid Colon to Cutaneous, Open Approach (ICD-10-PCS; principal; 2017-05-26 09:00)
PROC: 0BCB8ZZ Extirpation of Matter from Left Lower Lobe Bronchus, Via Natural or Artificial Opening Endoscopic (ICD-10-PCS; 2017-06-03)
PROC: 0B9J8ZX Drainage of Left Lower Lung Lobe, Via Natural or Artificial Opening Endoscopic, Diagnostic (ICD-10-PCS; 2017-06-03)
PROC: 02HV33Z Insertion of Infusion Device into Superior Vena Cava, Percutaneous Approach (ICD-10-PCS; 2017-06-21)
PROC: 0JB70ZZ Excision of Back Subcutaneous Tissue and Fascia, Open Approach (ICD-10-PCS; 2017-06-25)
PROC: 0QBS0ZZ Excision of Coccyx, Open Approach (ICD-10-PCS; 2017-07-08)
PROC: 0QB10ZZ Excision of Sacrum, Open Approach (ICD-10-PCS; 2017-07-08)
PROC: 0DP6XUZ Removal of Feeding Device from Stomach, External Approach (ICD-10-PCS; 2017-09-17)
PROC: 0DH60UZ Insertion of Feeding Device into Stomach, Open Approach (ICD-10-PCS; 2017-09-17)
PROC: 0DH63UZ Insertion of Feeding Device into Stomach, Percutaneous Approach (ICD-10-PCS; 2017-09-17)
PROC: 0J980ZZ Drainage of Abdomen Subcutaneous Tissue and Fascia, Open Approach (ICD-10-PCS; 2017-09-17)
PROC: 0JBL0ZZ Excision of Right Upper Leg Subcutaneous Tissue and Fascia, Open Approach (ICD-10-PCS; 2017-12-05)
PROC: 0QB10ZZ Excision of Sacrum, Open Approach (ICD-10-PCS; 2017-12-05)
PROC: 0BC18ZZ Extirpation of Matter from Trachea, Via Natural or Artificial Opening Endoscopic (ICD-10-PCS; 2017-12-14)
PROC: 0BCB8ZZ Extirpation of Matter from Left Lower Lobe Bronchus, Via Natural or Artificial Opening Endoscopic (ICD-10-PCS; 2017-12-14)
PROC: 0B9J8ZX Drainage of Left Lower Lung Lobe, Via Natural or Artificial Opening Endoscopic, Diagnostic (ICD-10-PCS; 2017-12-14)
PROC: 0BJ08ZZ Inspection of Tracheobronchial Tree, Via Natural or Artificial Opening Endoscopic (ICD-10-PCS; 2018-01-07)
PROC: 0W9B3ZZ Drainage of Left Pleural Cavity, Percutaneous Approach (ICD-10-PCS; 2018-01-08)
PROC: 0W9B3ZZ Drainage of Left Pleural Cavity, Percutaneous Approach (ICD-10-PCS; 2018-01-25)
DX: A41.9 Sepsis, unspecified organism (principal); E43 Unspecified severe protein-calorie malnutrition; J90 Pleural effusion, not elsewhere classified; G93.1 Anoxic brain damage, not elsewhere classified; J94.2 Hemothorax; J15.1 Pneumonia due to Pseudomonas; L89.154 Pressure ulcer of sacral region, stage 4; N17.9 Acute kidney failure, unspecified; I12.0 Hypertensive chronic kidney disease with stage 5 chronic kidney disease or end stage renal disease; N18.6 End stage renal disease; L89.213 Pressure ulcer of right hip, stage 3; G61.0 Guillain-Barre syndrome; E87.0 Hyperosmolality and hypernatremia; D72.1 Eosinophilia; J44.0 Chronic obstructive pulmonary disease with (acute) lower respiratory infection; J96.10 Chronic respiratory failure, unspecified whether with hypoxia or hypercapnia; B18.2 Chronic viral hepatitis C; R53.2 Functional quadriplegia; E87.6 Hypokalemia; E83.42 Hypomagnesemia; E86.0 Dehydration; E11.22 Type 2 diabetes mellitus with diabetic chronic kidney disease; G40.909 Epilepsy, unspecified, not intractable, without status epilepticus; M86.8X8 Other osteomyelitis, other site; E11.69 Type 2 diabetes mellitus with other specified complication; F32.9 Major depressive disorder, single episode, unspecified; K21.9 Gastro-esophageal reflux disease without esophagitis; B37.49 Other urogenital candidiasis; G89.4 Chronic pain syndrome; I48.0 Paroxysmal atrial fibrillation; I48.2 Chronic atrial fibrillation; E78.5 Hyperlipidemia, unspecified; E11.51 Type 2 diabetes mellitus with diabetic peripheral angiopathy without gangrene; R23.4 Changes in skin texture; I47.1 Supraventricular tachycardia; E03.9 Hypothyroidism, unspecified; B95.62 Methicillin resistant Staphylococcus aureus infection as the cause of diseases classified elsewhere; Y92.238 Other place in hospital as the place of occurrence of the external cause; D47.3 Essential (hemorrhagic) thrombocythemia; T17.490A Other foreign object in trachea causing asphyxiation, initial encounter; J98.11 Atelectasis; D63.1 Anemia in chronic kidney disease; K94.23 Gastrostomy malfunction; K94.29 Other complications of gastrostomy; Y83.9 Surgical procedure, unspecified as the cause of abnormal reaction of the patient, or of later complication, without mention of misadventure at the time of the procedure; Z66 Do not resuscitate; L03.311 Cellulitis of abdominal wall; L02.211 Cutaneous abscess of abdominal wall; Z16.24 Resistance to multiple antibiotics; E87.1 Hypo-osmolality and hyponatremia; T17.890A Other foreign object in other parts of respiratory tract causing asphyxiation, initial encounter; X58.XXXA Exposure to other specified factors, initial encounter; Y93.89 Activity, other specified; Y92.89 Other specified places as the place of occurrence of the external cause; Y99.8 Other external cause status; Z88.5 Allergy status to narcotic agent; Z87.891 Personal history of nicotine dependence; Z99.11 Dependence on respirator [ventilator] status; Z68.20 Body mass index [BMI] 20.0-20.9, adult; Z88.8 Allergy status to other drugs, medicaments and biological substances; Z79.899 Other long term (current) drug therapy; Z79.82 Long term (current) use of aspirin; Z93.0 Tracheostomy status; Z86.61 Personal history of infections of the central nervous system
CPT/HCPCS: 31624; 31625; 32555; 36415; 36600; 70450-TC; 71010; 71045; 71250-TC; 71260-TC; 72192-TC; 74018; 74240-TC; 76604; 76700-TC; 80048; 80053; 80150; 80162-TC; 80164-TC; 80170-TC; 80200; 81000-TC; 82040-TC; 82272; 82306; 82533; 82570-TC; 82607; 82746; 82803-TC; 82947-TC; 82962; 83036; 83540-TC; 83550-TC; 83605; 83615-TC; 83735-TC; 83880; 84100-TC; 84134; 84157-TC; 84302-TC; 84439; 84443-TC; 84484; 85007; 85025; 85027; 85610-TC; 85651-TC; 85730-TC; 86140; 86886; 86900; 86901; 86920; 87040-TC; 87070; 87070-TC; 87075-TC; 87081; 87086; 87101; 87116; 87186-TC; 87205-TC; 87210-TC; 87230-TC; 88108; 88304; 88305; 88307; 89051-TC; 89060-TC; 93005; 93306; 93971; 94002; 94003; 94640; 94668; 94760; 96361; 96365; 97110-GP; 97530-GP; 99285; A4371; A4409; A5061; A6550; A9547; C1729; C1751; C9113; J0278; J0282; J0692; J0696; J0713; J0770; J0885; J1160; J1170; J1200; J1450; J1580; J1815; J1940; J1956; J2001; J2020; J2060; J2175; J2250; J2270; J2405; J2543; J2704; J2710; J2765; J2916; J3010; J3260; J3475; J3480; J3490; J7030; J7040; J7042; J7050; J7060; J7120; J7512; J7620; J8597; P9021; Q9963; Q9964; Q9967